=== PATIENT | male | born 1965 | race Caucasian/White ===

== ENCOUNTER → 2016-07-21 | Outpatient (CLI) | payer OTHER ==
--- NOTE | 2016-07-21 20:40 | MR ---
EXAMINATION TYPE: MR brain wo con DATE OF EXAM: 07/21/2016 5:28 PM COMPARISON: NONE HISTORY: Headache per order. pt. fell 30 years ago, hx of being dizzy and hearing loss on Right side per patient. TECHNIQUE: Multiplanar, multisequence imaging of the brain and brainstem are all performed without IV contrast. FINDINGS: Exam is noted suboptimal as patient continue to follow sleep and moved when not sleeping, cervical spine imaging could not be performed in entirety and will be repeated at later date. BRAIN: Diffusion weighted images demonstrate no evidence of a recent infarct or other diffusion abnormality. There is no extraaxial fluid collection or significant white matter signal abnormality. There is vent ricular and sulcal prominence consistent with mild age-related cerebral atrophy.. Midline structures demonstrate normal morphology. The craniocervical junction appears within normal limits. Normal vascular flow voids are present. Dominant left vertebral artery is incidentally noted. Mild to moderate mucosal thickening involving anterior left ethmoid sinus is present otherwise paran everett sinuses are clear. The globes are intact bilaterally. No suspicious fluid signal mastoid air micki ls is present bilaterally. IMPRESSION: Suboptimal study, mild diffuse age-related cerebral atrophy is seen. Chronic left anterio r ethmoid sinus disease is noted.
== END | disposition home or self-care (01) ==
LOC: RADMRIMAIN 14:46
PROVIDERS: ATTEND Nurse Practitioner Acute Care
DX: G31.1 Senile degeneration of brain, not elsewhere classified (principal); M54.2 Cervicalgia
CPT/HCPCS: 70551

== ENCOUNTER 2018-02-26 16:51 | Emergency (ER) | payer OTHER ==
[2018-02-26 17:33] VITALS: BP 141/92; PULSE 95; RESP 18; TEMP 98.3
--- NOTE | 2018-02-26 17:56 | XR ---
EXAMINATION TYPE: XR hand complete RT DATE OF EXAM: 02/26/2018 COMPARISON: NONE HISTORY: Pain TECHNIQUE: 3 views FINDINGS: Metacarpals appear intact. I see no fracture nor dislocation. There is soft tissue swelling over the dorsum of the hand. There is some spurring at the IP joints. IMPRESSION: Minor degenerative changes. Soft tissue swelling. No fracture seen.
--- NOTE | 2018-02-26 18:21 | ED ---
General Adult HPI - General Chief complaint: Extremity Injury, Upper Stated complaint: rt hand injury Time Seen by Provider: 02/26/18 17:38 Source: patient, RN notes reviewed Mode of arrival: ambulatory Limitations: no limitations - History of Present Illness Initial comments: Patient 53-year-old presenting to the emergency room today with chief complaint of an injury to the right hand that occurred 2 days ago. Patient does admit that he punched a porch. He does not that his had swelling over the last 2 days which has improved some but it still painful with certain movements. Patient does admit to being right-handed. He denies any other injury or complaint. Patient denies any recent fever, chills, shortness of breath, chest pain, back pain, abdominal pain, nausea or vomiting, numbness or tingling, headaches or visual changes, or any other complaints. - Related Data Home Medications Medication Instructions Recorded Confirmed Bisoprolol-Hctz 5-6.25 mg [Ziac 1 tab PO DAILY 02/26/18 02/26/18 5-6.25] Escitalopram [Lexapro] 20 mg PO DAILY 02/26/18 02/26/18 Ipratropium-Albuterol Nebulize 3 ml INHALATION RT-Q6H PRN 02/26/18 02/26/18 [Duoneb 0.5 mg-3 mg/3 ml Soln] Methylphenidate HCl 20 mg PO DAILY 02/26/18 02/26/18 Ranitidine HCl 300 mg PO HS 02/26/18 02/26/18 Simvastatin [Zocor] 20 mg PO HS 02/26/18 02/26/18 Tamsulosin HCl [Flomax] 0.4 mg PO DAILY 02/26/18 02/26/18 traZODone HCL 50 mg PO HS 02/26/18 02/26/18 Allergies Allergy/AdvReac Type Severity Reaction Status Date / Time No Known Allergies Allergy Verified 02/26/18 17:52 Review of Systems ROS Statement: Those systems with pertinent positive or pertinent negative responses have been documented in the HPI. ROS Other: All systems not noted in ROS Statement are negative. Past Medical History Past Medical History: Asthma, COPD, GERD/Reflux, Hyperlipidemia, Hypertension, Osteoarthritis (OA) Additional Past Medical History / Comment(s): BACK AND HIP PAIN, DIFFICULTY WALKING DISTANCE., HX OF ULCERS AND BLOOD IN STOOL. History of Any Multi-Drug Resistant Organisms: None Reported Past Surgical History: Hernia Repair Additional Past Surgical History / Comment(s): HERNIA REPAIR AT 5 & 7 YEARS OLD. Past Anesthesia/Blood Transfusion Reactions: No Reported Reaction Additional Past Anesthesia/Blood Transfusion Reaction / Comment(s): DOES NOT REMEMBER ANY ANESTHESIA PROBLEMS A CHILD. Past Psychological History: No Psychological Hx Reported Smoking Status: Current every day smoker Past Alcohol Use History: Daily Past Drug Use History: None Reported - Past Family History Mother Family Medical History: No Reported History General Exam - General Exam Comments Initial Comments: General: The patient is awake and alert, in no distress, and does not appear acutely ill. Neck: The neck is supple, there is no tenderness or JVD. Musculoskeletal: Patient does have moderate swelling to the right hand. Shows good range of motion with flexion and extension. He does have some mild tenderness over the third digit and in the fourth and fifth metacarpal bones. Patient sensations are intact. Radial pulses 2+. Neurological: A&O x 3. CN II-XII intact, There are no obvious motor or sensory deficits. Coordination appears grossly intact. Speech is normal. Skin: Skin is warm and dry and no rashes or lesions are noted. Psychiatric: Normal mood and affect. Limitations: no limitations Course Vital Signs 02/26/18 17:31 Temperature 98.3 F Pulse Rate 95 Respiratory 18 Rate Blood Pressure 141/92 O2 Sat by Pulse 98 Oximetry Medical Decision Making - Medical Decision Making X-rays reviewed are negative for any acute fracture dislocation. Results were discussed with patient. Patient is advised to ice elevate and use ibuprofen for pain. He is advised follow-up with orthopedics over the next 7-10 days if symptoms persist for repeat x-ray. Patient states understanding and is in agreement. Disposition Clinical Impression: Hand contusion Disposition: HOME SELF-CARE Condition: Good Instructions: Hand Sprain (ED) Additional Instructions: Please continue ice elevate the affected area and follow-up with orthopedics in 7-10 days if symptoms persist for repeat x-rays. Please continue ibuprofen for pain and return to the emergency room for any other concerns. Is patient prescribed a controlled substance at d/c from ED?: No Referrals: Mariana Nesbitt MD [Primary Care Provider] - 1-2 days Tom Mariano DO [Doctor of Osteopathic Medicine] - 1-2 days Time of Disposition: 18:20
== END 2018-02-26 18:47 | disposition home or self-care (01) ==
LOC: EC 16:51
DX: S60.221A Contusion of right hand, initial encounter (principal); J44.9 Chronic obstructive pulmonary disease, unspecified; K21.9 Gastro-esophageal reflux disease without esophagitis; E78.5 Hyperlipidemia, unspecified; I10 Essential (primary) hypertension; M19.90 Unspecified osteoarthritis, unspecified site; F17.200 Nicotine dependence, unspecified, uncomplicated; Z79.899 Other long term (current) drug therapy; W22.8XXA Striking against or struck by other objects, initial encounter
CPT/HCPCS: 99283

== ENCOUNTER → 2020-04-16 | Outpatient (CLI) | payer OTHER ==
--- NOTE | 2020-04-16 14:11 | XR ---
EXAMINATION TYPE: XR chest 2V DATE OF EXAM: 04/16/2020 COMPARISON: NONE HISTORY: Cough and shortness of breath TECHNIQUE: Frontal and lateral views of the chest are obtained. FINDINGS: There is no focal air space opacity, pleural effusion, or pneumothorax seen. The anterior rib margin of the fifth rib on the right there is questionable nodular density. Prominent lung volume s with increased gestational airspace is present, there may be underlying COPD. The cardiac silhouett e size is within normal limits. Bronchial wall thickening. The osseous structures are intact there i s a spinal curvature.. IMPRESSION: Difficult to exclude lung nodule although findings may be artifactual. Consider short in terval follow-up. Correlate for underlying COPD, bronchitis.
== END | disposition home or self-care (01) ==
LOC: LABWHC1 13:44
PROVIDERS: ATTEND Internal Medicine
DX: R91.1 Solitary pulmonary nodule (principal); R05 Cough; R06.02 Shortness of breath
CPT/HCPCS: 71046

== ENCOUNTER 2023-04-21 13:20 | Emergency (ER) | payer OTHER ==
--- NOTE | 2023-04-21 14:17 | ED ---
General Adult HPI - General Chief complaint: Neuro Symptoms/Deficit Stated complaint: Facial weakness Time Seen by Provider: 04/21/23 13:40 Source: patient, RN notes reviewed Mode of arrival: wheelchair Limitations: no limitations - History of Present Illness Initial comments: Patient is a pleasant 58-year-old male presenting to the emergency department with concerns for facial weakness. Onset of symptoms was 05/07 when he woke in the morning. Symptoms have been persistent since that time. Patient has right- sided facial weakness. Patient states it is difficult to fully open and close his right eye. Patient states it does tear at times. Patient states occasionally there is some drooling from the right side of the mouth. No extremity weakness. No visual changes. No confusion or speech problem other than difficulty with mouth. - Related Data Home Medications Medication Instructions Recorded Confirmed Bisoprolol-Hctz 5-6.25 mg [Ziac 1 tab PO DAILY 02/26/18 02/26/18 5-6.25] Escitalopram [Lexapro] 20 mg PO DAILY 02/26/18 02/26/18 Ipratropium-Albuterol Nebulize 3 ml INHALATION RT-Q6H PRN 02/26/18 02/26/18 [Duoneb 0.5 mg-3 mg/3 ml Soln] Methylphenidate HCl 20 mg PO DAILY 02/26/18 02/26/18 Simvastatin [Zocor] 20 mg PO HS 02/26/18 02/26/18 Tamsulosin HCl [Flomax] 0.4 mg PO DAILY 02/26/18 02/26/18 raNITIdine HCL [Ranitidine HCl] 300 mg PO HS 02/26/18 02/26/18 traZODone HCL 50 mg PO HS 02/26/18 02/26/18 Previous Rx's Medication Instructions Recorded Ibuprofen [Motrin] 600 mg PO Q6HR PRN #40 day 02/26/18 predniSONE [Deltasone] 3 tab PO DAILY #21 tab 04/21/23 valACYclovir HCL [Valtrex] 1 tab PO TID #21 tablet 04/21/23 Allergies Allergy/AdvReac Type Severity Reaction Status Date / Time No Known Allergies Allergy Verified 04/21/23 13:22 Review of Systems ROS Statement: Those systems with pertinent positive or pertinent negative responses have been documented in the HPI. ROS Other: All systems not noted in ROS Statement are negative. Constitutional: Denies: fever Eyes: Reports: as per HPI. Denies: eye pain ENT: Denies: ear pain Respiratory: Denies: cough, dyspnea Cardiovascular: Denies: chest pain Endocrine: Denies: fatigue Gastrointestinal: Denies: abdominal pain Genitourinary: Denies: dysuria Musculoskeletal: Denies: back pain Skin: Denies: rash Neurological: Reports: as per HPI. Denies: headache, confusion, abnormal gait, vertigo Past Medical History Past Medical History: Asthma, COPD, GERD/Reflux, Hyperlipidemia, Hypertension, Osteoarthritis (OA) Additional Past Medical History / Comment(s): BACK AND HIP PAIN, DIFFICULTY WALKING DISTANCE., HX OF ULCERS AND BLOOD IN STOOL. History of Any Multi-Drug Resistant Organisms: None Reported Past Surgical History: Hernia Repair Additional Past Surgical History / Comment(s): HERNIA REPAIR AT 5 & 7 YEARS OLD. Past Anesthesia/Blood Transfusion Reactions: No Reported Reaction Additional Past Anesthesia/Blood Transfusion Reaction / Comment(s): DOES NOT REMEMBER ANY ANESTHESIA PROBLEMS A CHILD. Past Psychological History: No Psychological Hx Reported Smoking Status: Current every day smoker Past Alcohol Use History: Daily Past Drug Use History: Marijuana - Past Family History Mother Family Medical History: No Reported History General Exam Limitations: no limitations General appearance: alert, in no apparent distress Head exam: Present: atraumatic Eye exam: Present: normal appearance, PERRL, EOMI ENT exam: Present: normal oropharynx Neck exam: Present: normal inspection Respiratory exam: Present: normal lung sounds bilaterally Cardiovascular Exam: Present: regular rate, normal rhythm GI/Abdominal exam: Present: soft. Absent: tenderness Extremities exam: Present: normal inspection Neurological exam: Present: alert, oriented X3 Expanded Neurological exam: Present: protecting the airway Patient oriented to: Present: person, place, time Cranial nerves: EOM's Intact: Normal, Facial Sensation: Normal, Facial Palsy without Forehead Movement: Abnormal Right (Right forehead and eyelid weakness) Sensory exam: Upper Extremity Light Touch: Normal, Lower Extremity Light Touch: Normal Motor strength exam: RUE: 5, LUE: 5, RLE: 5, LLE: 5 Eye Response: (4) open spontaneously Motor Response: (6) obeys commands Verbal Response: (5) oriented Psychiatric exam: Present: normal affect, normal mood Skin exam: Present: normal color Course Vital Signs 04/21/23 13:22 Temperature 97.9 F Pulse Rate 93 Respiratory 18 Rate Blood Pressure 154/79 O2 Sat by Pulse 98 Oximetry EKG Findings - EKG Results: EKG: interpreted by ALYD (Left axis.), sinus rhythm, normal QRS, normal ST/T Medical Decision Making - Medical Decision Making Was pt. sent in by a medical professional or institution (, PA, UI SOFTWARE ENGINEER, urgent care, hospital, or [facility]...) When possible be specific @ -No Did you speak to anyone other than the patient for history (EMS, parent, family, police, friend...)? What history was obtained from this source @ -No Did you review nursing and triage notes (agree or disagree)? Why? @ -I reviewed and agree with nursing and triage notes Were old charts reviewed (outside hosp., previous admission, EMS record, old EKG, old radiological studies, urgent care reports/EKG's, [facility] records)? Report findings @ -No old charts were reviewed Differential Diagnosis (chest pain, altered mental status, abdominal pain women, abdominal pain men, vaginal bleeding, weakness, fever, dyspnea, syncope, headache, dizziness, GI bleed, back pain, seizure, CVA, palpatations, mental health, musculoskeletal)? @ -Differential Weakness: Hypoglycemia, shock, sepsis, hyponatremia, anemia, infection, ME, ETOH, adverse medicine reaction, overdose, stroke, this is not meant to be an all-inclusive list. EKG interpreted by me (3pts min.). @ -As above X-rays interpreted by me (1pt min.). @ -None done CT interpreted by me (1pt min.). @ -None done U/S interpreted by me (1pt. min.). @ -None done What testing was considered but not performed or refused? (CT, X-rays, U/S, labs)? Why? @ -Considered imaging for weakness however patient has clear-cut history and exam consistent with Burns's palsy What meds were considered but not given or refused? Why? @ -Patient does have Burns's palsy 11 days out. Consideration whether or not to provide antivirals and steroids. Did you discuss the management of the patient with other professionals (professionals i.e. , MARS, UI SOFTWARE ENGINEER, lab, RT, psych nurse, dialysis social worker, forge press operator, teacher, major gifts officer, briefcase sewer)? Give summary @ -No Was smoking cessation discussed for >3mins.? @ -No Was critical care preformed (if so, how long)? @ -No Were there social determinants of health that impacted care today? How? ([place] elessness, low income, unemployed, alcoholism, drug addiction, transportation, low edu. Level, literacy, decrease access to med. care, longterm, rehab)? @ -No Was there de-escalation of care discussed even if they declined (Discuss DNR or withdrawal of care, Hospice)? DNR status @ -No What co-morbidities impacted this encounter? (DM, HTN, Smoking, COPD, CAD, Cancer, CVA, ARF, Chemo, Hep., AIDS, mental health diagnosis, sleep apnea, morbid obesity)? @ -None Was patient admitted / discharged? Hospital course, mention meds given and route, prescriptions, significant lab abnormalities, going to OR and other pertinent info. @ -Patient presents with Burns's palsy. Patient updated on results and plan. Consideration whether or not to have antivirals and steroids. Patient would like to have him in is reasonable to give him a trial for this. Patient advised of need for follow-up. Undiagnosed new problem with uncertain prognosis? @ -No Drug Therapy requiring intensive monitoring for toxicity (Heparin, Nitro, Insulin, Cardizem)? @ -No Were any procedures done? @ -No Diagnosis/symptom? @ -Burns's palsy Acute, or Chronic, or Acute on Chronic? @ -Acute Uncomplicated (without systemic symptoms) or Complicated (systemic symptoms)? @ -default Side effects of treatment? @ -No Exacerbation, Progression, or Severe Exacerbation? @ -No Poses a threat to life or bodily function? How? (Chest pain, USA, ME, pneumonia, PE, COPD, DKA, ARF, appy, cholecystitis, CVA, Diverticulitis, Homicidal, Suicidal, threat to staff... and all critical care pts) @ -No Disposition Clinical Impression: Burns's palsy Disposition: HOME SELF-CARE Condition: Stable Instructions (If sedation given, give patient instructions): Burns Palsy (ED) Additional Instructions: Prescriptions sent to pharmacy. Please do follow-up with your primary care physician in the next one or 2 days for recheck. Lubricating eyedrops to the right eye 4 times daily and prior to going to sleep. Tape right eye shut at nighttime. Return for speech problems, confusion, extremity problems, worsening or changing symptoms or other concerns. Prescriptions: predniSONE [Deltasone] 3 tab PO DAILY #21 tab valACYclovir HCL [Valtrex] 1 tab PO TID #21 tablet Is patient prescribed a controlled substance at d/c from ED?: No Referrals: Mariana Nesbitt MD [Primary Care Provider] - 1-2 days Time of Disposition: 14:18
[2023-04-21 15:20] VITALS: BP 138/78; PULSE 78; RESP 16; TEMP 98.2
== END 2023-04-21 14:58 | disposition home or self-care (01) ==
LOC: EC 13:20
DX: G51.0 Bell's palsy (principal); J44.89 Other specified chronic obstructive pulmonary disease; K21.9 Gastro-esophageal reflux disease without esophagitis; E78.5 Hyperlipidemia, unspecified; I10 Essential (primary) hypertension; M19.90 Unspecified osteoarthritis, unspecified site; F17.200 Nicotine dependence, unspecified, uncomplicated; F12.90 Cannabis use, unspecified, uncomplicated; Z79.899 Other long term (current) drug therapy
CPT/HCPCS: 93005; 99284

== ENCOUNTER → 2023-05-14 | Outpatient (CLI) | payer OTHER ==
--- NOTE | 2023-05-14 14:43 | CT ---
EXAMINATION TYPE: CT chest w con DATE OF EXAM: 05/14/2023 COMPARISON: Chest x-ray April 16, 2020 HISTORY: Abn CXR CT DLP: 487 mGycm. Automated Exposure Control for Dose Reduction was Utilized. TECHNIQUE: CT scan of the thorax is performed following with IV Contrast, patient injected with 100 mL of Isovue 300. FINDINGS: LUNGS: The lungs are grossly clear, there is no concerning parenchymal mass or nodule identified. T here is no pleural effusion or pneumothorax seen. The tracheobronchial tree is patent. MEDIASTINUM: There are no greater than 1 cm hilar or mediastinal lymph nodes. Small to tiny anterior pericardial effusion is seen. No cardiomegaly. Coronary artery catheter location is present which is noted marked underlying coronary artery disease OTHER: Incidental 1.5 cm thin-walled cyst in the right kidney axial image 67. There is diffuse athero sclerotic change with severe findings in the infrarenal abdominal aorta partially imaged. IMPRESSION: 1. No suspicious pulmonary nodules or masses. 2. Severe mixed plaque in the infrarenal abdominal aorta causes significant stenosis. Correlate for b ilateral lower extremity radiculopathy type symptoms. Further workup and follow-up advised.
== END | disposition home or self-care (01) ==
LOC: RADCTMAIN 12:27
PROVIDERS: ATTEND Internal Medicine
DX: I70.0 Atherosclerosis of aorta (principal); R22.2 Localized swelling, mass and lump, trunk
CPT/HCPCS: 71260; Q9967

== ENCOUNTER 2023-06-07 11:19 | Emergency (ER) | payer OTHER ==
--- NOTE | 2023-06-07 12:59 | ED ---
General Adult HPI - General Chief complaint: Extremity Injury, Lower Stated complaint: Feet swelling Time Seen by Provider: 06/07/23 11:33 Source: patient, RN notes reviewed Mode of arrival: wheelchair Limitations: no limitations - History of Present Illness Initial comments: 58-year-old male presents to the emergency department for evaluation of bilate ral lower extremity pain, redness, swelling. He states that his been going on for around one month. He has had a nerve stimulation study done about 2 weeks ago and was told that he had neuropathy. He states that the pain is worse with walking long distance. He admits to redness in his lower extremities which is worse when his legs are hanging. Denies fever, chills, nausea, vomiting. - Related Data Home Medications Medication Instructions Recorded Confirmed Bisoprolol-Hctz 5-6.25 mg [Ziac 1 tab PO DAILY 02/26/18 04/21/23 5-6.25] Escitalopram [Lexapro] 20 mg PO DAILY 02/26/18 04/21/23 Methylphenidate HCl 20 mg PO BID 02/26/18 04/21/23 Tamsulosin HCl [Flomax] 0.4 mg PO HS 02/26/18 04/21/23 Albuterol Nebulized [Ventolin 2.5 mg INHALATION RT-TID PRN 04/21/23 04/21/23 Nebulized] Butalb/APAP/Caff 50-325-40Mg 1 tab PO DAILY PRN 04/21/23 04/21/23 [Fioricet 50-325-40] Escitalopram [Lexapro] 10 mg PO HS 04/21/23 04/21/23 Famotidine [Pepcid] 20 mg PO BID 04/21/23 04/21/23 Naloxone HCl [Narcan] 4 mg NASAL DIRECTED PRN 04/21/23 04/21/23 lisinopriL [Zestril] 20 mg PO BID 04/21/23 04/21/23 oxyCODONE-APAP 7.5-325MG [Percocet 1 tab PO TID 04/21/23 04/21/23 7.5-325 mg] Previous Rx's Medication Instructions Recorded predniSONE [Deltasone] 3 tab PO DAILY #21 tab 04/21/23 valACYclovir HCL [Valtrex] 1 tab PO TID #21 tablet 04/21/23 Allergies Allergy/AdvReac Type Severity Reaction Status Date / Time No Known Allergies Allergy Verified 06/07/23 11:32 Review of Systems ROS Statement: Those systems with pertinent positive or pertinent negative responses have been documented in the HPI. ROS Other: All systems not noted in ROS Statement are negative. Past Medical History Past Medical History: Asthma, COPD, GERD/Reflux, Hyperlipidemia, Hypertension, Osteoarthritis (OA) Additional Past Medical History / Comment(s): BACK AND HIP PAIN, DIFFICULTY WALKING DISTANCE., HX OF ULCERS AND BLOOD IN STOOL. History of Any Multi-Drug Resistant Organisms: None Reported Past Surgical History: Hernia Repair Additional Past Surgical History / Comment(s): HERNIA REPAIR AT 5 & 7 YEARS OLD. Past Anesthesia/Blood Transfusion Reactions: No Reported Reaction Additional Past Anesthesia/Blood Transfusion Reaction / Comment(s): DOES NOT REMEMBER ANY ANESTHESIA PROBLEMS A CHILD. Past Psychological History: No Psychological Hx Reported Smoking Status: Current every day smoker Past Alcohol Use History: Daily Past Drug Use History: Marijuana - Past Family History Mother Family Medical History: No Reported History General Exam Limitations: no limitations General appearance: alert, in no apparent distress Head exam: Present: atraumatic, normocephalic, normal inspection Eye exam: Present: normal appearance, PERRL, EOMI. Absent: scleral icterus, conjunctival injection, periorbital swelling ENT exam: Present: normal exam Neck exam: Present: normal inspection. Absent: tenderness, meningismus, lymphadenopathy Respiratory exam: Present: normal lung sounds bilaterally. Absent: respiratory distress, wheezes, rales, rhonchi, stridor Cardiovascular Exam: Present: regular rate, normal rhythm, normal heart sounds. Absent: systolic murmur, diastolic murmur, rubs, gallop, clicks Extremities exam: Present: full ROM, tenderness, other (Dependent rubor to distal lower extremities, Refill sluggish, distal pulses present and equal bilaterally). Absent: normal capillary refill Back exam: Present: normal inspection Neurological exam: Present: alert, oriented X3 Psychiatric exam: Present: normal affect, normal mood Skin exam: Present: dry. Absent: normal color Course Vital Signs 06/07/23 06/07/23 11:29 15:15 Temperature 97.8 F 98.8 F Pulse Rate 108 H 79 Respiratory 18 16 Rate Blood Pressure 184/87 174/79 O2 Sat by Pulse 96 97 Oximetry Medical Decision Making - Medical Decision Making Was pt. sent in by a medical professional or institution (, [place], [facility], urgent care, hospital, or [facility]...) When possible be specific @ -No Did you speak to anyone other than the patient for history (EMS, parent, family, police, friend...)? What history was obtained from this source @ -No Did you review nursing and triage notes (agree or disagree)? Why? @ -I reviewed and agree with nursing and triage notes Were old charts reviewed (outside hosp., previous admission, EMS record, old EKG, old radiological studies, urgent care reports/EKG's, [facility] records)? Report findings @ -No old charts were reviewed Differential Diagnosis (chest pain, altered mental status, abdominal pain women, abdominal pain men, vaginal bleeding, weakness, fever, dyspnea, syncope, headache, dizziness, GI bleed, back pain, seizure, CVA, palpatations, mental health, musculoskeletal)? @ -Differential Musculoskeletal Muscular strain, contusion, ligament sprain, fracture, arthritis, septic arthritis, bursitis, cellulitis, muscle spasm, nerve compression, DVT, arterial occlusion, herpes zoster, electrolyte abnormality, tumor.... This is not meant to be in all inclusive list EKG interpreted by me (3pts min.). @ -none X-rays interpreted by me (1pt min.). @ -None done CT interpreted by me (1pt min.). @ -None done U/S interpreted by me (1pt. min.). @ -None done What testing was considered but not performed or refused? (CT, X-rays, U/S, labs)? Why? @ -None What meds were considered but not given or refused? Why? @ -None Did you discuss the management of the patient with other professionals (professionals i.e. , [place], [facility], lab, RT, psych nurse, social science teacher, monogram operator, teacher, branch officer, case mgr)? Give summary @ -No Was smoking cessation discussed for >3mins.? @ -No Was critical care preformed (if so, how long)? @ -No Were there social determinants of health that impacted care today? How? (Homelessness, low income, unemployed, alcoholism, drug addiction, transportation, low edu. Level, literacy, decrease access to med. care, skilled nursing, rehab)? @ -No Was there de-escalation of care discussed even if they declined (Discuss DNR or withdrawal of care, Hospice)? DNR status @ -No What co-morbidities impacted this encounter? (DM, HTN, Smoking, COPD, CAD, Cancer, CVA, ARF, Chemo, Hep., AIDS, mental health diagnosis, sleep apnea, morbid obesity)? @ -None Was patient admitted / discharged? Hospital course, mention meds given and route, prescriptions, significant lab abnormalities, going to OR and other pertinent info. @ -Discharged. Patient presented to the emergency department with chief complaint of bilateral lower extremity pain, swelling, redness. Patient appears to have dependent rubor with sluggish cap refill, distal pulses present and equal bilaterally. Symptoms are admissions representative of peripheral artery disease. Patient has not had any new injury. No evidence of ischemic limb at this time Laboratory studies obtained. CBC shows WBC 12.6, hemoglobin 13.9; ; coagulation studies within normal limits; lactic acid 0.9; CMP otherwise unremarkable. CT findings with patient and he would like to be discharged home. Advised patient to follow up with primary care provider and vascular surgery. Patient stable at time of discharge. Case discussed with Dr. Lisa Undiagnosed new problem with uncertain prognosis? @ -No Drug Therapy requiring intensive monitoring for toxicity (Heparin, Nitro, Insulin, Cardizem)? @ -No Were any procedures done? @ -No Diagnosis/symptom? @ -PAD Acute, or Chronic, or Acute on Chronic? @ -acute Uncomplicated (without systemic symptoms) or Complicated (systemic symptoms)? @ -uncomplicated Side effects of treatment? @ -No Exacerbation, Progression, or Severe Exacerbation? @ -No Poses a threat to life or bodily function? How? (Chest pain, [place], [place], pneumonia, PE, COPD, DKA, ARF, appy, cholecystitis, CVA, Diverticulitis, Homicidal, Suicidal, threat to staff... and all critical care pts) @ -No - Lab Data Result diagrams: 06/07/23 13:00 06/07/23 13:00 Lab Results 06/07/23 06/07/23 06/07/23 Range/Units 13:00 13:00 13:00 WBC 12.6 H (3.8-10.6) k/uL RBC 4.21 L (4.30-5.90) m/uL Hgb 13.9 (13.0-17.5) gm/dL Hct 41.3 (39.0-53.0) % MCV 98.1 (80.0-100.0) fL MCH 33.0 (25.0-35.0) pg MCHC 33.6 (31.0-37.0) g/dL RDW 12.9 (11.5-15.5) % Plt Count 236 (150-450) k/uL MPV 8.6 Neutrophils % 71 % Lymphocytes % 19 % Monocytes % 7 % Eosinophils % 2 % Basophils % 0 % Neutrophils # 8.9 H (1.3-7.7) k/uL Lymphocytes # 2.4 (1.0-4.8) k/uL Monocytes # 0.9 (0-1.0) k/uL Eosinophils # 0.2 (0-0.7) k/uL Basophils # 0.0 (0-0.2) k/uL PT 53.3 H (10.0-12.5) sec INR 5.4 H* (<1.2) APTT >200.0 H* (22.0-30.0) sec Sodium 135 L (137-145) mmol/L Potassium 4.2 (3.5-5.1) mmol/L Chloride 100 (98-107) mmol/L Carbon Dioxide 26 (22-30) mmol/L Anion Gap 9 mmol/L BUN 17 (9-20) mg/dL Creatinine 0.77 (0.66-1.25) mg/dL Est GFR (CKD-EPI)AfAm >90 (>60 ml/min/1.73 sqM) Est GFR (CKD-EPI)NonAf >90 (>60 ml/min/1.73 sqM) Glucose 95 (74-99) mg/dL Plasma Lactic Acid Wolf (0.7-2.0) mmol/L Calcium 9.1 (8.4-10.2) mg/dL Total Bilirubin 0.4 (0.2-1.3) mg/dL AST 21 (17-59) U/L ALT 16 (4-49) U/L Alkaline Phosphatase 76 (38-126) U/L Total Protein 7.5 (6.3-8.2) g/dL Albumin 4.3 (3.5-5.0) g/dL 06/07/23 06/07/23 Range/Units 13:00 14:05 WBC (3.8-10.6) k/uL RBC (4.30-5.90) m/uL Hgb (13.0-17.5) gm/dL Hct (39.0-53.0) % MCV (80.0-100.0) fL MCH (25.0-35.0) pg MCHC (31.0-37.0) g/dL RDW (11.5-15.5) % Plt Count (150-450) k/uL MPV Neutrophils % % Lymphocytes % % Monocytes % % Eosinophils % % Basophils % % Neutrophils # (1.3-7.7) k/uL Lymphocytes # (1.0-4.8) k/uL Monocytes # (0-1.0) k/uL Eosinophils # (0-0.7) k/uL Basophils # (0-0.2) k/uL PT 10.1 (10.0-12.5) sec INR 0.9 (<1.2) APTT 25.4 (22.0-30.0) sec Sodium (137-145) mmol/L Potassium (3.5-5.1) mmol/L Chloride (98-107) mmol/L Carbon Dioxide (22-30) mmol/L Anion Gap mmol/L BUN (9-20) mg/dL Creatinine (0.66-1.25) mg/dL Est GFR (CKD-EPI)AfAm (>60 ml/min/1.73 sqM) Est GFR (CKD-EPI)NonAf (>60 ml/min/1.73 sqM) Glucose (74-99) mg/dL Plasma Lactic Acid Wolf 0.9 (0.7-2.0) mmol/L Calcium (8.4-10.2) mg/dL Total Bilirubin (0.2-1.3) mg/dL AST (17-59) U/L ALT (4-49) U/L Alkaline Phosphatase (38-126) U/L Total Protein (6.3-8.2) g/dL Albumin (3.5-5.0) g/dL Disposition Clinical Impression: Dependent rubor, Peripheral arterial disease Disposition: HOME SELF-CARE Condition: Stable Instructions (If sedation given, give patient instructions): Peripheral Artery Disease (ED) Additional Instructions: Please follow up with your primary care provider and vascular surgery. Return to the emergency department for new or worsening symptoms. Is patient prescribed a controlled substance at d/c from ED?: No Referrals: Mariana Nesbitt MD [Primary Care Provider] - 1-2 days Harrison Syed DO [STAFF PHYSICIAN] - 1-2 days
[2023-06-07 13:33] LABS: ALT 16 U/L (4-49); AST 21 U/L (17-59); African American GFR (CKD) >90 (>60 ml/min/1.73 sqM); Albumin 4.3 g/dL (3.5-5.0); Alkaline Phosphatase 76 U/L (38-126); Anion Gap 9 mmol/L; Blood Urea Nitrogen 17 mg/dL (9-20); Calcium 9.1 mg/dL (8.4-10.2); Carbon Dioxide 26 mmol/L (22-30); Chloride 100 mmol/L (98-107); Glucose 95 mg/dL (74-99); Non-African American GFR(CKD) >90 (>60 ml/min/1.73 sqM); Potassium 4.2 mmol/L (3.5-5.1); Sodium 135 mmol/L (137-145); Total Bilirubin 0.4 mg/dL (0.2-1.3); Total Protein 7.5 g/dL (6.3-8.2)
[2023-06-07 13:39] LABS: Basophils % (A) 0 %; Eosinophils # (A) 0.2 k/uL (0-0.7); Eosinophils % (A) 2 %; HCT 41.3 % (39.0-53.0); HGB 13.9 gm/dL (13.0-17.5); Lymphocytes # (A) 2.4 k/uL (1.0-4.8); Lymphocytes % (A) 19 %; MCHC 33.6 g/dL (31.0-37.0); MCV 98.1 fL (80.0-100.0); Mean Platelet Volume 8.6; Monocytes # (A) 0.9 k/uL (0-1.0); Monocytes % (A) 7 %; Neutrophils # (A) 8.9 k/uL (1.3-7.7); Neutrophils % (A) 71 %; Platelet Count 236 k/uL (150-450); RBC 4.21 m/uL (4.30-5.90); RDW 12.9 % (11.5-15.5); WBC 12.6 k/uL (3.8-10.6)
[2023-06-07 14:40] LABS: INR 0.9 (<1.2); Partial Thromboplastin Time 25.4 sec (22.0-30.0); Prothrombin Time 10.1 sec (10.0-12.5)
[2023-06-07 14:54] LABS: INR 5.4 (<1.2)
[2023-06-07 14:56] LABS: Partial Thromboplastin Time >200.0 sec (22.0-30.0)
[2023-06-07 14:58] LABS: Prothrombin Time 53.3 sec (10.0-12.5)
[2023-06-07 15:28] VITALS: BP 174/79; PULSE 79; RESP 16; TEMP 98.8
== END 2023-06-07 15:22 | disposition home or self-care (01) ==
LOC: EC 11:19
DX: I99.8 Other disorder of circulatory system (principal); I73.9 Peripheral vascular disease, unspecified; J44.89 Other specified chronic obstructive pulmonary disease; I10 Essential (primary) hypertension; M19.90 Unspecified osteoarthritis, unspecified site; F12.90 Cannabis use, unspecified, uncomplicated; F17.200 Nicotine dependence, unspecified, uncomplicated; Z79.899 Other long term (current) drug therapy
CPT/HCPCS: 36415; 80053; 83605; 85025; 85610; 85730; 99283

== ENCOUNTER → 2023-07-06 | Outpatient (CLI) | payer OTHER ==
--- NOTE | 2023-07-06 09:37 | US ---
EXAMINATION TYPE: US abdomen limited DATE OF EXAM: 07/06/2023 COMPARISON: NONE CLINICAL INDICATION: Male, 58 years old with history of K46.9 UNSPECIFIED ABDOMINAL HERNIA WITHOUT OB STRUC; Patient states he has had hernias in the past but is not presenting with any new symptoms or c oncerns per patient. Assess for hernia at location of: Bilateral spigelian regions, umbilical region, and epigastric kayla on. No abnormalities noted at any of the above regions within the abdominal wall. IMPRESSION: No discrete abnormality seen. Images of the contralateral side were also acquired for direct comparison.
== END | disposition home or self-care (01) ==
LOC: RADUSWWP 08:52
PROVIDERS: ATTEND Internal Medicine
DX: K46.9 Unspecified abdominal hernia without obstruction or gangrene (principal)
CPT/HCPCS: 76705

== ENCOUNTER 2023-08-16 16:53 | Emergency (ER) | payer OTHER ==
--- NOTE | 2023-08-16 17:55 | ED ---
Extremity Problem HPI - General Chief complaint: Extremity Problem,Nontraumatic Stated complaint: Feet Pain Time Seen by Provider: 08/16/23 17:14 Source: patient Mode of arrival: ambulatory Limitations: no limitations - History of Present Illness Initial comments: 58-year-old male presenting with chief complaint of swelling and redness to the bilateral feet. This has been ongoing since April. Patient states that he has seen his PCP regarding this issue, states that he has been on a few rounds of antibiotics which has not improved the problem. He was seen in our ER back in May regarding this problem. He was determined to have peripheral vascular disease and dependent rubor, he was instructed to follow-up with vascular surgery. Patient states that he does not recall this and has not followed up with anyone else since this encounter. He has had no new injury or trauma. He does have history of neuropathy. No fevers or chills. No chest pain or difficulty breathing. - Related Data Home Medications Medication Instructions Recorded Confirmed Bisoprolol-Hctz 5-6.25 mg [Ziac 1 tab PO DAILY 02/26/18 04/21/23 5-6.25] Escitalopram [Lexapro] 20 mg PO DAILY 02/26/18 04/21/23 Methylphenidate HCl 20 mg PO BID 02/26/18 04/21/23 Tamsulosin HCl [Flomax] 0.4 mg PO HS 02/26/18 04/21/23 Albuterol Nebulized [Ventolin 2.5 mg INHALATION RT-TID PRN 04/21/23 04/21/23 Nebulized] Butalb/APAP/Caff 50-325-40Mg 1 tab PO DAILY PRN 04/21/23 04/21/23 [Fioricet 50-325-40] Escitalopram [Lexapro] 10 mg PO HS 04/21/23 04/21/23 Famotidine [Pepcid] 20 mg PO BID 04/21/23 04/21/23 Naloxone HCl [Narcan] 4 mg NASAL DIRECTED PRN 04/21/23 04/21/23 lisinopriL [Zestril] 20 mg PO BID 04/21/23 04/21/23 oxyCODONE-APAP 7.5-325MG [Percocet 1 tab PO TID 04/21/23 04/21/23 7.5-325 mg] Previous Rx's Medication Instructions Recorded predniSONE [Deltasone] 3 tab PO DAILY #21 tab 04/21/23 valACYclovir HCL [Valtrex] 1 tab PO TID #21 tablet 04/21/23 Allergies Allergy/AdvReac Type Severity Reaction Status Date / Time No Known Allergies Allergy Verified 08/16/23 17:01 Review of Systems ROS Statement: Those systems with pertinent positive or pertinent negative responses have been documented in the HPI. ROS Other: All systems not noted in ROS Statement are negative. Past Medical History Past Medical History: Asthma, COPD, GERD/Reflux, Hyperlipidemia, Hypertension, Osteoarthritis (OA) Additional Past Medical History / Comment(s): BACK AND HIP PAIN, DIFFICULTY WALKING DISTANCE., HX OF ULCERS AND BLOOD IN STOOL. History of Any Multi-Drug Resistant Organisms: None Reported Past Surgical History: Hernia Repair Additional Past Surgical History / Comment(s): HERNIA REPAIR AT 5 & 7 YEARS OLD. Past Anesthesia/Blood Transfusion Reactions: No Reported Reaction Additional Past Anesthesia/Blood Transfusion Reaction / Comment(s): DOES NOT REMEMBER ANY ANESTHESIA PROBLEMS A CHILD. Past Psychological History: No Psychological Hx Reported Smoking Status: Current every day smoker Past Alcohol Use History: Daily Past Drug Use History: Marijuana - Past Family History Mother Family Medical History: No Reported History General Exam Limitations: no limitations General appearance: alert, in no apparent distress Head exam: Present: atraumatic, normocephalic Eye exam: Present: normal appearance Neck exam: Present: normal inspection Respiratory exam: Absent: respiratory distress Cardiovascular Exam: Present: regular rate Extremities exam: Present: pedal edema (Bilateral dependent rubor. No discharge or weeping. Pulses are present bilaterally.) Neurological exam: Present: alert, oriented X3 Psychiatric exam: Present: normal affect, normal mood Skin exam: Present: warm, dry, erythema (Bilateral feet) Course Vital Signs 08/16/23 16:58 Temperature 98.8 F Pulse Rate 84 Respiratory 20 Rate Blood Pressure 185/80 O2 Sat by Pulse 99 Oximetry Medical Decision Making - Medical Decision Making Was pt. sent in by a medical professional or institution (, [place], [facility], urgent care, hospital, or [place] [facility]...) When possible be specific @ -No Did you speak to anyone other than the patient for history (EMS, parent, family, police, friend...)? What history was obtained from this source @ -No Did you review nursing and triage notes (agree or disagree)? Why? @ -I reviewed and agree with nursing and triage notes Were old charts reviewed (outside hosp., previous admission, EMS record, old EKG, old radiological studies, urgent care reports/EKG's, [place] [facility] records)? Report findings @ -Previous chest CT from May 2023 reviewed which showed severe mixed plaque in the infrarenal abdominal aorta causing significant stenosis. Previous ER visit from May 2023 shows that the patient was provided with vascular surgeon follow-up. Differential Diagnosis (chest pain, altered mental status, abdominal pain women, abdominal pain men, vaginal bleeding, weakness, fever, dyspnea, syncope, headache, dizziness, GI bleed, back pain, seizure, CVA, palpatations, mental health, musculoskeletal)? @ -Not applicable EKG interpreted by me (3pts min.). @ -As above X-rays interpreted by me (1pt min.). @ -None done CT interpreted by me (1pt min.). @ -None done U/S interpreted by me (1pt. min.). @ -None done What testing was considered but not performed or refused? (CT, X-rays, U/S, labs)? Why? @ -None What meds were considered but not given or refused? Why? @ -None Did you discuss the management of the patient with other professionals (professionals i.e. , [place], [facility] [facility], lab, RT, psych nurse, neonatal social worker, supervisor filtration, teacher, public health service officer, case management associate)? Give summary @ -No Was smoking cessation discussed for >3mins.? @ -No Was critical care preformed (if so, how long)? @ -No Were there social determinants of health that impacted care today? How? (Homelessness, low income, unemployed, alcoholism, drug addiction, transportation, low edu. Level, literacy, decrease access to med. care, [place] [facility], rehab)? @ -No Was there de-escalation of care discussed even if they declined (Discuss DNR or withdrawal of care, Hospice)? DNR status @ -No What co-morbidities impacted this encounter? (DM, HTN, Smoking, COPD, CAD, Cancer, CVA, ARF, Chemo, Hep., AIDS, mental health diagnosis, sleep apnea, morbid obesity)? @ -None Was patient admitted / discharged? Hospital course, mention meds given and route, prescriptions, significant lab abnormalities, going to OR and other pertinent info. @ -58-year-old male presenting with chief complaint of swelling and redness to the bilateral feet. This has been ongoing since April. On physical exam there is dependent rubor to the bilateral lower extremities. There is also pedal edema. Pulses are equal and present bilaterally. Patient has no evidence of cellulitic changes. He has no fevers or chills. States that his symptoms have been consistent since May with no changes in intensity or character. He did not follow-up with vascular surgery like he was previously instructed to do. He is educated on the importance of vascular surgeon follow-up and is instructed to call the office tomorrow morning. He is requesting a topical ointment for his feet because he feels they are very dry. Provided with bacitracin to use as needed. Discharged home. Follow-up with PCP. Report back to ER with any new or worsening symptoms. Discussed return parameters and answered all questions. Patient conveyed verbal understanding and agreed to the plan. I discussed this case in detail with my attending Dr. Lisa Undiagnosed new problem with uncertain prognosis? @ -No Drug Therapy requiring intensive monitoring for toxicity (Heparin, Nitro, Insulin, Cardizem)? @ -No Were any procedures done? @ -No Diagnosis/symptom? @ -Dependent rubor, PVD Acute, or Chronic, or Acute on Chronic? @ -Acute on chronic Uncomplicated (without systemic symptoms) or Complicated (systemic symptoms)? @ -Uncomplicated Side effects of treatment? @ -No Exacerbation, Progression, or Severe Exacerbation? @ -No Poses a threat to life or bodily function? How? (Chest pain, [place], [place], pneumonia, PE, COPD, DKA, ARF, appy, cholecystitis, CVA, Diverticulitis, Homicidal, Suicidal, threat to staff... and all critical care pts) @ -Persistent untreated PVD does result in some throughout, patient is educated on the importance of follow-up Disposition Clinical Impression: Dependent rubor, PAD (peripheral artery disease) Disposition: HOME SELF-CARE Condition: Good Instructions (If sedation given, give patient instructions): Peripheral Vascular Disease (ED) Additional Instructions: Follow-up with PCP and vascular surgeon. Report back to ER with any new or worsening symptoms. Is patient prescribed a controlled substance at d/c from ED?: No Referrals: Mariana Nesbitt MD [Primary Care Provider] - 1-2 days Harrison Syed DO [STAFF PHYSICIAN] - 1-2 days Time of Disposition: 17:54
[2023-08-16] MEDS: BACITRACIN ZINC 500 UNIT/GM OINT 28.4 GM TUBE TOPICAL ONE (18:14)
[2023-08-16 18:37] VITALS: BP 161/78; PULSE 73; RESP 18; TEMP 97.7
== END 2023-08-16 18:31 | disposition home or self-care (01) ==
LOC: EC 16:53
DX: I73.9 Peripheral vascular disease, unspecified (principal); L53.9 Erythematous condition, unspecified; J44.89 Other specified chronic obstructive pulmonary disease; I10 Essential (primary) hypertension; K21.9 Gastro-esophageal reflux disease without esophagitis; F17.200 Nicotine dependence, unspecified, uncomplicated; F12.90 Cannabis use, unspecified, uncomplicated; Z79.899 Other long term (current) drug therapy
CPT/HCPCS: 99283

== ENCOUNTER 2023-08-22 09:45 | Inpatient (IN) | payer OTHER ==
[2023-08-22 10:29] LABS: Basophils # (A) 0.1 k/uL (0-0.2); Basophils % (A) 1 %; Eosinophils # (A) 0.3 k/uL (0-0.7); Eosinophils % (A) 3 %; HCT 43.5 % (39.0-53.0); HGB 14.1 gm/dL (13.0-17.5); Lymphocytes # (A) 2.1 k/uL (1.0-4.8); Lymphocytes % (A) 18 %; MCH 32.1 pg (25.0-35.0); MCHC 32.6 g/dL (31.0-37.0); MCV 98.6 fL (80.0-100.0); Mean Platelet Volume 7.6; Monocytes # (A) 0.8 k/uL (0-1.0); Monocytes % (A) 7 %; Neutrophils # (A) 7.8 k/uL (1.3-7.7); Neutrophils % (A) 69 %; Platelet Count 342 k/uL (150-450); RBC 4.41 m/uL (4.30-5.90); WBC 11.3 k/uL (3.8-10.6)
[2023-08-22 10:45] LABS: ALT 15 U/L (4-49); AST 22 U/L (17-59); African American GFR (CKD) >90 (>60 ml/min/1.73 sqM); Albumin 4.4 g/dL (3.5-5.0); Alcohol <10 mg/dL; Alkaline Phosphatase 101 U/L (38-126); Anion Gap 9 mmol/L; Blood Urea Nitrogen 21 mg/dL (9-20); Calcium 9.4 mg/dL (8.4-10.2); Carbon Dioxide 27 mmol/L (22-30); Chloride 96 mmol/L (98-107); Glucose 118 mg/dL (74-99); Non-African American GFR(CKD) >90 (>60 ml/min/1.73 sqM); Potassium 4.7 mmol/L (3.5-5.1); Sodium 132 mmol/L (137-145); Total Bilirubin 0.3 mg/dL (0.2-1.3); Total Protein 7.4 g/dL (6.3-8.2)
[2023-08-22 10:46] LABS: Prothrombin Time 10.9 sec (10.0-12.5)
--- NOTE | 2023-08-22 11:21 | ED ---
General Adult HPI - General Chief complaint: Extremity Problem,Nontraumatic Stated complaint: Both feet swelling,pain Time Seen by Provider: 08/22/23 09:52 Source: patient, RN notes reviewed Mode of arrival: ambulatory Limitations: no limitations - History of Present Illness Initial comments: 58-year-old male presents emergency department with chief complaint of bilateral foot swelling, pain and discoloration. This has been going on for several months. Patient states has been seen here in other facilities. Patient saw PCP yesterday who advised him come Emergency Department at that time for admission and evaluation but states he went home and came today. He states that he is developed sores on his feet states his feet are very sensitive, states that there is more discoloration and they feel cold. Patient states has been told he has vascular issues but states he has not been able to follow-up with vascular surgeon at this time. Patient does admit that he is a daily smoker. - Related Data Home Medications Medication Instructions Recorded Confirmed Bisoprolol-Hctz 5-6.25 mg [Ziac 1 tab PO DAILY 02/26/18 08/22/23 5-6.25] Escitalopram [Lexapro] 20 mg PO DAILY 02/26/18 08/22/23 Methylphenidate HCl 20 mg PO BID 02/26/18 08/22/23 Tamsulosin HCl [Flomax] 0.4 mg PO HS 02/26/18 08/22/23 Albuterol Nebulized [Ventolin 2.5 mg INHALATION RT-TID PRN 04/21/23 08/22/23 Nebulized] Butalb/APAP/Caff 50-325-40Mg 1 tab PO DAILY PRN 04/21/23 08/22/23 [Fioricet 50-325-40] Escitalopram [Lexapro] 10 mg PO HS 04/21/23 08/22/23 Famotidine [Pepcid] 20 mg PO BID 04/21/23 08/22/23 Naloxone HCl [Narcan] 4 mg NASAL DIRECTED PRN 04/21/23 08/22/23 lisinopriL [Zestril] 20 mg PO BID 04/21/23 08/22/23 oxyCODONE-APAP 7.5-325MG [Percocet 1 tab PO TID 04/21/23 08/22/23 7.5-325 mg] Amoxic-Pot Clav 500-125 mg 1 tab PO BID 08/22/23 08/22/23 [Augmentin 500-125 mg] Gabapentin [Neurontin] See Taper PO DIRECTED 08/22/23 08/22/23 Simvastatin [Zocor] 20 mg PO HS 08/22/23 08/22/23 Allergies Allergy/AdvReac Type Severity Reaction Status Date / Time No Known Allergies Allergy Verified 08/22/23 14:47 Review of Systems ROS Statement: Those systems with pertinent positive or pertinent negative responses have been documented in the HPI. ROS Other: All systems not noted in ROS Statement are negative. Past Medical History Past Medical History: Asthma, COPD, GERD/Reflux, Hyperlipidemia, Hypertension, Osteoarthritis (OA) Additional Past Medical History / Comment(s): BACK AND HIP PAIN, DIFFICULTY WALKING DISTANCE., HX OF ULCERS AND BLOOD IN STOOL. History of Any Multi-Drug Resistant Organisms: None Reported Past Surgical History: Hernia Repair Additional Past Surgical History / Comment(s): HERNIA REPAIR AT 5 & 7 YEARS OLD. Past Anesthesia/Blood Transfusion Reactions: No Reported Reaction Additional Past Anesthesia/Blood Transfusion Reaction / Comment(s): DOES NOT REMEMBER ANY ANESTHESIA PROBLEMS A CHILD. Past Psychological History: No Psychological Hx Reported Smoking Status: Current every day smoker Past Alcohol Use History: Daily Past Drug Use History: Marijuana - Past Family History Mother Family Medical History: No Reported History General Exam Limitations: no limitations General appearance: alert, in no apparent distress Head exam: Present: atraumatic, normocephalic, normal inspection Respiratory exam: Present: normal lung sounds bilaterally. Absent: respiratory distress, wheezes, rales, rhonchi, stridor Cardiovascular Exam: Present: normal rhythm, tachycardia, normal heart sounds. Absent: systolic murmur, diastolic murmur, rubs, gallop, clicks GI/Abdominal exam: Present: soft, normal bowel sounds. Absent: distended, tenderness, guarding, rebound, rigid Extremities exam: Present: other (Bilateral lower extremity swelling of feet, there is some purplish to brawny discoloration there is noted sore at the first MTP region, sores at digits cap refill sluggish, extremities are cool to the touch) Course Vital Signs 08/22/23 08/22/23 08/22/23 09:49 10:09 11:42 Temperature 98.5 F Pulse Rate 105 H 101 H 104 H Respiratory 18 20 20 Rate Blood Pressure 174/78 146/80 155/44 O2 Sat by Pulse 98 97 97 Oximetry 08/22/23 08/22/23 13:09 14:37 Temperature Pulse Rate 94 94 Respiratory 18 18 Rate Blood Pressure 129/53 126/81 O2 Sat by Pulse 95 98 Oximetry Medical Decision Making - Medical Decision Making Was pt. sent in by a medical professional or institution ([facility] Pagan, DAIRY INSPECTOR, urgent care, hospital, or assisted...) When possible be specific @ -PCP Did you speak to anyone other than the patient for history (EMS, parent, family, police, friend...)? What history was obtained from this source @ -No Did you review nursing and triage notes (agree or disagree)? Why? @ -I reviewed and agree with nursing and triage notes Were old charts reviewed (outside hosp., previous admission, EMS record, old EKG, old radiological studies, urgent care reports/EKG's, assisted records)? Report findings @ -Reviewed recent ER visits, laboratory studies Differential Diagnosis (chest pain, altered mental status, abdominal pain women, abdominal pain men, vaginal bleeding, weakness, fever, dyspnea, syncope, headache, dizziness, GI bleed, back pain, seizure, CVA, palpatations, mental health, musculoskeletal)? @ -Peripheral vascular disease, arterial occlusion, cellulitis, wound EKG interpreted by me (3pts min.). @ -None none X-rays interpreted by me (1pt min.). @ -None done CT interpreted by me (1pt min.). @ -None done U/S interpreted by me (1pt. min.). @ -None done What testing was considered but not performed or refused? (CT, X-rays, U/S, labs)? Why? @ -None What meds were considered but not given or refused? Why? @ -None Did you discuss the management of the patient with other professionals (professionals i.e. [facility] Pagan, DAIRY INSPECTOR, lab, RT, psych nurse, hospice social worker, game trapper, teacher, security police officer, lead case manager)? Give summary @ -Dr. Nesbitt for admission with consult to vascular Was smoking cessation discussed for >3mins.? @ -No Was critical care preformed (if so, how long)? @ -No Were there social determinants of health that impacted care today? How? ( Homelessness, low income, unemployed, alcoholism, drug addiction, transportation, low edu. Level, literacy, decrease access to med. care, halfway, rehab)? @ -No Was there de-escalation of care discussed even if they declined (Discuss DNR or withdrawal of care, Hospice)? DNR status @ -No What co-morbidities impacted this encounter? (DM, HTN, Smoking, COPD, CAD, Cancer, CVA, ARF, Chemo, Hep., AIDS, mental health diagnosis, sleep apnea, morbid obesity)? @ - smoking history Was patient admitted / discharged? Hospital course, mention meds given and route, prescriptions, significant lab abnormalities, going to OR and other pertinent info. @ -Admitted patient has significant peripheral vascular disease in which she is requiring vascular evaluation and possible intervention. Patient has bilateral foot discoloration and wounds Undiagnosed new problem with uncertain prognosis? @ -No Drug Therapy requiring intensive monitoring for toxicity (Heparin, Nitro, Insulin, Cardizem)? @ -No Were any procedures done? @ -No Diagnosis/symptom? @ -Peripheral vascular disease, foot wounds Acute, or Chronic, or Acute on Chronic? @ -Acute Uncomplicated (without systemic symptoms) or Complicated (systemic symptoms)? @ -Complicated Side effects of treatment? @ -No Exacerbation, Progression, or Severe Exacerbation? @ -No Poses a threat to life or bodily function? How? (Chest pain, USA, CT, pneumonia, PE, COPD, DKA, ARF, appy, cholecystitis, CVA, Diverticulitis, Homicidal, Suicidal, threat to staff... and all critical care pts) @ -No - Lab Data Result diagrams: 08/24/23 08:47 08/24/23 08:47 Lab Results 08/22/23 08/22/23 08/22/23 Range/Units 10:03 10:03 10:03 WBC 11.3 H (3.8-10.6) k/uL RBC 4.41 (4.30-5.90) m/uL Hgb 14.1 (13.0-17.5) gm/dL Hct 43.5 (39.0-53.0) % MCV 98.6 (80.0-100.0) fL MCH 32.1 (25.0-35.0) pg MCHC 32.6 (31.0-37.0) g/dL RDW 12.0 (11.5-15.5) % Plt Count 342 (150-450) k/uL MPV 7.6 Neutrophils % 69 % Lymphocytes % 18 % Monocytes % 7 % Eosinophils % 3 % Basophils % 1 % Neutrophils # 7.8 H (1.3-7.7) k/uL Lymphocytes # 2.1 (1.0-4.8) k/uL Monocytes # 0.8 (0-1.0) k/uL Eosinophils # 0.3 (0-0.7) k/uL Basophils # 0.1 (0-0.2) k/uL PT 10.9 (10.0-12.5) sec INR 1.0 (<1.2) APTT 27.0 (22.0-30.0) sec Sodium 132 L (137-145) mmol/L Potassium 4.7 (3.5-5.1) mmol/L Chloride 96 L (98-107) mmol/L Carbon Dioxide 27 (22-30) mmol/L Anion Gap 9 mmol/L BUN 21 H (9-20) mg/dL Creatinine 0.81 (0.66-1.25) mg/dL Est GFR (CKD-EPI)AfAm >90 (>60 ml/min/1.73 sqM) Est GFR (CKD-EPI)NonAf >90 (>60 ml/min/1.73 sqM) Glucose 118 H (74-99) mg/dL Lactic Ac Sepsis Rflx Plasma Lactic Acid Wolf (0.7-2.0) mmol/L Calcium 9.4 (8.4-10.2) mg/dL Magnesium 2.0 (1.6-2.3) mg/dL Total Bilirubin 0.3 (0.2-1.3) mg/dL AST 22 (17-59) U/L ALT 15 (4-49) U/L Alkaline Phosphatase 101 (38-126) U/L Total Protein 7.4 (6.3-8.2) g/dL Albumin 4.4 (3.5-5.0) g/dL Serum Alcohol <10 mg/dL 08/22/23 08/22/23 Range/Units 10:03 10:54 WBC (3.8-10.6) k/uL RBC (4.30-5.90) m/uL Hgb (13.0-17.5) gm/dL Hct (39.0-53.0) % MCV (80.0-100.0) fL MCH (25.0-35.0) pg MCHC (31.0-37.0) g/dL RDW (11.5-15.5) % Plt Count (150-450) k/uL MPV Neutrophils % % Lymphocytes % % Monocytes % % Eosinophils % % Basophils % % Neutrophils # (1.3-7.7) k/uL Lymphocytes # (1.0-4.8) k/uL Monocytes # (0-1.0) k/uL Eosinophils # (0-0.7) k/uL Basophils # (0-0.2) k/uL PT (10.0-12.5) sec INR (<1.2) APTT (22.0-30.0) sec Sodium (137-145) mmol/L Potassium (3.5-5.1) mmol/L Chloride (98-107) mmol/L Carbon Dioxide (22-30) mmol/L Anion Gap mmol/L BUN (9-20) mg/dL Creatinine (0.66-1.25) mg/dL Est GFR (CKD-EPI)AfAm (>60 ml/min/1.73 sqM) Est GFR (CKD-EPI)NonAf (>60 ml/min/1.73 sqM) Glucose (74-99) mg/dL Lactic Ac Sepsis Rflx Y Plasma Lactic Acid Wolf 2.1 H* (0.7-2.0) mmol/L Calcium (8.4-10.2) mg/dL Magnesium (1.6-2.3) mg/dL Total Bilirubin (0.2-1.3) mg/dL AST (17-59) U/L ALT (4-49) U/L Alkaline Phosphatase (38-126) U/L Total Protein (6.3-8.2) g/dL Albumin (3.5-5.0) g/dL Serum Alcohol mg/dL Disposition Clinical Impression: PAD (peripheral artery disease), Wound of foot Disposition: ADMITTED IP TO THIS HOSP Condition: Fair Time of Disposition: 11:36
[2023-08-22] MEDS ORDERED: NALOXONE 0.4 MG/ML 1 ML VIAL IV PRN (11:36)
[2023-08-22] MEDS ORDERED: ACETAMINOPHEN TAB 325 MG TAB PO PRN (11:36)
[2023-08-22] MEDS ORDERED: ONDANSETRON 4 MG/2 ML VIAL IVP PRN (11:36)
[2023-08-22] MEDS: KETOROLAC 15 MG/ML 1 ML VIAL IVP STA (11:43)
[2023-08-22] MEDS: SODIUM CHLORIDE 0.9% 1,000 ML IV ONE (11:45)
[2023-08-22] MEDS ORDERED: VANCOMYCIN IV PER PHARMACY 1 EACH MISC MISCELLANE PRN (11:50)
[2023-08-22] MEDS: VANCOMYCIN 1,250 MG in SODIUM CHLORIDE 0.9% 250 ML IVPB ONE (12:06)
[2023-08-22] MEDS: oxyCODONE-APAP 7.5-325MG 1 EACH TAB PO SCH (12:22)
[2023-08-22] MEDS ORDERED: NON FORMULARY DRUG (Naloxone Hcl [Narcan] 4 MG Each) NASAL PRN (17:27)
[2023-08-22] MEDS ORDERED: BUTALB/APAP/CAFF 50-325-40MG TAB PO PRN (17:27)
[2023-08-22] MEDS ORDERED: LORazepam 1 MG TAB PO PRN ×3 (19:25)
[2023-08-22] MEDS ORDERED: LORazepam 0.5 MG TAB PO PRN (19:25)
[2023-08-22] MEDS: TAMSULOSIN 0.4 MG CAP.ER.24H PO SCH (21:26)
[2023-08-22] MEDS: ATORVASTATIN 10 MG TAB PO SCH (21:26)
[2023-08-22] MEDS: FAMOTIDINE 20 MG TAB PO SCH (21:26)
[2023-08-22] MEDS: lisinopriL 20 MG TAB PO SCH (21:27)
[2023-08-22] MEDS: ESCITALOPRAM 10 MG TAB PO SCH (21:27)
[2023-08-22] MEDS: METHYLPHENIDATE HCL 10 MG TAB PO SCH (21:40)
[2023-08-22] MEDS: GABAPENTIN 300 MG CAP PO SCH (21:48)
[2023-08-22] MEDS: VANCOMYCIN 1,250 MG in SODIUM CHLORIDE 0.9% 250 ML IVPB SCH (21:49)
--- NOTE | 2023-08-22 23:33 | P.CONS ---
History of Present Illness - Reason for Consult Consult date: 08/22/23 Cellulitis Requesting physician: Bentley Pena - Chief Complaint Bilateral feet pain and redness x days - History of Present Illness Patient is a 58-year-old male with a past medical history significant for hypertension hyperlipidemia reflux COPD and asthma patient did have a PAD and apparently the patient was supposed to have some revascularization to the lower extremity presenting to the hospital with bilateral feet swelling pain and discoloration in this patient symptom has been going on for months but getting worse recently patient denies having history of any trauma has been complaining of pain and to bilateral feet area to be mostly sharp moderate intensity without any radiation did have some discoloration currently do not have any open wound or any drainage patient on presentation to the hospital was afebrile and no fever has been called subsequently he was mildly tachycardic but not hypotensive or hypoxic did have a white count of 11.3 with a left shift creatinine was normal lactic acid was elevated liver enzymes are normal serum alcohol less than 10 patient was started on vancomycin infectious disease was consulted for further management of antibiotic therapy Review of Systems Positive point and negatives has been mentioned in the HPI, complete review of systems was performed and all other systems are negative Past Medical History Past Medical History: Asthma, COPD, GERD/Reflux, Hyperlipidemia, Hypertension, Osteoarthritis (OA) Additional Past Medical History / Comment(s): BACK AND HIP PAIN, DIFFICULTY WALKING DISTANCE., HX OF ULCERS AND BLOOD IN STOOL. History of Any Multi-Drug Resistant Organisms: None Reported Past Surgical History: Hernia Repair Additional Past Surgical History / Comment(s): HERNIA REPAIR AT 5 & 7 YEARS OLD. Past Anesthesia/Blood Transfusion Reactions: No Reported Reaction Additional Past Anesthesia/Blood Transfusion Reaction / Comm: DOES NOT REMEMBER ANY ANESTHESIA PROBLEMS A CHILD. Past Psychological History: No Psychological Hx Reported Smoking Status: Current every day smoker Past Alcohol Use History: Daily Past Drug Use History: Marijuana - Past Family History Mother Family Medical History: No Reported History Medications and Allergies Home Medications Medication Instructions Recorded Confirmed Type Bisoprolol-Hctz 5-6.25 mg [Ziac 1 tab PO DAILY 02/26/18 08/22/23 History 5-6.25 MG] Escitalopram [Lexapro] 20 mg PO DAILY 02/26/18 08/22/23 History Methylphenidate HCl 20 mg PO BID 02/26/18 08/22/23 History Tamsulosin HCl [Flomax] 0.4 mg PO HS 02/26/18 08/22/23 History Albuterol Nebulized [Ventolin 2.5 mg INHALATION RT-TID PRN 04/21/23 08/22/23 History Nebulized] Butalb/APAP/Caff 50-325-40Mg 1 tab PO DAILY PRN 04/21/23 08/22/23 History [Fioricet 50-325-40] Escitalopram [Lexapro] 10 mg PO HS 04/21/23 08/22/23 History Famotidine [Pepcid] 20 mg PO BID 04/21/23 08/22/23 History Naloxone HCl [Narcan] 4 mg NASAL DIRECTED PRN 04/21/23 08/22/23 History lisinopriL [Zestril] 20 mg PO BID 04/21/23 08/22/23 History Gabapentin [Neurontin] See Taper PO DIRECTED 08/22/23 08/22/23 History Aspirin 81 mg PO DAILY 30 Days #30 tab 09/02/23 Rx Atorvastatin [Lipitor] 80 mg PO HS 30 Days #30 tab 09/02/23 Rx Doxycycline [Vibramycin] 100 mg PO BID 5 Days #10 cap 09/02/23 Rx Nicotine 21Mg/24Hr Patch [Habitrol] 1 patch TRANSDERM DAILY 30 Days 09/02/23 Rx #30 patch Allergies Allergy/AdvReac Type Severity Reaction Status Date / Time No Known Allergies Allergy Verified 08/28/23 10:50 Physical Exam Vitals: Vital Signs Temp Pulse Resp BP Pulse Ox 08/22/23 13:09 94 18 129/53 95 08/22/23 11:42 104 H 20 155/44 97 08/22/23 10:09 101 H 20 146/80 97 08/22/23 09:49 98.5 F 105 H 18 174/78 98 Intake and Output 08/21/23 08/22/23 08/22/23 22:59 06:59 14:59 Other: Weight 65.317 kg GENERAL DESCRIPTION: Middle-aged male lying in bed, no distress. No tachypnea or accessory muscle of respiration use. HEENT: Shows Pallor , no scleral icterus. Oral mucous membrane is dry. No pharyngeal erythema or thrush NECK: Trachea central, no thyromegaly. LUNGS: Unlabored breathing. Clear to auscultation anteriorly. No wheeze or crackle. HEART: S1, S2, regular rate and rhythm. No loud murmur ABDOMEN: Soft, no tenderness , guarding or rigidity, no organomegaly EXTREMITIES: Bilateral feet he did have erythema no significant warmth open wound or drainage SKIN: No rash, no masses palpable. NEUROLOGICAL: The patient is awake, alert, oriented x3, mood and affect normal. Results CBC & Chem 7: 09/01/23 07:24 09/01/23 07:24 Labs: Abnormal Lab Results - Last 24 Hours (Table) 08/22/23 08/22/23 08/22/23 Range/Units 10:03 10:03 10:03 WBC 11.3 H (3.8-10.6) k/uL Neutrophils # 7.8 H (1.3-7.7) k/uL Sodium 132 L (137-145) mmol/L Chloride 96 L (98-107) mmol/L BUN 21 H (9-20) mg/dL Glucose 118 H (74-99) mg/dL Plasma Lactic Acid Wolf 2.1 H* (0.7-2.0) mmol/L Assessment and Plan (1) Cellulitis of both feet Status: Acute Code(s): L03.115 - CELLULITIS OF RIGHT LOWER LIMB; L03.116 - CELLULITIS OF LEFT LOWER LIMB SNOMED Code(s): 530868468 Plan: 1patient with a bilateral lower extremity pain he did have some erythema however bilateral feet are cool to touch and symptom more likely related to underlying PAD and possible component of cellulitis not entirely excluded, Keeping in mind elevated white count likely from gram-positive skin art 2-daniella the area of redness 3-await vascular surgery evaluation 4-continue with empiric vancomycin watching his kidney function closely We will follow on clinical condition and cultures to further adjust medication if needed Thank you for this consultation we will follow the patient along with you Dictation was produced using [employer] dictation software. please excuse any grammatical, word or spelling errors.
[2023-08-23] MEDS ORDERED: ALBUTEROL NEBULIZED 2.5 MG/3 ML INHALATION PRN (07:59)
--- NOTE | 2023-08-23 08:15 | P.HPIM ---
History of Present Illness H&P Date: 08/23/23 Eric Greenfield, 58-year-old male who presented to [facility] emergency room with a chief complaint of bilateral lower extremity erythema and severe pain He was evaluated in the emergency room vital examination on presentation revealed a temperature of 98.5 pulse 105 respiration 18 blood pressure 174/78 pulse ox 98% on room air Laboratory data revealed a white blood count of 11.3 hemoglobin 14.1 platelet count 342 sodium 132 potassium 4.7 chloride 96 CO2 27 BUN 21 creatinine 0.81 lactic acid 2.1 Patient was admitted to medical floor for further evaluation and treatment Past Medical History Past Medical History: Asthma, COPD, GERD/Reflux, Hyperlipidemia, Hypertension, Osteoarthritis (OA) Additional Past Medical History / Comment(s): BACK AND HIP PAIN, DIFFICULTY WALKING DISTANCE., HX OF ULCERS AND BLOOD IN STOOL. History of Any Multi-Drug Resistant Organisms: None Reported Past Surgical History: Hernia Repair Additional Past Surgical History / Comment(s): HERNIA REPAIR AT 5 & 7 YEARS OLD. Past Anesthesia/Blood Transfusion Reactions: No Reported Reaction Additional Past Anesthesia/Blood Transfusion Reaction / Comment(s): DOES NOT REMEMBER ANY ANESTHESIA PROBLEMS A CHILD. Past Psychological History: No Psychological Hx Reported Smoking Status: Current every day smoker Past Alcohol Use History: Daily Past Drug Use History: Marijuana - Past Family History Mother Family Medical History: No Reported History Medications and Allergies Home Medications Medication Instructions Recorded Confirmed Type Bisoprolol-Hctz 5-6.25 mg [Ziac 1 tab PO DAILY 02/26/18 08/22/23 History 5-6.25] Escitalopram [Lexapro] 20 mg PO DAILY 02/26/18 08/22/23 History Methylphenidate HCl 20 mg PO BID 02/26/18 08/22/23 History Tamsulosin HCl [Flomax] 0.4 mg PO HS 02/26/18 08/22/23 History Albuterol Nebulized [Ventolin 2.5 mg INHALATION RT-TID PRN 04/21/23 08/22/23 History Nebulized] Butalb/APAP/Caff 50-325-40Mg 1 tab PO DAILY PRN 04/21/23 08/22/23 History [Fioricet 50-325-40] Escitalopram [Lexapro] 10 mg PO HS 04/21/23 08/22/23 History Famotidine [Pepcid] 20 mg PO BID 04/21/23 08/22/23 History Naloxone HCl [Narcan] 4 mg NASAL DIRECTED PRN 04/21/23 08/22/23 History lisinopriL [Zestril] 20 mg PO BID 04/21/23 08/22/23 History oxyCODONE-APAP 7.5-325MG [Percocet 1 tab PO TID 04/21/23 08/22/23 History 7.5-325 mg] Amoxic-Pot Clav 500-125 mg 1 tab PO BID 08/22/23 08/22/23 History [Augmentin 500-125 mg] Gabapentin [Neurontin] See Taper PO DIRECTED 08/22/23 08/22/23 History Simvastatin [Zocor] 20 mg PO HS 08/22/23 08/22/23 History Allergies Allergy/AdvReac Type Severity Reaction Status Date / Time No Known Allergies Allergy Verified 08/22/23 14:47 Physical Exam Vitals: Vital Signs Temp Pulse Pulse Resp BP BP BP 08/23/23 01:40 98.3 F 73 16 158/71 08/22/23 19:37 98.0 F 69 16 136/74 08/22/23 15:40 97.8 F 78 16 164/73 08/22/23 14:37 94 18 126/81 08/22/23 13:09 94 18 129/53 08/22/23 11:42 104 H 20 155/44 08/22/23 10:09 101 H 20 146/80 08/22/23 09:49 98.5 F 105 H 18 174/78 Pulse Ox 08/23/23 01:40 95 08/22/23 19:37 95 08/22/23 15:40 97 08/22/23 14:37 98 08/22/23 13:09 95 08/22/23 11:42 97 08/22/23 10:09 97 08/22/23 09:49 98 Intake and Output 08/22/23 08/23/23 08/23/23 22:59 06:59 14:59 Intake Total 118 Balance 118 Intake: Oral 118 Other: # Voids 1 1 Weight 65.317 kg In general patient is alert and oriented x 3 in no distress HEENT head normocephalic and atraumatic Neck is supple no JVD no goiter no lymphadenopathy no carotid bruit Chest examination reveals a few scattered rhonchi in both lung ge no wheezing Cardiac exam reveals regular heart sounds S1 and S2 no gallops no murmurs Abdomen is soft nontender no organomegaly with normal bowel sounds Extremity exam reveals bilateral erythema in the feet extending above the ankles, there is a half centimeter scabbed ulcer at the base of the left big toe pulses are palpable but 4 bilateral Neurological examination reveals no gross focal deficits Results CBC & Chem 7: 08/22/23 10:03 08/22/23 10:03 Labs: Abnormal Lab Results - Last 24 Hours (Table) 08/22/23 08/22/23 08/22/23 Range/Units 10:03 10:03 10:03 WBC 11.3 H (3.8-10.6) k/uL Neutrophils # 7.8 H (1.3-7.7) k/uL Sodium 132 L (137-145) mmol/L Chloride 96 L (98-107) mmol/L BUN 21 H (9-20) mg/dL Glucose 118 H (74-99) mg/dL Plasma Lactic Acid Wolf 2.1 H* (0.7-2.0) mmol/L Thrombosis Risk Factor Assmnt - Choose All That Apply Each Factor Represents 1 point: Age 41-60 years Thrombosis Risk Factor Assessment Total Risk Factor Score: 1 Thrombosis Risk Factor Assessment Level: Low Risk Assessment and Plan Plan: Bilateral lower extremity cellulitis Sepsis as evidenced by leukocytosis and elevated lactic acid and tachycardia on presentation Bilateral lower extremity severe peripheral arterial disease Underlying history of peripheral neuropathy maintained on gabapentin Underlying history of tobacco abuse, patient was counseled in length regarding the need to quit smoking Underlying history of COPD without exacerbation at this time Underlying history of hypertension, maintained on Ziac and lisinopril, blood pressure was significantly elevated on presentation Will monitor closely Underlying history of hyperlipidemia maintained on Lipitor will resume Underlying history of benign prostatic hypertrophy Underlying history of alcohol use, patient was started on CIWA protocol At this time patient is admitted to medical floor He was started on IV vancomycin in the emergency room Infectious disease consultation and vascular surgery consultation requested Home medications reviewed and reordered For DVT prophylaxis subcu heparin For GI prophylaxis famotidine Will follow closely
[2023-08-23] MEDS: HEPARIN SODIUM,PORCINE 5,000 UNIT/ML 1 ML VIAL SQ SCH (08:28)
[2023-08-23] MEDS: BISOPROLOL-HCTZ 5-6.25 MG 1 EACH TAB PO SCH (08:28)
[2023-08-23] MEDS: ESCITALOPRAM 20 MG TAB PO SCH (08:29)
[2023-08-23 10:14] LABS: Basophils # (A) 0.05 X 10*3/uL (0.00-0.10); Basophils % (A) 0.7 %; Eosinophils # (A) 0.17 X 10*3/uL (0.04-0.35); Eosinophils % (A) 2.3 %; HCT 38.5 % (39.6-50.0); HGB 12.9 g/dL (13.0-17.0); Lymphocytes # (A) 2.31 X 10*3/uL (0.90-5.00); Lymphocytes % (A) 31.5 %; MCH 32.4 pg (27.0-32.0); MCHC 33.5 g/dL (32.0-37.0); MCV 96.7 FL (80.0-97.0); Mean Platelet Volume 10.1 FL (9.5-12.2); Monocytes # (A) 1.02 X 10*3/uL (0.20-1.00); Monocytes % (A) 13.9 %; NRBC Per 100 WBC 0 X 10*3/uL (0.00-0.01); Neutrophils # (A) 3.76 X 10*3/uL (1.80-7.70); Neutrophils % (A) 51.3 %; Platelet Count 313 X 10*3/uL (140-440); RBC 3.98 X 10*6/uL (4.40-5.60); WBC 7.33 X 10*3/uL (4.50-10.00)
[2023-08-23] MEDS: METHYLPHENIDATE HCL 10 MG TAB PO SCH (10:43)
[2023-08-23 10:49] LABS: Blood Urea Nitrogen 14.4 mg/dL (9.0-27.0); Glucose 105 mg/dL (70-110)
[2023-08-23 10:50] LABS: ALT 10 U/L (10-49); AST 14 U/L (14-35); Albumin 3.8 g/dL (3.8-4.9); Albumin/Globulin Ratio 1.65 Ratio (1.60-3.17); Alkaline Phosphatase 71 U/L (41-126); Carbon Dioxide 26.5 mmol/L (21.6-31.8); Chloride 106 mmol/L (96-109); Globulin 2.3 g/dL (1.6-3.3); Potassium 4.6 mmol/L (3.5-5.5); Sodium 141 mmol/L (135-145); Total Bilirubin <0.2 mg/dL (0.3-1.2); Total Protein 6.1 g/dL (6.2-8.2)
[2023-08-23 11:24] LABS: Erythrocyte Sedimentation Rate 12 mm/Hr (0-20)
--- NOTE | 2023-08-23 15:43 | P.PN ---
Subjective Progress Note Date: 08/23/23 Principal diagnosis: Reason for follow-up is bilateral foot cellulitis Patient is a 58-year-old male with a past medical history significant for hypertension hyperlipidemia reflux COPD and asthma patient did have a PAD, presented to the hospital with worsening discomfort to bilateral feet area and redness. On today's visit that is 08/23/2023, the patient continues to be afebrile, the patient is on room air and breathing comfortably, the Pt denies having any chest pain or cough, the patient denies having any abdominal pain no vomiting or any diarrhea still complaining of significant discomfort to bilateral feet area but no drainage. Patient white count normalized to 7.33, creatinine 0.9 Objective - Vital Signs Vital signs: Vital Signs Temp 98.5 F 08/23/23 07:30 Pulse 80 08/23/23 07:30 Resp 17 08/23/23 07:30 BP 163/73 08/23/23 07:30 Pulse Ox 96 08/23/23 07:30 FiO2 Intake & Output 08/22/23 08/23/23 08/23/23 18:59 06:59 18:59 Intake Total 118 236 Balance 118 236 Weight 65.317 kg Intake: Oral 118 236 Other: # Voids 1 - Exam GENERAL DESCRIPTION: Middle-age male up in bed in no distress RESPIRATORY SYSTEM: Unlabored breathing , decreased breath sounds at bases HEART: S1 S2 regular rate and rhythm , ABDOMEN: Soft , no tenderness EXTREMITIES: Bilateral feet did have erythema but no significant warmth or drainage - Labs CBC & Chem 7: 08/23/23 04:55 08/23/23 04:55 Labs: Abnormal Lab Results - Last 24 Hours (Table) 08/23/23 08/23/23 Range/Units 04:55 04:55 RBC 3.98 L (4.40-5.60) X 10*6/uL Hgb 12.9 L (13.0-17.0) g/dL Hct 38.5 L (39.6-50.0) % MCH 32.4 H (27.0-32.0) pg Monocytes # 1.02 H (0.20-1.00) X 10*3/uL Total Bilirubin <0.2 L (0.3-1.2) mg/dL Total Protein 6.1 L (6.2-8.2) g/dL Assessment and Plan (1) Cellulitis of both feet Current Visit: Yes Status: Acute Code(s): L03.115 - CELLULITIS OF RIGHT LOWER LIMB; L03.116 - CELLULITIS OF LEFT LOWER LIMB SNOMED Code(s): 701166205 (2) Leukocytosis Current Visit: Yes Status: Acute Code(s): D72.829 - ELEVATED WHITE BLOOD CELL COUNT, UNSPECIFIED SNOMED Code(s): 575899547 Plan: 1patient with a bilateral lower extremity pain he did have some erythema however bilateral feet are cool to touch and symptom more likely related to underlying PAD and possible component of cellulitis not entirely excluded, Keeping in mind elevated white count likely from gram-positive skin art 2-await vascular surgery evaluation 3-patient did have resolution of his leukocytosis and will continue with empiric vancomycin watching his kidney function closely Dictation was produced using [employer] dictation software. please excuse any grammatical, word or spelling errors. Time with Patient: Less than 30
[2023-08-24] MEDS: MELATONIN 3 MG TABLET PO SCH (00:48)
[2023-08-24] MEDS: NICOTINE 21MG/24HR PATCH TRANSDERM SCH (09:05)
[2023-08-24] MEDS: VANCOMYCIN TROUGH DUE 1 EACH MISC MISCELLANE ONE (09:05)
--- NOTE | 2023-08-24 09:54 | P.GSCN ---
History of Present Illness Consult date: 08/24/23 Reason for Consult: PAD Requesting physician: Bentley Pena History of present illness: This is a pleasant 58-year-old male with a history of heavy tobacco use pack per day for last 45 years, COPD, asthma, GERD, hyperlipidemia, hypertension and osteoarthritis who presented to the emergency department with complaints of bilateral foot pain and redness. Patient states has had redness swelling and pain to his feet since April, difficulty walking or even standing. States that he started noticing discomfort as far back as January. He has had to go to sizes up in his shoes due to the swelling. He has not followed with anyone for his legs or feet. He does have a ulcer to one of his feet. He denies any fevers, chills, body aches, nausea or vomiting. Denies any drainage from his feet. Currently denies any shortness of breath or chest pain. Patient has chronic cough. Review of Systems A 14 point review systems was completed all pertinent positives and negatives as stated in the HPI. Past Medical History Past Medical History: Asthma, COPD, GERD/Reflux, Hyperlipidemia, Hypertension, Osteoarthritis (OA) Additional Past Medical History / Comment(s): BACK AND HIP PAIN, DIFFICULTY WALKING DISTANCE., HX OF ULCERS AND BLOOD IN STOOL. History of Any Multi-Drug Resistant Organisms: None Reported Past Surgical History: Hernia Repair Additional Past Surgical History / Comment(s): HERNIA REPAIR AT 5 & 7 YEARS OLD. Past Anesthesia/Blood Transfusion Reactions: No Reported Reaction Additional Past Anesthesia/Blood Transfusion Reaction / Comm: DOES NOT REMEMBER ANY ANESTHESIA PROBLEMS A CHILD. Past Psychological History: No Psychological Hx Reported Smoking Status: Current every day smoker Past Alcohol Use History: Daily Past Drug Use History: Marijuana - Past Family History Mother Family Medical History: No Reported History Medications and Allergies Home Medications Medication Instructions Recorded Confirmed Type Bisoprolol-Hctz 5-6.25 mg [Ziac 1 tab PO DAILY 02/26/18 08/22/23 History 5-6.25] Escitalopram [Lexapro] 20 mg PO DAILY 02/26/18 08/22/23 History Methylphenidate HCl 20 mg PO BID 02/26/18 08/22/23 History Tamsulosin HCl [Flomax] 0.4 mg PO HS 02/26/18 08/22/23 History Albuterol Nebulized [Ventolin 2.5 mg INHALATION RT-TID PRN 04/21/23 08/22/23 H istory Nebulized] Butalb/APAP/Caff 50-325-40Mg 1 tab PO DAILY PRN 04/21/23 08/22/23 History [Fioricet 50-325-40] Escitalopram [Lexapro] 10 mg PO HS 04/21/23 08/22/23 History Famotidine [Pepcid] 20 mg PO BID 04/21/23 08/22/23 History Naloxone HCl [Narcan] 4 mg NASAL DIRECTED PRN 04/21/23 08/22/23 History lisinopriL [Zestril] 20 mg PO BID 04/21/23 08/22/23 History oxyCODONE-APAP 7.5-325MG [Percocet 1 tab PO TID 04/21/23 08/22/23 History 7.5-325 mg] Amoxic-Pot Clav 500-125 mg 1 tab PO BID 08/22/23 08/22/23 History [Augmentin 500-125 mg] Gabapentin [Neurontin] See Taper PO DIRECTED 08/22/23 08/22/23 History Simvastatin [Zocor] 20 mg PO HS 08/22/23 08/22/23 History Allergies Allergy/AdvReac Type Severity Reaction Status Date / Time No Known Allergies Allergy Verified 08/22/23 14:47 Surgical - Exam Vital Signs Temp Pulse Resp BP Pulse Ox 98.5 F 105 H 18 174/78 98 08/22/23 09:49 08/22/23 09:49 08/22/23 09:49 08/22/23 09:49 08/22/23 09:49 General appearance: The patient is alert, oriented, appears in no acute distress. HET: Head is normocephalic and atraumatic. Pupils are equal and reactive. Neck: Supple. Heart: Regular. Lungs: Equal expansion, normal respiratory effort. Wheezes. Abdomen: Soft, nontender, nondistended. Extremities: Bilateral palpable radial pulses +2. Bilateral feet swollen with erythema past ankles. Palpable left dorsalis pedis pulse. Bilateral palpable femoral pulses. Neurological: No focal deficits. Alert and oriented x 3. Results - Labs 08/23/23 04:55 08/23/23 04:55 Abnormal Lab Results - Last 24 Hours (Table) 08/23/23 08/23/23 Range/Units 04:55 04:55 RBC 3.98 L (4.40-5.60) X 10*6/uL Hgb 12.9 L (13.0-17.0) g/dL Hct 38.5 L (39.6-50.0) % MCH 32.4 H (27.0-32.0) pg Monocytes # 1.02 H (0.20-1.00) X 10*3/uL Total Bilirubin <0.2 L (0.3-1.2) mg/dL Total Protein 6.1 L (6.2-8.2) g/dL Microbiology - Last 24 Hours (Table) 08/22/23 11:45 Blood Culture - Preliminary Blood 08/22/23 12:00 Blood Culture - Preliminary Blood Diabetes panel 08/23/23 Range/Units 04:55 Sodium 141 (135-145) mmol/L Potassium 4.6 (3.5-5.5) mmol/L Chloride 106 (96-109) mmol/L Carbon Dioxide 26.5 (21.6-31.8) mmol/L BUN 14.4 (9.0-27.0) mg/dL Creatinine 0.9 (0.6-1.5) mg/dL Glucose 105 (70-110) mg/dL Calcium 9.0 (8.7-10.3) mg/dL AST 14 (14-35) U/L ALT 10 (10-49) U/L Alkaline Phosphatase 71 (41-126) U/L Total Protein 6.1 L (6.2-8.2) g/dL Albumin 3.8 (3.8-4.9) g/dL Calcium panel 08/23/23 Range/Units 04:55 Calcium 9.0 (8.7-10.3) mg/dL Albumin 3.8 (3.8-4.9) g/dL Pituitary panel 08/23/23 Range/Units 04:55 Sodium 141 (135-145) mmol/L Potassium 4.6 (3.5-5.5) mmol/L Chloride 106 (96-109) mmol/L Carbon Dioxide 26.5 (21.6-31.8) mmol/L BUN 14.4 (9.0-27.0) mg/dL Creatinine 0.9 (0.6-1.5) mg/dL Glucose 105 (70-110) mg/dL Calcium 9.0 (8.7-10.3) mg/dL Adrenal panel 08/23/23 Range/Units 04:55 Sodium 141 (135-145) mmol/L Potassium 4.6 (3.5-5.5) mmol/L Chloride 106 (96-109) mmol/L Carbon Dioxide 26.5 (21.6-31.8) mmol/L BUN 14.4 (9.0-27.0) mg/dL Creatinine 0.9 (0.6-1.5) mg/dL Glucose 105 (70-110) mg/dL Calcium 9.0 (8.7-10.3) mg/dL Total Bilirubin <0.2 L (0.3-1.2) mg/dL AST 14 (14-35) U/L ALT 10 (10-49) U/L Alkaline Phosphatase 71 (41-126) U/L Total Protein 6.1 L (6.2-8.2) g/dL Albumin 3.8 (3.8-4.9) g/dL Assessment and Plan Assessment: 1. Lower extremities cellulitis 2. Possible peripheral arterial disease 3. Nicotine dependence 4. COPD 5. Hyperlipidemia 6. Hypertension Plan: 1. Arterial duplex ordered 2. Discussed with patient importance of nicotine cessation 3. Nicotine patch ordered for patient 4. Continue with recommendations from infectious disease 5. Further recommendations forthcoming based on clinical course Thank you for this consultation, we will continue to follow. The impression and plan of care has been dictated as directed. I performed a history and examination of this patient, discussed the same with the dictator. I agree with the dictator's note ,documented as a scribe. Any additional findings or plans will be noted.
[2023-08-24] MEDS: VANCOMYCIN 1,250 MG in SODIUM CHLORIDE 0.9% 250 ML IVPB SCH (10:08)
--- NOTE | 2023-08-24 10:10 | US ---
EXAMINATION TYPE: US arterial LE multi level DATE OF EXAM: 08/24/2023 9:58 AM CLINICAL INDICATION: Male, 58 years old with history of pain bilateral lower extremities, wounds, micki lulit; Wound left foot, discoloration and pain to both feet History of: Smoker: Yes Hypertension: Yes Diabetic: No Hyperlipidemia: No TIA/CVA: No Previous Vascular Surgery: No VA: No Vascular Ulcers: Yes Doppler Waveforms: Right: No waveforms Left: No waveforms Right Brachial Pressure: Deferred dur to IV site Left Brachial Pressure: 201 Ankle-Brachial Indices: Unable to obtain JAN's bilaterally- unable to detect waveforms or audible arterial sounds bilateral ly beginning at popliteal arteries Toe Brachial Indices: Unable to obtain TBI's bilaterally- unable to detect waveforms bilaterally beginning at popliteal a rteries IMPRESSION: No flow visualized in lower extremities. Patient's nurse will be contacted by weed science research technician.
[2023-08-24 12:19] VITALS: BMI 24.7
[2023-08-24 16:13] LABS: HCT 44.6 % (39.6-50.0); HGB 14.5 g/dL (13.0-17.0); MCH 32.4 pg (27.0-32.0); MCHC 32.5 g/dL (32.0-37.0); MCV 99.8 FL (80.0-97.0); Mean Platelet Volume 10.3 FL (9.5-12.2); NRBC Per 100 WBC 0 X 10*3/uL (0.00-0.01); Platelet Count 328 X 10*3/uL (140-440); RBC 4.47 X 10*6/uL (4.40-5.60); WBC 9.24 X 10*3/uL (4.50-10.00)
[2023-08-24 16:14] LABS: Basophils # (A) 0.08 X 10*3/uL (0.00-0.10); Basophils % (A) 0.9 %; Eosinophils # (A) 0.23 X 10*3/uL (0.04-0.35); Eosinophils % (A) 2.5 %; Lymphocytes # (A) 1.68 X 10*3/uL (0.90-5.00); Lymphocytes % (A) 18.2 %; Monocytes # (A) 0.95 X 10*3/uL (0.20-1.00); Monocytes % (A) 10.3 %; Neutrophils # (A) 6.28 X 10*3/uL (1.80-7.70); Neutrophils % (A) 67.9 %
[2023-08-24 16:49] LABS: ALT 12 U/L (10-49); AST 16 U/L (14-35); Albumin 4.4 g/dL (3.8-4.9); Albumin/Globulin Ratio 1.63 Ratio (1.60-3.17); Alkaline Phosphatase 86 U/L (41-126); BUN/Creat Ratio 12.78 Ratio (12.00-20.00); Blood Urea Nitrogen 11.5 mg/dL (9.0-27.0); Calcium 10.3 mg/dL (8.7-10.3); Chloride 101 mmol/L (96-109); Globulin 2.7 g/dL (1.6-3.3); Glucose 165 mg/dL (70-110); Sodium 140 mmol/L (135-145); Total Bilirubin 0.2 mg/dL (0.3-1.2); Total Protein 7.1 g/dL (6.2-8.2)
--- NOTE | 2023-08-24 17:02 | P.PN ---
Subjective Progress Note Date: 08/24/23 Eric Greenfield, 58-year-old male who presented to [facility] emergency room with a chief complaint of bilateral lower extremity erythema and severe pain He was evaluated in the emergency room vital examination on presentation revealed a temperature of 98.5 pulse 105 respiration 18 blood pressure 174/78 pulse ox 98% on room air Laboratory data revealed a white blood count of 11.3 hemoglobin 14.1 platelet count 342 sodium 132 potassium 4.7 chloride 96 CO2 27 BUN 21 creatinine 0.81 lactic acid 2.1 Patient was admitted to medical floor for further evaluation and treatment On 08/24/2023 patient was seen and examined on the medical floor he is alert and oriented 3 in no apparent distress, he is still complaining of pain in bilateral lower extremities, he is complaining of erythema in bilateral feet, otherwise he denies any complaints, input from infectious disease and vascular surgery reviewed awaiting further testing by vascular surgery. Objective - Vital Signs Vital signs: Vital Signs Temp 97.7 F 08/24/23 07:00 Pulse 85 08/24/23 07:00 Resp 18 08/24/23 07:00 BP 189/76 08/24/23 07:00 Pulse Ox 95 08/24/23 07:00 FiO2 Intake & Output 08/23/23 08/24/23 08/24/23 18:59 06:59 18:59 Intake Total 554 Output Total 1350 Balance 554 -1350 Intake: Oral 554 Output: Urine 1350 Other: # Voids 2 - Exam In general patient is alert and oriented x 3 in no distress HEENT head normocephalic and atraumatic Neck is supple no JVD no goiter no lymphadenopathy no carotid bruit Chest examination reveals a few scattered rhonchi in both lung ge no wheezing Cardiac exam reveals regular heart sounds S1 and S2 no gallops no murmurs Abdomen is soft nontender no organomegaly with normal bowel sounds Extremity exam reveals bilateral erythema in the feet extending above the ankles, there is a half centimeter scabbed ulcer at the base of the left big toe pulses are palpable but 4 bilateral Neurological examination reveals no gross focal deficits - Labs CBC & Chem 7: 08/24/23 08:47 08/24/23 08:47 Labs: Abnormal Lab Results - Last 24 Hours (Table) 08/23/23 08/23/23 Range/Units 04:55 04:55 RBC 3.98 L (4.40-5.60) X 10*6/uL Hgb 12.9 L (13.0-17.0) g/dL Hct 38.5 L (39.6-50.0) % MCH 32.4 H (27.0-32.0) pg Monocytes # 1.02 H (0.20-1.00) X 10*3/uL Total Bilirubin <0.2 L (0.3-1.2) mg/dL Total Protein 6.1 L (6.2-8.2) g/dL Microbiology - Last 24 Hours (Table) 08/22/23 11:45 Blood Culture - Preliminary Blood 08/22/23 12:00 Blood Culture - Preliminary Blood Assessment and Plan Plan: Bilateral lower extremity cellulitis Sepsis as evidenced by leukocytosis and elevated lactic acid and tachycardia on presentation Bilateral lower extremity severe peripheral arterial disease Underlying history of peripheral neuropathy maintained on gabapentin Underlying history of tobacco abuse, patient was counseled in length regarding the need to quit smoking Underlying history of COPD without exacerbation at this time Underlying history of hypertension, maintained on Ziac and lisinopril, blood pressure was significantly elevated on presentation Will monitor closely Underlying history of hyperlipidemia maintained on Lipitor will resume Underlying history of benign prostatic hypertrophy Underlying history of alcohol use, patient was started on CIWA protocol At this time patient is admitted to medical floor He was started on IV vancomycin in the emergency room Infectious disease consultation and vascular surgery consultation requested Home medications reviewed and reordered For DVT prophylaxis subcu heparin For GI prophylaxis famotidine Will follow closely
--- NOTE | 2023-08-24 22:40 | P.PN ---
Subjective Progress Note Date: 08/24/23 Principal diagnosis: Reason for follow-up is bilateral foot cellulitis Patient is a 58-year-old male with a past medical history significant for hypertension hyperlipidemia reflux COPD and asthma patient did have a PAD, presented to the hospital with worsening discomfort to bilateral feet area and redness. On today's visit that is 08/24/2023, Patient is afebrile patient is currently on room air and denies having any shortness of breath, the patient denies any chest pain or cough, the patient denies any nausea vomiting did not have any abdominal pain and no diarrhea, patient mention pain to bilateral feet slightly decreased in intensity today. Patient white count of 9.24 creatinine 0.9 blood cultures pending Objective - Vital Signs Vital signs: Vital Signs Temp 97.7 F 08/24/23 07:00 Pulse 85 08/24/23 07:00 Resp 18 08/24/23 07:00 BP 189/76 08/24/23 07:00 Pulse Ox 95 08/24/23 07:00 FiO2 Intake & Output 08/23/23 08/24/23 08/24/23 18:59 06:59 18:59 Intake Total 554 Output Total 1350 Balance 554 -1350 Weight 65.317 kg Intake: Oral 554 Output: Urine 1350 Other: # Voids 2 - Exam GENERAL DESCRIPTION: Middle-age male up in bed in no distress RESPIRATORY SYSTEM: Unlabored breathing , decreased breath sounds at bases HEART: S1 S2 regular rate and rhythm , ABDOMEN: Soft , no tenderness EXTREMITIES: Bilateral feet did have erythema but no significant warmth or drainage - Labs CBC & Chem 7: 08/24/23 08:47 08/24/23 08:47 Labs: Microbiology - Last 24 Hours (Table) 08/22/23 11:45 Blood Culture - Preliminary Blood 08/22/23 12:00 Blood Culture - Preliminary Blood Assessment and Plan (1) Cellulitis of both feet Current Visit: Yes Status: Acute Code(s): L03.115 - CELLULITIS OF RIGHT LOWER LIMB; L03.116 - CELLULITIS OF LEFT LOWER LIMB SNOMED Code(s): 775185110 (2) Leukocytosis Current Visit: Yes Status: Acute Code(s): D72.829 - ELEVATED WHITE BLOOD CELL COUNT, UNSPECIFIED SNOMED Code(s): 194407653 Plan: 1patient with a bilateral lower extremity pain he did have some erythema however bilateral feet are cool to touch and symptom more likely related to underlying PAD and possible component of cellulitis not entirely excluded, Keeping in mind elevated white count likely from gram-positive skin art 2-patient has been eval by vascular surgery arterial duplex has been ordered results will be followed 3-patient did have resolution of his leukocytosis, patient will continue with empiric vancomycin watching his kidney function closely Dictation was produced using [employer] dictation software. please excuse any grammatical, word or spelling errors. Time with Patient: Less than 30
--- NOTE | 2023-08-25 09:19 | P.PN ---
Subjective Progress Note Date: 08/25/23 On 08/24/2022 for patients alert and oriented 3. Eric Greenfield, 58-year-old male who presented to [facility] emergency room with a chief complaint of bilateral lower extremity erythema and severe pain He was evaluated in the emergency room vital examination on presentation revealed a temperature of 98.5 pulse 105 respiration 18 blood pressure 174/78 pulse ox 98% on room air Laboratory data revealed a white blood count of 11.3 hemoglobin 14.1 platelet count 342 sodium 132 potassium 4.7 chloride 96 CO2 27 BUN 21 creatinine 0.81 lactic acid 2.1 Patient was admitted to medical floor for further evaluation and treatment On 08/24/2023 patient was seen and examined on the medical floor he is alert and oriented 3 in no apparent distress, he is still complaining of pain in bilateral lower extremities, he is complaining of erythema in bilateral feet, otherwise he denies any complaints, input from infectious disease and vascular surgery reviewed awaiting further testing by vascular surgery. On 08/25/2023 patient is alert and oriented 3. Per nursing staff plans today for vascular intervention with Dr. Syed. Patient remains on IV vancomycin. Hemoglobin 14.5 white blood cell 9.24 creatinine 0.9 and bun 11.5. Repeat lactic acid 1.2. Patient denies chest pain or shortness breath. Patient denies nausea vomiting or diarrhea. Patient denies any urinary burning or frequency Objective - Vital Signs Vital signs: Vital Signs Temp 98 F 08/25/23 08:00 Pulse 69 08/25/23 08:00 Resp 16 08/25/23 08:00 BP 188/74 08/25/23 08:00 Pulse Ox 98 08/25/23 08:00 FiO2 Intake & Output 08/24/23 08/25/23 08/25/23 18:59 06:59 18:59 Intake Total 838 Output Total 4 600 Balance 834 -600 Weight 65.317 kg Intake: Oral 838 Output: Urine 4 600 Other: # Voids 2 - Exam In general patient is alert and oriented x 3 in no distress HEENT head normocephalic and atraumatic Neck is supple no JVD no goiter no lymphadenopathy no carotid bruit Chest examination reveals a few scattered rhonchi in both lung ge no wheezing Cardiac exam reveals regular heart sounds S1 and S2 no gallops no murmurs Abdomen is soft nontender no organomegaly with normal bowel sounds Extremity exam reveals bilateral erythema in the feet extending above the ankles, there is a half centimeter scabbed ulcer at the base of the left big toe pulses are palpable but 4 bilateral Neurological examination reveals no gross focal deficits - Labs CBC & Chem 7: 08/24/23 08:47 08/24/23 08:47 Labs: Abnormal Lab Results - Last 24 Hours (Table) 08/24/23 08/24/23 Range/Units 08:47 08:47 MCV 99.8 H (80.0-97.0) FL MCH 32.4 H (27.0-32.0) pg Glucose 165 H (70-110) mg/dL Total Bilirubin 0.2 L (0.3-1.2) mg/dL Microbiology - Last 24 Hours (Table) 08/22/23 11:45 Blood Culture - Preliminary Blood 08/22/23 12:00 Blood Culture - Preliminary Blood Assessment and Plan Assessment: Bilateral lower extremity cellulitis Sepsis as evidenced by leukocytosis and elevated lactic acid and tachycardia on presentation Bilateral lower extremity severe peripheral arterial disease Underlying history of peripheral neuropathy maintained on gabapentin Underlying history of tobacco abuse, patient was counseled in length regarding the need to quit smoking Underlying history of COPD without exacerbation at this time Underlying history of hypertension, maintained on Ziac and lisinopril, blood pressure was significantly elevated on presentation Will monitor closely Underlying history of hyperlipidemia maintained on Lipitor will resume Underlying history of benign prostatic hypertrophy Underlying history of alcohol use, patient was started on CIWA protocol At this time patient is admitted to medical floor He was started on IV vancomycin in the emergency room Infectious disease consultation and vascular surgery consultation requested Plans for vascular intervention on 08/25/2023 Home medications reviewed and reordered For DVT prophylaxis subcu heparin For GI prophylaxis famotidine PT OT and social work services consulted for discharge planning Will follow closely
--- NOTE | 2023-08-25 09:54 | CDI ---
From: Lisa Segura Phone: [phone] Admit Date: 08/22/2023 12:40:00 PM Patient Name: Eric Greenfield Visit Number: [id number] Discharge Date: ATTENTION: The Clinical Documentation Specialists (CDI) and [facility] Coding Staff appreciate your assistance in clarifying documentation. Please respond to the clarification below the line at the bottom and electronically sign. The CDI & [facility] Coding staff will review the response and follow-up if needed. Please note: Queries are made part of the Legal Health Record. If you have any questions, please contact the author of this message via ITS. Dr. Mariana Nesbitt Sepsis is documented in the H&P 08/22 in [facility] and in subsequent IM notes which may lack sufficient clinical evidence/support in the medical record. Additional clarification is requested. History/Risk Factors: HTN, COPD, PAD who presents with bilateral lower extremity erythema and severe pain and found to have bilateral lower extremity cellulitis Clinical Indicators: 08/21 Triage VS: 174/78, 98.5, 105, 18, 98% room air 08/21-08/24 Temperature max: 98.5 Heart rate max: 105(08/21) 08/22 H&P, Assessment/Plan: "Bilateral lower extremity cellulitis. Sepsis as evidenced by leukocytosis and elevated lactic acid and tachycardia on presentation." 08/22 ID Consult, Assessment/Plan: "Keeping in mind elevated white count likely from gram positive skin art. Did have resolution of his leukocytosis." 08/21-08/23 WBC: 11.3, 7.33, 9.24 08/21 Lactic Acid x2: 2.1, 1.2 08/21 Blood Culture: "No growth at 48 hours." Treatment: Consult ID Monitor blood culture, lactic acid Vancomycin 1250mg IV [id number] start 08/23 Please clarify if Sepsis is a valid diagnosis? [ xxxx ] Yes, Sepsis, POA, is present as evidence by (additional clinical support): [ ] No, Sepsis is ruled out [ ] Other (please specify diagnosis) [ ] Unable to determine MTDD
[2023-08-25] MEDS ORDERED: LIDOCAINE 1% INJ 10MG/ML (20 ML MDV) ONE (11:51)
[2023-08-25] MEDS ORDERED: HEPARIN SODIUM 1,000 UN/ML (10ML VL) ONE (11:52)
[2023-08-25] MEDS ORDERED: VERAPAMIL 2.5 MG/ML 2 ML AMP ONE (11:52)
[2023-08-25] MEDS ORDERED: fentaNYL (PF) 50 MCG/ML 2 ML AMP ONE (12:02)
[2023-08-25] MEDS: fentaNYL (PF) 50 MCG/ML 2 ML AMP IVP ONE (12:10)
[2023-08-25] MEDS: MIDAZOLAM 2 MG/2 ML VIAL IVP ONE (12:10)
[2023-08-25] MEDS: SODIUM CHLORIDE 0.9% 500 ML 500 ML IV ONE (12:11)
[2023-08-25] MEDS: LIDOCAINE 1% INJ 10MG/ML (20 ML MDV) SQ ONE (12:14)
[2023-08-25] MEDS: NITROGLYCERIN 1000MCG/10ML SYRINGE INTRAARTER ONE (12:18)
[2023-08-25] MEDS: HEPARIN SODIUM 1,000 UN/ML (10ML VL) IV ONE (12:18)
[2023-08-25] MEDS: VERAPAMIL 2.5 MG/ML 2 ML AMP INTRAARTER ONE (12:18)
[2023-08-25] MEDS: IOPAMIDOL-370 200ML BTL INJ ONE (12:31)
--- NOTE | 2023-08-25 12:42 | P.OP ---
Date of Procedure: 08/25/23 Description of Procedure: Preoperative diagnosis: Severe lower extremity foot pain, peripheral arterial disease with rest pain Postop diagnosis: Same, Aortic occlusion with reconstitution bilateral femoral arteries, occluded bilateral superficial femoral artery Procedure: Aortogram with bilateral lower extremity runoffs via left radial artery access under ultrasound guidance Surgeon: Yahaira Anesthesia: Moderate sedation times 18 minutes Estimated blood loss: 2 Complications: none Condition: stable Findings: Aorta: Patent to the bilateral renal arteries and then flush occlusion just distal with multiple collateralization throughout the abdomen to the epigastric vessel bilaterally. Iliacs: Common, internal and external iliac arteries are occluded bilaterally Femorals: Reconstitution of bilateral femoral arteries noted from the epigastric vessels bilaterally. SFA is occluded just after takeoff bilaterally with reconstitution at the above-knee popliteal artery. Profundus femoris bilaterally are patent Operative narrative: After written informed consent was obtained the patient all risks benefits competitions were described the patient is brought to the [facility] [employer] [facility] and laid in a supine position. The area of the left wrist was prepped and draped in the usual sterile fashion. Local anesthesia with moderate sedation was performed with continuous pulse ox monitoring and EKG monitoring. Utilizing ultrasound the left radial artery was visualized and shown to be patent with significant plaque noted. Utilizing a multipurpose needle under ultrasound guidance the artery was accessed. Guidewire was placed followed by 4/5 Colombian slender sheath. 035 Glidewire was then placed into the aorta followed by pigtail catheter. Angiogram was then obtained of the aorta and lower extremity runoffs were obtained. Once completed all guidewires, catheters and sheaths were removed and pressure was placed for hemostasis. Patient tolerated procedure well was sent to PACU for recovery. Patient will require aortobifemoral bypass once cleared medically and from a cardiac perspective.
--- NOTE | 2023-08-25 13:15 | IR ---
EXAMINATION TYPE: IR angio abdominal w runoff DATE OF EXAM: 08/25/2023 COMPARISON: NONE HISTORY: Fluoroscopy time. Fluoroscopy was provided to the referring clinician.
--- NOTE | 2023-08-25 17:46 | CA ---
Transthoracic Echo Report Name: Eric Greenfield Age: 58 Gender: M : 1965 Exam Date: 08/25/2023 15:02 Exam Location: [facility] Ht (in): 64 Wt (lb): 144 Ordering Physician: Carli Perry Attending/Referring Phys: Business Continuity Management Director Montserrat Leonard RDCS Procedure CPT: Indications: LVF, preop clearance Cardiac Hx: Technical Quality: Fair Contrast 1: Total Dose (mL): Contrast 2: Total Dose (mL): MEASUREMENTS (Male / Female) Normal Values 2D ECHO LV Diastolic Diameter PLAX 3.5 cm 4.2 - 5.9 / 3.9 - 5.3 cm LV Systolic Diameter PLAX 2.4 cm IVS Diastolic Thickness 1.4 cm 0.6 - 1.0 / 0.6 - 0.9 cm LVPW Diastolic Thickness 1.4 cm 0.6 - 1.0 / 0.6 - 0.9 cm LV Relative Wall Thickness 0.8 RV Internal Dim ED PLAX 3.9 cm LA Volume 55.0 cm??? 18 - 58 / 22 - 52 cm??? LA Volume Index 31.8 cm???/m??? 16 - 28 cm???/m??? M-MODE Aortic Root Diameter MM 3.8 cm LA Systolic Diameter MM 3.1 cm LA Ao Ratio MM 0.8 AV Cusp Separation MM 2.3 cm DOPPLER AV Peak Velocity 123.7 cm/s AV Peak Gradient 6.1 mmHg AV Mean Velocity 86.7 cm/s AV Mean Gradient 3.3 mmHg AV Velocity Time Integral 25.4 cm LVOT Peak Velocity 98.9 cm/s LVOT Peak Gradient 3.9 mmHg LVOT Velocity Time Integral 21.9 cm MV Area PHT 3.5 cm??? Mitral E Point Velocity 70.3 cm/s Mitral A Point Velocity 111.2 cm/s Mitral E to A Ratio 0.6 MV Deceleration Time 213.9 ms MV E' Velocity 6.3 cm/s Mitral E to MV E' Ratio 11.2 TR Peak Velocity 242.1 cm/s TR Peak Gradient 23.5 mmHg Right Ventricular Systolic Press 28.3 mmHg FINDINGS Left Ventricle Moderately increased left ventricular wall thickness. Left ventricular cavity size normal. Normal left ventricular systolic function with no obvious regional wall motion abnormalities. Left ventricular ejection fraction is estimated at 55-60 %. Grade 1 diastolic dysfunction. Right Ventricle Right ventricular dilatation. Right ventricular systolic pressure within normal limits. Right Atrium Normal right atrial size. Left Atrium Mildly increased left atrial volume. Mitral Valve Structurally normal mitral valve. No mitral stenosis, regurgitation or prolapse. Mild mitral annular calcification. Aortic Valve No aortic valve stenosis or regurgitation. Tricuspid Valve Structurally normal tricuspid valve. Mild tricuspid regurgitation. Pulmonic Valve Structurally normal pulmonic valve. Pericardium No pericardial effusion. Aorta Normal size aortic root and proximal ascending aorta. CONCLUSIONS Left ventricular ejection fraction is estimated at 55-60 %. Grade 1 diastolic dysfunction. Moderate concentric LVH No obvious regional wall motion abnormality Normal RV size and systolic function Mild left atrial dilatation No significant valvular dysfunction No pericardial effusion Previewed by: Dr Kyler Chavez (Electronically Signed) Final Date: 25 August 2023 17:45
[2023-08-26 07:11] LABS: ALT 14 U/L (4-49); AST 21 U/L (17-59); African American GFR (CKD) >90 (>60 ml/min/1.73 sqM); Albumin 3.8 g/dL (3.5-5.0); Albumin/Globulin Ratio 1.3; Alkaline Phosphatase 72 U/L (38-126); Anion Gap 9 mmol/L; Blood Urea Nitrogen 18 mg/dL (9-20); Calcium 9.3 mg/dL (8.4-10.2); Carbon Dioxide 23 mmol/L (22-30); Chloride 105 mmol/L (98-107); Globulin 2.9 g/dL; Glucose 88 mg/dL (74-99); Non-African American GFR(CKD) >90 (>60 ml/min/1.73 sqM); Potassium 4.4 mmol/L (3.5-5.1); Sodium 137 mmol/L (137-145); Total Bilirubin 0.3 mg/dL (0.2-1.3); Total Protein 6.7 g/dL (6.3-8.2)
[2023-08-26] MEDS ORDERED: CAFFEINE CITRATE 60 MG/3 ML VIAL IV PRN (08:02)
[2023-08-26] MEDS ORDERED: REGADENOSON 0.4 MG/5 ML SYRINGE IV PRN (08:02)
[2023-08-26] MEDS ORDERED: AMINOPHYLLINE 500 MG/20 ML VIAL IV PRN (08:02)
--- NOTE | 2023-08-26 09:44 | P.PN ---
Subjective Progress Note Date: 08/26/23 On 08/24/2022 for patients alert and oriented 3. Eric Greenfield, 58-year-old male who presented to [facility] emergency room with a chief complaint of bilateral lower extremity erythema and severe pain He was evaluated in the emergency room vital examination on presentation revealed a temperature of 98.5 pulse 105 respiration 18 blood pressure 174/78 pulse ox 98% on room air Laboratory data revealed a white blood count of 11.3 hemoglobin 14.1 platelet count 342 sodium 132 potassium 4.7 chloride 96 CO2 27 BUN 21 creatinine 0.81 lactic acid 2.1 Patient was admitted to medical floor for further evaluation and treatment On 08/24/2023 patient was seen and examined on the medical floor he is alert and oriented 3 in no apparent distress, he is still complaining of pain in bilateral lower extremities, he is complaining of erythema in bilateral feet, otherwise he denies any complaints, input from infectious disease and vascular surgery reviewed awaiting further testing by vascular surgery. On 08/25/2023 patient is alert and oriented 3. Per nursing staff plans today for vascular intervention with Dr. Syed. Patient remains on IV vancomycin. Hemoglobin 14.5 white blood cell 9.24 creatinine 0.9 and bun 11.5. Repeat lactic acid 1.2. Patient denies chest pain or shortness breath. Patient denies nausea vomiting or diarrhea. Patient denies any urinary burning or frequency On 08/25/2022 for patients alert and oriented 3. Patient had aortogram with bilateral lower extremity runoff yesterday with Dr. Alonso. This time reality services have been consulted for cardiac clearance stress test has been ordered 2-D echo completed. Patient's of linear bilateral lower extremity pain current vital signs temp 97.7, heart rate 73, respiratory rate 16, blood pressure 158/74 with pulse ox of 96 Objective - Vital Signs Vital signs: Vital Signs Temp 97.7 F 08/26/23 07:40 Pulse 73 08/26/23 07:40 Resp 16 08/26/23 07:40 BP 158/74 08/26/23 07:40 Pulse Ox 96 08/26/23 07:40 FiO2 Intake & Output 08/25/23 08/26/23 08/26/23 18:59 06:59 18:59 Intake Total 218 Balance 218 Intake: IV 100 Oral 118 Other: # Voids 4 2 - Exam In general patient is alert and oriented x 3 in no distress HEENT head normocephalic and atraumatic Neck is supple no JVD no goiter no lymphadenopathy no carotid bruit Chest examination reveals a few scattered rhonchi in both lung ge no wheezing Cardiac exam reveals regular heart sounds S1 and S2 no gallops no murmurs Abdomen is soft nontender no organomegaly with normal bowel sounds Extremity exam reveals bilateral erythema in the feet extending above the ankles, there is a half centimeter scabbed ulcer at the base of the left big toe pulses are palpable but 4 bilateral Neurological examination reveals no gross focal deficits - Labs CBC & Chem 7: 08/24/23 08:47 08/26/23 06:27 Labs: Microbiology - Last 24 Hours (Table) 08/22/23 11:45 Blood Culture - Preliminary Blood 08/22/23 12:00 Blood Culture - Preliminary Blood Assessment and Plan Assessment: Bilateral lower extremity cellulitis Sepsis as evidenced by leukocytosis and elevated lactic acid and tachycardia on presentation Bilateral lower extremity severe peripheral arterial disease Underlying history of peripheral neuropathy maintained on gabapentin Underlying history of tobacco abuse, patient was counseled in length regarding the need to quit smoking Underlying history of COPD without exacerbation at this time Underlying history of hypertension, maintained on Ziac and lisinopril, blood pressure was significantly elevated on presentation Will monitor closely Underlying history of hyperlipidemia maintained on Lipitor will resume Underlying history of benign prostatic hypertrophy Underlying history of alcohol use, patient was started on CIWA protocol At this time patient is admitted to medical floor He was started on IV vancomycin in the emergency room Status post vascular aortogram runoff on 08/25/2023 Cardiology services consulted for clearance stress test ordered Infectious disease consultation and vascular surge Home medications reviewed and reordered For DVT prophylaxis subcu heparin For GI prophylaxis famotidine PT OT and social work services consulted for discharge planning Will follow closely
--- NOTE | 2023-08-26 10:36 | P.CRDCN ---
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 He has a past medical history of hypertension and hyperlipidemia, tobacco use and dependence, alcohol abuse. He denies history of diabetes. We have been asked to evaluate the patient for preop clearance for aortobifem bypass. Patient underwent aortogram bilateral lower extremities with runoff on 08/24 and determination was the patient required aortobifemoral bypass. Patient states he has not had previous workup on his heart. He states for the last couple of years he has not been very active due to pain in his legs and also shortness of breath. Patient presented to the hospital due to pain in the bilateral feet and redness swelling that had been going on and progressively worsening. He has significant pain with any standing or ambulating. He is a smoker of 1 pack/day for 45 years. He drinks up to 15 beers per day and he has not had none since Thursday. Nurses deny any DT symptoms and he is on the CIAL protocol. EKG okay so I sinus rhythm with poor R wave progression Echocardiogram performed on 08/24 reveals EF 55 to 60%, grade 1 diastolic dysfunction. Moderate concentric left ventricular hypertrophy. WBC 9.2, hemoglobin 14.5, platelet count 328. Electrolytes and renal function are normal. Blood sugar 88. Liver function test are normal. Home cardiac medications: Bisoprololhydrochlorothiazide 5-6.25 mg 1 daily, lisinopril 20 mg twice daily, simvastatin 20 mg at bedtime. Review Of Systems: At the time of my exam: CONSTITUTIONAL: Denies fever or chills. HEENT: Denies blurred vision, vision changes, or eye pain. Denies hemoptysis CARDIOVASCULAR: Denies chest pain. Denies orthopnea. Denies PND. Denies palpitations RESPIRATORY: Denies shortness of breath. GASTROINTESTINAL: Denies abdominal pain. Denies nausea or vomiting. HEMATOLOGIC: Denies bleeding disorders. GENITOURINARY: Denies any blood in urine. SKIN: Denies pruitis. Denies rash. Physical examination: Gen: This is a [ ] VS: reviewed HEENT: Head is atraumatic, normocephalic. Pupils equal, round. Sclerae is anicteric. NECK: Supple. No JVD. LUNGS: Clear to auscultation. No wheezes or rhonchi. No intercostal retraction s. HEART: Regular rate and rhythm. No murmur. ABDOMEN: Soft No tenderness. EXTREMITIES: Chronic erythema to bilateral feet with bilateral edema. NEUROLOGICAL: Patient is awake, alert and oriented x3. Assessment: Severe peripheral arterial disease with severe foot pain COPD Hypertension Hyperlipidemia Tobacco use and dependence Alcohol abuse Plan: Continue patient's home cardiac medications Obtain Lexiscan stress test today. If this is abnormal, patient will be scheduled for cardiac catheterization this afternoon with Dr. Avery. Further recommendations to follow based upon clinical course Thank you kindly for this consultation. Nurse practitioner note has been reviewed, I agree with documented findings and plan of care. Patient was seen and examined. Past Medical History Past Medical History: Asthma, COPD, GERD/Reflux, Hyperlipidemia, Hypertension, Osteoarthritis (OA) Additional Past Medical History / Comment(s): BACK AND HIP PAIN, DIFFICULTY WALKING DISTANCE., HX OF ULCERS AND BLOOD IN STOOL. History of Any Multi-Drug Resistant Organisms: None Reported Past Surgical History: Hernia Repair Additional Past Surgical History / Comment(s): HERNIA REPAIR AT 5 & 7 YEARS OLD. Past Anesthesia/Blood Transfusion Reactions: No Reported Reaction Additional Past Anesthesia/Blood Transfusion Reaction / Comment(s): DOES NOT REMEMBER ANY ANESTHESIA PROBLEMS A CHILD. Past Psychological History: No Psychological Hx Reported Smoking Status: Current every day smoker Past Alcohol Use History: Daily Past Drug Use History: Marijuana - Past Family History Mother Family Medical History: No Reported History Medications and Allergies Home Medications Medication Instructions Recorded Confirmed Type Bisoprolol-Hctz 5-6.25 mg [Ziac 1 tab PO DAILY 02/26/18 08/22/23 History 5-6.25] Escitalopram [Lexapro] 20 mg PO DAILY 02/26/18 08/22/23 History Methylphenidate HCl 20 mg PO BID 02/26/18 08/22/23 History Tamsulosin HCl [Flomax] 0.4 mg PO HS 02/26/18 08/22/23 History Albuterol Nebulized [Ventolin 2.5 mg INHALATION RT-TID PRN 04/21/23 08/22/23 History Nebulized] Butalb/APAP/Caff 50-325-40Mg 1 tab PO DAILY PRN 04/21/23 08/22/23 History [Fioricet 50-325-40] Escitalopram [Lexapro] 10 mg PO HS 04/21/23 08/22/23 History Famotidine [Pepcid] 20 mg PO BID 04/21/23 08/22/23 History Naloxone HCl [Narcan] 4 mg NASAL DIRECTED PRN 04/21/23 08/22/23 History lisinopriL [Zestril] 20 mg PO BID 04/21/23 08/22/23 History oxyCODONE-APAP 7.5-325MG [Percocet 1 tab PO TID 04/21/23 08/22/23 History 7.5-325 mg] Amoxic-Pot Clav 500-125 mg 1 tab PO BID 08/22/23 08/22/23 History [Augmentin 500-125 mg] Gabapentin [Neurontin] See Taper PO DIRECTED 08/22/23 08/22/23 History Simvastatin [Zocor] 20 mg PO HS 08/22/23 08/22/23 History Allergies Allergy/AdvReac Type Severity Reaction Status Date / Time No Known Allergies Allergy Verified 08/22/23 14:47 Physical Exam Vitals: Vital Signs Temp Pulse Resp BP BP Pulse Ox 08/26/23 02:00 97.9 F 60 16 126/68 96 08/25/23 20:00 97.9 F 71 16 165/76 97 08/25/23 16:58 68 164/76 98 08/25/23 15:58 97.6 F 73 158/78 97 08/25/23 14:58 78 140/80 94 L 08/25/23 14:38 72 140/69 95 08/25/23 14:08 63 152/69 96 08/25/23 13:38 71 151/75 96 08/25/23 13:25 68 165/79 93 L 08/25/23 13:09 68 176/81 93 L 08/25/23 12:53 97.3 F L 63 14 161/55 97 08/25/23 08:00 98 F 69 16 188/74 98 Intake and Output 08/25/23 08/26/23 08/26/23 22:59 06:59 14:59 Intake Total 118 Balance 118 Intake: Oral 118 Other: # Voids 4 2 Results 08/24/23 08:47 08/26/23 06:27 Cardiac Enzymes 08/26/23 Range/Units 06:27 AST 21 (17-59) U/L Comprehensive Metabolic Panel 08/26/23 Range/Units 06:27 Sodium 137 (137-145) mmol/L Potassium 4.4 (3.5-5.1) mmol/L Chloride 105 (98-107) mmol/L Carbon Dioxide 23 (22-30) mmol/L BUN 18 (9-20) mg/dL Creatinine 0.83 (0.66-1.25) mg/dL Glucose 88 (74-99) mg/dL Calcium 9.3 (8.4-10.2) mg/dL AST 21 (17-59) U/L ALT 14 (4-49) U/L Alkaline Phosphatase 72 (38-126) U/L Total Protein 6.7 (6.3-8.2) g/dL Albumin 3.8 (3.5-5.0) g/dL Current Medications Generic Name Dose Route Start Last Admin Trade Name Freq PRN Reason Stop Dose Admin Acetaminophen 650 mg 08/22/23 11:36 Acetaminophen Tab 325 Mg Tab PO Q6HR PRN Mild Pain or Fever > 100.5 Acetaminophen/Butalbital/Caffeine 1 each 08/22/23 17:27 Butalb/Apap/Caff 50-325-40mg Tab PO DAILY PRN Migraine Headache Hydrocodone Bitart/Acetaminophen 1 each 08/22/23 11:36 Hydrocodone/Apap 5-325mg 1 Each Tab PO Q4HR PRN Moderate Pain (Scale 4 to 6) Albuterol Sulfate 2.5 mg 08/23/23 07:59 Albuterol Nebulized 2.5 Mg/3 Ml INHALATION RT-TID PRN Shortness Of Breath Atorvastatin Calcium 10 mg 08/22/23 21:00 08/25/23 20:27 Atorvastatin 10 Mg Tab PO 10 mg HS ANDREW Administration Bisoprolol Fumarate 1 each 08/23/23 09:00 08/25/23 08:55 Bisoprolol-Hctz 5-6.25 Mg 1 Each Tab PO 1 each DAILY ANDREW Administration Escitalopram Oxalate 10 mg 08/22/23 21:00 08/25/23 20:27 Escitalopram 10 Mg Tab PO 10 mg HS ANDREW Administration Escitalopram Oxalate 20 mg 08/23/23 09:00 08/25/23 08:55 Escitalopram 20 Mg Tab PO 20 mg DAILY ANDREW Administration Famotidine 20 mg 08/22/23 21:00 08/25/23 20:27 Famotidine 20 Mg Tab PO 20 mg BID ANDREW Administration Gabapentin 300 mg 08/22/23 17:30 08/25/23 18:19 Gabapentin 300 Mg Cap PO 300 mg DIRECTED ANDREW Administration Heparin Sodium (Porcine) 5,000 unit 08/23/23 09:00 08/25/23 22:44 Heparin Sodium,Porcine 5,000 Unit/Ml 1 Ml Vial SQ 5,000 unit Q12HR ANDREW Administration Vancomycin HCl 1,250 mg/ 250 mls @ 125 mls/hr 08/24/23 10:00 08/25/23 22:44 Sodium Chloride IVPB Not Given Q12H ANDREW Lisinopril 20 mg 08/22/23 21:00 08/25/23 20:27 Lisinopril 20 Mg Tab PO 20 mg BID ANDREW Administration Lorazepam 2 mg 08/22/23 19:25 Lorazepam 1 Mg Tab PO Q3HR PRN Ciwa 8 To 9 Lorazepam 2 mg 08/22/23 19:25 Lorazepam 1 Mg Tab PO Q2HR PRN Ciwa 10 or greater Lorazepam 1 mg 08/22/23 19:25 Lorazepam 1 Mg Tab PO Q4HR PRN Ciwa 6 To 7 Lorazepam 0.5 mg 08/22/23 19:25 Lorazepam 0.5 Mg Tab PO Q4HR PRN Ciwa 4 To 5 Melatonin 6 mg 08/23/23 23:15 08/25/23 20:27 Melatonin 3 Mg Tablet PO 6 mg HS ANDREW Administration Methylphenidate HCl 20 mg 08/23/23 09:00 08/25/23 14:53 Methylphenidate Hcl 10 Mg Tab PO 20 mg BID@0900,1500 ANDREW Administration Naloxone HCl 0.2 mg 08/22/23 11:36 Naloxone 0.4 Mg/Ml 1 Ml Vial IV Q2M PRN Opioid Reversal Nicotine 1 patch 08/24/23 09:00 08/25/23 08:53 Nicotine 21mg/24hr Patch TRANSDERM 1 patch DAILY ANDREW Administration Ondansetron HCl 4 mg 08/22/23 11:36 Ondansetron 4 Mg/2 Ml Vial IVP Q8HR PRN Nausea And Vomiting Oxycodone/Acetaminophen 1 each 08/22/23 12:15 08/25/23 20:27 Oxycodone-Apap 7.5-325mg 1 Each Tab PO 1 each TID ANDREW Administration Tamsulosin HCl 0.4 mg 08/22/23 21:00 08/25/23 20:27 Tamsulosin 0.4 Mg Cap.Er.24h PO 0.4 mg HS ANDREW Administration Intake and Output 08/25/23 08/26/23 08/26/23 22:59 06:59 14:59 Intake Total 118 Balance 118 Intake: Oral 118 Other: # Voids 4 2 08/24/23 08:47 08/26/23 06:27
--- NOTE | 2023-08-26 11:00 | P.CONS ---
History of Present Illness - Reason for Consult Consult date: 08/26/23 rehab recommendations - Chief Complaint sepsis/debility - History of Present Illness Mr Greenfield is a 58 y/o male who lives alone in a single story home with 5 tae with basement, 13 steps down to laundry. Prior to admission he was independent with mobility and ADLs. He does not drive. Patient presented to the hospital on 08/22/23 for complaints of bilateral foot pain and swelling and recommendation from PCP. He reportedly has developed wounds on his feet, has been told he had arterial disease but has not followed up with vascular surgery. Vascular surgery was consulted, he had ABIs completed. On 08/25/23 he underwent aortogram, diagnosed with severe PAD with occluded bilateral SFA. Vascular surgery recommended aortofemoral bypass. PM&R consulted for rehab recommendations. Therapy consulted. Cardiology consulted for clearance, lexiscan today and possible cath. States has been up to bathroom by self. Is tired, has occasional SCHULTZ and SOB with activity. occasional numbness in feet. Biggest issue is pain in feet, legs. Last BM today Review of Systems reviewed, negative unless started in HPI Past Medical History Past Medical History: Asthma, COPD, GERD/Reflux, Hyperlipidemia, Hypertension, Osteoarthritis (OA) Additional Past Medical History / Comment(s): BACK AND HIP PAIN, DIFFICULTY W ALKING DISTANCE., HX OF ULCERS AND BLOOD IN STOOL. History of Any Multi-Drug Resistant Organisms: None Reported Past Surgical History: Hernia Repair Additional Past Surgical History / Comment(s): HERNIA REPAIR AT 5 & 7 YEARS OLD. Past Anesthesia/Blood Transfusion Reactions: No Reported Reaction Additional Past Anesthesia/Blood Transfusion Reaction / Comm: DOES NOT REMEMBER ANY ANESTHESIA PROBLEMS A CHILD. Past Psychological History: No Psychological Hx Reported Smoking Status: Current every day smoker Past Alcohol Use History: Daily Past Drug Use History: Marijuana - Past Family History Mother Family Medical History: No Reported History Medications and Allergies Home Medications Medication Instructions Recorded Confirmed Type Bisoprolol-Hctz 5-6.25 mg [Ziac 1 tab PO DAILY 02/26/18 08/22/23 History 5-6.25] Escitalopram [Lexapro] 20 mg PO DAILY 02/26/18 08/22/23 History Methylphenidate HCl 20 mg PO BID 02/26/18 08/22/23 History Tamsulosin HCl [Flomax] 0.4 mg PO HS 02/26/18 08/22/23 History Albuterol Nebulized [Ventolin 2.5 mg INHALATION RT-TID PRN 04/21/23 08/22/23 History Nebulized] Butalb/APAP/Caff 50-325-40Mg 1 tab PO DAILY PRN 04/21/23 08/22/23 History [Fioricet 50-325-40] Escitalopram [Lexapro] 10 mg PO HS 04/21/23 08/22/23 History Famotidine [Pepcid] 20 mg PO BID 04/21/23 08/22/23 History Naloxone HCl [Narcan] 4 mg NASAL DIRECTED PRN 04/21/23 08/22/23 History lisinopriL [Zestril] 20 mg PO BID 04/21/23 08/22/23 History oxyCODONE-APAP 7.5-325MG [Percocet 1 tab PO TID 04/21/23 08/22/23 History 7.5-325 mg] Amoxic-Pot Clav 500-125 mg 1 tab PO BID 08/22/23 08/22/23 History [Augmentin 500-125 mg] Gabapentin [Neurontin] See Taper PO DIRECTED 08/22/23 08/22/23 History Simvastatin [Zocor] 20 mg PO HS 08/22/23 08/22/23 History Allergies Allergy/AdvReac Type Severity Reaction Status Date / Time No Known Allergies Allergy Verified 08/22/23 14:47 Physical Exam Vitals: Vital Signs Temp Pulse Resp BP BP Pulse Ox 08/25/23 08:00 98 F 69 16 188/74 98 08/25/23 02:00 97.7 F 74 162/87 94 L 08/24/23 20:00 98 F 79 171/75 95 Intake and Output 08/25/23 08/25/23 08/25/23 06:59 14:59 22:59 Intake Total 100 Balance 100 Intake: IV 100 Other: # Voids 2 4 EXAM; General: WDWN, male/female, NAD Head: Normocephalic, atraumatic. Eyes: Symmetric Ears: Symmetric. Hearing within normal limits. Mouth: Clear. Neck: Supple. Cardiac: Regular rate and rhythm. Calves supple, non tender, no edema Lungs: Breathing comfortably on RA. Chest symmetric. Abdomen: Soft, nontender. Extremities: Arthritic changes consistent with age. Neurological: Alert and oriented x 4. Speech is clear and fluent without paraphasic errors Cranial nerves: CN II-XII: intact. Sensation: Intact and symmetrical limbs though dysesthesia with touch to feet Musculoskeletal: ROM WFL MMT UE Sh Abd EE EF FABD WE HG Right 5 5 5 5 5 5 Left 5 5 5 5 5 5 MMT LE HF KE DF EHL Right 5 5 Left 5 5 Reflexes Biceps Triceps Brachioradialis Patella Achilles Babinski Hoffmans Right 2 2 2 2 nt Left 2 2 2 2 nt Skin: Skin intact where visible to head, neck, and bilateral upper and lower extremities EXCEPT: erythema bilateral feet Psych: Calm, cooperative Results CBC & Chem 7: 08/26/23 06:27 08/26/23 06:27 Labs: Abnormal Lab Results - Last 24 Hours (Table) 08/24/23 08/24/23 Range/Units 08:47 08:47 MCV 99.8 H (80.0-97.0) FL MCH 32.4 H (27.0-32.0) pg Glucose 165 H (70-110) mg/dL Total Bilirubin 0.2 L (0.3-1.2) mg/dL Microbiology - Last 24 Hours (Table) 08/22/23 11:45 Blood Culture - Preliminary Blood 08/22/23 12:00 Blood Culture - Preliminary Blood Assessment and Plan Assessment: # Sepsis secondary to bilateral lower extremity cellulitis -on vanco -PT/OT evaluations # Bilateral SFA occlusions -vascular surgery recommending Bypass surgery # Severe PAD -pending lexiscan and possible heart cath # PPN -on gabapentin # Chronic back pain -Tylenol prn, [place] prn, Percocet 7.5/325 TID # DVT Proph -Heparin # Comorbidities: Tobacco use, ETOH use, Asthma, COPD, GERD, HLD, HTN, OA # Your medical dx and management Disposition: Patient is pending therapy evaluations, needs further work up and possible surgery, Lives alone and will likely need some form of rehab after medically stable. We will follow and make recommendations as appropriate. Patient seen and examined by Dr Whyte, consult note remotely prepped by Sheyla Hammonds PA-C
[2023-08-26 11:51] LABS: Basophils % (A) 1.2 %; Eosinophils # (A) 0.25 X 10*3/uL (0.04-0.35); HCT 39.9 % (39.6-50.0); HGB 13.1 g/dL (13.0-17.0); Lymphocytes # (A) 1.85 X 10*3/uL (0.90-5.00); Lymphocytes % (A) 22.4 %; MCH 32.1 pg (27.0-32.0); MCHC 32.8 g/dL (32.0-37.0); MCV 97.8 FL (80.0-97.0); Mean Platelet Volume 10.4 FL (9.5-12.2); Monocytes # (A) 1.07 X 10*3/uL (0.20-1.00); NRBC Per 100 WBC 0 X 10*3/uL (0.00-0.01); Neutrophils # (A) 4.97 X 10*3/uL (1.80-7.70); Neutrophils % (A) 60.2 %; Platelet Count 307 X 10*3/uL (140-440); RBC 4.08 X 10*6/uL (4.40-5.60); WBC 8.26 X 10*3/uL (4.50-10.00)
--- NOTE | 2023-08-26 12:24 | NM ---
EXAMINATION TYPE: NM stress lexiscan cardiolite DATE OF EXAM: 08/26/2023 COMPARISON: NONE CLINICAL INDICATION: Male, 58 years old with history of SANDOVAL preop clearance; TECHNIQUE: After the intravenous administration of 9.96 mCi Tc 99m Sestamibi - Cardiolite resting SP ECT images acquired 45 minutes post injection. The patient received 0.4mg Lexiscan, 24.9 mCi Tc 99m Sestamibi - Stress images obtained [address] injection FINDINGS: Review of stress and rest SPECT images demonstrates no distinct perfusion abnormality. Gated analysi s shows normal wall motion with an estimated left ventricular ejection fraction of 61 %. IMPRESSION: No scintigraphic evidence for reversible ischemia.
--- NOTE | 2023-08-26 13:40 | CA ---
Lexiscan Nuclear Stress Test Report Name: Eric Greenfield Exam Date: 08/26/2023 09:54 Exam Location: [place] Stress Ht (in): 64 Wt (lb): 144 BSA: 1.70 Ordering Phys: Carli Perry Referring Phys: KASISE NOLASCO Technologist: Moses Aponte Age: 58 Gender: M : 1965 Procedure CPT: Indications: Reflex order-Stress test ICD-10 Codes: Patient History: Medications: SEE CHART Meds past 24 hrs: Pretest Chest Pain: STRESS TEST Lexiscan Protocol Exercise Duration (min:sec): 02:[address] Depressions (mm): Angina Score: Liang Score: Resting HR (bpm): 70 Peak HR (bpm): 98 Resting BP (mmHg): 148 / 82 Peak BP (mmHg): 186 / 97 MPHR: 162 Target HR: 138 % MPHR: 60 METS: 1.0 Total Dose: Peak Dose: Atropine: Double Product: 38972 BP Response: Stress Termination: PROTOCOL COMPLETE Stress Symptoms: NO SYMPTOMS Stress Summary: ECG ANALYSIS Resting ECG: Stress ECG: CONCLUSIONS Nondiagnostic stress test Dr. Dionicio Avery MD (Electronically Signed) Final Date: 26 August 2023 13:39
--- NOTE | 2023-08-26 15:14 | P.PN ---
Subjective Progress Note Date: 08/26/23 Principal diagnosis: Peripheral arterial disease Patient down for stress test Objective - Vital Signs Vital signs: Vital Signs Temp 97.7 F 08/26/23 07:40 Pulse 73 08/26/23 07:40 Resp 16 08/26/23 07:40 BP 158/74 08/26/23 07:40 Pulse Ox 96 08/26/23 07:40 FiO2 Intake & Output 08/25/23 08/26/23 08/26/23 18:59 06:59 18:59 Intake Total 218 Balance 218 Intake: IV 100 Oral 118 Other: # Voids 4 2 - Labs CBC & Chem 7: 08/26/23 06:27 08/26/23 06:27 Labs: Microbiology - Last 24 Hours (Table) 08/22/23 11:45 Blood Culture - Preliminary Blood 08/22/23 12:00 Blood Culture - Preliminary Blood Assessment and Plan Assessment: 1. Aortic occlusion with reconstitution bilateral femoral arteries, occluded bilateral superficial femoral artery 2. Lower extremity foot pain 3. Lower extremities cellulitis 4. Nicotine dependence 5. COPD 6. Hyperlipidemia 7. Hypertension Plan: 1. Patient is going to require aortobifemoral bypass 2. Patient will need medical and cardiac clearance 3. Await cardiology recommendations and clearance 4. Timing to be determined surgical intervention Thank you for this consultation, we will continue to follow. The impression and plan of care has been dictated as directed. Dr. Davis I performed a history and examination of this patient, discussed the same with the dictator. I agree with the dictator's note ,documented as a scribe. Any additional findings or plans will be noted.
--- NOTE | 2023-08-26 23:35 | P.PN ---
Subjective Progress Note Date: 08/26/23 Principal diagnosis: Reason for follow-up is bilateral foot cellulitis Patient is a 58-year-old male with a past medical history significant for hypertension hyperlipidemia reflux COPD and asthma patient did have a PAD, presented to the hospital with worsening discomfort to bilateral feet area and redness. On today's visit that is Patient is status post aortogram with bilateral lower extremity runoff and did have evidence of significant PAD surgery recommending aortobifemoral bypass. On today's evaluation that is 08/26/2023,the patient denies any fever or any chi lls, patient is breathing comfortably on room air, the patient denies chest pain shortness of breath and no significant cough, patient denies abdominal pain, no nausea vomiting or diarrhea, patient mention pain to bilateral feet area slightly decreased in intensity. Patient did have white count of 8.26 creatinine 0.83 blood culture negative Vanco trough is 17.1 Objective - Vital Signs Vital signs: Vital Signs Temp 98.6 F 08/26/23 19:33 Pulse 72 08/26/23 19:33 Resp 15 08/26/23 19:33 BP 137/78 08/26/23 19:33 Pulse Ox 97 08/26/23 19:33 FiO2 Intake & Output 08/26/23 08/26/23 08/27/23 06:59 18:59 06:59 Intake Total 236 Balance 236 Intake: Oral 236 Other: # Voids 2 2 - Exam GENERAL DESCRIPTION: Middle-age male up in bed in no distress RESPIRATORY SYSTEM: Unlabored breathing , decreased breath sounds at bases HEART: S1 S2 regular rate and rhythm , ABDOMEN: Soft , no tenderness EXTREMITIES: Bilateral feet did have erythema but no significant warmth or drainage - Labs CBC & Chem 7: 08/26/23 06:27 08/26/23 06:27 Labs: Abnormal Lab Results - Last 24 Hours (Table) 08/26/23 Range/Units 06:27 RBC 4.08 L (4.40-5.60) X 10*6/uL MCV 97.8 H (80.0-97.0) FL MCH 32.1 H (27.0-32.0) pg Monocytes # 1.07 H (0.20-1.00) X 10*3/uL Microbiology - Last 24 Hours (Table) 08/22/23 11:45 Blood Culture - Preliminary Blood 08/22/23 12:00 Blood Culture - Preliminary Blood Assessment and Plan (1) Cellulitis of both feet Current Visit: Yes Status: Acute Code(s): L03.115 - CELLULITIS OF RIGHT LOWER LIMB; L03.116 - CELLULITIS OF LEFT LOWER LIMB SNOMED Code(s): 823042641 (2) Leukocytosis Current Visit: Yes Status: Acute Code(s): D72.829 - ELEVATED WHITE BLOOD CELL COUNT, UNSPECIFIED SNOMED Code(s): 511758461 Plan: 1patient with a bilateral lower extremity pain he did have some erythema however bilateral feet are cool to touch and symptom more likely related to underlying PAD and possible component of cellulitis not entirely excluded, Keeping in mind elevated white count likely from gram-positive skin art 2-patient has been eval by vascular surgery status post aortogram with bilateral lower extremity runoff with evidence of significant PAD recommending aorto bifemoral bypass once cardiac clearance 3-patient is afebrile white count normalized, blood cultures have been negative patient to continue with vancomycin while inpatient Dictation was produced using [employer] dictation software. please excuse any grammatical, word or spelling errors. Time with Patient: Less than 30
[2023-08-27 09:08] LABS: ALT 20 U/L (4-49); AST 26 U/L (17-59); African American GFR (CKD) >90 (>60 ml/min/1.73 sqM); Albumin 4.6 g/dL (3.5-5.0); Albumin/Globulin Ratio 1.5; Alkaline Phosphatase 74 U/L (38-126); Anion Gap 9 mmol/L; Blood Urea Nitrogen 21 mg/dL (9-20); Calcium 9.7 mg/dL (8.4-10.2); Carbon Dioxide 30 mmol/L (22-30); Chloride 100 mmol/L (98-107); Globulin 3.1 g/dL; Glucose 115 mg/dL (74-99); Non-African American GFR(CKD) 85 (>60 ml/min/1.73 sqM); Potassium 4.6 mmol/L (3.5-5.1); Sodium 139 mmol/L (137-145); Total Bilirubin 0.4 mg/dL (0.2-1.3); Total Protein 7.7 g/dL (6.3-8.2)
[2023-08-27] MEDS: ASPIRIN 81 MG PO SCH (10:11)
--- NOTE | 2023-08-27 11:06 | P.PN ---
Subjective Progress Note Date: 08/27/23 History of present illness: This is a 58-year-old male with no previous cardiac history, does not follow with a belly roller. He has a past medical history of hypertension and hyperlipidemia, tobacco use and dependence, alcohol abuse. He denies history of diabetes. We have been asked to evaluate the patient for preop clearance for aortobifem bypass. Patient underwent aortogram bilateral lower extremities with runoff on 08/24 and determination was the patient required aortobifemoral bypass. Patient states he has not had previous workup on his heart. He states for the last couple of years he has not been very active due to pain in his legs and also shortness of breath. Patient presented to the hospital due to pain in the bilateral feet and redness swelling that had been going on and progressively worsening. He has significant pain with any standing or ambulating. He is a smoker of 1 pack/day for 45 years. He drinks up to 15 beers per day and he has not had none since Thursday. Nurses deny any DT symptoms and he is on the CIWA protocol. EKG okay so I sinus rhythm with poor R wave progression Echocardiogram performed on 08/24 reveals EF 55 to 60%, grade 1 diastolic dysfunction. Moderate concentric left ventricular hypertrophy. WBC 9.2, hemoglobin 14.5, platelet count 328. Electrolytes and renal function are normal. Blood sugar 88. Liver function test are normal. Home cardiac medications: Bisoprololhydrochlorothiazide 5-6.25 mg 1 daily, lisinopril 20 mg twice daily, simvastatin 20 mg at bedtime. Progress note 08/27/2023 Patient was seen and examined at bedside this a.m. His Lexiscan nuclear stress test did not show any reversible or fixed perfusion defects. Patient denies any cardiovascular complaints. He is hemodynamically stable. Physical examination: VS: reviewed HEENT: Head is atraumatic, normocephalic. Pupils equal, round. Sclerae is anicteric. NECK: Supple. No JVD. LUNGS: Clear to auscultation. No wheezes or rhonchi. No intercostal retractions. HEART: Regular rate and rhythm. No murmur. ABDOMEN: Soft No tenderness. EXTREMITIES: Chronic erythema to bilateral feet with bilateral edema. NEUROLOGICAL: Patient is awake, alert and oriented x3. Assessment: Severe peripheral arterial disease with severe foot pain COPD Hypertension Hyperlipidemia Tobacco use and dependence Alcohol abuse Plan: Patient is cleared from cardiovascular standpoint to undergo vascular surgery. He is at moderate risk for high risk procedure. Continue aspirin, high intensity statin Will continue to follow in perioperative and postoperative period Objective - Vital Signs Vital signs: Vital Signs Temp 98 F 08/27/23 08:00 Pulse 67 08/27/23 08:00 Resp 16 08/27/23 08:00 BP 155/77 08/27/23 08:00 Pulse Ox 96 08/27/23 08:00 FiO2 Intake & Output 08/26/23 08/27/23 08/27/23 18:59 06:59 18:59 Intake Total 236 118 Balance 236 118 Intake: Oral 236 118 Other: # Voids 2 2 - Labs CBC & Chem 7: 08/26/23 06:27 08/27/23 08:45 Labs: Abnormal Lab Results - Last 24 Hours (Table) 08/26/23 08/27/23 Range/Units 06:27 08:45 RBC 4.08 L (4.40-5.60) X 10*6/uL MCV 97.8 H (80.0-97.0) FL MCH 32.1 H (27.0-32.0) pg Monocytes # 1.07 H (0.20-1.00) X 10*3/uL BUN 21 H (9-20) mg/dL Glucose 115 H (74-99) mg/dL
[2023-08-27 11:21] LABS: Basophils % (A) 1.1 %; Eosinophils # (A) 0.29 X 10*3/uL (0.04-0.35); Eosinophils % (A) 3.3 %; HCT 43.1 % (39.6-50.0); HGB 14.2 g/dL (13.0-17.0); Lymphocytes # (A) 1.96 X 10*3/uL (0.90-5.00); Lymphocytes % (A) 22.2 %; MCH 32.4 pg (27.0-32.0); MCHC 32.9 g/dL (32.0-37.0); MCV 98.4 FL (80.0-97.0); Monocytes # (A) 1.08 X 10*3/uL (0.20-1.00); Monocytes % (A) 12.2 %; NRBC Per 100 WBC 0 X 10*3/uL (0.00-0.01); Neutrophils # (A) 5.37 X 10*3/uL (1.80-7.70); Platelet Count 301 X 10*3/uL (140-440); RBC 4.38 X 10*6/uL (4.40-5.60); RDW 11.9 % (11.5-14.5); WBC 8.82 X 10*3/uL (4.50-10.00)
--- NOTE | 2023-08-27 11:54 | P.PN ---
Subjective Progress Note Date: 08/27/23 Principal diagnosis: Peripheral arterial disease Patient seen and examined today as a follow-up. He has undergone aortogram with runoff with findings of aortic occlusion with reconstitution of bilateral femoral arteries, occluded bilateral superficial femoral artery. States lower extremity pain somewhat improved as well as swelling of his feet. Denies any fevers or chills. Denies any shortness of breath or chest pain. Yesterday he underwent Lexiscan stress test which showed no ischemia. Awaiting formal cardiology and medical clearance. Objective - Vital Signs Vital signs: Vital Signs Temp 98 F 08/27/23 08:00 Pulse 67 08/27/23 08:00 Resp 16 08/27/23 08:00 BP 155/77 08/27/23 08:00 Pulse Ox 96 08/27/23 08:00 FiO2 Intake & Output 08/26/23 08/27/23 08/27/23 18:59 06:59 18:59 Intake Total 236 118 Balance 236 118 Intake: Oral 236 118 Other: # Voids 2 2 - Exam General appearance: The patient is alert, oriented, appears in no acute distress. HET: Head is normocephalic and atraumatic. Pupils are equal and reactive. Neck: Supple. Abdomen: Soft, nondistended. Extremities: Bilateral lower extremity pedal edema with erythema and dry cracked skin. Sensorimotor intact. Nonpalpable PT or DP pulses. Good capillary refill. Neurological: No focal deficits. Strength and sensation are grossly intact. - Labs CBC & Chem 7: 08/27/23 08:45 08/27/23 08:45 Labs: Abnormal Lab Results - Last 24 Hours (Table) 08/26/23 08/27/23 08/27/23 Range/Units 06:27 08:45 08:45 RBC 4.08 L 4.38 L (4.40-5.60) X 10*6/uL MCV 97.8 H 98.4 H (80.0-97.0) FL MCH 32.1 H 32.4 H (27.0-32.0) pg Monocytes # 1.07 H 1.08 H (0.20-1.00) X 10*3/uL BUN 21 H (9-20) mg/dL Glucose 115 H (74-99) mg/dL Assessment and Plan Assessment: 1. Aortic occlusion with reconstitution bilateral femoral arteries, occluded bilateral superficial femoral artery 2. Lower extremity foot pain 3. Lower extremities cellulitis 4. Nicotine dependence 5. COPD 6. Hyperlipidemia 7. Hypertension Plan: 1. Patient is going to require aortobifemoral bypass 2. Patient has medical and cardiac clearance to proceed with aortobifem bypass 3. Continue to discuss importance of smoking cessation. Nicotine patch offered. 4. Patient is tentatively scheduled for aortobifemoral bypass tomorrow Thank you for this consultation, we will continue to follow. The impression and plan of care has been dictated as directed. Dr. Brown I performed a history and examination of this patient, discussed the same with the dictator. I agree with the dictator's note ,documented as a scribe. Any additional findings or plans will be noted.
--- NOTE | 2023-08-27 14:23 | P.PN ---
Subjective Progress Note Date: 08/25/23 Principal diagnosis: Reason for follow-up is bilateral foot cellulitis Patient is a 58-year-old male with a past medical history significant for hypertension hyperlipidemia reflux COPD and asthma patient did have a PAD, presented to the hospital with worsening discomfort to bilateral feet area and redness. On today's visit that is Patient is status post aortogram with bilateral lower extremity runoff and did have evidence of significant PAD surgery recommending aortobifemoral bypass. On today's evaluation that is 08/25/2023, patient has been afebrile, patient is breathing comfortably and is currently on room air, patient denies having any significant cough no chest pain shortness of breath, patient denies nausea vomiting or diarrhea and no abdominal pain, pain to bilateral foot area slightly decreased. No new labs has been repeated today blood cultures are pending Objective - Vital Signs Vital signs: Vital Signs Temp 98 F 08/25/23 08:00 Pulse 69 08/25/23 08:00 Resp 16 08/25/23 08:00 BP 188/74 08/25/23 08:00 Pulse Ox 98 08/25/23 08:00 FiO2 Intake & Output 08/24/23 08/25/23 08/25/23 18:59 06:59 18:59 Intake Total 838 100 Output Total 4 600 Balance 834 -600 100 Weight 65.317 kg Intake: IV 100 Oral 838 Output: Urine 4 600 Other: # Voids 2 - Exam GENERAL DESCRIPTION: Middle-age male up in bed in no distress RESPIRATORY SYSTEM: Unlabored breathing , decreased breath sounds at bases HEART: S1 S2 regular rate and rhythm , ABDOMEN: Soft , no tenderness EXTREMITIES: Bilateral feet did have erythema but no significant warmth or drainage - Labs CBC & Chem 7: 08/24/23 08:47 08/24/23 08:47 Labs: Abnormal Lab Results - Last 24 Hours (Table) 08/24/23 08/24/23 Range/Units 08:47 08:47 MCV 99.8 H (80.0-97.0) FL MCH 32.4 H (27.0-32.0) pg Glucose 165 H (70-110) mg/dL Total Bilirubin 0.2 L (0.3-1.2) mg/dL Microbiology - Last 24 Hours (Table) 08/22/23 11:45 Blood Culture - Preliminary Blood 08/22/23 12:00 Blood Culture - Preliminary Blood Assessment and Plan (1) Cellulitis of both feet Current Visit: Yes Status: Acute Code(s): L03.115 - CELLULITIS OF RIGHT LOWER LIMB; L03.116 - CELLULITIS OF LEFT LOWER LIMB SNOMED Code(s): 002638602 (2) Leukocytosis Current Visit: Yes Status: Acute Code(s): D72.829 - ELEVATED WHITE BLOOD CELL COUNT, UNSPECIFIED SNOMED Code(s): 173059771 Plan: 1patient with a bilateral lower extremity pain he did have some erythema however bilateral feet are cool to touch and symptom more likely related to underlying PAD and possible component of cellulitis not entirely excluded, Keeping in mind elevated white count likely from gram-positive skin art 2-patient has been eval by vascular surgery status post aortogram with bilateral lower extremity runoff with evidence of significant PAD recommending aorto bifemoral bypass once cardiac clearance 3-patient patient to continue with empiric vancomycin watching his kidney function closely Dictation was produced using [employer] dictation software. please excuse any grammatical, word or spelling errors. Time with Patient: Less than 30
--- NOTE | 2023-08-27 14:36 | P.PN ---
Subjective Progress Note Date: 08/27/23 Eric Greenfield, 58-year-old male who presented to [facility] emergency room with a chief complaint of bilateral lower extremity erythema and severe pain He was evaluated in the emergency room vital examination on presentation revealed a temperature of 98.5 pulse 105 respiration 18 blood pressure 174/78 pulse ox 98% on room air Laboratory data revealed a white blood count of 11.3 hemoglobin 14.1 platelet count 342 sodium 132 potassium 4.7 chloride 96 CO2 27 BUN 21 creatinine 0.81 lactic acid 2.1 Patient was admitted to medical floor for further evaluation and treatment On 08/24/2023 patient was seen and examined on the medical floor he is alert and oriented 3 in no apparent distress, he is still complaining of pain in bilateral lower extremities, he is complaining of erythema in bilateral feet, otherwise he denies any complaints, input from infectious disease and vascular surgery reviewed awaiting further testing by vascular surgery. On 08/25/2023 patient is alert and oriented 3. Per nursing staff plans today for vascular intervention with Dr. Syed. Patient remains on IV vancomycin. Hemoglobin 14.5 white blood cell 9.24 creatinine 0.9 and bun 11.5. Repeat lact ic acid 1.2. Patient denies chest pain or shortness breath. Patient denies nausea vomiting or diarrhea. Patient denies any urinary burning or frequency On 08/26/2023 for patients alert and oriented 3. Patient had aortogram with bilateral lower extremity runoff yesterday with Dr. Alonso. This time reality services have been consulted for cardiac clearance stress test has been ordered 2-D echo completed. Patient's of linear bilateral lower extremity pain current vital signs temp 97.7, heart rate 73, respiratory rate 16, blood pressure 158/74 with pulse ox of 96 On 08/27/2023 patient was seen and examined on the medical floor he is alert and oriented 3 in no apparent distress he is still complaining of bilateral feet pain and discoloration otherwise he denies any complaints, there is no fever or chills no headache or dizziness no chest pain no shortness of breath no cough no nausea or vomiting no abdominal pain no diarrhea and no urinary symptoms. Laboratory results, x-ray results, and stress test results reviewed in details. There is no medical contraindication for surgery. Objective - Vital Signs Vital signs: Vital Signs Temp 98 F 08/27/23 08:00 Pulse 67 08/27/23 08:00 Resp 16 08/27/23 08:00 BP 155/77 08/27/23 08:00 Pulse Ox 96 08/27/23 08:00 FiO2 Intake & Output 08/26/23 08/27/23 08/27/23 18:59 06:59 18:59 Intake Total 236 118 Balance 236 118 Intake: Oral 236 118 Other: # Voids 2 2 - Exam In general patient is alert and oriented x 3 in no distress HEENT head normocephalic and atraumatic Neck is supple no JVD no goiter no lymphadenopathy no carotid bruit Chest examination reveals a few scattered rhonchi in both lung ge no wheezing Cardiac exam reveals regular heart sounds S1 and S2 no gallops no murmurs Abdomen is soft nontender no organomegaly with normal bowel sounds Extremity exam reveals bilateral erythema in the feet extending above the ankles, there is a half centimeter scabbed ulcer at the base of the left big toe pulses are palpable but 4 bilateral Neurological examination reveals no gross focal deficits - Labs CBC & Chem 7: 08/27/23 08:45 08/27/23 08:45 Labs: Abnormal Lab Results - Last 24 Hours (Table) 08/27/23 08/27/23 Range/Units 08:45 08:45 RBC 4.38 L (4.40-5.60) X 10*6/uL MCV 98.4 H (80.0-97.0) FL MCH 32.4 H (27.0-32.0) pg Monocytes # 1.08 H (0.20-1.00) X 10*3/uL BUN 21 H (9-20) mg/dL Glucose 115 H (74-99) mg/dL Assessment and Plan Plan: Bilateral lower extremity cellulitis Sepsis as evidenced by leukocytosis and elevated lactic acid and tachycardia on presentation Bilateral lower extremity severe peripheral arterial disease Underlying history of peripheral neuropathy maintained on gabapentin Underlying history of tobacco abuse, patient was counseled in length regarding the need to quit smoking Underlying history of COPD without exacerbation at this time Underlying history of hypertension, maintained on Ziac and lisinopril, blood pressure was significantly elevated on presentation Will monitor closely Underlying history of hyperlipidemia maintained on Lipitor will resume Underlying history of benign prostatic hypertrophy Underlying history of alcohol use, patient was started on CIWA protocol At this time patient is admitted to medical floor He was started on IV vancomycin in the emergency room Infectious disease consultation and vascular surgery consultation requested Home medications reviewed and reordered For DVT prophylaxis subcu heparin For GI prophylaxis famotidroxie Will follow closely
--- NOTE | 2023-08-27 15:47 | P.PN ---
Subjective Progress Note Date: 08/27/23 Principal diagnosis: Reason for follow-up is bilateral foot cellulitis Patient is a 58-year-old male with a past medical history significant for hypertension hyperlipidemia reflux COPD and asthma patient did have a PAD, presented to the hospital with worsening discomfort to bilateral feet area and redness. On today's visit that is Patient is status post aortogram with bilateral lower extremity runoff and did have evidence of significant PAD surgery recommending aortobifemoral bypass. On today's evaluation that is 08/27/2023,the patient remains to be afebrile, pat ient is on 2 L nasal cannula supplemental oxygen and denies any shortness of breath no chest pain did have occasional cough.Patient denies having any nausea or vomiting, no abdominal pain and no diarrhea has been reported, pain to bilateral foot is currently controlled with pain medication nursing staff mention patient seem to be refusing his IV vancomycin. Patient white count is 8.82, creatinine 0.98 Objective - Vital Signs Vital signs: Vital Signs Temp 97.6 F 08/27/23 14:00 Pulse 83 08/27/23 14:00 Resp 17 08/27/23 14:00 BP 153/72 08/27/23 14:00 Pulse Ox 98 08/27/23 14:00 FiO2 Intake & Output 08/26/23 08/27/23 08/27/23 18:59 06:59 18:59 Intake Total 236 118 Balance 236 118 Weight 65.317 kg Intake: Oral 236 118 Other: # Voids 2 2 - Exam GENERAL DESCRIPTION: Middle-age male up in bed in no distress RESPIRATORY SYSTEM: Unlabored breathing , decreased breath sounds at bases HEART: S1 S2 regular rate and rhythm , ABDOMEN: Soft , no tenderness EXTREMITIES: Bilateral feet did have erythema but no significant warmth or drainage - Labs CBC & Chem 7: 08/27/23 08:45 08/27/23 08:45 Labs: Abnormal Lab Results - Last 24 Hours (Table) 08/27/23 08/27/23 Range/Units 08:45 08:45 RBC 4.38 L (4.40-5.60) X 10*6/uL MCV 98.4 H (80.0-97.0) FL MCH 32.4 H (27.0-32.0) pg Monocytes # 1.08 H (0.20-1.00) X 10*3/uL BUN 21 H (9-20) mg/dL Glucose 115 H (74-99) mg/dL Assessment and Plan (1) Cellulitis of both feet Current Visit: Yes Status: Acute Code(s): L03.115 - CELLULITIS OF RIGHT LOWER LIMB; L03.116 - CELLULITIS OF LEFT LOWER LIMB SNOMED Code(s): 864167040 (2) Leukocytosis Current Visit: Yes Status: Acute Code(s): D72.829 - ELEVATED WHITE BLOOD CELL COUNT, UNSPECIFIED SNOMED Code(s): 490381468 Plan: 1patient with a bilateral lower extremity pain he did have some erythema however bilateral feet are cool to touch and symptom more likely related to underlying PAD and possible component of cellulitis not entirely excluded, Keeping in mind elevated white count likely from gram-positive skin art 2-patient has been eval by vascular surgery status post aortogram with bilateral lower extremity runoff with evidence of significant PAD recommending aorto bifemoral bypass once cardiac clearance 3-patient received adequate IV vancomycin and now the patient is refusing further IV antibiotic we will switch him over to oral doxycycline Dictation was produced using [employer] dictation software. please excuse any gramm atical, word or spelling errors. Time with Patient: Less than 30
[2023-08-27] MEDS ORDERED: VANCOMYCIN 1,250 MG in SODIUM CHLORIDE 0.9% 250 ML IVPB SCH (19:00)
[2023-08-27] MEDS: DOXYCYCLINE 100 MG CAP PO SCH (20:04)
[2023-08-27] MEDS: ATORVASTATIN 40 MG TAB PO SCH (20:04)
[2023-08-28 05:49] LABS: African American GFR (CKD) 85 (>60 ml/min/1.73 sqM); Non-African American GFR(CKD) 74 (>60 ml/min/1.73 sqM)
[2023-08-28 06:30] LABS: HCT 42.6 % (39.0-53.0); HGB 13.5 gm/dL (13.0-17.5); MCH 32.4 pg (25.0-35.0); MCHC 31.7 g/dL (31.0-37.0); MCV 102.1 fL (80.0-100.0); Mean Platelet Volume 7.8; Platelet Count 290 k/uL (150-450); RBC 4.17 m/uL (4.30-5.90); WBC 7.2 k/uL (3.8-10.6)
[2023-08-28 06:45] LABS: African American GFR (CKD) >90 (>60 ml/min/1.73 sqM); Anion Gap 6 mmol/L; Blood Urea Nitrogen 29 mg/dL (9-20); Calcium 9.1 mg/dL (8.4-10.2); Carbon Dioxide 26 mmol/L (22-30); Chloride 107 mmol/L (98-107); Glucose 103 mg/dL (74-99); Non-African American GFR(CKD) 82 (>60 ml/min/1.73 sqM); Potassium 4.4 mmol/L (3.5-5.1); Sodium 139 mmol/L (137-145)
[2023-08-28 06:57] LABS: INR 0.9 (<1.2); Prothrombin Time 10.4 sec (10.0-12.5)
[2023-08-28] MEDS: amLODIPine 2.5 MG TAB PO SCH (09:17)
--- NOTE | 2023-08-28 10:25 | P.PN ---
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 He has a past medical history of hypertension and hyperlipidemia, tobacco use and dependence, alcohol abuse. He denies history of diabetes. We have been asked to evaluate the patient for preop clearance for aortobifem bypass. Patient underwent aortogram bilateral lower extremities with runoff on 08/24 and determination was the patient required aortobifemoral bypass. Patient states he has not had previous workup on his heart. He states for the last couple of years he has not been very active due to pain in his legs and also shortness of breath. Patient presented to the hospital due to pain in the bilateral feet and redness swelling that had been going on and progressively worsening. He has significant pain with any standing or ambulating. He is a smoker of 1 pack/day for 45 years. He drinks up to 15 beers per day and he has not had none since Thursday. Nurses deny any DT symptoms and he is on the CIWA protocol. EKG okay so I sinus rhythm with poor R wave progression Echocardiogram performed on 08/24 reveals EF 55 to 60%, grade 1 diastolic dysfunction. Moderate concentric left ventricular hypertrophy. WBC 9.2, hemoglobin 14.5, platelet count 328. Electrolytes and renal function are normal. Blood sugar 88. Liver function test are normal. Home cardiac medications: Bisoprololhydrochlorothiazide 5-6.25 mg 1 daily, lisinopril 20 mg twice daily, simvastatin 20 mg at bedtime. Progress note 08/27/2023 Patient was seen and examined at bedside this a.m. His Lexiscan nuclear stress test did not show any reversible or fixed perfusion defects. Patient denies any cardiovascular complaints. He is hemodynamically stable. 08/28/2023 Patient is seen and examined at bedside this a.m. Patient denies any active chest pain chest pressure. Blood pressure elevated with systolic blood pressure ranging from 130s to 150s mmHg Physical examination: VS: reviewed HEENT: Head is atraumatic, normocephalic. Pupils equal, round. Sclerae is anicteric. NECK: Supple. No JVD. LUNGS: Clear to auscultation. No wheezes or rhonchi. No intercostal retractions. HEART: Regular rate and rhythm. No murmur. ABDOMEN: Soft No tenderness. EXTREMITIES: Chronic erythema to bilateral feet with bilateral edema. NEUROLOGICAL: Patient is awake, alert and oriented x3. Assessment: Severe peripheral arterial disease with severe foot pain COPD Hypertension Hyperlipidemia Tobacco use and dependence Alcohol abuse Plan: Patient is cleared from cardiovascular standpoint to undergo vascular surgery. He is at moderate risk for high risk procedure. Continue aspirin, high intensity statin Continue lisinopril 20 mg. Add amlodipine 12.5 mg for better blood pressure control Will continue to follow in perioperative and postoperative period Objective - Vital Signs Vital signs: Vital Signs Temp 98.3 F 08/28/23 08:00 Pulse 70 08/28/23 08:00 Resp 18 08/28/23 08:00 BP 140/79 08/28/23 08:00 Pulse Ox 98 08/28/23 08:00 FiO2 Intake & Output 08/27/23 08/28/23 08/28/23 18:59 06:59 18:59 Intake Total 118 0 Output Total 302 Balance -184 0 Weight 65.317 kg Intake: Oral 118 0 Output: Urine 300 Stool 2 Other: Voiding Method Toilet # Voids 4 2 - Labs CBC & Chem 7: 08/28/23 06:12 08/28/23 06:12 Labs: Abnormal Lab Results - Last 24 Hours (Table) 08/27/23 08/28/23 08/28/23 Range/Units 08:45 06:12 06:12 RBC 4.38 L 4.17 L (4.40-5.60) X 10*6/uL MCV 98.4 H 102.1 H (80.0-97.0) FL MCH 32.4 H (27.0-32.0) pg Monocytes # 1.08 H (0.20-1.00) X 10*3/uL BUN 29 H (9-20) mg/dL Glucose 103 H (74-99) mg/dL Microbiology - Last 24 Hours (Table) 08/22/23 11:45 Blood Culture - Final Blood 08/22/23 12:00 Blood Culture - Final Blood
[2023-08-28] MEDS: LACTATED RINGERS 1,000 ML IV ONE ×3 (11:00→15:38)
[2023-08-28] MEDS: DEXAMETHASONE SOD PHOSPHATE 4 MG/ML 1 ML VIAL IVP ONE (11:01)
[2023-08-28] MEDS: ONDANSETRON 4 MG/2 ML VIAL IVP ONE (11:01)
[2023-08-28] MEDS: MIDAZOLAM 2 MG/2 ML VIAL IVP ONE (11:07)
[2023-08-28] MEDS: fentaNYL (PF) 50 MCG/ML 2 ML AMP IVP ONE (11:09)
--- NOTE | 2023-08-28 11:28 | P.PN ---
Subjective Progress Note Date: 08/28/23 Mr Greenfield is a 58 y/o male who lives alone in a single story home with 5 tae with basement, 13 steps down to laundry. Prior to admission he was independent with mobility and ADLs. He does not drive. Patient presented to the hospital on 08/22/23 for complaints of bilateral foot pain and swelling and recommendation from PCP. He reportedly has developed wounds on his feet, has been told he had arterial disease but has not followed up with vascular surgery. Vascular surgery was consulted, he had ABIs completed. On 08/25/23 he underwent aortogram, diagnosed with severe PAD with occluded bilateral SFA. Vascular surgery recommended aortofemoral bypass. PM&R consulted for rehab recommendations. Therapy consulted. Cardiology consulted for clearance, lexiscan today and possible cath. States has been up to bathroom by self. Is tired, has occasional SCHULTZ and SOB with activity. occasional numbness in feet. Biggest issue is pain in feet, legs. Last BM today Patient had a lexiscan no known reversible damage, cardiology cleared him for surgical intervention. 08/28/23: Patient worked with therapy yesterday, independent with bed mobility, transfers and ambulation for 75 ft. Patient is down for surgery. Unable to assess ROS. Objective - Vital Signs Vital signs: Vital Signs Temp 97.3 F L 08/28/23 10:27 Pulse 64 08/28/23 10:27 Resp 18 08/28/23 10:27 BP 143/67 08/28/23 10:27 Pulse Ox 98 08/28/23 10:27 FiO2 Intake & Output 08/27/23 08/28/23 08/28/23 18:59 06:59 18:59 Intake Total 118 0 Output Total 302 Balance -184 0 Weight 65.317 kg Intake: Oral 118 0 Output: Urine 300 Stool 2 Other: Voiding Method Toilet # Voids 4 2 - Exam Attempted to see patient but patient down for surgery. Unable to perform exam.. Chart review only performed - Labs CBC & Chem 7: 08/28/23 06:12 08/28/23 06:12 Labs: Abnormal Lab Results - Last 24 Hours (Table) 08/28/23 08/28/23 Range/Units 06:12 06:12 RBC 4.17 L (4.30-5.90) m/uL MCV 102.1 H (80.0-100.0) fL BUN 29 H (9-20) mg/dL Glucose 103 H (74-99) mg/dL Microbiology - Last 24 Hours (Table) 08/22/23 11:45 Blood Culture - Final Blood 08/22/23 12:00 Blood Culture - Final Blood Assessment and Plan Assessment: # Sepsis secondary to bilateral lower extremity cellulitis -on vanco -PT/OT evaluations # Bilateral SFA occlusions -vascular surgery recommending Bypass surgery # Severe PAD -s/p lexiscan # PPN -on gabapentin # Chronic back pain -Tylenol prn, [place] prn, Percocet 7.5/325 TID # DVT Proph -Heparin # Comorbidities: Tobacco use, ETOH use, Asthma, COPD, GERD, HLD, HTN, OA # Your medical dx and management Disposition: Patient is too functional with therapy at this time to qualify for IPR, if he has surgical intervention and needing assistance post surgery, please feel free to contact us for re-evaluation. Patient seen and examined by Dr Hadley, note remotely prepped by Sheyla Hammonds PA-C
--- NOTE | 2023-08-28 12:04 | P.ANPRN ---
Procedure Note - Anesthesia - Invasive Line Right Central Line Time Out Performed: Yes Date of Procedure: 08/28/23 Time of Procedure: 11:20 Location of Patient: PreOp Preparation: Sterile Prep [place] Dionicio Line Location: Internal Jugular Ultrasound Used: Yes Purpose - Visualization and Identification of Vasculature: Yes Image Stored and Saved: Yes Narrative: Invasive line placement per sterile protocol utilized. AttemptX1.
--- NOTE | 2023-08-28 12:05 | P.ANPRN ---
Procedure Note - Anesthesia - Invasive Line Right Arterial Line Time Out Performed: Yes Date of Procedure: 08/28/23 Time of Procedure: 11:30 Location of Patient: PreOp Preparation: Sterile Prep Arterial Line Location: Radial Ultrasound Used: Yes Purpose - Visualization and Identification of Vasculature: Yes Image Stored and Saved: Yes Narrative: Invasive line placement per sterile protocol utilized. AttemptX1.
--- NOTE | 2023-08-28 12:09 | P.ANPRN ---
Procedure Note - Anesthesia - Epidural/Spinal Epidural Time Out Performed: Yes Date of Procedure: 08/28/23 Procedure Start Time: 11:40 Procedure Stop Time: 11:50 Location of Patient: PreOp Indication: Acute Post-Operative Pain, Analgesia, Requested by Surgeon Sedation Type: Sedate with meaningful contact maintained Preparation: Sterile Prep Position: Sitting Catheter Depth at Skin (cm): 11 Catheter: Indwelling Needle Guage: 18 Narrative: AttemptX1. Negative paresthesia,CSF,blood. Blood Aspirated: No Pain Paresthesia on Injection Noted: No Events: Uneventful and Well Tolerated
[2023-08-28] MEDS ORDERED: NALOXONE 0.4 MG/ML 1 ML VIAL IV PRN (12:10)
--- NOTE | 2023-08-28 12:15 | P.PN ---
Subjective Progress Note Date: 08/28/23 Eric Greenfield, 58-year-old male who presented to [facility] emergency room with a chief complaint of bilateral lower extremity erythema and severe pain He was evaluated in the emergency room vital examination on presentation revealed a temperature of 98.5 pulse 105 respiration 18 blood pressure 174/78 pulse ox 98% on room air Laboratory data revealed a white blood count of 11.3 hemoglobin 14.1 platelet count 342 sodium 132 potassium 4.7 chloride 96 CO2 27 BUN 21 creatinine 0.81 lactic acid 2.1 Patient was admitted to medical floor for further evaluation and treatment On 08/24/2023 patient was seen and examined on the medical floor he is alert and oriented 3 in no apparent distress, he is still complaining of pain in bilateral lower extremities, he is complaining of erythema in bilateral feet, otherwise he denies any complaints, input from infectious disease and vascular surgery reviewed awaiting further testing by vascular surgery. On 08/25/2023 patient is alert and oriented 3. Per nursing staff plans today for vascular intervention with Dr. Syed. Patient remains on IV vancomycin. Hemoglobin 14.5 white blood cell 9.24 creatinine 0.9 and bun 11.5. Repeat lact ic acid 1.2. Patient denies chest pain or shortness breath. Patient denies nausea vomiting or diarrhea. Patient denies any urinary burning or frequency On 08/26/2023 for patients alert and oriented 3. Patient had aortogram with bilateral lower extremity runoff yesterday with Dr. Alonso. This time reality services have been consulted for cardiac clearance stress test has been ordered 2-D echo completed. Patient's of linear bilateral lower extremity pain current vital signs temp 97.7, heart rate 73, respiratory rate 16, blood pressure 158/74 with pulse ox of 96 On 08/27/2023 patient was seen and examined on the medical floor he is alert and oriented 3 in no apparent distress he is still complaining of bilateral feet pain and discoloration otherwise he denies any complaints, there is no fever or chills no headache or dizziness no chest pain no shortness of breath no cough no nausea or vomiting no abdominal pain no diarrhea and no urinary symptoms. Laboratory results, x-ray results, and stress test results reviewed in details. There is no medical contraindication for surgery. On 08/28/2023 patient was seen and examined on the medical floor he is alert and oriented 3 in no apparent distress he is still complaining of pain and discoloration in his bilateral feet otherwise he denies any complaints there is no fever or chills no headache or dizziness no chest pain no shortness of breath no cough no nausea or vomiting no abdominal pain no diarrhea and no urinary symptoms. He is scheduled for vascular surgery today. Objective - Vital Signs Vital signs: Vital Signs Temp 97.3 F L 08/28/23 10:27 Pulse 72 08/28/23 11:57 Resp 16 08/28/23 11:57 BP 168/77 08/28/23 11:57 Pulse Ox 98 08/28/23 11:57 FiO2 Intake & Output 08/27/23 08/28/23 08/28/23 18:59 06:59 18:59 Intake Total 118 0 Output Total 302 Balance -184 0 Weight 65.317 kg Intake: Oral 118 0 Output: Urine 300 Stool 2 Other: Voiding Method Toilet # Voids 4 2 - Exam In general patient is alert and oriented x 3 in no distress HEENT head normocephalic and atraumatic Neck is supple no JVD no goiter no lymphadenopathy no carotid bruit Chest examination reveals a few scattered rhonchi in both lung ge no wheezin g Cardiac exam reveals regular heart sounds S1 and S2 no gallops no murmurs Abdomen is soft nontender no organomegaly with normal bowel sounds Extremity exam reveals bilateral erythema in the feet extending above the ankles, there is a half centimeter scabbed ulcer at the base of the left big toe pulses are palpable but 4 bilateral Neurological examination reveals no gross focal deficits - Labs CBC & Chem 7: 08/28/23 06:12 08/28/23 06:12 Labs: Abnormal Lab Results - Last 24 Hours (Table) 08/28/23 08/28/23 Range/Units 06:12 06:12 RBC 4.17 L (4.30-5.90) m/uL MCV 102.1 H (80.0-100.0) fL BUN 29 H (9-20) mg/dL Glucose 103 H (74-99) mg/dL Microbiology - Last 24 Hours (Table) 08/22/23 11:45 Blood Culture - Final Blood 08/22/23 12:00 Blood Culture - Final Blood Assessment and Plan Plan: Bilateral lower extremity cellulitis Sepsis as evidenced by leukocytosis and elevated lactic acid and tachycardia on presentation Bilateral lower extremity severe peripheral arterial disease Underlying history of peripheral neuropathy maintained on gabapentin Underlying history of tobacco abuse, patient was counseled in length regarding the need to quit smoking Underlying history of COPD without exacerbation at this time Underlying history of hypertension, maintained on Ziac and lisinopril, blood pressure was significantly elevated on presentation Will monitor closely Underlying history of hyperlipidemia maintained on Lipitor will resume Underlying history of benign prostatic hypertrophy Underlying history of alcohol use, patient was started on CIWA protocol At this time patient is admitted to medical floor He was started on IV vancomycin in the emergency room Infectious disease consultation and vascular surgery consultation requested Home medications reviewed and reordered For DVT prophylaxis subcu heparin For GI prophylaxis famotidine Will follow closely
--- NOTE | 2023-08-28 12:27 | XR ---
EXAMINATION TYPE: XR chest 1V confirm line plcpa DATE OF EXAM: 08/28/2023 COMPARISON: 04/16/2020 HISTORY: Line placement TECHNIQUE: Single frontal view of the chest is obtained. FINDINGS: Right-sided central line seen with the tip overlying the SVC and no sizable pneumothorax. Nipple shadow overlying the lower lung ge bilaterally. No obvious consolidation, or pleural effus ion or interstitial edema. Ectasia and atherosclerotic change aorta. Heart size normal. Calcific tend inosis right shoulder. Degenerative changes of the spine. IMPRESSION: 1. Right-sided central line seen with the tip overlying the SVC and no sizable pneumothorax.
[2023-08-28] MEDS ORDERED: ONDANSETRON 4 MG/2 ML VIAL ONE (13:17)
[2023-08-28] MEDS ORDERED: SUCCINYLCHOLINE CHLORIDE 200 MG/10 ML VIAL IV ONE (13:17)
[2023-08-28] MEDS ORDERED: ROCURONIUM 10 MG/ML (5 ML VIAL) IV ONE (13:17)
[2023-08-28] MEDS ORDERED: PHENYLEPHRINE 10 MG/ML VIAL ONE (13:17)
[2023-08-28] MEDS ORDERED: KETAMINE HCL IN 0.9 % NACL 50 MG/5 ML SYRINGE ONE (13:17)
[2023-08-28] MEDS ORDERED: HEPARIN SODIUM,PORCINE 10,000 UNIT/ML 1 ML VIAL ONE (13:17)
[2023-08-28] MEDS ORDERED: ALBUMIN HUMAN 5% (25gm) 500 ML VIAL IVPB ONE (13:17)
[2023-08-28] MEDS ORDERED: HYDROmorphone (PF) 1 MG/ML ONE (13:17)
[2023-08-28] MEDS ORDERED: MIDAZOLAM 2 MG/2 ML VIAL ONE (13:17)
[2023-08-28] MEDS ORDERED: NEOSTIGMINE 1 MG/ML 10 ML VIAL ONE (13:17)
[2023-08-28] MEDS ORDERED: LIDOCAINE 1% INJ 10MG/ML (20 ML MDV) ONE (13:17)
[2023-08-28] MEDS ORDERED: PROPOFOL 10 MG/ML 20 ML VIAL IV ONE (13:17)
[2023-08-28] MEDS ORDERED: PHENYLEPHRINE-0.9% NACL SYG 1,000 MCG/10 ML SYRINGE ONE (13:17)
[2023-08-28] MEDS ORDERED: fentaNYL (PF) 50 MCG/ML 2 ML AMP ONE (13:17)
[2023-08-28] MEDS ORDERED: ePHEDrine 50 MG/ML 1 ML VIAL ONE (13:17)
[2023-08-28] MEDS ORDERED: GLYCOPYRROLATE 0.2 MG/ML 2 ML VIAL ONE (13:17)
[2023-08-28] MEDS: HEPARIN SODIUM,PORCINE 10,000 UNIT in SODIUM CHLORIDE 0.9% 1,000 ML IRRIGATION ONE (13:59)
[2023-08-28] MEDS: THROMBIN (BOVINE) 5,000 UNIT VIAL TOPICAL ONE (13:59)
[2023-08-28] MEDS: ceFAZolin 4,000 MG in SODIUM CHLORIDE 0.9% 1,000 ML IRRIGATION ONE (13:59)
[2023-08-28 15:34] LABS: ABG Base Excess -2.2 mmol/L; ABG Glucose Whole Blood 144 mg/dL (75-99); ABG HCO3 24 mmol/L (21-25); ABG Hematocrit 37 % (34.0-46.0); ABG Ionized Calcium 4.7 mg/dL (4.5-5.3); ABG Lactic Acid Whole Blood 1.3 mmol/L (0.5-1.6); ABG Oxygen Saturation 99.1 % (94-97); ABG PCO2 45 mmHg (35-45); ABG PH 7.33 (7.35-7.45); ABG PO2 227 mmHg (83-108); ABG Potassium Whole Blood 4.3 mmol/L (3.4-4.5); ABG Sodium Whole Blood 138 mmol/L (135-146); Allen Test Performed? Yes
--- NOTE | 2023-08-28 15:53 | P.PN ---
Subjective Progress Note Date: 08/28/23 Principal diagnosis: Reason for follow-up is bilateral foot cellulitis Patient is a 58-year-old male with a past medical history significant for hypertension hyperlipidemia reflux COPD and asthma patient did have a PAD, presented to the hospital with worsening discomfort to bilateral feet area and redness. On today's visit that is Patient is status post aortogram with bilateral lower extremity runoff and did have evidence of significant PAD surgery recommending aortobifemoral bypass. On today's evaluation that is 08/28/2023, the patient continues to be afebrile, the patient is on room air and breathing comfortably, the Pt denies having any chest pain or cough, the patient denies having any abdominal pain no vomiting or any diarrhea and no worsening pain to bilateral foot area. Patient white count 7.2, creatinine 1.01 Objective - Vital Signs Vital signs: Vital Signs Temp 97.3 F L 08/28/23 10:27 Pulse 72 08/28/23 11:57 Resp 16 08/28/23 11:57 BP 168/77 08/28/23 11:57 Pulse Ox 98 08/28/23 11:57 FiO2 Intake & Output 08/27/23 08/28/23 08/28/23 18:59 06:59 18:59 Intake Total 118 0 Output Total 302 Balance -184 0 Weight 65.317 kg Intake: Oral 118 0 Output: Urine 300 Stool 2 Other: Voiding Method Toilet # Voids 4 2 - Exam GENERAL DESCRIPTION: Middle-age male up in bed in no distress RESPIRATORY SYSTEM: Unlabored breathing , decreased breath sounds at bases HEART: S1 S2 regular rate and rhythm , ABDOMEN: Soft , no tenderness EXTREMITIES: Bilateral feet did have erythema but no significant warmth or drainage - Labs CBC & Chem 7: 08/28/23 06:12 08/28/23 06:12 Labs: Abnormal Lab Results - Last 24 Hours (Table) 08/28/23 08/28/23 Range/Units 06:12 06:12 RBC 4.17 L (4.30-5.90) m/uL MCV 102.1 H (80.0-100.0) fL BUN 29 H (9-20) mg/dL Glucose 103 H (74-99) mg/dL Microbiology - Last 24 Hours (Table) 08/22/23 11:45 Blood Culture - Final Blood 08/22/23 12:00 Blood Culture - Final Blood Assessment and Plan (1) Cellulitis of both feet Current Visit: Yes Status: Acute Code(s): L03.115 - CELLULITIS OF RIGHT LOWER LIMB; L03.116 - CELLULITIS OF LEFT LOWER LIMB SNOMED Code(s): 094213931 (2) Leukocytosis Current Visit: Yes Status: Acute Code(s): D72.829 - ELEVATED WHITE BLOOD CELL COUNT, UNSPECIFIED SNOMED Code(s): 630796291 Plan: 1patient with a bilateral lower extremity pain he did have some erythema however bilateral feet are cool to touch and symptom more likely related to underlying PAD and possible component of cellulitis not entirely excluded, Keeping in mind elevated white count likely from gram-positive skin art 2-patient has been eval by vascular surgery status post aortogram with bilateral lower extremity runoff with evidence of significant PAD recommending aorto bifemoral bypass which is scheduled for this afternoon 3-patient to continue with oral doxycycline Dictation was produced using [employer] dictation software. please excuse any grammatical, word or spelling errors. Time with Patient: Less than 30
[2023-08-28] MEDS: ROPIVACAINE 250 MG, HYDROMORPHONE (PF) 5 MG in SODIUM CHLORIDE 0.9% 200 ML EPIDURAL PRN (17:59)
--- NOTE | 2023-08-28 18:13 | P.OP ---
Date of Procedure: 08/28/23 Preoperative Diagnosis: Critical limb ischemia bilaterally, qurhf-id-mubca occlusion Postoperative Diagnosis: Critical limb ischemia, dfguw-rg-[id number] occlusion and right superficial femoral artery occlusion Procedure(s) Performed: Aortobifemoral bypass with PTFE graft Bilateral common femoral artery endarterectomy Anesthesia: YOUNGA Surgeon: Harrison Syed Estimated Blood Loss (ml): 850 (cell saver- 500cc) IV fluids (ml): 1,800 (albumin-500cc) Urine output (ml): 200 Pathology: none sent Condition: stable Disposition: PACU Indications for Procedure: 58 year old gentleman currently in the hospital for bilateral lower extremity critical limb ischemia, foot wounds, presents to the OR after recent aortogram with runoff demonstrating aortic occlusion with reconstitution at the femoral arteries bilaterally. After medical and cardiac clearance he presents for ivnsr-ek-lwujwrw bypass. Operative Findings: Aortic occlusion, right SFA occlusion Description of Procedure: After written informed consent was obtained the patient all risks benefits and competitions were described the patient was brought to the operative suite and laid in a supine position. The area from the nipples to the toes were prepped and draped in usual sterile fashion after appropriate anesthetic was performed per the anesthesiologist. A timeout was performed in normal fashion. Antibiotics were administered prior to incision. Midline incision was then created with a 10 blade scalpel from the xiphoid to the suprapubic region and dissection was carried down with electrocautery to the fascia fascia was then incised and the abdomen was entered once the peritoneum was incised. Abdomen was then interrogated. Liver was within normal limits without any signs of disease. Stomach was palpated and NG tube was in appropriate position. Small bowel was then placed in the right upper quadrant after the Omni retractor was positioned in normal fashion. The retroperitoneum was then exposed and the aorta was dissected free with electrocautery up to the renal vein. Renal vein was located and retracted cephalad to allow for dissection around the aorta just at the infrarenal aspect. Circumferential dissection was then carried around the aorta and a vessel loop was placed. Continue dissection was then carried down to the bifurcation. Oblique incisions at the bilateral groins were then created with a 10 blade scalpel and dissection was carried down to the common femoral sheath. The sheath was then incised and the common femoral, superficial femoral and profundus femoris arteries were dissected free and controlled with vessel loops. Dissection was then carried over the iliac arteries bilaterally just under the retroperitoneal reflection under the ureters bilaterally and umbilical tape was placed from the abdominal incision to the bilateral groin incisions. Patient was then administered heparin and followed with serial ACTs for appropriate heparinization. After ACT was greater than 200 the aorta was clamped at the infrarenal aspect and arteriotomy was created with 11 blade scalpel and extended with Pott Morgan scissors. A large amount thrombus was encountered which was r emoved from the aorta. Inflow was assessed and was pulsatile after removing thrombus from the juxtarenal aspect of the aorta. A 16 mm x 8 mm Auxier bifurcated graft was chosen and the aortic aspect was spatulated and end-to-side anastomosis was created with 3-0 Prolene suture in a running fashion. Once completed and flow was released demonstrating good pulsatile flow within the graft. Gelfoam was then placed at the anastomosis. Both iliac limbs were then tied with the umbilical tape and pulled to each groin incision. Control was then obtained of the femoral arteries bilaterally and arteriotomy was created and extended with Pott Morgan scissors. Femoral endarterectomy was then performed removing large amount of plaque from the femoral arteries extending to the superficial femoral artery bilaterally. Once plaque was removed the area was irrigated with saline. The graft was then spatulated and end-to-side anastomosis was created with 5-0 Prolene suture bilaterally. Prior to last vo tures being placed the outflow was released demonstrating good backbleeding from the left superficial femoral and profundus arteries as well as the right profundus artery but superficial femoral artery was occluded. Final sutures were then secured after flushing of the aortic graft. Hemostasis was assured with Gelfoam and thrombin. Once hemostatic incisions were then closed in a multilayer fashion. Attention was then placed back to the abdominal incision which was copiously irrigated with antibiotic solution. Hemostasis was assured with Gelfoam and thrombin and no active bleeding was noted at the anastomotic line or surrounding structures. The retroperitoneum was then closed with 2-0 Vicryl suture in a running fashion. The intra-abdominal contents were once again interrogated without any evidence of injury or ischemia. The fascia was then closed with Loop PDS suture in a running fashion 2. The skin was closed with rafiq. Skin was then cleansed and dressed with Prevena wound vacs. The patient tolerated the procedure well and had better capillary refill bilaterally. PT signal on the right and palpable femoral pulses bilaterally. Patient was then sent to PACU for recovery.
[2023-08-28 18:14] LABS: Glucose,Whole Blood 141 mg/dL (70-110)
[2023-08-29 04:22] LABS: Basophils % (A) 0 %; Eosinophils # (A) 0.1 k/uL (0-0.7); Eosinophils % (A) 0 %; HCT 34.2 % (39.0-53.0); HGB 10.9 gm/dL (13.0-17.5); Lymphocytes # (A) 1.7 k/uL (1.0-4.8); Lymphocytes % (A) 16 %; MCH 32.8 pg (25.0-35.0); MCHC 31.9 g/dL (31.0-37.0); MCV 102.8 fL (80.0-100.0); Macrocytosis Slight; Mean Platelet Volume 8.6; Monocytes # (A) 0.9 k/uL (0-1.0); Monocytes % (A) 8 %; Neutrophils % (A) 73 %; Platelet Count 225 k/uL (150-450); RBC 3.32 m/uL (4.30-5.90); RDW 12.1 % (11.5-15.5); WBC 10.9 k/uL (3.8-10.6)
[2023-08-29 04:41] LABS: ALT 15 U/L (4-49); AST 25 U/L (17-59); African American GFR (CKD) 56 (>60 ml/min/1.73 sqM); Albumin 3.1 g/dL (3.5-5.0); Alkaline Phosphatase 46 U/L (38-126); Anion Gap 6 mmol/L; Blood Urea Nitrogen 35 mg/dL (9-20); Calcium 8.1 mg/dL (8.4-10.2); Carbon Dioxide 25 mmol/L (22-30); Chloride 106 mmol/L (98-107); Glucose 96 mg/dL (74-99); Non-African American GFR(CKD) 48 (>60 ml/min/1.73 sqM); Potassium 4.7 mmol/L (3.5-5.1); Sodium 137 mmol/L (137-145); Total Bilirubin 0.3 mg/dL (0.2-1.3); Total Protein 5.3 g/dL (6.3-8.2)
[2023-08-29] MEDS: SODIUM CHLORIDE 0.9% 1,000 ML IV SCH (08:58)
--- NOTE | 2023-08-29 12:21 | P.PN ---
Subjective Progress Note Date: 08/29/23 Eric Greenfield, 58-year-old male who presented to [facility] emergency room with a chief complaint of bilateral lower extremity erythema and severe pain He was evaluated in the emergency room vital examination on presentation revealed a temperature of 98.5 pulse 105 respiration 18 blood pressure 174/78 pulse ox 98% on room air Laboratory data revealed a white blood count of 11.3 hemoglobin 14.1 platelet count 342 sodium 132 potassium 4.7 chloride 96 CO2 27 BUN 21 creatinine 0.81 lactic acid 2.1 Patient was admitted to medical floor for further evaluation and treatment On 08/24/2023 patient was seen and examined on the medical floor he is alert and oriented 3 in no apparent distress, he is still complaining of pain in bilateral lower extremities, he is complaining of erythema in bilateral feet, otherwise he denies any complaints, input from infectious disease and vascular surgery reviewed awaiting further testing by vascular surgery. On 08/25/2023 patient is alert and oriented 3. Per nursing staff plans today for vascular intervention with Dr. Syed. Patient remains on IV vancomycin. Hemoglobin 14.5 white blood cell 9.24 creatinine 0.9 and bun 11.5. Repeat lact ic acid 1.2. Patient denies chest pain or shortness breath. Patient denies nausea vomiting or diarrhea. Patient denies any urinary burning or frequency On 08/26/2023 for patients alert and oriented 3. Patient had aortogram with bilateral lower extremity runoff yesterday with Dr. Alonso. This time [facility] services have been consulted for cardiac clearance stress test has been ordered 2-D echo completed. Patient's of linear bilateral lower extremity pain current vital signs temp 97.7, heart rate 73, respiratory rate 16, blood pressure 158/74 with pulse ox of 96 On 08/27/2023 patient was seen and examined on the medical floor he is alert and oriented 3 in no apparent distress he is still complaining of bilateral feet pain and discoloration otherwise he denies any complaints, there is no fever or chills no headache or dizziness no chest pain no shortness of breath no cough no nausea or vomiting no abdominal pain no diarrhea and no urinary symptoms. Laboratory results, x-ray results, and stress test results reviewed in details. There is no medical contraindication for surgery. On 08/28/2023 patient was seen and examined on the medical floor he is alert and oriented 3 in no apparent distress he is still complaining of pain and discoloration in his bilateral feet otherwise he denies any complaints there is no fever or chills no headache or dizziness no chest pain no shortness of breath no cough no nausea or vomiting no abdominal pain no diarrhea and no urinary symptoms. He is scheduled for vascular surgery today. On 08/29/2023 patient was seen and examined in the ICU he is alert and oriented 3 in no apparent distress he is complaining of mild pain at the surgical site and mild pain in bilateral lower extremities otherwise he denies any complaints, there is no fever or chills no headache or dizziness no chest pain or shortness of breath no cough no nausea or vomiting no abdominal pain no diarrhea and no urinary symptoms. Patient underwent an aortobifemoral bypass and bilateral common femoral artery endarterectomy yesterday with Dr. Syed. Objective - Vital Signs Vital signs: Vital Signs Temp 98.2 F 08/29/23 08:00 Pulse 90 08/29/23 11:00 Resp 17 08/29/23 11:00 BP 101/52 08/29/23 11:00 Pulse Ox 94 L 08/29/23 11:00 FiO2 Intake & Output 08/28/23 08/29/23 08/29/23 18:59 06:59 18:59 Intake Total 2001 50 300 Output Total 1050 370 120 Balance 952 -320 180 Weight 65.317 kg 66.7 kg Intake: IV 2001 300 Sodium Chloride 0.9% 1, 300 000 ml @ 150 mls/hr IV . Q6H40M [facility] Rx#:[id number] Intake, IV Titration 50 Amount Ropivacaine 250 mg 50 Hydromorphone (Pf) 5 mg In Sodium Chloride 0.9% 200 ml @ Per Protocol EPIDURAL .Q0M PRN Rx#: [id number] Output: Urine 200 370 120 Estimated Blood Loss 850 Other: Voiding Method Indwelling Catheter Indwelling Catheter ABP, PAP, CO, CI - Last Documented Arterial Blood Pressure 116/47 - Exam In general patient is alert and oriented x 3 in no distress HEENT head normocephalic and atraumatic Neck is supple no JVD no goiter no lymphadenopathy no carotid bruit Chest examination reveals a few scattered rhonchi in both lung ge no wheezing Cardiac exam reveals regular heart sounds S1 and S2 no gallops no murmurs Abdomen is soft nontender no organomegaly with normal bowel sounds Extremity exam reveals bilateral erythema in the feet extending above the ankles, there is a half centimeter scabbed ulcer at the base of the left big toe pulses are palpable but 4 bilateral Neurological examination reveals no gross focal deficits - Labs CBC & Chem 7: 08/29/23 04:10 08/29/23 04:10 Labs: Abnormal Lab Results - Last 24 Hours (Table) 08/28/23 08/28/23 08/29/23 Range/Units 15:45 18:13 04:10 WBC (3.8-10.6) k/uL RBC (4.30-5.90) m/uL Hgb (13.0-17.5) gm/dL Hct (39.0-53.0) % MCV (80.0-100.0) fL Neutrophils # (1.3-7.7) k/uL ABG pH 7.33 L (7.35-7.45) ABG pO2 227 H (83-108) mmHg ABG O2 Saturation 99.1 H (94-97) % ABG Glucose 144 H (75-99) mg/dL Hemoglobin 12.0 L (13.0-17.5) gm/dL BUN 35 H (9-20) mg/dL Creatinine 1.56 H (0.66-1.25) mg/dL POC Glucose (mg/dL) 141 H (70-110) mg/dL Calcium 8.1 L (8.4-10.2) mg/dL Total Protein 5.3 L (6.3-8.2) g/dL Albumin 3.1 L (3.5-5.0) g/dL Arterial Blood Glucose 144 H (75-99) mg/dL 08/29/23 Range/Units 04:10 WBC 10.9 H (3.8-10.6) k/uL RBC 3.32 L (4.30-5.90) m/uL Hgb 10.9 L (13.0-17.5) gm/dL Hct 34.2 L (39.0-53.0) % MCV 102.8 H (80.0-100.0) fL Neutrophils # 8.0 H (1.3-7.7) k/uL ABG pH (7.35-7.45) ABG pO2 (83-108) mmHg ABG O2 Saturation (94-97) % ABG Glucose (75-99) mg/dL Hemoglobin (13.0-17.5) gm/dL BUN (9-20) mg/dL Creatinine (0.66-1.25) mg/dL POC Glucose (mg/dL) (70-110) mg/dL Calcium (8.4-10.2) mg/dL Total Protein (6.3-8.2) g/dL Albumin (3.5-5.0) g/dL Arterial Blood Glucose (75-99) mg/dL Assessment and Plan Plan: Bilateral lower extremity cellulitis Sepsis as evidenced by leukocytosis and elevated lactic acid and tachycardia on presentation Bilateral lower extremity severe peripheral arterial disease Underlying history of peripheral neuropathy maintained on gabapentin Underlying history of tobacco abuse, patient was counseled in length regarding the need to quit smoking Underlying history of COPD without exacerbation at this time Underlying history of hypertension, maintained on Ziac and lisinopril, blood pressure was significantly elevated on presentation Will monitor closely Underlying history of hyperlipidemia maintained on Lipitor will resume Underlying history of benign prostatic hypertrophy Underlying history of alcohol use, patient was started on CIWA protocol At this time patient is admitted to medical floor He was started on IV vancomycin in the emergency room Infectious disease consultation and vascular surgery consultation requested Home medications reviewed and reordered For DVT prophylaxis subcu heparin For GI prophylaxis famotidine Will follow closely
--- NOTE | 2023-08-29 12:40 | P.CNPUL ---
History of Present Illness Consult date: 08/29/23 Chief complaint: Peripheral vascular disease with aortobiiliac bypass surgery History of present illness: 08/29/2023, the patient is being seen in the intensive care unit for postop. Care. 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 Based on that, the patient was taken by vascular surgery and the patient underwent bilateral common femoral artery and endarterectomy, and aorto bifemoral bypass surgery. The estimated blood loss was 850 cc. The patient postop was brought into the intensive care unit. Overnight, the patient stayed in the ICU. Currently he is awake and alert and he is on room air oxygen with a pulse ox of 94%. He has sustained an acute kidney injury and the creatinine is up to 1.5. He will need IV fluids. Start the patient on normal saline at rate of 150 cc an hour. Pulses in the dorsalis pedis are absent and they are present in the posterior tibialis. The patient has no leg pain. No chest pain. No shortness of breath. No altered mentation. Sodium level is at 137, potassium is at 4.7, chloride is 106 with a bicarb of 25 with a BUN of 35 and a creatinine 1.56. The white cell count is at 10.9 with a hemoglobin of 10.9 and a platelet count of 221. Normal coagulation profile preoperatively. No specific complaints. Surgical wound site over the groin area is dry clean and intact. Wound VAC in place. Review of Systems Constitutional: Reports as per HPI Eyes: denies as per HPI, denies blurred vision, denies bulging eye, denies decreased vision, denies diplopia, denies discharge, denies dry eye, denies irritation, denies itching, denies pain, denies photophobia, denies loss of peripheral vision, denies loss of vision, denies tunnel vision/blind spots Ears: deny: decreased hearing, ear discharge, earache, tinnitus Breasts: absent: as per HPI, gynecomastia Cardiovascular: Reports as per HPI (Claudication), Reports decreased exercise tolerance, Reports dyspnea on exertion Respiratory: Reports as per HPI Gastrointestinal: Reports as per HPI Genitourinary: Reports as per HPI Musculoskeletal: Reports as per HPI, Reports leg numbness/tingling Musculoskeletal: absent: ankle pain, ankle stiffness, ankle swelling Integumentary: Reports as per HPI Neurological: Reports as per HPI Psychiatric: Reports as per HPI Endocrine: Reports as per HPI Hematologic/Lymphatic: Reports as per HPI Allergic/Immunologic: Reports as per HPI Past Medical History Past Medical History: COPD, GERD/Reflux, Hyperlipidemia, Hypertension, Ost eoarthritis (OA), Vascular Disorder Additional Past Medical History / Comment(s): BACK AND HIP PAIN, DIFFICULTY WALKING DISTANCE., HX OF ULCERS AND BLOOD IN STOOL. History of Any Multi-Drug Resistant Organisms: None Reported Past Surgical History: Hernia Repair Additional Past Surgical History / Comment(s): HERNIA REPAIR AT 5 & 7 YEARS OLD. Past Anesthesia/Blood Transfusion Reactions: No Reported Reaction Additional Past Anesthesia/Blood Transfusion Reaction / Comment(s): DOES NOT REMEMBER ANY ANESTHESIA PROBLEMS A CHILD. Past Psychological History: No Psychological Hx Reported Smoking Status: Current every day smoker Past Alcohol Use History: Daily Past Drug Use History: Marijuana - Past Family History Mother Family Medical History: No Reported History Medications and Allergies Home Medications Medication Instructions Recorded Confirmed Type Bisoprolol-Hctz 5-6.25 mg [Ziac 1 tab PO DAILY 02/26/18 08/22/23 History 5-6.25] Escitalopram [Lexapro] 20 mg PO DAILY 02/26/18 08/22/23 History Methylphenidate HCl 20 mg PO BID 02/26/18 08/22/23 History Tamsulosin HCl [Flomax] 0.4 mg PO HS 02/26/18 08/22/23 History Albuterol Nebulized [Ventolin 2.5 mg INHALATION RT-TID PRN 04/21/23 08/22/23 History Nebulized] Butalb/APAP/Caff 50-325-40Mg 1 tab PO DAILY PRN 04/21/23 08/22/23 History [Fioricet 50-325-40] Escitalopram [Lexapro] 10 mg PO HS 04/21/23 08/22/23 History Famotidine [Pepcid] 20 mg PO BID 04/21/23 08/22/23 History Naloxone HCl [Narcan] 4 mg NASAL DIRECTED PRN 04/21/23 08/22/23 History lisinopriL [Zestril] 20 mg PO BID 04/21/23 08/22/23 History oxyCODONE-APAP 7.5-325MG [Percocet 1 tab PO TID 04/21/23 08/22/23 History 7.5-325 mg] Amoxic-Pot Clav 500-125 mg 1 tab PO BID 08/22/23 08/22/23 History [Augmentin 500-125 mg] Gabapentin [Neurontin] See Taper PO DIRECTED 08/22/23 08/22/23 History Simvastatin [Zocor] 20 mg PO HS 08/22/23 08/22/23 History Allergies Allergy/AdvReac Type Severity Reaction Status Date / Time No Known Allergies Allergy Verified 08/28/23 10:50 Physical Exam Vitals: Vital Signs Temp Pulse Pulse Resp BP BP BP 08/29/23 11:00 90 17 101/52 08/29/23 10:00 80 10 L 117/48 08/29/23 09:00 76 15 84/49 08/29/23 08:00 98.2 F 74 10 L 86/50 08/29/23 07:00 80 11 L 91/53 08/29/23 06:00 71 12 103/47 08/29/23 05:00 75 12 97/72 08/29/23 04:00 97.9 F 69 16 99/60 08/29/23 03:00 57 L 12 86/49 08/29/23 02:00 56 L 14 97/52 08/29/23 01:30 58 L 12 72/57 08/29/23 01:15 68 10 L 97/64 08/29/23 00:30 61 12 81/48 08/29/23 00:00 98.1 F 69 15 97/50 08/28/23 23:45 66 12 08/28/23 23:30 75 14 90/51 08/28/23 23:23 72 12 08/28/23 23:15 71 13 94/54 08/28/23 23:00 69 12 08/28/23 22:45 70 14 104/56 08/28/23 22:30 68 17 08/28/23 22:15 74 12 101/53 08/28/23 22:00 66 14 102/57 08/28/23 21:45 69 10 L 102/57 08/28/23 21:30 68 14 113/58 08/28/23 21:15 74 12 106/55 08/28/23 21:00 70 12 110/56 03/22/24 20:45 79 14 112/53 08/28/23 20:30 80 12 104/51 08/28/23 20:15 67 12 106/49 08/28/23 20:10 61 11 L 08/28/23 20:00 97.5 F L 68 12 103/55 08/28/23 19:50 97.5 F L 68 12 120/58 08/28/23 19:16 19 08/28/23 18:45 77 17 102/53 101/55 08/28/23 18:30 78 16 114/55 122/60 08/28/23 18:15 73 14 142/57 111/58 08/28/23 18:00 73 16 120/57 110/56 08/28/23 17:45 97.8 F 72 14 106/52 Pulse Ox 08/29/23 11:00 94 L 08/29/23 10:00 94 L 08/29/23 09:00 93 L 08/29/23 08:00 92 L 08/29/23 07:00 92 L 08/29/23 06:00 94 L 08/29/23 05:00 93 L 08/29/23 04:00 96 08/29/23 03:00 97 08/29/23 02:00 96 08/29/23 01:30 96 08/29/23 01:15 98 08/29/23 00:30 95 08/29/23 00:00 95 08/28/23 23:45 96 08/28/23 23:30 96 08/28/23 23:23 95 08/28/23 23:15 95 08/28/23 23:00 94 L 08/28/23 22:45 94 L 08/28/23 22:30 94 L 08/28/23 22:15 94 L 08/28/23 22:00 96 08/28/23 21:45 95 08/28/23 21:30 96 08/28/23 21:15 95 08/28/23 21:00 95 08/28/23 20:45 92 L 08/28/23 20:30 95 08/28/23 20:15 93 L 08/28/23 20:10 94 L 08/28/23 20:00 93 L 08/28/23 19:50 93 L 08/28/23 19:16 08/28/23 18:45 95 08/28/23 18:30 96 08/28/23 18:15 100 08/28/23 18:00 100 08/28/23 17:45 100 Intake and Output 08/28/23 08/29/23 08/29/23 22:59 06:59 14:59 Intake Total 315 35 300 Output Total 1150 270 120 Balance -835 -235 180 Intake: IV 300 300 Sodium Chloride 0.9% 1, 300 000 ml @ 150 mls/hr IV . Q6H40M [facility] Rx#:[id number] Intake, IV Titration 15 35 Amount Ropivacaine 250 mg 15 35 Hydromorphone (Pf) 5 mg In Sodium Chloride 0.9% 200 ml @ Per Protocol EPIDURAL .Q0M PRN Rx#: [id number] Output: Urine 300 270 120 Estimated Blood Loss 850 Other: Voiding Method Indwelling Catheter Indwelling Catheter Indwelling Catheter Weight 65.317 kg 66.7 kg .General appearance the patient is calm comfortable, the patient is currently on room air oxygen. Head exam was generally normal. There was no scleral icterus or corneal arcus. Mucous membranes were moist. Neck was supple and without jugular venous distension, thyromegaly, or carotid bruits. Carotids were easily palpable bilaterally. There was no adenopathy. Patient has a right IJ triple-lumen catheter in place. Lungs were clear to auscultation and percussion, and with normal diaphragmatic excursion. No wheezes or rales were noted. Diminished breath sound bilaterally otherwise clear. Cardiac exam revealed the PMI to be normally situated and sized. The rhythm was regular and no extrasystoles were noted during several minutes of auscultation. The first and second heart sounds were normal and physiologic splitting of the second heart sound was noted. There were no murmurs, rubs, clicks, or gallops. Abdominal exam revealed normal bowel sounds. The abdomen was soft, non-tender, and without masses, organomegaly, or appreciable enlargement of the abdominal aorta. Bilateral inguinal surgical wound sites are dry clean and intact and appropriate wound VAC has been applied. His extremities reveal chronic ischemic change in the feet bilaterally. The patient has Doppler signals in the posterior tibialis bilaterally, absent dorsalis pedis. Extremities remain cold. No significant cyanosis. Poor capillary refill. Examination of the skin revealed no evidence of significant rashes, suspicious appearing nevi or other concerning lesions. Results - Laboratory Findings CBC and BMP: 08/29/23 04:10 08/29/23 04:10 ABG ABG pH 7.33 (7.35-7.45) L 08/28/23 15:45 ABG pCO2 45 mmHg (35-45) 08/28/23 15:45 ABG pO2 227 mmHg (83-108) H 08/28/23 15:45 ABG O2 Saturation 99.1 % (94-97) H 08/28/23 15:45 PT/INR, D-dimer PT 10.4 sec (10.0-12.5) 08/28/23 06:12 INR 0.9 (<1.2) 08/28/23 06:12 Abnormal lab findings: Abnormal Labs 08/22/23 08/22/23 08/22/23 10:03 10:03 10:03 WBC 11.3 H RBC Hgb Hct MCV MCH Neutrophils # 7.8 H Monocytes # ABG pH ABG pO2 ABG O2 Saturation ABG Glucose Hemoglobin Sodium 132 L Chloride 96 L BUN 21 H Creatinine Glucose 118 H POC Glucose (mg/dL) Plasma Lactic Acid Wolf 2.1 H* Calcium Total Bilirubin Total Protein Albumin Arterial Blood Glucose 08/23/23 08/23/23 08/24/23 04:55 04:55 08:47 WBC RBC 3.98 L Hgb 12.9 L Hct 38.5 L MCV 99.8 H MCH 32.4 H 32.4 H Neutrophils # Monocytes # 1.02 H ABG pH ABG pO2 ABG O2 Saturation ABG Glucose Hemoglobin Sodium Chloride BUN Creatinine Glucose POC Glucose (mg/dL) Plasma Lactic Acid Wolf Calcium Total Bilirubin <0.2 L Total Protein 6.1 L Albumin Arterial Blood Glucose 08/24/23 08/26/23 08/27/23 08:47 06:27 08:45 WBC RBC 4.08 L 4.38 L Hgb Hct MCV 97.8 H 98.4 H MCH 32.1 H 32.4 H Neutrophils # Monocytes # 1.07 H 1.08 H ABG pH ABG pO2 ABG O2 Saturation ABG Glucose Hemoglobin Sodium Chloride BUN Creatinine Glucose 165 H POC Glucose (mg/dL) Plasma Lactic Acid Wolf Calcium Total Bilirubin 0.2 L Total Protein Albumin Arterial Blood Glucose 08/27/23 08/28/23 08/28/23 08:45 06:12 06:12 WBC RBC 4.17 L Hgb Hct MCV 102.1 H MCH Neutrophils # Monocytes # ABG pH ABG pO2 ABG O2 Saturation ABG Glucose Hemoglobin Sodium Chloride BUN 21 H 29 H Creatinine Glucose 115 H 103 H POC Glucose (mg/dL) Plasma Lactic Acid Wolf Calcium Total Bilirubin Total Protein Albumin Arterial Blood Glucose 08/28/23 08/28/23 08/29/23 15:45 18:13 04:10 WBC RBC Hgb Hct MCV MCH Neutrophils # Monocytes # ABG pH 7.33 L ABG pO2 227 H ABG O2 Saturation 99.1 H ABG Glucose 144 H Hemoglobin 12.0 L Sodium Chloride BUN 35 H Creatinine 1.56 H Glucose POC Glucose (mg/dL) 141 H Plasma Lactic Acid Wolf Calcium 8.1 L Total Bilirubin Total Protein 5.3 L Albumin 3.1 L Arterial Blood Glucose 144 H 08/29/23 04:10 WBC 10.9 H RBC 3.32 L Hgb 10.9 L Hct 34.2 L MCV 102.8 H MCH Neutrophils # 8.0 H Monocytes # ABG pH ABG pO2 ABG O2 Saturation ABG Glucose Hemoglobin Sodium Chloride BUN Creatinine Glucose POC Glucose (mg/dL) Plasma Lactic Acid Wolf Calcium Total Bilirubin Total Protein Albumin Arterial Blood Glucose Assessment and Plan Plan: Severe peripheral vascular disease and the patient has undergone bilateral femoral endarterectomy and aortobiiliac bypass surgery. The patient is currently postop day #1 Acute kidney injury, consider possibility of a postop ATN. Nonoliguric. The patient will be given IV fluids Critical ischemic feet bilaterally with chronic pain COPD, currently inactive and stable, Hypertension Hyperlipidemia Chronic back pain Plan Monitor the urine output Start the patient on normal saline at rate of 150 cc an hour. Repeat electrolyt es in the morning and a creatinine in the morning. Patient had epidural Dilaudid and bupivacaine and this has been discontinued. Currently normotensive. Rest of the outpatient medications have been resumed. Monitor the open sleeping in the lower extremities bilaterally and monitor the wound and the surgical scars in the groin bilaterally. Will continue to follow along with the vascular surgical team. Continue aspirin Continue statins and the patient is currently on Lipitor 40 mg p.o. daily Smoking cessation counseling
--- NOTE | 2023-08-29 15:23 | P.PN ---
Subjective Progress Note Date: 08/29/23 Principal diagnosis: Status post aortobifemoral bypass grafting. Patient is evaluated today postop day #1 status post aortobifemoral bypass grafting. He is sitting at the side of the bed. He indicates he is tolerating liquids and his pain is relatively well-controlled. Objective - Vital Signs Vital signs: Vital Signs Temp 98.1 F 08/29/23 12:00 Pulse 87 08/29/23 14:00 Resp 19 08/29/23 14:00 BP 111/58 08/29/23 14:00 Pulse Ox 95 08/29/23 14:00 FiO2 21 08/29/23 12:56 Intake & Output 08/28/23 08/29/23 08/29/23 18:59 06:59 18:59 Intake Total 2001 50 600 Output Total 1050 370 195 Balance 952 -320 405 Weight 65.317 kg 66.7 kg Intake: IV 2001 600 Sodium Chloride 0.9% 1, 600 000 ml @ 150 mls/hr IV . Q6H40M [facility] Rx#:[id number] Intake, IV Titration 50 Amount Ropivacaine 250 mg 50 Hydromorphone (Pf) 5 mg In Sodium Chloride 0.9% 200 ml @ Per Protocol EPIDURAL .Q0M PRN Rx#: [id number] Output: Urine 200 370 195 Estimated Blood Loss 850 Other: Voiding Method Indwelling Catheter Indwelling Catheter ABP, PAP, CO, CI - Last Documented Arterial Blood Pressure 128/67 - Exam Patient is awake, alert, cooperative in no apparent distress. He is sitting at the side of the bed with his legs on the floor. He denies shortness of breath or chest pain. He indicates he can move all his extremities without significant issue. Davis catheter is in place secondary to the epidural catheter. Systolic blood pressure is 141 and heart rate is in the upper 80s. Toes are movable. No leg edema is noted. Abdomen is soft. - Labs CBC & Chem 7: 08/29/23 04:10 08/29/23 04:10 Labs: Abnormal Lab Results - Last 24 Hours (Table) 08/28/23 08/28/23 08/29/23 Range/Units 15:45 18:13 04:10 WBC (3.8-10.6) k/uL RBC (4.30-5.90) m/uL Hgb (13.0-17.5) gm/dL Hct (39.0-53.0) % MCV (80.0-100.0) fL Neutrophils # (1.3-7.7) k/uL ABG pH 7.33 L (7.35-7.45) ABG pO2 227 H (83-108) mmHg ABG O2 Saturation 99.1 H (94-97) % ABG Glucose 144 H (75-99) mg/dL Hemoglobin 12.0 L (13.0-17.5) gm/dL BUN 35 H (9-20) mg/dL Creatinine 1.56 H (0.66-1.25) mg/dL POC Glucose (mg/dL) 141 H (70-110) mg/dL Calcium 8.1 L (8.4-10.2) mg/dL Total Protein 5.3 L (6.3-8.2) g/dL Albumin 3.1 L (3.5-5.0) g/dL Arterial Blood Glucose 144 H (75-99) mg/dL 08/28/ Range/Units 04:10 WBC 10.9 H (3.8-10.6) k/uL RBC 3.32 L (4.30-5.90) m/uL Hgb 10.9 L (13.0-17.5) gm/dL Hct 34.2 L (39.0-53.0) % MCV 102.8 H (80.0-100.0) fL Neutrophils # 8.0 H (1.3-7.7) k/uL ABG pH (7.35-7.45) ABG pO2 (83-108) mmHg ABG O2 Saturation (94-97) % ABG Glucose (75-99) mg/dL Hemoglobin (13.0-17.5) gm/dL BUN (9-20) mg/dL Creatinine (0.66-1.25) mg/dL POC Glucose (mg/dL) (70-110) mg/dL Calcium (8.4-10.2) mg/dL Total Protein (6.3-8.2) g/dL Albumin (3.5-5.0) g/dL Arterial Blood Glucose (75-99) mg/dL Assessment and Plan Assessment: Postop day #1, satisfactory progress status post aortobifemoral bypass grafting. Plan: 1: DC A-line if okay with critical care medicine. 2: Keep Davis in place until epidural catheter is removed. 3: Surgically stable to transfer to surgical floor. 4: Begin physical therapy.
--- NOTE | 2023-08-29 15:59 | P.PN ---
Subjective Progress Note Date: 08/29/23 Principal diagnosis: Reason for follow-up is bilateral foot cellulitis Patient is a 58-year-old male with a past medical history significant for hypertension hyperlipidemia reflux COPD and asthma patient did have a PAD, presented to the hospital with worsening discomfort to bilateral feet area and redness.Patient is status post aortogram with bilateral lower extremity runoff and did have evidence of significant PAD surgery recommending aortobifemoral bypass.Patient is status post aortobifemoral bypass with PTFE graft and bilateral common femoral artery endarterectomy completed on 08/28/2023. On today's visit that is 08/29/2023, Patient is afebrile patient is currently on room air and denies having any shortness of breath, the patient denies any chest pain or any worsening cough, the patient denies any nausea vomiting did not have any abdominal pain and no diarrhea, pain to bilateral lower extremity has decreased in intensity. Patient white count is 10.9, creatinine 1.56 blood culture has been negative Objective - Vital Signs Vital signs: Vital Signs Temp 98.1 F 08/29/23 12:00 Pulse 87 08/29/23 14:00 Resp 19 08/29/23 14:00 BP 111/58 08/29/23 14:00 Pulse Ox 95 08/29/23 14:00 FiO2 21 08/29/23 12:56 Intake & Output 08/28/23 08/29/23 08/29/23 18:59 06:59 18:59 Intake Total 2001 50 600 Output Total 1050 370 195 Balance 952 -320 405 Weight 65.317 kg 66.7 kg Intake: IV 2001 600 Sodium Chloride 0.9% 1, 600 000 ml @ 150 mls/hr IV . Q6H40M [facility] Rx#:[id number] Intake, IV Titration 50 Amount Ropivacaine 250 mg 50 Hydromorphone (Pf) 5 mg In Sodium Chloride 0.9% 200 ml @ Per Protocol EPIDURAL .Q0M PRN Rx#: [id number] Output: Urine 200 370 195 Estimated Blood Loss 850 Other: Voiding Method Indwelling Catheter Indwelling Catheter ABP, PAP, CO, CI - Last Documented Arterial Blood Pressure 128/67 - Exam GENERAL DESCRIPTION: Middle-age male up in bed in no distress RESPIRATORY SYSTEM: Unlabored breathing , decreased breath sounds at bases HEART: S1 S2 regular rate and rhythm , ABDOMEN: Soft , no tenderness EXTREMITIES: Bilateral feet did have erythema but no significant warmth or drainage - Labs CBC & Chem 7: 08/29/23 04:10 08/29/23 04:10 Labs: Abnormal Lab Results - Last 24 Hours (Table) 08/28/23 08/28/23 08/29/23 Range/Units 15:45 18:13 04:10 WBC (3.8-10.6) k/uL RBC (4.30-5.90) m/uL Hgb (13.0-17.5) gm/dL Hct (39.0-53.0) % MCV (80.0-100.0) fL Neutrophils # (1.3-7.7) k/uL ABG pH 7.33 L (7.35-7.45) ABG pO2 227 H (83-108) mmHg ABG O2 Saturation 99.1 H (94-97) % ABG Glucose 144 H (75-99) mg/dL Hemoglobin 12.0 L (13.0-17.5) gm/dL BUN 35 H (9-20) mg/dL Creatinine 1.56 H (0.66-1.25) mg/dL POC Glucose (mg/dL) 141 H (70-110) mg/dL Calcium 8.1 L (8.4-10.2) mg/dL Total Protein 5.3 L (6.3-8.2) g/dL Albumin 3.1 L (3.5-5.0) g/dL Arterial Blood Glucose 144 H (75-99) mg/dL 08/29/23 Range/Units 04:10 WBC 10.9 H (3.8-10.6) k/uL RBC 3.32 L (4.30-5.90) m/uL Hgb 10.9 L (13.0-17.5) gm/dL Hct 34.2 L (39.0-53.0) % MCV 102.8 H (80.0-100.0) fL Neutrophils # 8.0 H (1.3-7.7) k/uL ABG pH (7.35-7.45) ABG pO2 (83-108) mmHg ABG O2 Saturation (94-97) % ABG Glucose (75-99) mg/dL Hemoglobin (13.0-17.5) gm/dL BUN (9-20) mg/dL Creatinine (0.66-1.25) mg/dL POC Glucose (mg/dL) (70-110) mg/dL Calcium (8.4-10.2) mg/dL Total Protein (6.3-8.2) g/dL Albumin (3.5-5.0) g/dL Arterial Blood Glucose (75-99) mg/dL Assessment and Plan (1) Cellulitis of both feet Current Visit: Yes Status: Acute Code(s): L03.115 - CELLULITIS OF RIGHT LOWER LIMB; L03.116 - CELLULITIS OF LEFT LOWER LIMB SNOMED Code(s): 139366266 (2) Leukocytosis Current Visit: Yes Status: Acute Code(s): D72.829 - ELEVATED WHITE BLOOD CELL COUNT, UNSPECIFIED SNOMED Code(s): 886908705 Plan: 1patient with a bilateral lower extremity pain he did have some erythema however bilateral feet are cool to touch and symptom more likely related to underlying PAD and possible component of cellulitis not entirely excluded, Keeping in mind elevated white count likely from gram-positive skin art 2-patient has been eval by vascular surgery status post aortogram with bilateral lower extremity runoff with evidence of significant PAD patient's status post aorto bifemoral bypass graft and bilateral common carotid artery endarterectomy completed on 08/28/2023 3-patient to continue with oral doxycycline and monitor clinical course closely Dictation was produced using [employer] dictation software. please excuse any grammatical, word or spelling errors. Time with Patient: Less than 30
[2023-08-29] MEDS: HYDROcodone/APAP 5-325MG 1 EACH TAB PO PRN (16:00)
--- NOTE | 2023-08-29 16:12 | P.PN ---
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 He has a past medical history of hypertension and hyperlipidemia, tobacco use and dependence, alcohol abuse. He denies history of diabetes. We have been asked to evaluate the patient for preop clearance for aortobifem bypass. Patient underwent aortogram bilateral lower extremities with runoff on 08/24 and determination was the patient required aortobifemoral bypass. Patient states he has not had previous workup on his heart. He states for the last couple of years he has not been very active due to pain in his legs and also shortness of breath. Patient presented to the hospital due to pain in the bilateral feet and redness swelling that had been going on and progressively worsening. He has significant pain with any standing or ambulating. He is a smoker of 1 pack/day for 45 years. He drinks up to 15 beers per day and he has not had none since Thursday. Nurses deny any DT symptoms and he is on the CISD protocol. EKG okay so I sinus rhythm with poor R wave progression Echocardiogram performed on 08/24 reveals EF 55 to 60%, grade 1 diastolic dysfunction. Moderate concentric left ventricular hypertrophy. WBC 9.2, hemoglobin 14.5, platelet count 328. Electrolytes and renal function are normal. Blood sugar 88. Liver function test are normal. Home cardiac medications: Bisoprololhydrochlorothiazide 5-6.25 mg 1 daily, lisinopril 20 mg twice daily, simvastatin 20 mg at bedtime. Progress note 08/27/2023 Patient was seen and examined at bedside this a.m. His Lexiscan nuclear stress test did not show any reversible or fixed perfusion defects. Patient denies any cardiovascular complaints. He is hemodynamically stable. 08/28/2023 Patient is seen and examined at bedside this a.m. Patient denies any active chest pain chest pressure. Blood pressure elevated with systolic blood pressure ranging from 130s to 150s mmHg 08/28 Patient seen and examined. Patient underwent aortobifemoral bypass grafting yesterday. He denies any significant pain in his feet. Still has mild abdominal pain from his surgical sites. Denies any chest pain or pressure. He has had borderline blood pressures with some readings in the 80s over 50s this morning. He had been increased on antihypertensive medications and amlodipine have been added yesterday in addition to his lisinopril at home. His creatinine has increased up to 1.5. Physical examination: VS: reviewed HEENT: Head is atraumatic, normocephalic. Pupils equal, round. Sclerae is anicteric. NECK: Supple. No JVD. LUNGS: Clear to auscultation. No wheezes or rhonchi. No intercostal retractions. HEART: Regular rate and rhythm. No murmur. ABDOMEN: Soft No tenderness. EXTREMITIES: Chronic erythema to bilateral feet with bilateral edema. NEUROLOGICAL: Patient is awake, alert and oriented x3. Assessment: Severe peripheral arterial disease with severe foot pain COPD Hypertension Hyperlipidemia Tobacco use and dependence Alcohol abuse Plan: Continue aspirin, high intensity statin Continue lisinopril 20 mg. Hold amlodipine given borderline blood pressures. Acute kidney injury may be related to surgery and monitor. Will continue to follow in perioperative and postoperative period Objective - Vital Signs Vital signs: Vital Signs Temp 98.1 F 08/29/23 12:00 Pulse 87 08/29/23 14:00 Resp 19 08/29/23 14:00 BP 111/58 08/29/23 14:00 Pulse Ox 95 08/29/23 14:00 FiO2 21 08/29/23 12:56 Intake & Output 08/28/23 08/29/23 08/29/23 18:59 06:59 18:59 Intake Total 2001 50 600 Output Total 1050 370 195 Balance 952 -320 405 Weight 65.317 kg 66.7 kg Intake: IV 2001 600 Sodium Chloride 0.9% 1, 600 000 ml @ 150 mls/hr IV . Q6H40M [facility] Rx#:[id number] Intake, IV Titration 50 Amount Ropivacaine 250 mg 50 Hydromorphone (Pf) 5 mg In Sodium Chloride 0.9% 200 ml @ Per Protocol EPIDURAL .Q0M PRN Rx#: [id number] Output: Urine 200 370 195 Estimated Blood Loss 850 Other: Voiding Method Indwelling Catheter Indwelling Catheter ABP, PAP, CO, CI - Last Documented Arterial Blood Pressure 128/67 - Labs CBC & Chem 7: 08/29/23 04:10 08/29/23 04:10 Labs: Abnormal Lab Results - Last 24 Hours (Table) 08/28/23 08/28/23 08/29/23 Range/Units 15:45 18:13 04:10 WBC (3.8-10.6) k/uL RBC (4.30-5.90) m/uL Hgb (13.0-17.5) gm/dL Hct (39.0-53.0) % MCV (80.0-100.0) fL Neutrophils # (1.3-7.7) k/uL ABG pH 7.33 L (7.35-7.45) ABG pO2 227 H (83-108) mmHg ABG O2 Saturation 99.1 H (94-97) % ABG Glucose 144 H (75-99) mg/dL Hemoglobin 12.0 L (13.0-17.5) gm/dL BUN 35 H (9-20) mg/dL Creatinine 1.56 H (0.66-1.25) mg/dL POC Glucose (mg/dL) 141 H (70-110) mg/dL Calcium 8.1 L (8.4-10.2) mg/dL Total Protein 5.3 L (6.3-8.2) g/dL Albumin 3.1 L (3.5-5.0) g/dL Arterial Blood Glucose 144 H (75-99) mg/dL 08/29/23 Range/Units 04:10 WBC 10.9 H (3.8-10.6) k/uL RBC 3.32 L (4.30-5.90) m/uL Hgb 10.9 L (13.0-17.5) gm/dL Hct 34.2 L (39.0-53.0) % MCV 102.8 H (80.0-100.0) fL Neutrophils # 8.0 H (1.3-7.7) k/uL ABG pH (7.35-7.45) ABG pO2 (83-108) mmHg ABG O2 Saturation (94-97) % ABG Glucose (75-99) mg/dL Hemoglobin (13.0-17.5) gm/dL BUN (9-20) mg/dL Creatinine (0.66-1.25) mg/dL POC Glucose (mg/dL) (70-110) mg/dL Calcium (8.4-10.2) mg/dL Total Protein (6.3-8.2) g/dL Albumin (3.5-5.0) g/dL Arterial Blood Glucose (75-99) mg/dL
--- NOTE | 2023-08-29 20:03 | P.PN ---
Progress Note - Text 08/29/231948 58-year-old male status post aortobifem. Patient has an epidural catheter that had been turned off last night due to low blood pressure. Patient has a VAS of 1-2 at rest. I talked to his nurse and asked to return his epidural on and reviewed at 2 cc an hour so that he does not clot off
--- NOTE | 2023-08-30 04:21 | P.PN ---
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 He has a past medical history of hypertension and hyperlipidemia, tobacco use and dependence, alcohol abuse. He denies history of diabetes. We have been asked to evaluate the patient for preop clearance for aortobifem bypass. Patient underwent aortogram bilateral lower extremities with runoff on 08/24 and determination was the patient required aortobifemoral bypass. Patient states he has not had previous workup on his heart. He states for the last couple of years he has not been very active due to pain in his legs and also shortness of breath. Patient presented to the hospital due to pain in the bilateral feet and redness swelling that had been going on and progressively worsening. He has significant pain with any standing or ambulating. He is a smoker of 1 pack/day for 45 years. He drinks up to 15 beers per day and he has not had none since Thursday. Nurses deny any DT symptoms and he is on the CINE protocol. EKG okay so I sinus rhythm with poor R wave progression Echocardiogram performed on 08/24 reveals EF 55 to 60%, grade 1 diastolic dysfunction. Moderate concentric left ventricular hypertrophy. WBC 9.2, hemoglobin 14.5, platelet count 328. Electrolytes and renal function are normal. Blood sugar 88. Liver function test are normal. Home cardiac medications: Bisoprololhydrochlorothiazide 5-6.25 mg 1 daily, lisinopril 20 mg twice daily, simvastatin 20 mg at bedtime. Progress note 08/27/2023 Patient was seen and examined at bedside this a.m. His Lexiscan nuclear stress test did not show any reversible or fixed perfusion defects. Patient denies any cardiovascular complaints. He is hemodynamically stable. 08/28/2023 Patient is seen and examined at bedside this a.m. Patient denies any active chest pain chest pressure. Blood pressure elevated with systolic blood pressure ranging from 130s to 150s mmHg 08/28 Patient seen and examined. Patient underwent aortobifemoral bypass grafting yesterday. He denies any significant pain in his feet. Still has mild abdominal pain from his surgical sites. Denies any chest pain or pressure. He has had borderline blood pressures with some readings in the 80s over 50s this morning. He had been increased on antihypertensive medications and amlodipine have been added yesterday in addition to his lisinopril at home. His creatinine has increased up to 1.5. 08/29 Patient seen and examined. His amlodipine was discontinued yesterday. Blood pressures still somewhat borderline in the 120s over 50s. He admits to mild abdominal pain. Denies any chest pain or pressure. Denies any significant shortness breath. Creatinine from today has not resulted yet. Physical examination: VS: reviewed HEENT: Head is atraumatic, normocephalic. Pupils equal, round. Sclerae is anicteric. NECK: Supple. No JVD. LUNGS: Clear to auscultation. No wheezes or rhonchi. No intercostal retractions. HEART: Regular rate and rhythm. No murmur. ABDOMEN: Soft No tenderness. EXTREMITIES: Chronic erythema to bilateral feet with bilateral edema. NEUROLOGICAL: Patient is awake, alert and oriented x3. Assessment: Severe peripheral arterial disease with severe foot pain COPD Hypertension Hyperlipidemia Tobacco use and dependence Alcohol abuse Plan: Continue aspirin, high intensity statin Continue lisinopril 20 mg bid with hold parameters. Hold amlodipine given borderline blood pressures. Acute kidney injury may be related to surgery and monitor. Objective - Vital Signs Vital signs: Vital Signs Temp 98.4 F 08/30/23 04:00 Pulse 84 08/30/23 04:00 Resp 14 08/30/23 04:00 BP 122/60 08/30/23 04:00 Pulse Ox 92 L 08/30/23 04:00 FiO2 21 08/29/23 12:56 Intake & Output 08/29/23 08/29/23 08/30/23 06:59 18:59 06:59 Intake Total 50 1350 1766 Output Total 370 440 825 Balance -320 910 941 Weight 66.7 kg Intake: IV 1350 1516 Ropivacaine 250 mg 16 Hydromorphone (Pf) 5 mg In Sodium Chloride 0.9% 200 ml @ Per Protocol EPIDURAL .Q0M PRN Rx#: [id number] Sodium Chloride 0.9% 1, 1350 1500 000 ml @ 150 mls/hr IV . Q6H40M [facility] Rx#:[id number] Intake, IV Titration 50 0 Amount Ropivacaine 250 mg 50 0 Hydromorphone (Pf) 5 mg In Sodium Chloride 0.9% 200 ml @ Per Protocol EPIDURAL .Q0M PRN Rx#: [id number] Oral 250 Output: Urine 370 440 825 Other: Voiding Method Indwelling Catheter Indwelling Catheter Indwelling Catheter ABP, PAP, CO, CI - Last Documented Arterial Blood Pressure 128/67 - Labs CBC & Chem 7: 08/29/23 04:10 08/29/23 04:10 Labs: Abnormal Lab Results - Last 24 Hours (Table) 08/29/23 08/29/23 Range/Units 04:10 04:10 WBC 10.9 H (3.8-10.6) k/uL RBC 3.32 L (4.30-5.90) m/uL Hgb 10.9 L (13.0-17.5) gm/dL Hct 34.2 L (39.0-53.0) % MCV 102.8 H (80.0-100.0) fL Neutrophils # 8.0 H (1.3-7.7) k/uL BUN 35 H (9-20) mg/dL Creatinine 1.56 H (0.66-1.25) mg/dL Calcium 8.1 L (8.4-10.2) mg/dL Total Protein 5.3 L (6.3-8.2) g/dL Albumin 3.1 L (3.5-5.0) g/dL
[2023-08-30 04:46] LABS: Basophils # (A) 0.1 k/uL (0-0.2); Basophils % (A) 1 %; Eosinophils # (A) 0.1 k/uL (0-0.7); Eosinophils % (A) 1 %; HCT 34.7 % (39.0-53.0); Lymphocytes # (A) 1.4 k/uL (1.0-4.8); Lymphocytes % (A) 12 %; MCH 32.7 pg (25.0-35.0); MCHC 31.8 g/dL (31.0-37.0); MCV 102.6 fL (80.0-100.0); Mean Platelet Volume 8.4; Monocytes % (A) 8 %; Neutrophils # (A) 8.8 k/uL (1.3-7.7); Neutrophils % (A) 76 %; Platelet Count 223 k/uL (150-450); RBC 3.38 m/uL (4.30-5.90); RDW 11.9 % (11.5-15.5); WBC 11.6 k/uL (3.8-10.6)
[2023-08-30 05:18] LABS: ALT 17 U/L (4-49); AST 52 U/L (17-59); African American GFR (CKD) 69 (>60 ml/min/1.73 sqM); Albumin 2.9 g/dL (3.5-5.0); Alkaline Phosphatase 63 U/L (38-126); Anion Gap 7 mmol/L; Blood Urea Nitrogen 27 mg/dL (9-20); Carbon Dioxide 22 mmol/L (22-30); Chloride 105 mmol/L (98-107); Glucose 102 mg/dL (74-99); Non-African American GFR(CKD) 60 (>60 ml/min/1.73 sqM); Potassium 4.2 mmol/L (3.5-5.1); Sodium 134 mmol/L (137-145); Total Bilirubin 0.3 mg/dL (0.2-1.3); Total Protein 5.3 g/dL (6.3-8.2)
--- NOTE | 2023-08-30 09:29 | P.PN ---
Subjective Progress Note Date: 08/30/23 Eric Greenfield, 58-year-old male who presented to [facility] emergency room with a chief complaint of bilateral lower extremity erythema and severe pain He was evaluated in the emergency room vital examination on presentation revealed a temperature of 98.5 pulse 105 respiration 18 blood pressure 174/78 pulse ox 98% on room air Laboratory data revealed a white blood count of 11.3 hemoglobin 14.1 platelet count 342 sodium 132 potassium 4.7 chloride 96 CO2 27 BUN 21 creatinine 0.81 lactic acid 2.1 Patient was admitted to medical floor for further evaluation and treatment On 08/24/2023 patient was seen and examined on the medical floor he is alert and oriented 3 in no apparent distress, he is still complaining of pain in bilateral lower extremities, he is complaining of erythema in bilateral feet, otherwise he denies any complaints, input from infectious disease and vascular surgery reviewed awaiting further testing by vascular surgery. On 08/25/2023 patient is alert and oriented 3. Per nursing staff plans today for vascular intervention with Dr. Syed. Patient remains on IV vancomycin. Hemoglobin 14.5 white blood cell 9.24 creatinine 0.9 and bun 11.5. Repeat lactic acid 1.2. Patient denies chest pain or shortness breath. Patient denies nausea vomiting or diarrhea. Patient denies any urinary burning or frequency On 08/26/2023 for patients alert and oriented 3. Patient had aortogram with bilateral lower extremity runoff yesterday with Dr. Alonso. This time [facility] have been consulted for cardiac clearance stress test has been ordered 2-D echo completed. Patient's of linear bilateral lower extremity pain current vital signs temp 97.7, heart rate 73, respiratory rate 16, blood pressure 158/74 with pulse ox of 96 On 08/27/2023 patient was seen and examined on the medical floor he is alert and oriented 3 in no apparent distress he is still complaining of bilateral feet pain and discoloration otherwise he denies any complaints, there is no fever or chills no headache or dizziness no chest pain no shortness of breath no cough no nausea or vomiting no abdominal pain no diarrhea and no urinary symptoms. Laboratory results, x-ray results, and stress test results reviewed in details. There is no medical contraindication for surgery. On 08/28/2023 patient was seen and examined on the medical floor he is alert and oriented 3 in no apparent distress he is still complaining of pain and discoloration in his bilateral feet otherwise he denies any complaints there is no fever or chills no headache or dizziness no chest pain no shortness of breath no cough no nausea or vomiting no abdominal pain no diarrhea and no urinary symptoms. He is scheduled for vascular surgery today. On 08/29/2023 patient was seen and examined in the ICU he is alert and oriented 3 in no apparent distress he is complaining of mild pain at the surgical site and mild pain in bilateral lower extremities otherwise he denies any complaints, there is no fever or chills no headache or dizziness no chest pain or shortness of breath no cough no nausea or vomiting no abdominal pain no diarrhea and no urinary symptoms. Patient underwent an aortobifemoral bypass and bilateral common femoral artery endarterectomy yesterday with Dr. Syed. 08/30/2023 patient is alert and oriented 3 patient remains in the intensive care unit. Epidural remains in place. This time patient denies chest pain or shortness of breath. Patient denies nausea vomiting or diarrhea. Patient denies any urinary burning or frequency Objective - Vital Signs Vital signs: Vital Signs Temp 99.7 F H 08/30/23 08:00 Pulse 87 08/30/23 08:00 Resp 20 08/30/23 08:00 BP 130/71 08/30/23 08:00 Pulse Ox 92 L 08/30/23 08:00 FiO2 21 08/29/23 12:56 Intake & Output 08/29/23 08/30/23 08/30/23 18:59 06:59 18:59 Intake Total 1350 2222 152 Output Total 440 1110 230 Balance 910 1112 -78 Weight 71.2 kg Intake: IV 1350 1972 152 Ropivacaine 250 mg 22 2 Hydromorphone (Pf) 5 mg In Sodium Chloride 0.9% 200 ml @ Per Protocol EPIDURAL .Q0M PRN Rx#: [id number] Sodium Chloride 0.9% 1, 1350 1950 150 000 ml @ 150 mls/hr IV . Q6H40M [facility] Rx#:[id number] Intake, IV Titration 0 Amount Ropivacaine 250 mg 0 Hydromorphone (Pf) 5 mg In Sodium Chloride 0.9% 200 ml @ Per Protocol EPIDURAL .Q0M PRN Rx#: [id number] Oral 250 Output: Urine 440 1110 230 Other: Voiding Method Indwelling Catheter Indwelling Catheter ABP, PAP, CO, CI - Last Documented Arterial Blood Pressure 128/67 - Exam In general patient is alert and oriented x 3 in no distress HEENT head normocephalic and atraumatic Neck is supple no JVD no goiter no lymphadenopathy no carotid bruit Chest examination reveals a few scattered rhonchi in both lung ge no wheezing Cardiac exam reveals regular heart sounds S1 and S2 no gallops no murmurs Abdomen is soft nontender no organomegaly with normal bowel sounds Extremity exam reveals bilateral erythema in the feet extending above the ankles, there is a half centimeter scabbed ulcer at the base of the left big toe pulses are palpable but 4 bilateral Neurological examination reveals no gross focal deficits - Labs CBC & Chem 7: 08/30/23 04:14 08/30/23 04:14 Labs: Abnormal Lab Results - Last 24 Hours (Table) 08/30/23 08/30/23 Range/Units 04:14 04:14 WBC 11.6 H (3.8-10.6) k/uL RBC 3.38 L (4.30-5.90) m/uL Hgb 11.0 L (13.0-17.5) gm/dL Hct 34.7 L (39.0-53.0) % MCV 102.6 H (80.0-100.0) fL Neutrophils # 8.8 H (1.3-7.7) k/uL Sodium 134 L (137-145) mmol/L BUN 27 H (9-20) mg/dL Creatinine 1.31 H (0.66-1.25) mg/dL Glucose 102 H (74-99) mg/dL Calcium 8.0 L (8.4-10.2) mg/dL Total Protein 5.3 L (6.3-8.2) g/dL Albumin 2.9 L (3.5-5.0) g/dL Assessment and Plan Plan: Bilateral lower extremity cellulitis Sepsis as evidenced by leukocytosis and elevated lactic acid and tachycardia on presentation Bilateral lower extremity severe peripheral arterial disease Underlying history of peripheral neuropathy maintained on gabapentin Underlying history of tobacco abuse, patient was counseled in length regarding the need to quit smoking Underlying history of COPD without exacerbation at this time Underlying history of hypertension, maintained on Ziac and lisinopril, blood pressure was significantly elevated on presentation Will monitor closely Underlying history of hyperlipidemia maintained on Lipitor will resume Underlying history of benign prostatic hypertrophy Underlying history of alcohol use, patient was started on CIWA protocol At this time patient is admitted to medical floor He was started on IV vancomycin in the emergency room Infectious disease consultation and vascular surgery consultation requested Status post aorta bifemoral bypass in bilateral common femoral artery endarterectomy on 08/29/2023 Home medications reviewed and reordered For DVT prophylaxis subcu heparin For GI prophylaxis famotidine Will follow closely
[2023-08-30] MEDS: polyethylene glycoL 3350 17 GM POWD.PACK PO SCH (09:47)
[2023-08-30] MEDS: FAMOTIDINE 20 MG TAB PO SCH (09:48)
[2023-08-30] MEDS: DOCUSATE 100 MG CAP PO SCH (09:57)
--- NOTE | 2023-08-30 11:36 | P.PN ---
Subjective Progress Note Date: 08/30/23 08/29/2023, the patient is being seen in the intensive care unit for postop. Care. 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 Based on that, the patient was taken by vascular surgery and the patient underwent bilateral common femoral artery and endarterectomy, and aorto bifemoral bypass surgery. The estimated blood loss was 850 cc. The patient postop was brought into the intensive care unit. Overnight, the patient stayed in the ICU. Currently he is awake and alert and he is on room air oxygen with a pulse ox of 94%. He has sustained an acute kidney injury and the creatinine is up to 1.5. He will need IV fluids. Start the patient on normal saline at rate of 150 cc an hour. Pulses in the dorsalis pedis are absent and they are present in the posterior tibialis. The patient has no leg pain. No chest pain. No shortness of breath. No altered mentation. Sodium level is at 137, potassium is at 4.7, chloride is 106 with a bicarb of 25 with a BUN of 35 and a creatinine 1.56. The white cell count is at 10.9 with a hemoglobin of 10.9 and a platelet count of 221. Normal coagulation profile preoperatively. No specific complaints. Surgical wound site over the groin area is dry clean and intact. Wound VAC in place. On today's evaluation 08/30/2023, the patient is calm and comfortable. Extremities are warm, dorsalis pedis are absent, posterior tibialis cannot be palpated and he is altered unable by Doppler signal. No feet ulceration. No active pain at this point in time. Surgical wound site over the groin is dry clean and intact and the patient is hemodynamically stable. Creatinine is improving. The patient's creatinine is down to 1.3. BUN is at 27, sodium is at 134, WBC count 11.6 with a hemoglobin of 11.0. Cardiac rhythm is sinus. The patient is on room air oxygen. No respiratory difficulties. Using incentive spirometer. Epidural Dilaudid and bupivacaine is still running and this will be managed by the anesthesia team. Objective - Vital Signs Vital signs: Vital Signs Temp 98.4 F 08/30/23 04:00 Pulse 86 08/30/23 07:00 Resp 17 08/30/23 07:00 BP 130/71 08/30/23 07:00 Pulse Ox 91 L 08/30/23 07:00 FiO2 21 08/29/23 12:56 Intake & Output 08/29/23 08/30/23 08/30/23 18:59 06:59 18:59 Intake Total 1350 2222 Output Total 440 1110 Balance 910 1112 Weight 71.2 kg Intake: IV 1350 1972 Ropivacaine 250 mg 22 Hydromorphone (Pf) 5 mg In Sodium Chloride 0.9% 200 ml @ Per Protocol EPIDURAL .Q0M PRN Rx#: [id number] Sodium Chloride 0.9% 1, 1350 1950 000 ml @ 150 mls/hr IV . Q6H40M [facility] Rx#:[id number] Intake, IV Titration 0 Amount Ropivacaine 250 mg 0 Hydromorphone (Pf) 5 mg In Sodium Chloride 0.9% 200 ml @ Per Protocol EPIDURAL .Q0M PRN Rx#: [id number] Oral 250 Output: Urine 440 1110 Other: Voiding Method Indwelling Catheter Indwelling Catheter ABP, PAP, CO, CI - Last Documented Arterial Blood Pressure 128/67 - Exam .General appearance the patient is calm comfortable, the patient is currently on room air oxygen. Head exam was generally normal. There was no scleral icterus or corneal arcus. Mucous membranes were moist. Neck was supple and without jugular venous distension, thyromegaly, or carotid bruits. Carotids were easily palpable bilaterally. There was no adenopathy. Patient has a right IJ triple-lumen catheter in place. Lungs were clear to auscultation and percussion, and with normal diaphragmatic excursion. No wheezes or rales were noted. Diminished breath sound bilaterally otherwise clear. Cardiac exam revealed the PMI to be normally situated and sized. The rhythm was regular and no extrasystoles were noted during several minutes of auscultation. The first and second heart sounds were normal and physiologic splitting of the second heart sound was noted. There were no murmurs, rubs, clicks, or gallops. Abdominal exam revealed normal bowel sounds. The abdomen was soft, non-tender, and without masses, organomegaly, or appreciable enlargement of the abdominal aorta. Bilateral inguinal surgical wound sites are dry clean and intact and appropriate wound VAC has been applied. His extremities reveal chronic ischemic change in the feet bilaterally. The patient has Doppler signals in the posterior tibialis bilaterally, absent dorsalis pedis. Extremities remain cold. No significant cyanosis. Poor capillary refill. Examination of the skin revealed no evidence of significant rashes, suspicious appearing nevi or other concerning lesions. - Labs CBC & Chem 7: 08/30/23 04:14 08/30/23 04:14 Labs: Abnormal Lab Results - Last 24 Hours (Table) 08/30/23 08/30/23 Range/Units 04:14 04:14 WBC 11.6 H (3.8-10.6) k/uL RBC 3.38 L (4.30-5.90) m/uL Hgb 11.0 L (13.0-17.5) gm/dL Hct 34.7 L (39.0-53.0) % MCV 102.6 H (80.0-100.0) fL Neutrophils # 8.8 H (1.3-7.7) k/uL Sodium 134 L (137-145) mmol/L BUN 27 H (9-20) mg/dL Creatinine 1.31 H (0.66-1.25) mg/dL Glucose 102 H (74-99) mg/dL Calcium 8.0 L (8.4-10.2) mg/dL Total Protein 5.3 L (6.3-8.2) g/dL Albumin 2.9 L (3.5-5.0) g/dL Assessment and Plan Plan: Severe peripheral vascular disease and the patient has undergone bilateral femoral endarterectomy and aortobiiliac bypass surgery. The patient is currently postop day #2 Acute kidney injury, consider possibility of a postop ATN. Nonoliguric. The patient will be given IV fluids with normal citrate of 150 cc an hour. Creatinine is improving. Critical ischemic feet bilaterally with chronic pain COPD, currently inactive and stable, Hypertension Hyperlipidemia Chronic back pain Plan Monitor the urine output, creatinine is improving Start the patient on normal saline at rate of 150 cc an hour. Repeat electrolytes in the morning and a creatinine in the morning. Patient had epidural Dilaudid and bupivacaine to be managed by anesthesia. This may be likely discontinued. Rest of the outpatient medications have been resumed. Monitor the open sleeping in the lower extremities bilaterally and monitor the wound and the surgical scars in the groin bilaterally. Will continue to follow along with the vascular surgical team. Continue aspirin Continue statins and the patient is currently on Lipitor 40 mg p.o. daily Smoking cessation counseling to
--- NOTE | 2023-08-30 16:22 | P.PN ---
Subjective Progress Note Date: 08/30/23 Principal diagnosis: Reason for follow-up is bilateral foot cellulitis Patient is a 58-year-old male with a past medical history significant for hypertension hyperlipidemia reflux COPD and asthma patient did have a PAD, presented to the hospital with worsening discomfort to bilateral feet area and redness.Patient is status post aortogram with bilateral lower extremity runoff and did have evidence of significant PAD surgery recommending aortobifemoral bypass.Patient is status post aortobifemoral bypass with PTFE graft and bilateral common femoral artery endarterectomy completed on 08/28/2023. On today's visit that is 08/30/2023, patient has been afebrile, patient is breathing comfortably and is currently on room air, patient denies having any significant cough no chest pain shortness of breath, patient denies nausea vomiting or diarrhea and no abdominal pain, pain to bilateral feet has decreased in intensity. Patient white count is 11.6 creatinine creatinine is 1.31 blood culture has been negative Objective - Vital Signs Vital signs: Vital Signs Temp 98.1 F 08/30/23 12:00 Pulse 81 08/30/23 14:00 Resp 19 08/30/23 14:00 BP 135/70 08/30/23 14:00 Pulse Ox 97 08/30/23 14:00 FiO2 21 08/29/23 12:56 Intake & Output 08/29/23 08/30/23 08/30/23 18:59 06:59 18:59 Intake Total 1350 2222 1064 Output Total 440 1110 620 Balance 910 1112 444 Weight 71.2 kg Intake: IV 1350 1972 1064 Ropivacaine 250 mg 22 14 Hydromorphone (Pf) 5 mg In Sodium Chloride 0.9% 200 ml @ Per Protocol EPIDURAL .Q0M PRN Rx#: [id number] Sodium Chloride 0.9% 1, 1350 1950 1050 000 ml @ 150 mls/hr IV . Q6H40M [facility] Rx#:[id number] Intake, IV Titration 0 Amount Ropivacaine 250 mg 0 Hydromorphone (Pf) 5 mg In Sodium Chloride 0.9% 200 ml @ Per Protocol EPIDURAL .Q0M PRN Rx#: [id number] Oral 250 Output: Urine 440 1110 620 Other: Voiding Method Indwelling Catheter Indwelling Catheter Indwelling Catheter ABP, PAP, CO, CI - Last Documented Arterial Blood Pressure 128/67 - Exam GENERAL DESCRIPTION: Middle-age male up in bed in no distress RESPIRATORY SYSTEM: Unlabored breathing , decreased breath sounds at bases HEART: S1 S2 regular rate and rhythm , ABDOMEN: Soft , no tenderness EXTREMITIES: Bilateral feet did have erythema but no significant warmth or drainage - Labs CBC & Chem 7: 08/30/23 04:14 08/30/23 04:14 Labs: Abnormal Lab Results - Last 24 Hours (Table) 08/30/23 08/30/23 Range/Units 04:14 04:14 WBC 11.6 H (3.8-10.6) k/uL RBC 3.38 L (4.30-5.90) m/uL Hgb 11.0 L (13.0-17.5) gm/dL Hct 34.7 L (39.0-53.0) % MCV 102.6 H (80.0-100.0) fL Neutrophils # 8.8 H (1.3-7.7) k/uL Sodium 134 L (137-145) mmol/L BUN 27 H (9-20) mg/dL Creatinine 1.31 H (0.66-1.25) mg/dL Glucose 102 H (74-99) mg/dL Calcium 8.0 L (8.4-10.2) mg/dL Total Protein 5.3 L (6.3-8.2) g/dL Albumin 2.9 L (3.5-5.0) g/dL Assessment and Plan (1) Cellulitis of both feet Current Visit: Yes Status: Acute Code(s): L03.115 - CELLULITIS OF RIGHT LOWER LIMB; L03.116 - CELLULITIS OF LEFT LOWER LIMB SNOMED Code(s): 924316591 (2) Leukocytosis Current Visit: Yes Status: Acute Code(s): D72.829 - ELEVATED WHITE BLOOD CELL COUNT, UNSPECIFIED SNOMED Code(s): 323194918 Plan: 1patient with a bilateral lower extremity pain he did have some erythema however bilateral feet are cool to touch and symptom more likely related to underlying PAD and possible component of cellulitis not entirely excluded, Keeping in mind elevated white count likely from gram-positive skin art 2-patient is status post aortogram with bilateral lower extremity runoff with evidence of significant PAD patient's status post aorto bifemoral bypass graft and bilateral common carotid artery endarterectomy completed on 08/28/2023 3-patient is afebrile white count is slightly up and need to monitor closely for now continue with oral doxycycline and monitor clinical course closely Dictation was produced using [employer] dictation software. please excuse any grammatical, word or spelling errors. Time with Patient: Less than 30
--- NOTE | 2023-08-31 07:22 | P.PN ---
Progress Note - Text 08/30/231919 58-year-old male status post aortobifem by Dr. stevenson, patient has an epidural catheter with a solution running at 5 cc an hour with a VAS of 1 no motor or sensory deficit noted. Plan to continue epidural infusion
--- NOTE | 2023-08-31 07:23 | P.PN ---
Progress Note - Text 08/31/23 707am 58-year-old male status post aortobifem, patient has an epidural catheter for postop pain control. She went up to cc an hour with a VAS of 1. Patient has been ambulating with no motor or sensory deficits. Plan to DC epidural and was informed. Epidural DC'd
[2023-08-31 10:20] LABS: African American GFR (CKD) >90 (>60 ml/min/1.73 sqM); Non-African American GFR(CKD) 81 (>60 ml/min/1.73 sqM)
--- NOTE | 2023-08-31 10:51 | P.PN ---
Subjective Progress Note Date: 08/31/23 Principal diagnosis: Peripheral arterial disease Patient is seen and examined today as a follow-up. He is postop day #3 for aortobifemoral bypass with PTFE graft and bilateral common femoral artery endarterectomy. Prevena dressing is intact with good suction. Physical therapy is at bedside getting patient ready to get up and ambulate which later they reportedly said he had walked without any difficulty around the floor. He denies any shortness of breath, chest pain, abdominal pain, nausea or vomiting. Epidural was discontinued yesterday and he is tolerating pain with medication. Patient is tolerating regular diet. Objective - Vital Signs Vital signs: Vital Signs Temp 98.2 F 08/31/23 04:00 Pulse 80 08/31/23 04:00 Resp 18 08/31/23 04:00 BP 126/74 08/31/23 04:00 Pulse Ox 95 08/31/23 04:00 FiO2 21 08/29/23 12:56 Intake & Output 08/30/23 08/31/23 08/31/23 18:59 06:59 18:59 Intake Total 1604 240 Output Total 620 642 Balance 984 -642 240 Intake: IV 1064 Ropivacaine 250 mg 14 Hydromorphone (Pf) 5 mg In Sodium Chloride 0.9% 200 ml @ Per Protocol EPIDURAL .Q0M PRN Rx#: [id number] Sodium Chloride 0.9% 1, 1050 000 ml @ 150 mls/hr IV . Q6H40M [facility] Rx#:[id number] Oral 540 240 Output: Urine 620 640 Stool 2 Other: Voiding Method Indwelling Catheter Indwelling Catheter ABP, PAP, CO, CI - Last Documented Arterial Blood Pressure 128/67 - Exam General appearance: The patient is alert, oriented, appears in no acute distress. HET: Head is normocephalic and atraumatic. Pupils are equal and reactive. Neck: Supple. Abdomen: Soft, nondistended. Extremities: Bilateral lower extremity pedal edema with erythema. Sensorimotor intact. Bilateral PT and DP multiphasic signals. Neurological: No focal deficits. Strength and sensation are grossly intact. - Labs CBC & Chem 7: 08/30/23 04:14 08/31/23 09:27 Assessment and Plan Assessment: 1. Aortic occlusion with reconstitution bilateral femoral arteries, occluded bilateral superficial femoral artery status post aortobifemoral bypass with bilateral common femoral endarterectomy 2. Lower extremity foot pain 3. Lower extremities cellulitis 4. Nicotine dependence 5. COPD 6. Hyperlipidemia 7. Hypertension Plan: 1. Encourage ambulation 2. Continue heart healthy diet 3. Continue to discuss importance of smoking cessation. Nicotine patch offered. 4. Pain medication as needed 5. Keep Prevena resting in place for 7 days postop 6. Anticipate discharge in the next 24 to 48 hours Thank you for this consultation, we will continue to follow. The impression and plan of care has been dictated as directed. Dr. Felix I performed a history and examination of this patient, discussed the same with the dictator. I agree with the dictator's note ,documented as a scribe. Any additional findings or plans will be noted.
--- NOTE | 2023-08-31 14:46 | P.PN ---
Subjective Progress Note Date: 08/31/23 Mr Greenfield is a 58 y/o male who lives alone in a single story home with 5 tae with basement, 13 steps down to laundry. Prior to admission he was independent with mobility and ADLs. He does not drive. Patient presented to the hospital on 08/22/23 for complaints of bilateral foot pain and swelling and recommendation from PCP. He reportedly has developed wounds on his feet, has been told he had arterial disease but has not followed up with vascular surgery. Vascular surgery was consulted, he had ABIs completed. On 08/25/23 he underwent aortogram, diagnosed with severe PAD with occluded bilateral SFA. Vascular surgery recommended aortofemoral bypass. PM&R consulted for rehab recommendations. Therapy consulted. Cardiology consulted for clearance, lexiscan today and possible cath. States has been up to bathroom by self. Is tired, has occasional SCHULTZ and SOB with activity. occasional numbness in feet. Biggest issue is pain in feet, legs. Last BM today Patient had a lexiscan no known reversible damage, cardiology cleared him for surgical intervention. 08/28/23: Patient worked with therapy yesterday, independent with bed mobility, transfers and ambulation for 75 ft. 08/31/23: Patient's notes reviewed, patient is too functional for IPR, recommending home, possible cardiac rehab outpatient will defer to cardiology. Objective - Vital Signs Vital signs: Vital Signs Temp 98.8 F 08/31/23 08:00 Pulse 92 08/31/23 08:00 Resp 18 08/31/23 08:00 BP 118/62 08/31/23 08:00 Pulse Ox 95 08/31/23 08:00 FiO2 21 08/29/23 12:56 Intake & Output 08/30/23 08/31/23 08/31/23 18:59 06:59 18:59 Intake Total 1604 240 Output Total 620 642 2 Balance 984 -642 238 Intake: IV 1064 Ropivacaine 250 mg 14 Hydromorphone (Pf) 5 mg In Sodium Chloride 0.9% 200 ml @ Per Protocol EPIDURAL .Q0M PRN Rx#: [id number] Sodium Chloride 0.9% 1, 1050 000 ml @ 150 mls/hr IV . Q6H40M [facility] Rx#:[id number] Oral 540 240 Output: Urine 620 640 Stool 2 2 Other: Voiding Method Indwelling Catheter Indwelling Catheter ABP, PAP, CO, CI - Last Documented Arterial Blood Pressure 128/67 - Labs CBC & Chem 7: 08/30/23 04:14 08/31/23 09:27 Assessment and Plan Assessment: # Sepsis secondary to bilateral lower extremity cellulitis -on vanco -PT/OT evaluations # Bilateral SFA occlusions -vascular surgery recommending Bypass surgery # Severe PAD -s/p lexiscan # PPN -on gabapentin # Chronic back pain -Tylenol prn, [place] prn, Percocet 7.5/325 TID # DVT Proph -Heparin # Comorbidities: Tobacco use, ETOH use, Asthma, COPD, GERD, HLD, HTN, OA # Your medical dx and management Disposition: Patient is too functional with therapy at this time to qualify for IPR,
--- NOTE | 2023-08-31 15:14 | P.PN ---
Subjective Progress Note Date: 08/31/23 Principal diagnosis: Severe peripheral vessel occlusive disease, status post bilateral femoral endarterectomy and aorto by iliac bypass surgery postoperative day #3 08/29/2023, the patient is being seen in the intensive care unit for postop. Care. 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 Based on that, the patient was taken by vascular surgery and the patient underwent bilateral common femoral artery and endarterectomy, and aorto bifemoral bypass surgery. The estimated blood loss was 850 cc. The patient postop was brought into the intensive care unit. Overnight, the patient stayed in the ICU. Currently he is awake and alert and he is on room air oxygen with a pulse ox of 94%. He has sustained an acute kidney injury and the creatinine is up to 1.5. He will need IV fluids. Start the patient on normal saline at rate of 150 cc an hour. Pulses in the dorsalis pedis are absent and they are present in the posterior tibialis. The patient has no leg pain. No chest pain. No shortness of breath. No altered mentation. Sodium level is at 137, potassium is at 4.7, chloride is 106 with a bicarb of 25 with a BUN of 35 and a creatinine 1.56. The white cell count is at 10.9 with a hemoglobin of 10.9 and a platelet count of 221. Normal coagulation profile preoperatively. No specific complaints. Surgical wound site over the groin area is dry clean and intact. Wound VAC in place. On today's evaluation 08/30/2023, the patient is calm and comfortable. Extremities are warm, dorsalis pedis are absent, posterior tibialis cannot be palpated and he is altered unable by Doppler signal. No feet ulceration. No active pain at this point in time. Surgical wound site over the groin is dry clean and intact and the patient is hemodynamically stable. Creatinine is improving. The patient's creatinine is down to 1.3. BUN is at 27, sodium is at 134, WBC count 11.6 with a hemoglobin of 11.0. Cardiac rhythm is sinus. The patient is on room air oxygen. No respiratory difficulties. Using incentive spirometer. Epidural Dilaudid and bupivacaine is still running and this will be managed by the anesthesia team. Reevaluate today on 08/31/2023, patient is doing great, asymptomatic, no cough no wheezing no shortness of breath, no chest pain, no nausea no vomiting. Patient remains on room air with O2 saturation 95%, he is hemodynamically stable with blood pressure of 118/62. Objective - Vital Signs Vital signs: Vital Signs Temp 98.8 F 08/31/23 08:00 Pulse 92 08/31/23 08:00 Resp 18 08/31/23 08:00 BP 118/62 08/31/23 08:00 Pulse Ox 95 08/31/23 08:00 FiO2 21 08/29/23 12:56 Intake & Output 08/30/23 08/31/23 08/31/23 18:59 06:59 18:59 Intake Total 1604 240 Output Total 620 642 2 Balance 984 -642 238 Intake: IV 1064 Ropivacaine 250 mg 14 Hydromorphone (Pf) 5 mg In Sodium Chloride 0.9% 200 ml @ Per Protocol EPIDURAL .Q0M PRN Rx#: [id number] Sodium Chloride 0.9% 1, 1050 000 ml @ 150 mls/hr IV . Q6H40M [facility] Rx#:[id number] Oral 540 240 Output: Urine 620 640 Stool 2 2 Other: Voiding Method Indwelling Catheter Indwelling Catheter ABP, PAP, CO, CI - Last Documented Arterial Blood Pressure 128/67 - Exam General: Reveals a 58-year-old white male in no distress, on room air Head: Atraumatic, normocephalic. HEENT: PERRLA, EOMI, nonicteric, no neck masses no JVD, moist mucous membranes Lungs clear throughout, no crackles rhonchi or wheezes Cardiac normal S1-S2, no S3 gallop. Abdominal exam: Soft flat soft nontender no megaly no rebound bilateral inguinal surgical wound sites are dry clean and intact and appropriate wound VAC has been applied. Extremities: Reveal chronic ischemic change in the feet bilaterally. Extremities remain cold. No significant cyanosis. Poor capillary refill. Examination of the skin revealed no evidence significant rash. Neurologic: Alert oriented x 3 no focal deficit Psychiatric: Normal mood affect and no mental status examination - Labs CBC & Chem 7: 08/30/23 04:14 08/31/23 09:27 Assessment and Plan Assessment: Impression: Severe peripheral vascular disease and the patient has undergone bilateral femoral endarterectomy and aortobiiliac bypass surgery. Postoperative day #3 Acute kidney injury, consider possibility of a postop ATN. Nonoliguric. Improving Critical ischemic feet bilaterally with chronic pain COPD, currently inactive and stable, Hypertension Hyperlipidemia Chronic back pain Recommendation: Continue to monitor renal status Continue IV fluid Continue incentive spirometry Continue aspirin Continue statin Counseled regarding smoking cessation Possible discharge planning once cleared by vascular surgery and cardiology Time with Patient: Less than 30
--- NOTE | 2023-08-31 15:23 | P.PN ---
Subjective Progress Note Date: 08/31/23 Eric Greenfield, 58-year-old male who presented to [facility] emergency room with a chief complaint of bilateral lower extremity erythema and severe pain He was evaluated in the emergency room vital examination on presentation revealed a temperature of 98.5 pulse 105 respiration 18 blood pressure 174/78 pulse ox 98% on room air Laboratory data revealed a white blood count of 11.3 hemoglobin 14.1 platelet count 342 sodium 132 potassium 4.7 chloride 96 CO2 27 BUN 21 creatinine 0.81 lactic acid 2.1 Patient was admitted to medical floor for further evaluation and treatment On 08/24/2023 patient was seen and examined on the medical floor he is alert and oriented 3 in no apparent distress, he is still complaining of pain in bilateral lower extremities, he is complaining of erythema in bilateral feet, otherwise he denies any complaints, input from infectious disease and vascular surgery reviewed awaiting further testing by vascular surgery. On 08/25/2023 patient is alert and oriented 3. Per nursing staff plans today for vascular intervention with Dr. Syed. Patient remains on IV vancomycin. Hemoglobin 14.5 white blood cell 9.24 creatinine 0.9 and bun 11.5. Repeat lactic acid 1.2. Patient denies chest pain or shortness breath. Patient denies nausea vomiting or diarrhea. Patient denies any urinary burning or frequency On 08/26/2023 for patients alert and oriented 3. Patient had aortogram with bilateral lower extremity runoff yesterday with Dr. Alonso. This time [facility] services have been consulted for cardiac clearance stress test has been ordered 2-D echo completed. Patient's of linear bilateral lower extremity pain current vital signs temp 97.7, heart rate 73, respiratory rate 16, blood pressure 158/74 with pulse ox of 96 On 08/27/2023 patient was seen and examined on the medical floor he is alert and oriented 3 in no apparent distress he is still complaining of bilateral feet pain and discoloration otherwise he denies any complaints, there is no fever or chills no headache or dizziness no chest pain no shortness of breath no cough no nausea or vomiting no abdominal pain no diarrhea and no urinary symptoms. Laboratory results, x-ray results, and stress test results reviewed in details. There is no medical contraindication for surgery. On 08/28/2023 patient was seen and examined on the medical floor he is alert and oriented 3 in no apparent distress he is still complaining of pain and discoloration in his bilateral feet otherwise he denies any complaints there is no fever or chills no headache or dizziness no chest pain no shortness of breath no cough no nausea or vomiting no abdominal pain no diarrhea and no urinary symptoms. He is scheduled for vascular surgery today. On 08/29/2023 patient was seen and examined in the ICU he is alert and oriented 3 in no apparent distress he is complaining of mild pain at the surgical site and mild pain in bilateral lower extremities otherwise he denies any complaints, there is no fever or chills no headache or dizziness no chest pain or shortness of breath no cough no nausea or vomiting no abdominal pain no diarrhea and no urinary symptoms. Patient underwent an aortobifemoral bypass and bilateral common femoral artery endarterectomy yesterday with Dr. Syed. 08/30/2023 patient is alert and oriented 3 patient remains in the intensive care unit. Epidural remains in place. This time patient denies chest pain or shortness of breath. Patient denies nausea vomiting or diarrhea. Patient denies any urinary burning or frequency On 08/31/2023 patient was seen and examined on the medical floor he is alert and oriented 3 in no apparent distress he is still complaining of some pain and discomfort in bilateral lower extremities otherwise he denies any complaints there is no fever or chills no headache or dizziness no chest pain no shortness of breath no cough no nausea or vomiting no abdominal pain no diarrhea and no urinary symptoms Objective - Vital Signs Vital signs: Vital Signs Temp 98.8 F 08/31/23 08:00 Pulse 92 08/31/23 08:00 Resp 18 08/31/23 08:00 BP 118/62 08/31/23 08:00 Pulse Ox 95 08/31/23 08:00 FiO2 21 08/29/23 12:56 Intake & Output 08/30/23 08/31/23 08/31/23 18:59 06:59 18:59 Intake Total 1604 240 Output Total 620 642 2 Balance 984 -642 238 Intake: IV 1064 Ropivacaine 250 mg 14 Hydromorphone (Pf) 5 mg In Sodium Chloride 0.9% 200 ml @ Per Protocol EPIDURAL .Q0M PRN Rx#: [id number] Sodium Chloride 0.9% 1, 1050 000 ml @ 150 mls/hr IV . Q6H40M [facility] Rx#:[id number] Oral 540 240 Output: Urine 620 640 Stool 2 2 Other: Voiding Method Indwelling Catheter Indwelling Catheter ABP, PAP, CO, CI - Last Documented Arterial Blood Pressure 128/67 - Exam In general patient is alert and oriented x 3 in no distress HEENT head normocephalic and atraumatic Neck is supple no JVD no goiter no lymphadenopathy no carotid bruit Chest examination reveals a few scattered rhonchi in both lung ge no wheezing Cardiac exam reveals regular heart sounds S1 and S2 no gallops no murmurs Abdomen is soft nontender no organomegaly with normal bowel sounds Extremity exam reveals bilateral erythema in the feet extending above the ankles, there is a half centimeter scabbed ulcer at the base of the left big toe pulses are palpable but 4 bilateral Neurological examination reveals no gross focal deficits - Labs CBC & Chem 7: 08/30/23 04:14 08/31/23 09:27 Assessment and Plan Plan: Bilateral lower extremity cellulitis Sepsis as evidenced by leukocytosis and elevated lactic acid and tachycardia on presentation Bilateral lower extremity severe peripheral arterial disease Underlying history of peripheral neuropathy maintained on gabapentin Underlying history of tobacco abuse, patient was counseled in length regarding the need to quit smoking Underlying history of COPD without exacerbation at this time Underlying history of hypertension, maintained on Ziac and lisinopril, blood pressure was significantly elevated on presentation Will monitor closely Underlying history of hyperlipidemia maintained on Lipitor will resume Underlying history of benign prostatic hypertrophy Underlying history of alcohol use, patient was started on CIWA protocol At this time patient is admitted to medical floor He was started on IV vancomycin in the emergency room Infectious disease consultation and vascular surgery consultation requested Status post aorta bifemoral bypass in bilateral common femoral artery endarterectomy on 08/29/2023 Home medications reviewed and reordered For DVT prophylaxis subcu heparin For GI prophylaxis famotidine Will follow closely
--- NOTE | 2023-08-31 18:23 | P.PN ---
Subjective Progress Note Date: 08/31/23 Principal diagnosis: Reason for follow-up is bilateral foot cellulitis Patient is a 58-year-old male with a past medical history significant for hypertension hyperlipidemia reflux COPD and asthma patient did have a PAD, presented to the hospital with worsening discomfort to bilateral feet area and redness.Patient is status post aortogram with bilateral lower extremity runoff and did have evidence of significant PAD surgery recommending aortobifemoral bypass.Patient is status post aortobifemoral bypass with PTFE graft and bilateral common femoral artery endarterectomy completed on 08/28/2023. On today's visit that is 08/31/2023,the patient denies any fever or any chills, patient is breathing comfortably on room air, the patient denies chest pain shortness of breath and no significant cough, patient denies abdominal pain, no nausea vomiting or diarrhea. Pain to bilateral foot has decreased in intensity. Patient did have a creatinine 1.02 no CBC was done today blood culture has been negative Objective - Vital Signs Vital signs: Vital Signs Temp 98.8 F 08/31/23 08:00 Pulse 92 08/31/23 08:00 Resp 18 08/31/23 08:00 BP 118/62 08/31/23 08:00 Pulse Ox 95 08/31/23 08:00 FiO2 21 08/29/23 12:56 Intake & Output 08/30/23 08/31/23 08/31/23 18:59 06:59 18:59 Intake Total 1604 240 Output Total 620 642 2 Balance 984 -642 238 Intake: IV 1064 Ropivacaine 250 mg 14 Hydromorphone (Pf) 5 mg In Sodium Chloride 0.9% 200 ml @ Per Protocol EPIDURAL .Q0M PRN Rx#: [id number] Sodium Chloride 0.9% 1, 1050 000 ml @ 150 mls/hr IV . Q6H40M [facility] Rx#:[id number] Oral 540 240 Output: Urine 620 640 Stool 2 2 Other: Voiding Method Indwelling Catheter Indwelling Catheter ABP, PAP, CO, CI - Last Documented Arterial Blood Pressure 128/67 - Exam GENERAL DESCRIPTION: Middle-age male up in bed in no distress RESPIRATORY SYSTEM: Unlabored breathing , decreased breath sounds at bases HEART: S1 S2 regular rate and rhythm , ABDOMEN: Soft , no tenderness EXTREMITIES: Bilateral feet did have erythema but no significant warmth or drainage - Labs CBC & Chem 7: 08/30/23 04:14 08/31/23 09:27 Assessment and Plan (1) Cellulitis of both feet Current Visit: Yes Status: Acute Code(s): L03.115 - CELLULITIS OF RIGHT LOWER LIMB; L03.116 - CELLULITIS OF LEFT LOWER LIMB SNOMED Code(s): 843136687 (2) Leukocytosis Current Visit: Yes Status: Acute Code(s): D72.829 - ELEVATED WHITE BLOOD CELL COUNT, UNSPECIFIED SNOMED Code(s): 223103430 Plan: 1patient with a bilateral lower extremity pain he did have some erythema h owever bilateral feet are cool to touch and symptom more likely related to underlying PAD and possible component of cellulitis not entirely excluded, Keeping in mind elevated white count likely from gram-positive skin art 2-patient is status post aortogram with bilateral lower extremity runoff with evidence of significant PAD patient's status post aorto bifemoral bypass graft and bilateral common carotid artery endarterectomy completed on 08/28/2023 3-patient is afebrile no CBC was done today, for now continue with oral doxycycline and monitor clinical course closely Dictation was produced using [employer] dictation software. please excuse any grammatical, word or spelling errors. Time with Patient: Less than 30
[2023-08-31] MEDS: ATORVASTATIN 80 MG TAB PO SCH (20:19)
--- NOTE | 2023-08-31 23:04 | PN ---
PROGRESS NOTE SUBJECTIVE: Mr. Eric Greenfield is a gentleman who had aortobifem surgery. He is in sinus rhythm, hemodynamically stable, resting comfortably. OBJECTIVE: VITAL SIGNS: Stable. NECK: No JVD. CARDIAC: S1, S2 heard normally. LUNGS: Revealed diminished air entry. ABDOMEN: Soft. LOWER EXTREMITIES: Pulses are diminished. From a cardiac standpoint, same medical regimen, but I will increase the Lipitor from 40 to 80 mg daily. Renal function is fairly decent. All other medications to be continued. He can be discharged whenever okay with the admitting doctor and I will see him as needed. MMODL / IJN: [id number] /
[2023-09-01 08:03] LABS: Basophils # (A) 0.1 k/uL (0-0.2); Basophils % (A) 1 %; Eosinophils # (A) 0.3 k/uL (0-0.7); Eosinophils % (A) 3 %; HCT 31.4 % (39.0-53.0); HGB 10.2 gm/dL (13.0-17.5); Lymphocytes # (A) 1.3 k/uL (1.0-4.8); Lymphocytes % (A) 13 %; MCH 33.3 pg (25.0-35.0); MCHC 32.7 g/dL (31.0-37.0); Mean Platelet Volume 8.3; Monocytes # (A) 0.7 k/uL (0-1.0); Monocytes % (A) 8 %; Neutrophils # (A) 7.1 k/uL (1.3-7.7); Neutrophils % (A) 72 %; Platelet Count 281 k/uL (150-450); RBC 3.07 m/uL (4.30-5.90); RDW 11.7 % (11.5-15.5); WBC 9.7 k/uL (3.8-10.6)
[2023-09-01 08:39] LABS: ALT 19 U/L (4-49); AST 59 U/L (17-59); African American GFR (CKD) >90 (>60 ml/min/1.73 sqM); Albumin 2.9 g/dL (3.5-5.0); Alkaline Phosphatase 63 U/L (38-126); Anion Gap 9 mmol/L; Blood Urea Nitrogen 13 mg/dL (9-20); Calcium 8.5 mg/dL (8.4-10.2); Carbon Dioxide 19 mmol/L (22-30); Chloride 107 mmol/L (98-107); Glucose 88 mg/dL (74-99); Non-African American GFR(CKD) >90 (>60 ml/min/1.73 sqM); Potassium 3.9 mmol/L (3.5-5.1); Sodium 135 mmol/L (137-145); Total Bilirubin 0.5 mg/dL (0.2-1.3); Total Protein 5.5 g/dL (6.3-8.2)
--- NOTE | 2023-09-01 09:15 | P.PN ---
Subjective Progress Note Date: 09/01/23 On 08/24/2022 for patients alert and oriented 3. Eric Greenfield, 58-year-old male who presented to [facility] emergency room with a chief complaint of bilateral lower extremity erythema and severe pain He was evaluated in the emergency room vital examination on presentation revealed a temperature of 98.5 pulse 105 respiration 18 blood pressure 174/78 pulse ox 98% on room air Laboratory data revealed a white blood count of 11.3 hemoglobin 14.1 platelet count 342 sodium 132 potassium 4.7 chloride 96 CO2 27 BUN 21 creatinine 0.81 lactic acid 2.1 Patient was admitted to medical floor for further evaluation and treatment On 08/24/2023 patient was seen and examined on the medical floor he is alert and oriented 3 in no apparent distress, he is still complaining of pain in bilateral lower extremities, he is complaining of erythema in bilateral feet, otherwise he denies any complaints, input from infectious disease and vascular surgery reviewed awaiting further testing by vascular surgery. On 08/25/2023 patient is alert and oriented 3. Per nursing staff plans today for vascular intervention with Dr. Syed. Patient remains on IV vancomycin. Hemoglobin 14.5 white blood cell 9.24 creatinine 0.9 and bun 11.5. Repeat lactic acid 1.2. Patient denies chest pain or shortness breath. Patient denies nausea vomiting or diarrhea. Patient denies any urinary burning or frequency On 08/25/2022 for patients alert and oriented 3. Patient had aortogram with bilateral lower extremity runoff yesterday with Dr. Alonso. This time reality services have been consulted for cardiac clearance stress test has been ordered 2-D echo completed. Patient's of linear bilateral lower extremity pain current vital signs temp 97.7, heart rate 73, respiratory rate 16, blood pressure 158/74 with pulse ox of 96 On 08/27/2023 patient was seen and examined on the medical floor he is alert and oriented 3 in no apparent distress he is still complaining of bilateral feet pain and discoloration otherwise he denies any complaints, there is no fever or chills no headache or dizziness no chest pain no shortness of breath no cough no nausea or vomiting no abdominal pain no diarrhea and no urinary symptoms. Laboratory results, x-ray results, and stress test results reviewed in details. There is no medical contraindication for surgery. On 08/28/2023 patient was seen and examined on the medical floor he is alert and oriented 3 in no apparent distress he is still complaining of pain and discoloration in his bilateral feet otherwise he denies any complaints there is no fever or chills no headache or dizziness no chest pain no shortness of breath no cough no nausea or vomiting no abdominal pain no diarrhea and no urinary symptoms. He is scheduled for vascular surgery today. On 08/29/2023 patient was seen and examined in the ICU he is alert and oriented 3 in no apparent distress he is complaining of mild pain at the surgical site and mild pain in bilateral lower extremities otherwise he denies any complaints, there is no fever or chills no headache or dizziness no chest pain or shortness of breath no cough no nausea or vomiting no abdominal pain no diarrhea and no urinary symptoms. Patient underwent an aortobifemoral bypass and bilateral common femoral artery endarterectomy yesterday with Dr. Syed. 08/30/2023 patient is alert and oriented 3 patient remains in the intensive care unit. Epidural remains in place. This time patient denies chest pain or shortness of breath. Patient denies nausea vomiting or diarrhea. Patient denies any urinary burning or frequency On 08/31/2023 patient was seen and examined on the medical floor he is alert and oriented 3 in no apparent distress he is still complaining of some pain and discomfort in bilateral lower extremities otherwise he denies any complaints there is no fever or chills no headache or dizziness no chest pain no shortness of breath no cough no nausea or vomiting no abdominal pain no diarrhea and no urinary symptoms On 09/01/2023 patient is alert and oriented 3. Patient is currently resting in bed. Discharge planning in place. Patient will likely be DC'd home with home healthcare. Awaiting recommendations from vascular surgery. Patient remains on doxycycline. Current vital signs temp 97.9, heart rate 70, respiratory rate 16, pressure 138/75 with pulse ox of 98% on room air Objective - Vital Signs Vital signs: Vital Signs Temp 97.9 F 09/01/23 03:28 Pulse 70 09/01/23 03:28 Resp 16 09/01/23 03:28 BP 138/75 09/01/23 03:28 Pulse Ox 95 09/01/23 03:28 FiO2 21 08/29/23 12:56 Intake & Output 03/09/01/23 09/01/23 18:59 06:59 18:59 Intake Total 240 840 Output Total 4 1279 Balance 236 -439 Intake: IV 600 Sodium Chloride 0.9% 1, 600 000 ml @ 150 mls/hr IV . Q6H40M [facility] Rx#:[id number] Oral 240 240 Output: Urine 1275 Stool 4 4 Other: Voiding Method Indwelling Catheter Indwelling Catheter ABP, PAP, CO, CI - Last Documented Arterial Blood Pressure 128/67 - Exam In general patient is alert and oriented x 3 in no distress HEENT head normocephalic and atraumatic Neck is supple no JVD no goiter no lymphadenopathy no carotid bruit Chest examination reveals a few scattered rhonchi in both lung ge no wheezing Cardiac exam reveals regular heart sounds S1 and S2 no gallops no murmurs Abdomen is soft nontender no organomegaly with normal bowel sounds Extremity exam reveals bilateral erythema in the feet extending above the ankles, there is a half centimeter scabbed ulcer at the base of the left big toe pulses are palpable but 4 bilateral Neurological examination reveals no gross focal deficits - Labs CBC & Chem 7: 09/01/23 07:24 09/01/23 07:24 Labs: Abnormal Lab Results - Last 24 Hours (Table) 09/01/23 09/01/23 Range/Units 07:24 07:24 RBC 3.07 L (4.30-5.90) m/uL Hgb 10.2 L (13.0-17.5) gm/dL Hct 31.4 L (39.0-53.0) % MCV 102.0 H (80.0-100.0) fL Sodium 135 L (137-145) mmol/L Carbon Dioxide 19 L (22-30) mmol/L Total Protein 5.5 L (6.3-8.2) g/dL Albumin 2.9 L (3.5-5.0) g/dL Assessment and Plan Assessment: Bilateral lower extremity cellulitis Sepsis as evidenced by leukocytosis and elevated lactic acid and tachycardia on presentation Bilateral lower extremity severe peripheral arterial disease Underlying history of peripheral neuropathy maintained on gabapentin Underlying history of tobacco abuse, patient was counseled in length regarding the need to quit smoking Underlying history of COPD without exacerbation at this time Underlying history of hypertension, maintained on Ziac and lisinopril, blood pressure was significantly elevated on presentation Will monitor closely Underlying history of hyperlipidemia maintained on Lipitor will resume Underlying history of benign prostatic hypertrophy Underlying history of alcohol use, patient was started on CIWA protocol At this time patient is admitted to medical floor Infectious disease consultation and vascular surgery consultation requested Status post aorta bifemoral bypass in bilateral common femoral artery endarterectomy on 08/29/2023 Home medications reviewed and reordered For DVT prophylaxis subcu heparin For GI prophylaxis famotidine Will follow closely
--- NOTE | 2023-09-01 10:39 | P.PN ---
Subjective Progress Note Date: 09/01/23 Eric Greenfield, 58-year-old male who presented to [facility] emergency room with a chief complaint of bilateral lower extremity erythema and severe pain He was evaluated in the emergency room vital examination on presentation revealed a temperature of 98.5 pulse 105 respiration 18 blood pressure 174/78 pulse ox 98% on room air Laboratory data revealed a white blood count of 11.3 hemoglobin 14.1 platelet count 342 sodium 132 potassium 4.7 chloride 96 CO2 27 BUN 21 creatinine 0.81 lactic acid 2.1 Patient was admitted to medical floor for further evaluation and treatment On 08/24/2023 patient was seen and examined on the medical floor he is alert and oriented 3 in no apparent distress, he is still complaining of pain in bilateral lower extremities, he is complaining of erythema in bilateral feet, otherwise he denies any complaints, input from infectious disease and vascular surgery reviewed awaiting further testing by vascular surgery. On 08/25/2023 patient is alert and oriented 3. Per nursing staff plans today for vascular intervention with Dr. Syed. Patient remains on IV vancomycin. Hemoglobin 14.5 white blood cell 9.24 creatinine 0.9 and bun 11.5. Repeat lactic acid 1.2. Patient denies chest pain or shortness breath. Patient denies nausea vomiting or diarrhea. Patient denies any urinary burning or frequency On 08/26/2023 for patients alert and oriented 3. Patient had aortogram with bilateral lower extremity runoff yesterday with Dr. Alonso. This time reality services have been consulted for cardiac clearance stress test has been ordered 2-D echo completed. Patient's of linear bilateral lower extremity pain current vital signs temp 97.7, heart rate 73, respiratory rate 16, blood pressure 158/74 with pulse ox of 96 On 08/27/2023 patient was seen and examined on the medical floor he is alert and oriented 3 in no apparent distress he is still complaining of bilateral feet pain and discoloration otherwise he denies any complaints, there is no fever or chills no headache or dizziness no chest pain no shortness of breath no cough no nausea or vomiting no abdominal pain no diarrhea and no urinary symptoms. Laboratory results, x-ray results, and stress test results reviewed in details. There is no medical contraindication for surgery. On 08/28/2023 patient was seen and examined on the medical floor he is alert and oriented 3 in no apparent distress he is still complaining of pain and discoloration in his bilateral feet otherwise he denies any complaints there is no fever or chills no headache or dizziness no chest pain no shortness of breath no cough no nausea or vomiting no abdominal pain no diarrhea and no urinary symptoms. He is scheduled for vascular surgery today. On 08/29/2023 patient was seen and examined in the ICU he is alert and oriented 3 in no apparent distress he is complaining of mild pain at the surgical site and mild pain in bilateral lower extremities otherwise he denies any complaints, there is no fever or chills no headache or dizziness no chest pain or shortness of breath no cough no nausea or vomiting no abdominal pain no diarrhea and no urinary symptoms. Patient underwent an aortobifemoral bypass and bilateral common femoral artery endarterectomy yesterday with Dr. Syed. 08/30/2023 patient is alert and oriented 3 patient remains in the intensive care unit. Epidural remains in place. This time patient denies chest pain or shortness of breath. Patient denies nausea vomiting or diarrhea. Patient denies any urinary burning or frequency On 08/31/2023 patient was seen and examined on the medical floor he is alert and oriented 3 in no apparent distress he is still complaining of some pain and discomfort in bilateral lower extremities otherwise he denies any complaints there is no fever or chills no headache or dizziness no chest pain no shortness of breath no cough no nausea or vomiting no abdominal pain no diarrhea and no urinary symptoms On 09/01/2023 patient is alert and oriented 3. Patient is currently resting in bed. Discharge planning in place. Patient will likely be DC'd home with home healthcare. Awaiting recommendations from vascular surgery. Patient remains on doxycycline. Current vital signs temp 97.9, heart rate 70, respiratory rate 16, pressure 138/75 with pulse ox of 98% on room air Objective - Vital Signs Vital signs: Vital Signs Temp 97.9 F 09/01/23 03:28 Pulse 70 09/01/23 03:28 Resp 16 09/01/23 03:28 BP 138/75 09/01/23 03:28 Pulse Ox 95 09/01/23 03:28 FiO2 21 08/29/23 12:56 Intake & Output 08/31/23 09/01/23 09/01/23 18:59 06:59 18:59 Intake Total 240 840 Output Total 4 1279 Balance 236 -439 Intake: IV 600 Sodium Chloride 0.9% 1, 600 000 ml @ 150 mls/hr IV . Q6H40M [facility] Rx#:[id number] Oral 240 240 Output: Urine 1275 Stool 4 4 Other: Voiding Method Indwelling Catheter Indwelling Catheter ABP, PAP, CO, CI - Last Documented Arterial Blood Pressure 128/67 - Exam In general patient is alert and oriented x 3 in no distress HEENT head normocephalic and atraumatic Neck is supple no JVD no goiter no lymphadenopathy no carotid bruit Chest examination reveals a few scattered rhonchi in both lung ge no wheezing Cardiac exam reveals regular heart sounds S1 and S2 no gallops no murmurs Abdomen is soft nontender no organomegaly with normal bowel sounds Extremity exam reveals bilateral erythema in the feet extending above the ankle s, there is a half centimeter scabbed ulcer at the base of the left big toe pulses are palpable but 4 bilateral Neurological examination reveals no gross focal deficits - Labs CBC & Chem 7: 09/01/23 07:24 09/01/23 07:24 Labs: Abnormal Lab Results - Last 24 Hours (Table) 09/01/23 09/01/23 Range/Units 07:24 07:24 RBC 3.07 L (4.30-5.90) m/uL Hgb 10.2 L (13.0-17.5) gm/dL Hct 31.4 L (39.0-53.0) % MCV 102.0 H (80.0-100.0) fL Sodium 135 L (137-145) mmol/L Carbon Dioxide 19 L (22-30) mmol/L Total Protein 5.5 L (6.3-8.2) g/dL Albumin 2.9 L (3.5-5.0) g/dL Assessment and Plan Plan: Bilateral lower extremity cellulitis Sepsis as evidenced by leukocytosis and elevated lactic acid and tachycardia on presentation Bilateral lower extremity severe peripheral arterial disease Underlying history of peripheral neuropathy maintained on gabapentin Underlying history of tobacco abuse, patient was counseled in length regarding the need to quit smoking Underlying history of COPD without exacerbation at this time Underlying history of hypertension, maintained on Ziac and lisinopril, blood pressure was significantly elevated on presentation Will monitor closely Underlying history of hyperlipidemia maintained on Lipitor will resume Underlying history of benign prostatic hypertrophy Underlying history of alcohol use, patient was started on CIWA protocol At this time patient is admitted to medical floor He was started on IV vancomycin in the emergency room Infectious disease consultation and vascular surgery consultation requested Status post aorta bifemoral bypass in bilateral common femoral artery endarterectomy on 08/29/2023 Home medications reviewed and reordered For DVT prophylaxis subcu heparin For GI prophylaxis famotidine Will follow closely
--- NOTE | 2023-09-01 10:57 | P.PN ---
Subjective Progress Note Date: 09/01/23 Principal diagnosis: Peripheral arterial disease Patient is seen and examined today as a follow-up. He is postop day #4 for aortobifemoral bypass. He has [place] dressing in place. He has been up and ambulating yesterday. He is passing gas but no bowel movement. Tolerating a regular diet. Pain is done well-managed. Complaining of pain in his feet. Nursing reported drainage from his right third and fifth toenails. Patient has been afebrile. Objective - Vital Signs Vital signs: Vital Signs Temp 97.9 F 09/01/23 03:28 Pulse 70 09/01/23 03:28 Resp 16 09/01/23 03:28 BP 138/75 09/01/23 03:28 Pulse Ox 95 09/01/23 03:28 FiO2 21 08/29/23 12:56 Intake & Output 08/31/23 09/01/23 09/01/23 18:59 06:59 18:59 Intake Total 240 840 Output Total 4 1279 Balance 236 -439 Intake: IV 600 Sodium Chloride 0.9% 1, 600 000 ml @ 150 mls/hr IV . Q6H40M [facility] Rx#:[id number] Oral 240 240 Output: Urine 1275 Stool 4 4 Other: Voiding Method Indwelling Catheter Indwelling Catheter ABP, PAP, CO, CI - Last Documented Arterial Blood Pressure 128/67 - Exam General appearance: The patient is alert, oriented, appears in no acute distress. HET: Head is normocephalic and atraumatic. Pupils are equal and reactive. Neck: Supple. Abdomen: Soft, nondistended, positive bowel sounds. Prevena dressing in place with good suction. Extremities: Bilateral lower extremity pedal edema with erythema, right greater than left. Sensorimotor intact. Right PT and DP multiphasic Doppler signal. Left monophasic PT signal.. Neurological: No focal deficits. Strength and sensation are grossly intact. - Labs CBC & Chem 7: 09/01/23 07:24 09/01/23 07:24 Labs: Abnormal Lab Results - Last 24 Hours (Table) 09/01/23 09/01/23 Range/Units 07:24 07:24 RBC 3.07 L (4.30-5.90) m/uL Hgb 10.2 L (13.0-17.5) gm/dL Hct 31.4 L (39.0-53.0) % MCV 102.0 H (80.0-100.0) fL Sodium 135 L (137-145) mmol/L Carbon Dioxide 19 L (22-30) mmol/L Total Protein 5.5 L (6.3-8.2) g/dL Albumin 2.9 L (3.5-5.0) g/dL Assessment and Plan Assessment: 1. Aortic occlusion with reconstitution bilateral femoral arteries, occluded bilateral superficial femoral artery status post aortobifemoral bypass with bilateral common femoral endarterectomy 2. Lower extremity foot pain 3. Lower extremities cellulitis 4. Nicotine dependence 5. COPD 6. Hyperlipidemia 7. Hypertension Plan: 1. Encourage ambulation 2. Continue heart healthy diet 3. Continue to discuss importance of smoking cessation. Nicotine patch offered. 4. Pain medication as needed 5. Keep Prevena resting in place for 6 days postop 6. Continue with recommendations from infectious disease 7. Wound cultures ordered right toes 8. The rest of medical management per primary medical team Thank you for this consultation, we will continue to follow. The impression and plan of care has been dictated as directed. Dr. Felix I performed a history and examination of this patient, discussed the same with the dictator. I agree with the dictator's note ,documented as a scribe. Any additional findings or plans will be noted.
--- NOTE | 2023-09-01 14:09 | P.PN ---
Subjective Progress Note Date: 09/01/23 Principal diagnosis: Severe peripheral vessel occlusive disease, status post bilateral femoral endarterectomy and aorto by iliac bypass surgery postoperative day #4 08/29/2023, the patient is being seen in the intensive care unit for postop. Care. 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 Based on that, the patient was taken by vascular surgery and the patient underwent bilateral common femoral artery and endarterectomy, and aorto bifemoral bypass surgery. The estimated blood loss was 850 cc. The patient postop was brought into the intensive care unit. Overnight, the patient stayed in the ICU. Currently he is awake and alert and he is on room air oxygen with a pulse ox of 94%. He has sustained an acute kidney injury and the creatinine is up to 1.5. He will need IV fluids. Start the patient on normal saline at rate of 150 cc an hour. Pulses in the dorsalis pedis are absent and they are present in the posterior tibialis. The patient has no leg pain. No chest pain. No shortness of breath. No altered mentation. Sodium level is at 137, potassium is at 4.7, chloride is 106 with a bicarb of 25 with a BUN of 35 and a creatinine 1.56. The white cell count is at 10.9 with a hemoglobin of 10.9 and a platelet count of 221. Normal coagulation profile preoperatively. No specific complaints. Surgical wound site over the groin area is dry clean and intact. Wound VAC in place. On today's evaluation 08/30/2023, the patient is calm and comfortable. Extremities are warm, dorsalis pedis are absent, posterior tibialis cannot be palpated and he is altered unable by Doppler signal. No feet ulceration. No active pain at this point in time. Surgical wound site over the groin is dry clean and intact and the patient is hemodynamically stable. Creatinine is improving. The patient's creatinine is down to 1.3. BUN is at 27, sodium is at 134, WBC count 11.6 with a hemoglobin of 11.0. Cardiac rhythm is sinus. The patient is on room air oxygen. No respiratory difficulties. Using incentive spirometer. Epidural Dilaudid and bupivacaine is still running and this will be managed by the anesthesia team. Reevaluate today on 08/31/2023, patient is doing great, asymptomatic, no cough no wheezing no shortness of breath, no chest pain, no nausea no vomiting. Patient remains on room air with O2 saturation 95%, he is hemodynamically stable with blood pressure of 118/62. Reevaluate today on 09/01/2023, patient is doing well from the pulmonary perspective, no cough no wheezing no shortness of breath, he is mostly complaining of constipation. This is being addressed by the admitting physician/primary care physician, patient has not had a bowel movement since he was admitted to the hospital. But he denies any abdominal pain nausea or vomiting. WBC count is 9.7 hemoglobin 10.2 basic metabolic profile is normal and renal profile is normal Objective - Vital Signs Vital signs: Vital Signs Temp 98.3 F 09/01/23 12:00 Pulse 86 09/01/23 12:00 Resp 18 09/01/23 12:00 BP 141/61 09/01/23 12:00 Pulse Ox 96 09/01/23 12:00 FiO2 21 08/29/23 12:56 Intake & Output 08/31/23 09/01/23 09/01/23 18:59 06:59 18:59 Intake Total 240 840 Output Total 4 1279 Balance 236 -439 Intake: IV 600 Sodium Chloride 0.9% 1, 600 000 ml @ 150 mls/hr IV . Q6H40M [facility] Rx#:[id number] Oral 240 240 Output: Urine 1275 Stool 4 4 Other: Voiding Method Indwelling Catheter Indwelling Catheter Indwelling Catheter ABP, PAP, CO, CI - Last Documented Arterial Blood Pressure 128/67 - Exam General: Reveals a 58-year-old white male in no distress, on room air Head: Atraumatic, normocephalic. HEENT: PERRLA, EOMI, nonicteric, no neck masses no JVD, moist mucous membranes Lungs clear throughout, no crackles rhonchi or wheezes Cardiac normal S1-S2, no S3 gallop. Abdominal exam: Soft flat soft nontender no megaly no rebound bilateral inguinal surgical wound sites are dry clean and intact and appropriate wound VAC has been applied. Extremities: Reveal chronic ischemic change in the feet bilaterally. Extremities remain cold. No significant cyanosis. Poor capillary refill. Examination of the skin revealed no evidence significant rash. Neurologic: Alert oriented x 3 no focal deficit Psychiatric: Normal mood affect and no mental status examination - Labs CBC & Chem 7: 09/01/23 07:24 09/01/23 07:24 Labs: Abnormal Lab Results - Last 24 Hours (Table) 09/01/23 09/01/23 Range/Units 07:24 07:24 RBC 3.07 L (4.30-5.90) m/uL Hgb 10.2 L (13.0-17.5) gm/dL Hct 31.4 L (39.0-53.0) % MCV 102.0 H (80.0-100.0) fL Sodium 135 L (137-145) mmol/L Carbon Dioxide 19 L (22-30) mmol/L Total Protein 5.5 L (6.3-8.2) g/dL Albumin 2.9 L (3.5-5.0) g/dL Assessment and Plan Assessment: Impression: Severe peripheral vascular disease and the patient has undergone bilateral femoral endarterectomy and aortobiiliac bypass surgery. Postoperative day #4 Acute kidney injury, consider possibility of a postop ATN. Nonoliguric. Improving Critical ischemic feet bilaterally with chronic pain COPD, currently inactive and stable, Hypertension Hyperlipidemia Chronic back pain Constipation, being addressed by admitting physician/primary care physician Recommendation: Continue IV fluid, and continue monitoring renal profile Continue incentive spirometry Continue aspirin Continue statin Counseled regarding smoking cessation Possible discharge once cleared by other consultants Time with Patient: Less than 30
--- NOTE | 2023-09-01 15:58 | P.PN ---
Subjective Progress Note Date: 09/01/23 Principal diagnosis: Reason for follow-up is bilateral foot cellulitis Patient is a 58-year-old male with a past medical history significant for hypertension hyperlipidemia reflux COPD and asthma patient did have a PAD, presented to the hospital with worsening discomfort to bilateral feet area and redness.Patient is status post aortogram with bilateral lower extremity runoff and did have evidence of significant PAD surgery recommending aortobifemoral bypass.Patient is status post aortobifemoral bypass with PTFE graft and bilateral common femoral artery endarterectomy completed on 08/28/2023. On today's visit that is 09/01/2023,the patient remains to be afebrile, patient is on room air not requiring supplemental oxygen and denies any shortness of breath no chest pain or cough.Patient denies having any nausea or vomiting, no abdominal pain and no diarrhea has been reported, denies any worsening pain to bilateral feet. Patient white count normalized to 9.7, creatinine 0.87 Objective - Vital Signs Vital signs: Vital Signs Temp 98.3 F 09/01/23 12:00 Pulse 86 09/01/23 14:00 Resp 18 09/01/23 14:00 BP 141/61 09/01/23 12:00 Pulse Ox 96 09/01/23 12:00 FiO2 21 08/29/23 12:56 Intake & Output 08/31/23 09/01/23 09/01/23 18:59 06:59 18:59 Intake Total 240 840 Output Total 4 1279 2 Balance 236 -439 -2 Intake: IV 600 Sodium Chloride 0.9% 1, 600 000 ml @ 150 mls/hr IV . Q6H40M [facility] Rx#:[id number] Oral 240 240 Output: Urine 1275 Stool 4 4 2 Other: Voiding Method Indwelling Catheter Indwelling Catheter Indwelling Catheter ABP, PAP, CO, CI - Last Documented Arterial Blood Pressure 128/67 - Exam GENERAL DESCRIPTION: Middle-age male up in bed in no distress RESPIRATORY SYSTEM: Unlabored breathing , decreased breath sounds at bases HEART: S1 S2 regular rate and rhythm , ABDOMEN: Soft , no tenderness EXTREMITIES: Bilateral feet did have erythema but no significant warmth or drainage - Labs CBC & Chem 7: 09/01/23 07:24 09/01/23 07:24 Labs: Abnormal Lab Results - Last 24 Hours (Table) 09/01/23 09/01/23 Range/Units 07:24 07:24 RBC 3.07 L (4.30-5.90) m/uL Hgb 10.2 L (13.0-17.5) gm/dL Hct 31.4 L (39.0-53.0) % MCV 102.0 H (80.0-100.0) fL Sodium 135 L (137-145) mmol/L Carbon Dioxide 19 L (22-30) mmol/L Total Protein 5.5 L (6.3-8.2) g/dL Albumin 2.9 L (3.5-5.0) g/dL Assessment and Plan (1) Cellulitis of both feet Current Visit: Yes Status: Acute Code(s): L03.115 - CELLULITIS OF RIGHT LOWER LIMB; L03.116 - CELLULITIS OF LEFT LOWER LIMB SNOMED Code(s): 232504266 (2) Leukocytosis Current Visit: Yes Status: Acute Code(s): D72.829 - ELEVATED WHITE BLOOD CELL COUNT, UNSPECIFIED SNOMED Code(s): 584625139 Plan: 1patient with a bilateral lower extremity pain he did have some erythema however bilateral feet are cool to touch and symptom more likely related to underlying PAD and possible component of cellulitis not entirely excluded, Keeping in mind elevated white count likely from gram-positive skin art 2-patient is status post aortogram with bilateral lower extremity runoff with evidence of significant PAD patient's status post aorto bifemoral bypass graft and bilateral common carotid artery endarterectomy completed on 08/28/2023 3-patient is afebrile and the patient white count has normalized, patient to continue with oral doxycycline x 5 days on discharge Dictation was produced using [employer] dictation software. please excuse any g rammatical, word or spelling errors. Time with Patient: Less than 30
[2023-09-01] MEDS: MAGNESIUM HYDROXIDE 2,400 MG/30 ML CUP PO PRN (16:03)
[2023-09-01] MEDS: bisacodyL 10 MG SUPP RECTAL STA (18:38)
[2023-09-02 10:56] VITALS: TEMP 98.8
--- NOTE | 2023-09-02 10:56 | P.PN ---
Subjective Principal diagnosis: Peripheral arterial disease Patient is seen and examined today as a follow-up. He is postop day #5 for aortobifemoral bypass. He is currently sitting up at the bedside. States pain in his feet have improved mostly due to swelling and cracked skin. He was able to soak his feet yesterday and now they are feeling better. Prevena dressing in place however patient remove the wound VAC from the tubing. Remains afebrile. Objective - Vital Signs Vital signs: Vital Signs Temp 97.9 F 09/02/23 04:00 Pulse 68 09/02/23 04:00 Resp 18 09/02/23 04:00 BP 139/86 09/02/23 04:00 Pulse Ox 98 09/02/23 04:00 FiO2 21 08/29/23 12:56 Intake & Output 09/01/23 09/02/23 09/02/23 18:59 06:59 18:59 Intake Total 240 Output Total 602 2 Balance -602 238 Intake: Oral 240 Output: Urine 600 Stool 2 2 Other: Voiding Method Indwelling Catheter Indwelling Catheter # Voids 2 ABP, PAP, CO, CI - Last Documented Arterial Blood Pressure 128/67 - Exam General appearance: The patient is alert, oriented, appears in no acute distress. HET: Head is normocephalic and atraumatic. Neck: Supple. Abdomen: Soft, nondistended, positive bowel sounds. Prevena dressing in place, and was removed. Abdomen with rafiq well-approximated some surrounding ecchymosis. 1 small area with some scant serosanguineous drainage distal to umbilicus. 3 small clear fluid-filled blisters at the umbilicus. Extremities: Bilateral lower extremity pedal edema with erythema, right greater than left. Sensorimotor intact. Right PT and DP multiphasic Doppler signal. Left monophasic PT signal. Neurological: No focal deficits. Strength and sensation are grossly intact. - Labs CBC & Chem 7: 09/01/23 07:24 09/01/23 07:24 Assessment and Plan Assessment: 1. Aortic occlusion with reconstitution bilateral femoral arteries, occluded bilateral superficial femoral artery status post aortobifemoral bypass with bilateral common femoral endarterectomy 2. Lower extremity foot pain 3. Lower extremities cellulitis 4. Nicotine dependence 5. COPD 6. Hyperlipidemia 7. Hypertension Plan: 1. Encourage ambulation 2. Continue heart healthy diet 3. Continue to discuss importance of smoking cessation. Nicotine patch offered. 4. Pain medication as needed 5. Prevena dressing removed 6. Continue with recommendations from infectious disease 7. Wound cultures ordered right toes 8. The rest of medical management per primary medical team 9. Patient instructed to elevate lower extremities while sitting and laying 10. Discharge instructions reviewed with patient. He verbalized understanding. Thank you for this consultation, patient is cleared by vascular surgery for discharge. Follow-up next week Thursday with Dr. Syed is scheduled. The impression and plan of care has been dictated as directed. Dr. Davis I performed a history and examination of this patient, discussed the same with the dictator. I agree with the dictator's note ,documented as a scribe. Any additional findings or plans will be noted.
--- NOTE | 2023-09-02 11:12 | P.DS ---
Providers Date of admission: 08/22/23 12:40 Expected date of discharge: 09/02/23 Attending physician: Mariana Nesbitt Consults: 08/22/23 11:36 Consult Physician Urgent Consulting Provider: Precious Davis Consult Reason/Comments: PAD Do you want consulting provider notified?: Yes 08/22/23 11:50 Consult Physician Routine Consulting Provider: Elisabeth Mckeon Consult Reason/Comments: cellulitis Do you want consulting provider notified?: Yes 08/25/23 12:48 Consult Physician Routine Consulting Provider: Kyler Chavez Consult Reason/Comments: Get clearance for aortobifem bypass Do you want consulting provider notified?: Yes 08/25/23 13:24 Consult Physician Routine Consulting Provider: Jeremy Wood Consult Reason/Comments: inpatient rehab Do you want consulting provider notified?: Yes 08/28/23 18:25 Consult Physician Routine Consulting Provider: Zoey Abdullahi Consult Reason/Comments: icu management Do you want consulting provider notified?: Already Contacted Primary care physician: Mariana Nesbitt [facility] Course: Discharge diagnosis Bilateral lower extremity cellulitis Sepsis as evidenced by leukocytosis and elevated lactic acid and tachycardia on presentation Bilateral lower extremity severe peripheral arterial disease Underlying history of peripheral neuropathy maintained on gabapentin Underlying history of tobacco abuse, patient was counseled in length regarding the need to quit smoking Underlying history of COPD without exacerbation at this time Underlying history of hypertension, maintained on Ziac and lisinopril, blood pressure was significantly elevated on presentation Will monitor closely Underlying history of hyperlipidemia maintained on Lipitor will resume Underlying history of benign prostatic hypertrophy Underlying history of alcohol use, patient was started on CIWA protocol Hospital course Ericmilena Greenfield, 58-year-old male who presented to [facility] emergency room with a chief complaint of bilateral lower extremity erythema and severe pain He was evaluated in the emergency room vital examination on presentation revealed a temperature of 98.5 pulse 105 respiration 18 blood pressure 174/78 pulse ox 98% on room air Laboratory data revealed a white blood count of 11.3 hemoglobin 14.1 platelet count 342 sodium 132 potassium 4.7 chloride 96 CO2 27 BUN 21 creatinine 0.81 lactic acid 2.1 Patient was admitted to medical floor for further evaluation and treatment On 08/24/2023 patient was seen and examined on the medical floor he is alert and oriented 3 in no apparent distress, he is still complaining of pain in bilateral lower extremities, he is complaining of erythema in bilateral feet, otherwise he denies any complaints, input from infectious disease and vascular surgery reviewed awaiting further testing by vascular surgery. On 08/25/2023 patient is alert and oriented 3. Per nursing staff plans today for vascular intervention with Dr. Syed. Patient remains on IV vancomycin. Hemoglobin 14.5 white blood cell 9.24 creatinine 0.9 and bun 11.5. Repeat lactic acid 1.2. Patient denies chest pain or shortness breath. Patient denies nausea vomiting or diarrhea. Patient denies any urinary burning or frequency On 08/26/2023 for patients alert and oriented 3. Patient had aortogram with bilateral lower extremity runoff yesterday with Dr. Alonso. This time [facility] have been consulted for cardiac clearance stress test has been ordered 2-D echo completed. Patient's of linear bilateral lower extremity pain current vital signs temp 97.7, heart rate 73, respiratory rate 16, blood pressure 158/74 with pulse ox of 96 On 08/27/2023 patient was seen and examined on the medical floor he is alert and oriented 3 in no apparent distress he is still complaining of bilateral feet pain and discoloration otherwise he denies any complaints, there is no fever or chills no headache or dizziness no chest pain no shortness of breath no cough no nausea or vomiting no abdominal pain no diarrhea and no urinary symptoms. Laboratory results, x-ray results, and stress test results reviewed in details. There is no medical contraindication for surgery. On 08/28/2023 patient was seen and examined on the medical floor he is alert and oriented 3 in no apparent distress he is still complaining of pain and discoloration in his bilateral feet otherwise he denies any complaints there is no fever or chills no headache or dizziness no chest pain no shortness of breath no cough no nausea or vomiting no abdominal pain no diarrhea and no urinary symptoms. He is scheduled for vascular surgery today. On 08/29/2023 patient was seen and examined in the ICU he is alert and oriented 3 in no apparent distress he is complaining of mild pain at the surgical site and mild pain in bilateral lower extremities otherwise he denies any complaints, there is no fever or chills no headache or dizziness no chest pain or shortness of breath no cough no nausea or vomiting no abdominal pain no diarrhea and no urinary symptoms. Patient underwent an aortobifemoral bypass and bilateral common femoral artery endarterectomy yesterday with Dr. Syed. 08/30/2023 patient is alert and oriented 3 patient remains in the intensive care unit. Epidural remains in place. This time patient denies chest pain or shortness of breath. Patient denies nausea vomiting or diarrhea. Patient denies any urinary burning or frequency On 08/31/2023 patient was seen and examined on the medical floor he is alert and oriented 3 in no apparent distress he is still complaining of some pain and discomfort in bilateral lower extremities otherwise he denies any complaints there is no fever or chills no headache or dizziness no chest pain no shortness of breath no cough no nausea or vomiting no abdominal pain no diarrhea and no urinary symptoms On 09/01/2023 patient is alert and oriented 3. Patient is currently resting in bed. Discharge planning in place. Patient will likely be DC'd home with home healthcare. Awaiting recommendations from vascular surgery. Patient remains on doxycycline. Current vital signs temp 97.9, heart rate 70, respiratory rate 16, pressure 138/75 with pulse ox of 98% on room air On 09/02/2023 patient is alert and oriented 3. Patient cleared for discharge from vascular and infectious disease standpoint. Patient to follow-up with vascular surgery outpatient. Per infectious disease patient to be DC'd on doxycycline for 5 days. Patient denies chest pain or shortness of breath. Patient denies nausea vomiting or diarrhea. Patient denies any urinary burning or frequency Patient Condition at Discharge: Stable Plan - Discharge Summary New Discharge Prescriptions: New Aspirin 81 mg PO DAILY 30 Days #30 tab Nicotine 21Mg/24Hr Patch [Habitrol] 1 patch TRANSDERM DAILY 30 Days #30 patch Atorvastatin [Lipitor] 80 mg PO HS 30 Days #30 tab Doxycycline [Vibramycin] 100 mg PO BID 5 Days #10 cap Continue Tamsulosin HCl [Flomax] 0.4 mg PO HS Methylphenidate HCl 20 mg PO BID Escitalopram [Lexapro] 20 mg PO DAILY Bisoprolol-Hctz 5-6.25 mg [Ziac 5-6.25 MG] 1 tab PO DAILY lisinopriL [Zestril] 20 mg PO BID Famotidine [Pepcid] 20 mg PO BID Butalb/APAP/Caff 50-325-40Mg [Fioricet 50-325-40] 1 tab PO DAILY PRN PRN Reason: Migraine Headache Albuterol Nebulized [Ventolin Nebulized] 2.5 mg INHALATION RT-TID PRN PRN Reason: Shortness Of Breath Naloxone HCl [Narcan] 4 mg NASAL DIRECTED PRN PRN Reason: Opioid Reversal Escitalopram [Lexapro] 10 mg PO HS Gabapentin [Neurontin] See Taper PO DIRECTED Discontinued oxyCODONE-APAP 7.5-325MG [Percocet 7.5-325 mg] 1 tab PO TID Amoxic-Pot Clav 500-125 mg [Augmentin 500-125 mg] 1 tab PO BID Simvastatin [Zocor] 20 mg PO HS Discharge Medication List Bisoprolol-Hctz 5-6.25 mg [Ziac 5-6.25 MG] 1 tab PO DAILY 02/26/18 [History] Escitalopram [Lexapro] 20 mg PO DAILY 02/26/18 [History] Methylphenidate HCl 20 mg PO BID 02/26/18 [History] Tamsulosin HCl [Flomax] 0.4 mg PO HS 02/26/18 [History] Albuterol Nebulized [Ventolin Nebulized] 2.5 mg INHALATION RT-TID PRN 04/21/23 [History] Butalb/APAP/Caff 50-325-40Mg [Fioricet 50-325-40] 1 tab PO DAILY PRN 04/21/23 [History] Escitalopram [Lexapro] 10 mg PO HS 04/21/23 [History] Famotidine [Pepcid] 20 mg PO BID 04/21/23 [History] Naloxone HCl [Narcan] 4 mg NASAL DIRECTED PRN 04/21/23 [History] lisinopriL [Zestril] 20 mg PO BID 04/21/23 [History] Gabapentin [Neurontin] See Taper PO DIRECTED 08/22/23 [History] Aspirin 81 mg PO DAILY 30 Days #30 tab 09/02/23 [Rx] Atorvastatin [Lipitor] 80 mg PO HS 30 Days #30 tab 09/02/23 [Rx] Doxycycline [Vibramycin] 100 mg PO BID 5 Days #10 cap 09/02/23 [Rx] Nicotine 21Mg/24Hr Patch [Habitrol] 1 patch TRANSDERM DAILY 30 Days #30 patch 09/02/23 [Rx] Follow up Appointment(s)/Referral(s): Harrison Syed DO [STAFF PHYSICIAN] - 09/08/23 9:00 am Mariana Nesbitt MD [Primary Care Provider] - 1-2 days Patient Instructions/Handouts: How to Stop Smoking (DC), Aortofemoral Bypass (DC), Abuse of Alcohol (DC) Activity/Diet/Wound Care/Special Instructions: No driving until cleared by surgeon Avoid heavy lifting greater than 5-10 lbs , pushing, pulling, straining, flights of stairs until cleared by surgeon ok to shower but no baths, pools, soaking in tubs to avoid risk of infection until cleared by surgeon. signs of infection ie: fever, rash, drainage from incision site, swelling contact doctor or return to ER immediately. Heavy bleeding from incision sites apply firm direct pressure and return to ER. Do not attempt to drive self. low sodium/low fat diet Recommend smoking cessation, patient currently on nicotine patch. Recommend outpatient nicotine patch. Discharge Disposition: HOME SELF-CARE
[2023-09-02 12:11] VITALS: BP 151/79; PULSE 98; RESP 16
--- NOTE | 2023-09-02 14:21 | P.PN ---
Subjective Progress Note Date: 09/02/23 Principal diagnosis: Severe peripheral vessel occlusive disease, status post bilateral femoral endarterectomy and aorto by iliac bypass surgery postoperative day #5 08/29/2023, the patient is being seen in the intensive care unit for postop. Care. 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 Based on that, the patient was taken by vascular surgery and the patient underwent bilateral common femoral artery and endarterectomy, and aorto bifemoral bypass surgery. The estimated blood loss was 850 cc. The patient postop was brought into the intensive care unit. Overnight, the patient stayed in the ICU. Currently he is awake and alert and he is on room air oxygen with a pulse ox of 94%. He has sustained an acute kidney injury and the creatinine is up to 1.5. He will need IV fluids. Start the patient on normal saline at rate of 150 cc an hour. Pulses in the dorsalis pedis are absent and they are present in the posterior tibialis. The patient has no leg pain. No chest pain. No shortness of breath. No altered mentation. Sodium level is at 137, potassium is at 4.7, chloride is 106 with a bicarb of 25 with a BUN of 35 and a creatinine 1.56. The white cell count is at 10.9 with a hemoglobin of 10.9 and a platelet count of 221. Normal coagulation profile preoperatively. No specific complaints. Surgical wound site over the groin area is dry clean and intact. Wound VAC in place. On today's evaluation 08/30/2023, the patient is calm and comfortable. Extremities are warm, dorsalis pedis are absent, posterior tibialis cannot be palpated and he is altered unable by Doppler signal. No feet ulceration. No active pain at this point in time. Surgical wound site over the groin is dry clean and intact and the patient is hemodynamically stable. Creatinine is improving. The patient's creatinine is down to 1.3. BUN is at 27, sodium is at 134, WBC count 11.6 with a hemoglobin of 11.0. Cardiac rhythm is sinus. The patient is on room air oxygen. No respiratory difficulties. Using incentive spirometer. Epidural Dilaudid and bupivacaine is still running and this will be managed by the anesthesia team. Reevaluate today on 08/31/2023, patient is doing great, asymptomatic, no cough no wheezing no shortness of breath, no chest pain, no nausea no vomiting. Patient remains on room air with O2 saturation 95%, he is hemodynamically stable with blood pressure of 118/62. Reevaluate today on 09/01/2023, patient is doing well from the pulmonary perspective, no cough no wheezing no shortness of breath, he is mostly complaining of constipation. This is being addressed by the admitting physician/primary care physician, patient has not had a bowel movement since he was admitted to the hospital. But he denies any abdominal pain nausea or vomiting. WBC count is 9.7 hemoglobin 10.2 basic metabolic profile is normal and renal profile is normal Reevaluate today on 09/02/2023, continues to do well, no active pulmonary symptom s no cough no wheezing or shortness of breath. Patient is being considered for discharge planning today Objective - Vital Signs Vital signs: Vital Signs Temp 98.8 F 09/02/23 08:00 Pulse 98 09/02/23 12:00 Resp 16 09/02/23 12:00 BP 151/79 09/02/23 12:00 Pulse Ox 96 09/02/23 12:00 FiO2 21 08/29/23 12:56 Intake & Output 09/01/23 09/02/23 09/02/23 18:59 06:59 18:59 Intake Total 240 480 Output Total 602 2 Balance -602 238 480 Intake: Oral 240 480 Output: Urine 600 Stool 2 2 Other: Voiding Method Indwelling Catheter Indwelling Catheter Toilet Urinal # Voids 2 1 ABP, PAP, CO, CI - Last Documented Arterial Blood Pressure 128/67 - Exam General: Reveals a 58-year-old white male in no distress, on room air Head: Atraumatic, normocephalic. HEENT: PERRLA, EOMI, nonicteric, no neck masses no JVD, moist mucous membranes Lungs clear throughout, no crackles rhonchi or wheezes Cardiac normal S1-S2, no S3 gallop. Abdominal exam: Soft flat soft nontender no megaly no rebound bilateral inguinal surgical wound sites are dry clean and intact and appropriate wound VAC has been applied. Extremities: Reveal chronic ischemic change in the feet bilaterally. Extremities remain cold. No significant cyanosis. Poor capillary refill. Examination of the skin revealed no evidence significant rash. Neurologic: Alert oriented x 3 no focal deficit Psychiatric: Normal mood affect and no mental status examination - Labs CBC & Chem 7: 09/01/23 07:24 09/01/23 07:24 Labs: Microbiology - Last 24 Hours (Table) 09/01/23 12:15 Gram Stain - Preliminary Toe - Right Fifth Assessment and Plan Assessment: Impression: Severe peripheral vascular disease and the patient has undergone bilateral femoral endarterectomy and aortobiiliac bypass surgery. Postoperative day 5 Acute kidney injury, consider possibility of a postop ATN. Nonoliguric. Improving Critical ischemic feet bilaterally with chronic pain COPD, currently inactive and stable, Hypertension Hyperlipidemia Chronic back pain Constipation, being addressed by admitting physician/primary care physician Recommendation: Patient with discharge planning Continue incentive spirometry Continue aspirin Continue statin Counseled regarding smoking cessation Time with Patient: Less than 30
--- NOTE | 2023-09-03 14:14 | P.PN ---
Subjective Progress Note Date: 09/02/23 Principal diagnosis: Reason for follow-up is bilateral foot cellulitis Patient is a 58-year-old male with a past medical history significant for hypertension hyperlipidemia reflux COPD and asthma patient did have a PAD, presented to the hospital with worsening discomfort to bilateral feet area and redness.Patient is status post aortogram with bilateral lower extremity runoff and did have evidence of significant PAD surgery recommending aortobifemoral bypass.Patient is status post aortobifemoral bypass with PTFE graft and bilateral common femoral artery endarterectomy completed on 08/28/2023. On today's visit that is 09/02/2023, the patient continues to be afebrile, the patient is on room air and breathing comfortably, the Pt denies having any chest pain or any worsening cough, the patient denies having any abdominal pain no vomiting or any diarrhea no worsening pain to bilateral foot. Patient white normalized to 9.7 as of yesterday creatinine 0.87 Objective - Vital Signs Vital signs: Vital Signs Temp 98.8 F 09/02/23 08:00 Pulse 98 09/02/23 12:00 Resp 16 09/02/23 12:00 BP 151/79 09/02/23 12:00 Pulse Ox 96 09/02/23 12:00 FiO2 21 08/29/23 12:56 Intake & Output 09/01/23 09/02/23 09/02/23 18:59 06:59 18:59 Intake Total 240 480 Output Total 602 2 Balance -602 238 480 Intake: Oral 240 480 Output: Urine 600 Stool 2 2 Other: Voiding Method Indwelling Catheter Indwelling Catheter Toilet Urinal # Voids 2 1 ABP, PAP, CO, CI - Last Documented Arterial Blood Pressure 128/67 - Exam GENERAL DESCRIPTION: Middle-age male up in bed in no distress RESPIRATORY SYSTEM: Unlabored breathing , decreased breath sounds at bases HEART: S1 S2 regular rate and rhythm , ABDOMEN: Soft , no tenderness EXTREMITIES: Bilateral feet did have erythema but no significant warmth or drainage - Labs CBC & Chem 7: 09/01/23 07:24 09/01/23 07:24 Labs: Microbiology - Last 24 Hours (Table) 09/01/23 12:15 Gram Stain - Preliminary Toe - Right Fifth Assessment and Plan (1) Cellulitis of both feet Status: Acute Code(s): L03.115 - CELLULITIS OF RIGHT LOWER LIMB; L03.116 - CELLULITIS OF LEFT LOWER LIMB SNOMED Code(s): 217714693 (2) Leukocytosis Status: Acute Code(s): D72.829 - ELEVATED WHITE BLOOD CELL COUNT, UNSPECIFIED SNOMED Code(s): 610113320 Plan: 1patient with a bilateral lower extremity pain he did have some erythema however bilateral feet are cool to touch and symptom more likely related to underlying PAD and possible component of cellulitis not entirely excluded, Keeping in mind elevated white count likely from gram-positive skin art 2-patient is status post aortogram with bilateral lower extremity runoff with evidence of significant PAD patient's status post aorto bifemoral bypass graft and bilateral common carotid artery endarterectomy completed on 08/28/2023 3-patient is afebrile and the patient white count has normalized, patient will finish therapy with oral doxycycline x 5 days and close outpatient follow-up Dictation was produced using [employer] dictation software. please excuse any grammatical, word or spelling errors. Time with Patient: Less than 30
--- NOTE | 2023-09-09 10:21 | CDI ---
Documentation Clarification Form Date: 09/09/2023 10:03:02 AM From: Ramandeep Green RN, CCDS Email: [email or web address] Admit Date: 08/22/2023 12:40:00 PM Patient Name: Eric Greenfield Visit Number: [id number] Discharge Date: 09/02/2023 01:31:00 PM ATTENTION: The Clinical Documentation Specialists (CDI) and [facility] Coding Staff appreciate your assistance in clarifying documentation. Please respond to the clarification below the line at the bottom and electronically sign. The CDI & [facility] Coding staff will review the response and follow-up if needed. Please note: Queries are made part of the Legal Health Record. If you have any questions, please contact the author of this message via ITS. Dr. Mariana Nesbitt Your patient had a drop in hemoglobin/hematocrit. Please clarify if there is an additional diagnosis and/or clinical significance related to these lab values. History/Risk Factors: Asthma, COPD, GERD/Reflux, Hyperlipidemia, Hypertension, Osteoarthritis. Presents with BL foot swelling, pain and discoloration. Admitted with Sepsis as evidenced by leukocytosis, elevated lactic acid and tachycardia on presentation. Clinical indicators: 08/21 Hgb/Hct: 14.1/43.5 08/31 Hgb/Hct: 10.2/31.4 08/27 Op note: Aortobifemoral bypass with PTFE graft. Bilateral common femoral artery endarterectomy EBL: 850 (cell saver- 500cc) Treatment: Monitor CBC; IVF's 0.9 NS @ 150mL/hr 08/28-08/31 Is there an additional diagnosis and/or clinical significance related to the above lab result/information: [ x] Acute blood loss anemia [ ] No additional diagnosis/Not clinically significant [ ] Unable to determine [ ] Other, please specify MTDD
== END 2023-09-02 13:31 | disposition home or self-care (01) | DRG 710 ==
LOC: EC 09:45 → 6NMEDSUR 12:39 → OBSVTOIN 12:40 → 6NMEDSUR 14:07 → 2SICU 08-28 18:29 → 3SCARD 08-30 15:03
PROVIDERS: ADMIT Internal Medicine; ATTEND Internal Medicine
PROC: B41D1ZZ Fluoroscopy of Aorta and Bilateral Lower Extremity Arteries using Low Osmolar Contrast (ICD-10-PCS; 2023-08-25 12:00)
PROC: 04100JK Bypass Abdominal Aorta to Bilateral Femoral Arteries with Synthetic Substitute, Open Approach (ICD-10-PCS; principal; 2023-08-28 12:15)
PROC: 04CK0ZZ Extirpation of Matter from Right Femoral Artery, Open Approach (ICD-10-PCS; principal; 2023-08-28 12:15)
PROC: 04CL0ZZ Extirpation of Matter from Left Femoral Artery, Open Approach (ICD-10-PCS; principal; 2023-08-28 12:15)
DX: A41.9 Sepsis, unspecified organism (principal); N17.9 Acute kidney failure, unspecified; D62 Acute posthemorrhagic anemia; I70.223 Atherosclerosis of native arteries of extremities with rest pain, bilateral legs; I11.9 Hypertensive heart disease without heart failure; L03.115 Cellulitis of right lower limb; F10.10 Alcohol abuse, uncomplicated; L03.116 Cellulitis of left lower limb; J44.89 Other specified chronic obstructive pulmonary disease; E78.5 Hyperlipidemia, unspecified; Y90.0 Blood alcohol level of less than 20 mg/100 ml; K21.9 Gastro-esophageal reflux disease without esophagitis; K59.00 Constipation, unspecified; G62.9 Polyneuropathy, unspecified; N40.0 Benign prostatic hyperplasia without lower urinary tract symptoms; G89.29 Other chronic pain; M54.9 Dorsalgia, unspecified; M19.90 Unspecified osteoarthritis, unspecified site; R26.2 Difficulty in walking, not elsewhere classified; F17.210 Nicotine dependence, cigarettes, uncomplicated; Z71.6 Tobacco abuse counseling; Z79.891 Long term (current) use of opiate analgesic; Z79.899 Other long term (current) drug therapy; Z71.3 Dietary counseling and surveillance
CPT/HCPCS: 36200; 36415; 75625; 75716; 76937; 78452; 80048; 80053; 80202; 80320; 82565; 82805; 83605; 83735; 85025; 85027; 85610; 85652; 85730; 86140; 86850; 86891; 86900; 86901; 87040; 87070; 87075; 87077; 87186; 87205; 88304; 88311; 93017; 93306; 93923; 96365; 96366; 96375; 99285

== ENCOUNTER 2023-10-23 08:13 | Inpatient (IN) | payer OTHER ==
--- NOTE | 2023-10-23 08:38 | ED ---
General Adult HPI - General Chief complaint: Skin/Abscess/Foreign Body Stated complaint: Kenny feet swelling/sore Time Seen by Provider: 10/23/23 08:19 Source: patient, RN notes reviewed Mode of arrival: ambulatory Limitations: no limitations - History of Present Illness Initial comments: Patient is a pleasant 58-year-old male present to the emergency department with concerns for bilateral foot pain and sores. This is a chronic problem for the patient. Patient has history of peripheral vascular disease as well as is a smoker. No history of diabetes. Patient did have surgery in his abdomen a month ago secondary to blockage. There is plan for doing stents that was discussed with vascular doctor 10 days ago. Patient does have an ulcer of his left foot. Patient states bilateral foot pain has progressed. No fever. - Related Data Home Medications Medication Instructions Recorded Confirmed Bisoprolol-Hctz 5-6.25 mg [Ziac 1 tab PO DAILY 02/26/18 08/22/23 5-6.25 MG] Escitalopram [Lexapro] 20 mg PO DAILY 02/26/18 08/22/23 Methylphenidate HCl 20 mg PO BID 02/26/18 08/22/23 Tamsulosin HCl [Flomax] 0.4 mg PO HS 02/26/18 08/22/23 Albuterol Nebulized [Ventolin 2.5 mg INHALATION RT-TID PRN 04/21/23 08/22/23 Nebulized] Butalb/APAP/Caff 50-325-40Mg 1 tab PO DAILY PRN 04/21/23 08/22/23 [Fioricet 50-325-40] Escitalopram [Lexapro] 10 mg PO HS 04/21/23 08/22/23 Famotidine [Pepcid] 20 mg PO BID 04/21/23 08/22/23 Naloxone HCl [Narcan] 4 mg NASAL DIRECTED PRN 04/21/23 08/22/23 lisinopriL [Zestril] 20 mg PO BID 04/21/23 08/22/23 Gabapentin [Neurontin] See Taper PO DIRECTED 08/22/23 08/22/23 Previous Rx's Medication Instructions Recorded Aspirin 81 mg PO DAILY 30 Days #30 tab 09/02/23 Atorvastatin [Lipitor] 80 mg PO HS 30 Days #30 tab 09/02/23 Doxycycline [Vibramycin] 100 mg PO BID 5 Days #10 cap 09/02/23 Nicotine 21Mg/24Hr Patch [Habitrol] 1 patch TRANSDERM DAILY 30 Days 09/02/23 #30 patch Allergies Allergy/AdvReac Type Severity Reaction Status Date / Time No Known Allergies Allergy Verified 10/23/23 08:17 Review of Systems ROS Statement: Those systems with pertinent positive or pertinent negative responses have been documented in the HPI. ROS Other: All systems not noted in ROS Statement are negative. Constitutional: Denies: fever Eyes: Denies: eye pain ENT: Denies: ear pain Respiratory: Denies: cough Cardiovascular: Denies: chest pain Endocrine: Denies: fatigue Skin: Reports: as per HPI, rash Past Medical History Past Medical History: Asthma, COPD, GERD/Reflux, Hyperlipidemia, Hypertension, Osteoarthritis (OA) Additional Past Medical History / Comment(s): BACK AND HIP PAIN, DIFFICULTY WALKING DISTANCE., HX OF ULCERS AND BLOOD IN STOOL. History of Any Multi-Drug Resistant Organisms: None Reported Past Surgical History: Hernia Repair Additional Past Surgical History / Comment(s): HERNIA REPAIR AT 5 & 7 YEARS OLD. Past Anesthesia/Blood Transfusion Reactions: No Reported Reaction Additional Past Anesthesia/Blood Transfusion Reaction / Comment(s): DOES NOT REMEMBER ANY ANESTHESIA PROBLEMS A CHILD. Past Psychological History: No Psychological Hx Reported Smoking Status: Current every day smoker Past Alcohol Use History: Daily Past Drug Use History: Marijuana - Past Family History Mother Family Medical History: No Reported History General Exam Limitations: no limitations General appearance: alert, in no apparent distress Head exam: Present: normocephalic Eye exam: Present: normal appearance Neck exam: Present: normal inspection Respiratory exam: Present: normal lung sounds bilaterally Cardiovascular Exam: Present: regular rate, normal rhythm Expanded Peripheral pulses: 0: Dorsalis Pedis (R) (Unable to confirm pulse with Doppler), Dorsalis Pedis (L) (Unable to confirm pulse with Doppler), 2+: Femoral (R), Femoral (L) GI/Abdominal exam: Present: soft. Absent: tenderness Extremities exam: Present: tenderness. Absent: normal capillary refill (3 seconds) Neurological exam: Present: alert Psychiatric exam: Present: normal affect, normal mood Skin exam: Present: erythema (Bilateral feet. Cap refill 3 seconds. Ulcer approximately 1 cm left medial first MTP. Small ulcers left lateral fifth MTP) Course Vital Signs 10/23/23 08:14 Temperature 97.8 F Pulse Rate 85 Respiratory 18 Rate Blood Pressure 162/72 O2 Sat by Pulse 99 Oximetry EKG Findings - EKG Results: EKG: interpreted by ERMD (Left axis. Low QRS voltage precordial leads.), sinus rhythm, normal ST/T Medical Decision Making - Medical Decision Making Was pt. sent in by a medical professional or institution (, PA, G[employer] UNIT ADJUSTER, urgent care, hospital, or intermediate...) When possible be specific @ -No Did you speak to anyone other than the patient for history (EMS, parent, family, police, friend...)? What history was obtained from this source @ -No Did you review nursing and triage notes (agree or disagree)? Why? @ -I reviewed and agree with nursing and triage notes Were old charts reviewed (outside hosp., previous admission, EMS record, old EKG, old radiological studies, urgent care reports/EKG's, intermediate records)? Report findings @ -Previous admission and surgical reports reviewed Differential Diagnosis (chest pain, altered mental status, abdominal pain women, abdominal pain men, vaginal bleeding, weakness, fever, dyspnea, syncope, headache, dizziness, GI bleed, back pain, seizure, CVA, palpatations, mental health, musculoskeletal)? @ -Differential Weakness: Hypoglycemia, shock, sepsis, hyponatremia, anemia, infection, NV, ETOH, adverse medicine reaction, overdose, stroke, this is not meant to be an all-inclusive list. EKG interpreted by me (3pts min.). @ -As above X-rays interpreted by me (1pt min.). @ -X-ray was not done CT interpreted by me (1pt min.). @ -None done U/S interpreted by me (1pt. min.). @ -None done What testing was considered but not performed or refused? (CT, X-rays, U/S, labs)? Why? @ -X-ray was ordered however has not been completed still. After discussion with Dr. Love a CT scan will be ordered What meds were considered but not given or refused? Why? @ -None Did you discuss the management of the patient with other professionals (professionals i.e. , PA, G[employer]IT ADJUSTER, lab, RT, psych nurse, child welfare social worker, coal shoveler, teacher, probation officer, piano case and bench assembler)? Give summary @ -Case was discussed with Dr. Gould, He does recommend CT scan and will consult on patient. Case also discussed with Dr. nesbitt who will admit his patient Was smoking cessation discussed for >3mins.? @ -No Was critical care preformed (if so, how long)? @ -No Were there social determinants of health that impacted care today? How? (Homelessness, low income, unemployed, alcoholism, drug addiction, transportation, low edu. Level, literacy, decrease access to med. care, halfway, rehab)? @ -No Was there de-escalation of care discussed even if they declined (Discuss DNR or withdrawal of care, Hospice)? DNR status @ -No What co-morbidities impacted this encounter? (DM, HTN, Smoking, COPD, CAD, Cancer, CVA, ARF, Chemo, Hep., AIDS, mental health diagnosis, sleep apnea, morbid obesity)? @ -Peripheral arterial disease Was patient admitted / discharged? Hospital course, mention meds given and route, prescriptions, significant lab abnormalities, going to OR and other pertinent info. @ -Patient is updated on results and plan. Patient presents with progressive foot and leg pain. Patient has known vascular disease. Patient will be admitted with vascular consult. CT scan ordered. Undiagnosed new problem with uncertain prognosis? @ -No Drug Therapy requiring intensive monitoring for toxicity (Heparin, Nitro, Insulin, Cardizem)? @ -No Were any procedures done? @ -No Diagnosis/symptom? @ -Arterial insufficiency. Cellulitis. Acute, or Chronic, or Acute on Chronic? @ -Acute on chronic, acute Uncomplicated (without systemic symptoms) or Complicated (systemic symptoms)? @ -Complicated with ulcers Side effects of treatment? @ -No Exacerbation, Progression, or Severe Exacerbation? @ -No Poses a threat to life or bodily function? How? (Chest pain, USA, NV, pneumonia, PE, COPD, DKA, ARF, appy, cholecystitis, CVA, Diverticulitis, Homicidal, Suicidal, threat to staff... and all critical care pts) @ -Threat to limb function - Lab Data Result diagrams: 10/23/23 09:14 Lab Results 10/23/23 Range/Units 09:14 WBC 9.6 (3.8-10.6) k/uL RBC 4.29 L (4.30-5.90) m/uL Hgb 13.4 D (13.0-17.5) gm/dL Hct 42.2 (39.0-53.0) % MCV 98.3 (80.0-100.0) fL MCH 31.3 (25.0-35.0) pg MCHC 31.8 (31.0-37.0) g/dL RDW 12.5 (11.5-15.5) % Plt Count 342 (150-450) k/uL MPV 7.8 Neutrophils % 59 % Lymphocytes % 24 % Monocytes % 8 % Eosinophils % 6 % Basophils % 1 % Neutrophils # 5.6 (1.3-7.7) k/uL Lymphocytes # 2.3 (1.0-4.8) k/uL Monocytes # 0.7 (0-1.0) k/uL Eosinophils # 0.5 (0-0.7) k/uL Basophils # 0.1 (0-0.2) k/uL Disposition Clinical Impression: Cellulitis of both feet, Arterial insufficiency Disposition: ADMITTED IP TO THIS HOSP Is patient prescribed a controlled substance at d/c from ED?: No Referrals: Mariana Nesbitt MD [Primary Care Provider] - 1-2 days Time of Disposition: 09:42
[2023-10-23] MEDS: MORPHINE SULFATE 4 MG/ML SYRINGE IVP STA (09:11)
[2023-10-23] MEDS: CLINDAMYCIN 600 MG in DEXTROSE 5% IN WATER 50 ML IVPB ONE (09:23)
[2023-10-23 09:36] LABS: Basophils # (A) 0.1 k/uL (0-0.2); Basophils % (A) 1 %; Eosinophils # (A) 0.5 k/uL (0-0.7); Eosinophils % (A) 6 %; HCT 42.2 % (39.0-53.0); HGB 13.4 gm/dL (13.0-17.5); Lymphocytes # (A) 2.3 k/uL (1.0-4.8); Lymphocytes % (A) 24 %; MCH 31.3 pg (25.0-35.0); MCHC 31.8 g/dL (31.0-37.0); MCV 98.3 fL (80.0-100.0); Mean Platelet Volume 7.8; Monocytes # (A) 0.7 k/uL (0-1.0); Monocytes % (A) 8 %; Neutrophils # (A) 5.6 k/uL (1.3-7.7); Neutrophils % (A) 59 %; Platelet Count 342 k/uL (150-450); RBC 4.29 m/uL (4.30-5.90); RDW 12.5 % (11.5-15.5); WBC 9.6 k/uL (3.8-10.6)
[2023-10-23] MEDS ORDERED: NALOXONE 0.4 MG/ML 1 ML VIAL IV PRN (09:43)
[2023-10-23] MEDS ORDERED: ACETAMINOPHEN TAB 325 MG TAB PO PRN (09:43)
[2023-10-23 09:47] LABS: ALT 18 U/L (4-49); AST 26 U/L (17-59); African American GFR (CKD) >90 (>60 ml/min/1.73 sqM); Albumin 4.6 g/dL (3.5-5.0); Alkaline Phosphatase 94 U/L (38-126); Anion Gap 10 mmol/L; Blood Urea Nitrogen 19 mg/dL (9-20); Calcium 9.9 mg/dL (8.4-10.2); Carbon Dioxide 26 mmol/L (22-30); Chloride 95 mmol/L (98-107); Glucose 96 mg/dL (74-99); Non-African American GFR(CKD) 89 (>60 ml/min/1.73 sqM); Potassium 4.9 mmol/L (3.5-5.1); Sodium 131 mmol/L (137-145); Total Bilirubin 0.4 mg/dL (0.2-1.3)
[2023-10-23 09:50] LABS: INR 0.9 (<1.2); Partial Thromboplastin Time 25.5 sec (22.0-30.0); Prothrombin Time 9.8 sec (10.0-12.5)
[2023-10-23] MEDS: SODIUM CHLORIDE 0.9% 1,000 ML IV SCH (09:50)
--- NOTE | 2023-10-23 10:08 | XR ---
EXAMINATION TYPE: XR foot complete LT DATE OF EXAM: 10/23/2023 10:02 AM CLINICAL INDICATION:Male, 58 years old with history of ulcers; [facility] COMPARISON: None TECHNIQUE: XR foot complete LT examined in the AP, oblique, and lateral projections. FINDINGS: No evidence of any acute osseous pathology. No evidence of soft tissue swelling. Joints are preserve d. Skin defect near the medial aspect of the great toe no evidence for osseous erosion. IMPRESSION: Skin defect near the medial aspect of the great toe no evidence for osseous erosion. No evidence of a cute fracture.
--- NOTE | 2023-10-23 10:39 | CT ---
EXAMINATION TYPE: CT angio abd aorta w/Runoff DATE OF EXAM: 10/23/2023 COMPARISON: None HISTORY: Bilateral foot pain, redness CT DLP: 1654.1 mGycm EXAMINATION TYPE: CT angio abd aorta w/Runoff CONTRAST: CTA thoracic and abdominal aorta with 3-D reconstruction is performed and without and with IV Contras t, patient injected with 100 mL of Isovue 300. Contrast CTA of the abdominal aorta with runoff of the lower extremity arterial system was performed from the lung bases through the ankles and feet. 3-D reconstruction imaging obtained at a separate wo rkstation. ABDOMINAL AORTA/Iliac vessels: : Aortoiliac bypass graft is noted be in place. Components are patent. No evidence for leak complicating factor. Internal and external iliac arteries are patent. Femoral arteries: There is short segment occlusion at the left common femoral/SFA anastomosis seen be st on axial image 193 which reconstitutes via collateral vessels. There is extensive calcific change noted involving the SFAs bilaterally with multifocal stenoses seen greater than 70% bilaterally at th eir mid and distal components. Below the knee arteries: Extensive calcific change seen of the popliteal artery is bilaterally right greater than left. Greater than 70% stenosis noted bilaterally again right greater than left. There a re diminutive peroneal and posterior tibial arteries. Multifocal stenosis tibial peroneal trunk on th e right. Multifocal stenosis anterior tibial artery on the right. LIVER/GB- No significant abnormality is seen. PANCREAS- No significant abnormality is seen. SPLEEN- No significant abnormality is seen. ADRENALS- No significant abnormality is seen. KIDNEYS/BLADDER- No significant abnormality is seen. BOWEL- No Significant abnormality GENITAL ORGANS: No gross abnormality seen. LYMPH NODES- No greater than 1cm abdominal or pelvic lymph nodes are appreciated. OSSEOUS STRUCTURES- No significant abnormality is seen. OTHER- No significant abnormality is seen. IMPRESSION- 1. Extensive calcific disease involving the bilateral superficial femoral arteries with occlusion not ed at the left common iliac/SFA and anastomosis. Multifocal high-grade stenosis is seen of the bilate ral SFAs and popliteal arteries. There is also multifocal stenosis involving the right trifurcation a s well as branch vessels as discussed. Profunda femoris collaterals are noted. 2. Aortoiliac bypass graft is patent and intact.
[2023-10-23] MEDS: HEPARIN SOD,PORK IN 0.45% NACL 25,000 UNIT in 0.45% NACL 1 250ML.BAG IV SCH (10:40)
--- NOTE | 2023-10-23 11:23 | US ---
EXAMINATION TYPE: US vein mapping LT DATE OF EXAM: 10/23/2023 11:03 AM COMPARISON: NONE CLINICAL INDICATION: Male, 58 years old with history of needs fem-tib bypass; pre op surgery. SIDE PERFORMED: left TECHNIQUE: Lower extremity saphenous vein is examined and measured utilizing real time linear array sonography. Patient History: Smoker: yes Previous DVT: no Discoloration: redness left lower leg Hypertension: yes Diabetes: no Paralysis: no Varicosities: no Edema: yes DUPLEX FINDINGS: Greater Saphenous: Color flow seen Measurements in mm: Left Greater Saphenous: multiple branches noted Groin: 6.0 x 4.8 mm High Thigh: 4.3 x 3.4 mm Mid Thigh: 2.7 x 2.3 mm Above Knee: 3.0 x 2.3 mm Knee: 3.6 x 2.9 mm Below Knee: 2.6 x 2.4 mm Mid Calf: 2.4 x 2.0 mm At Ankle: 3.3 x 2.7 mm IMPRESSION: 1. Bilateral GSV measurements listed above. 2. Performing surgeon to determine viability as conduit.
--- NOTE | 2023-10-23 12:50 | P.GSCN ---
History of Present Illness Consult date: 10/23/23 Reason for Consult: Left foot pain, arterial insufficiency Requesting physician: Sanjeev Portillo History of present illness: This 58-year-old pleasant male who presented to the emergency department with complaints of bilateral lower extremity pain which has been getting worse in the left foot. Past medical history includes heavy tobacco use, COPD, asthma, GERD, hyperlipidemia, hypertension, osteoarthritis and severe peripheral arterial disease. He was recently admitted in August of this year and underwent surgery with Dr. Tran. He saw him in the office about a week ago. ABIs were 0.2 on the left and 0.4 on the right. He underwent aortobifemoral bypass graft, bilateral common femoral artery endarterectomy done on 08/28/2023. Patient has bilateral lower extremity peripheral arterial disease. He has known right SFA occlusion. Patient has ulcer to his left great toe. He denies any fevers or chills. Denies any shortness of breath, chest pain, abdominal pain, nausea or vomiting. He continues to smoke. Review of Systems A 14 point review systems was completed all pertinent positives and negatives as stated in the HPI. Past Medical History Past Medical History: Asthma, COPD, GERD/Reflux, Hyperlipidemia, Hypertension, Osteoarthritis (OA) Additional Past Medical History / Comment(s): BACK AND HIP PAIN, DIFFICULTY WALKING DISTANCE., HX OF ULCERS AND BLOOD IN STOOL. History of Any Multi-Drug Resistant Organisms: None Reported Past Surgical History: Hernia Repair Additional Past Surgical History / Comment(s): HERNIA REPAIR AT 5 & 7 YEARS OLD. Past Anesthesia/Blood Transfusion Reactions: No Reported Reaction Additional Past Anesthesia/Blood Transfusion Reaction / Comm: DOES NOT REMEMBER ANY ANESTHESIA PROBLEMS A CHILD. Past Psychological History: No Psychological Hx Reported Smoking Status: Current every day smoker Past Alcohol Use History: Daily Past Drug Use History: Marijuana - Past Family History Mother Family Medical History: No Reported History Medications and Allergies Home Medications Medication Instructions Recorded Confirmed Type Bisoprolol-Hctz 5-6.25 mg [Ziac 1 tab PO DAILY 02/26/18 10/23/23 History 5-6.25 MG] Escitalopram [Lexapro] 20 mg PO DAILY 02/26/18 10/23/23 History Methylphenidate HCl 20 mg PO BID@0900,1500 02/26/18 10/23/23 History Tamsulosin HCl [Flomax] 0.4 mg PO HS PRN 02/26/18 10/23/23 History Albuterol Nebulized [Ventolin 2.5 mg INHALATION RT-TID PRN 04/21/23 10/23/23 History Nebulized] Butalb/APAP/Caff 50-325-40Mg 1 tab PO DAILY PRN 04/21/23 10/23/23 History [Fioricet 50-325-40] Escitalopram [Lexapro] 10 mg PO HS 04/21/23 10/23/23 History lisinopriL [Zestril] 20 mg PO BID 04/21/23 10/23/23 History Gabapentin [Neurontin] 600 mg PO HS 08/22/23 10/23/23 History Nicotine 21Mg/24Hr Patch [Habitrol] 1 patch TRANSDERM DAILY 30 Days 09/02/23 10/23/23 Rx #30 patch Simvastatin [Zocor] 20 mg PO HS 10/23/23 10/23/23 History hydrOXYzine HCL [Atarax] 10 mg PO DAILY PRN 10/23/23 10/23/23 History oxyCODONE-APAP 7.5-325MG [Percocet 1 tab PO TID PRN 10/23/23 10/23/23 History 7.5-325 mg] Allergies Allergy/AdvReac Type Severity Reaction Status Date / Time No Known Allergies Allergy Verified 10/23/23 10:39 Surgical - Exam Vital Signs Temp Pulse Resp BP Pulse Ox 97.8 F 85 18 162/72 99 10/23/23 08:14 10/23/23 08:14 10/23/23 08:14 10/23/23 08:14 10/23/23 08:14 General appearance: The patient is alert, oriented, appears in no acute distress. HET: Head is normocephalic and atraumatic. Pupils are equal and reactive. Neck: Supple. Heart: Regular. Lungs: Equal expansion, normal respiratory effort. Abdomen: Soft, nontender, nondistended. Extremities: Bilateral lower extremity edema with erythema. Capillary refill 4 to 5 seconds. Left great toe ulcer to medial aspect, No drainage or redness. Bilateral lower extremities tender to palpation. Nonpalpable pulses. Neurological: No focal deficits. Strength and sensation are grossly intact. Results - Labs 10/23/23 09:14 10/23/23 09:14 Abnormal Lab Results - Last 24 Hours (Table) 10/23/23 10/23/23 10/23/23 Range/Units 09:14 09:14 09:14 RBC 4.29 L (4.30-5.90) m/uL PT 9.8 L (10.0-12.5) sec Sodium 131 L (137-145) mmol/L Chloride 95 L (98-107) mmol/L Diabetes panel 10/23/23 Range/Units 09:14 Sodium 131 L (137-145) mmol/L Potassium 4.9 (3.5-5.1) mmol/L Chloride 95 L (98-107) mmol/L Carbon Dioxide 26 (22-30) mmol/L BUN 19 (9-20) mg/dL Creatinine 0.94 (0.66-1.25) mg/dL Glucose 96 (74-99) mg/dL Calcium 9.9 (8.4-10.2) mg/dL AST 26 (17-59) U/L ALT 18 (4-49) U/L Alkaline Phosphatase 94 (38-126) U/L Total Protein 8.0 (6.3-8.2) g/dL Albumin 4.6 (3.5-5.0) g/dL Calcium panel 10/23/23 Range/Units 09:14 Calcium 9.9 (8.4-10.2) mg/dL Albumin 4.6 (3.5-5.0) g/dL Pituitary panel 10/23/23 Range/Units 09:14 Sodium 131 L (137-145) mmol/L Potassium 4.9 (3.5-5.1) mmol/L Chloride 95 L (98-107) mmol/L Carbon Dioxide 26 (22-30) mmol/L BUN 19 (9-20) mg/dL Creatinine 0.94 (0.66-1.25) mg/dL Glucose 96 (74-99) mg/dL Calcium 9.9 (8.4-10.2) mg/dL Adrenal panel 10/23/23 Range/Units 09:14 Sodium 131 L (137-145) mmol/L Potassium 4.9 (3.5-5.1) mmol/L Chloride 95 L (98-107) mmol/L Carbon Dioxide 26 (22-30) mmol/L BUN 19 (9-20) mg/dL Creatinine 0.94 (0.66-1.25) mg/dL Glucose 96 (74-99) mg/dL Calcium 9.9 (8.4-10.2) mg/dL Total Bilirubin 0.4 (0.2-1.3) mg/dL AST 26 (17-59) U/L ALT 18 (4-49) U/L Alkaline Phosphatase 94 (38-126) U/L Total Protein 8.0 (6.3-8.2) g/dL Albumin 4.6 (3.5-5.0) g/dL - Imaging Comments: CT angiogram abdomen aorta and pelvis with runoff reports extensive calcific disease involving bilateral SFA arteries with occlusion noted at the left common iliac/SFA and anastomosis. Multifocal high-grade stenosis is seen of the bilateral SFAs and popliteal arteries. There is also multifocal stenosis involving the right trifurcation as well as branch vessels as discussed. Profunda femoris collaterals are noted. Aorta iliac bypass graft is patent and intact. Left foot x-ray: Skin defect near the medial aspect of great toe no evidence for osseous erosion. No evidence of acute fracture. Assessment and Plan Assessment: 1. Occlusion of left common iliac/SFA 2. Left great toe ulcer, non-infected 3. History of peripheral arterial disease critical limb ischemia status post aortobifemoral bypass with bilateral common femoral artery endarterectomy 4. Chronic nicotine dependence 5. COPD 6. Hyperlipidemia 7. Hypertension Plan: 1. Patient will be started on high intensity heparin IV infusion 2. CT angiogram with runoff reviewed by Dr. Syed 3. Vein mapping ordered 4. Patient may have heart healthy diet 5. Patient will require fem-tib bypass during this hospitalization, timing to be determined 6. Continue with education and recommendation on effects of smoking and peripheral arterial disease. Recommend smoking cessation. 7. Rest of medical management per primary medical team Thank you for this consultation, we will continue to follow. The impression and plan of care has been dictated as directed. I performed a history and examination of this patient, discussed the same with the dictator. I agree with the dictator's note ,documented as a scribe. Any additional findings or plans will be noted.
[2023-10-23 12:56] LABS: Basophils # (A) 0.1 k/uL (0-0.2); Basophils % (A) 1 %; Eosinophils # (A) 0.4 k/uL (0-0.7); Eosinophils % (A) 5 %; HCT 39.1 % (39.0-53.0); HGB 12.7 gm/dL (13.0-17.5); Lymphocytes # (A) 2.5 k/uL (1.0-4.8); Lymphocytes % (A) 28 %; MCHC 32.4 g/dL (31.0-37.0); MCV 98.8 fL (80.0-100.0); Mean Platelet Volume 7.7; Monocytes # (A) 0.6 k/uL (0-1.0); Monocytes % (A) 7 %; Neutrophils # (A) 5.1 k/uL (1.3-7.7); Neutrophils % (A) 57 %; Platelet Count 321 k/uL (150-450); RBC 3.96 m/uL (4.30-5.90); RDW 12.7 % (11.5-15.5); WBC 8.9 k/uL (3.8-10.6)
[2023-10-23 13:14] LABS: INR 0.9 (<1.2); Partial Thromboplastin Time 39.5 sec (22.0-30.0); Prothrombin Time 10.4 sec (10.0-12.5)
[2023-10-23] MEDS ORDERED: ALBUTEROL NEBULIZED 2.5 MG/3 ML INHALATION PRN (13:15)
[2023-10-23] MEDS ORDERED: TAMSULOSIN 0.4 MG CAP.ER.24H PO PRN (13:15)
[2023-10-23] MEDS ORDERED: BUTALB/APAP/CAFF 50-325-40MG TAB PO PRN (13:15)
[2023-10-23] MEDS: CLINDAMYCIN 600 MG in DEXTROSE 5% IN WATER 50 ML IVPB SCH (14:35)
[2023-10-23] MEDS: METHYLPHENIDATE HCL 10 MG TAB PO SCH (14:35)
[2023-10-23] MEDS: oxyCODONE-APAP 7.5-325MG 1 EACH TAB PO PRN (14:38)
--- NOTE | 2023-10-23 15:25 | P.HPIM ---
History of Present Illness H&P Date: 10/23/23 Eric Rodriguez, is a 58-year-old male who presented to [facility] emergency room with a chief complaint of bilateral lower extremity pain, with ulcers on his feet. He was evaluated in the emergency room vital examination on presentation revealed a temperature of 97.8 pulse 85 respiration 18 blood pressure 162/72 pulse ox 99% on room air Laboratory data revealed a white blood count of 9.6 hemoglobin 13.4 platelet count 342 BUN 19 creatinine 0.94 Testing in the emergency room revealed left foot x-ray revealed skin defect near the medial aspect of the great toe no evidence for osseous erosion no evidence for acute fracture Patient was admitted to medical floor for further evaluation and treatment, vascular surgery consultation was requested. Past medical history is significant for history of COPD, history of asthma, history of hypertension, hyperlipidemia, osteoarthritis, severe peripheral vascular disease with history of aortobifemoral bypass graft surgery, history of tobacco use. On review of systems there is no fever or chills no headache or dizziness no chest pain no shortness of breath no cough no nausea or vomiting no abdominal pain no diarrhea no blood in the stools no burning with urination no frequency or urgency no hematuria Past Medical History Past Medical History: Asthma, COPD, GERD/Reflux, Hyperlipidemia, Hypertension, Osteoarthritis (OA) Additional Past Medical History / Comment(s): BACK AND HIP PAIN, DIFFICULTY WALKING DISTANCE., HX OF ULCERS AND BLOOD IN STOOL. History of Any Multi-Drug Resistant Organisms: None Reported Past Surgical History: Hernia Repair Additional Past Surgical History / Comment(s): HERNIA REPAIR AT 5 & 7 YEARS OLD. Past Anesthesia/Blood Transfusion Reactions: No Reported Reaction Additional Past Anesthesia/Blood Transfusion Reaction / Comment(s): DOES NOT REMEMBER ANY ANESTHESIA PROBLEMS A CHILD. Past Psychological History: No Psychological Hx Reported Smoking Status: Current every day smoker Past Alcohol Use History: Daily Past Drug Use History: Marijuana - Past Family History Mother Family Medical History: No Reported History Medications and Allergies Home Medications Medication Instructions Recorded Confirmed Type Bisoprolol-Hctz 5-6.25 mg [Ziac 1 tab PO DAILY 02/26/18 10/23/23 History 5-6.25 MG] Escitalopram [Lexapro] 20 mg PO DAILY 02/26/18 10/23/23 History Methylphenidate HCl 20 mg PO BID@0900,1500 02/26/18 10/23/23 History Tamsulosin HCl [Flomax] 0.4 mg PO HS PRN 02/26/18 10/23/23 History Albuterol Nebulized [Ventolin 2.5 mg INHALATION RT-TID PRN 04/21/23 10/23/23 History Nebulized] Butalb/APAP/Caff 50-325-40Mg 1 tab PO DAILY PRN 04/21/23 10/23/23 History [Fioricet 50-325-40] Escitalopram [Lexapro] 10 mg PO HS 04/21/23 10/23/23 History lisinopriL [Zestril] 20 mg PO BID 04/21/23 10/23/23 History Gabapentin [Neurontin] 600 mg PO HS 08/22/23 10/23/23 History Nicotine 21Mg/24Hr Patch [Habitrol] 1 patch TRANSDERM DAILY 30 Days 09/02/23 10/23/23 Rx #30 patch Simvastatin [Zocor] 20 mg PO HS 10/23/23 10/23/23 History hydrOXYzine HCL [Atarax] 10 mg PO DAILY PRN 10/23/23 10/23/23 History oxyCODONE-APAP 7.5-325MG [Percocet 1 tab PO TID PRN 10/23/23 10/23/23 History 7.5-325 mg] Allergies Allergy/AdvReac Type Severity Reaction Status Date / Time No Known Allergies Allergy Verified 10/23/23 10:39 Physical Exam Vitals: Vital Signs Temp Pulse Resp BP Pulse Ox 10/23/23 08:14 97.8 F 85 18 162/72 99 Intake and Output 10/22/23 10/23/23 10/23/23 22:59 06:59 14:59 Other: Weight 64.864 kg In general patient is alert and oriented x 3 in no distress HEENT head normocephalic and atraumatic Neck is supple no JVD no goiter no lymphadenopathy no carotid bruit Chest examination is clear to auscultation no crackles no wheezing Cardiac exam reveals regular heart sounds S1 and S2 no gallops no murmurs Abdomen is soft nontender no organomegaly with normal bowel sounds Extremity exam reveals bilateral lower extremity edema with erythema, left great toe ulcer, pulses are not palpable bilaterally Neurological examination reveals no gross focal deficits Results CBC & Chem 7: 10/23/23 12:28 10/23/23 09:14 Labs: Abnormal Lab Results - Last 24 Hours (Table) 10/23/23 10/23/23 10/23/23 Range/Units 09:14 09:14 09:14 RBC 4.29 L (4.30-5.90) m/uL PT 9.8 L (10.0-12.5) sec Sodium 131 L (137-145) mmol/L Chloride 95 L (98-107) mmol/L Assessment and Plan Plan: bilateral lower extremity cellulitis with ulcers, patient was started on IV clindamycin in the emergency room, Will consult infectious disease Severe peripheral vascular disease with history of aortobifemoral bypass surgery, consultation for vascular surgery was initiated Underlying history of hypertension Underlying history of hyperlipidemia Underlying history of osteoarthritis Underlying history of COPD Underlying history of gastroesophageal reflux disease Underlying history of depression At this time patient was seen and examined Home medications reviewed and reordered Continue with IV clindamycin at this time Add infectious disease consultation patient was started on IV heparin in the emergency room Will follow closely
[2023-10-23] MEDS: MORPHINE SULFATE 4 MG/ML SYRINGE IV PRN (19:57)
[2023-10-23] MEDS: FAMOTIDINE 20 MG TAB PO SCH (20:03)
[2023-10-23] MEDS: GABAPENTIN 300 MG CAP PO SCH (20:03)
[2023-10-23] MEDS: ATORVASTATIN 10 MG TAB PO SCH (20:03)
[2023-10-23] MEDS: ESCITALOPRAM 10 MG TAB PO SCH (20:03)
[2023-10-23] MEDS: lisinopriL 20 MG TAB PO SCH (20:04)
[2023-10-24 07:03] LABS: Basophils # (A) 0.1 k/uL (0-0.2); Basophils % (A) 1 %; Eosinophils # (A) 0.4 k/uL (0-0.7); Eosinophils % (A) 6 %; HCT 38.8 % (39.0-53.0); HGB 12.3 gm/dL (13.0-17.5); Lymphocytes # (A) 1.8 k/uL (1.0-4.8); Lymphocytes % (A) 25 %; MCH 32.3 pg (25.0-35.0); MCHC 31.7 g/dL (31.0-37.0); MCV 101.8 fL (80.0-100.0); Mean Platelet Volume 8.9; Monocytes # (A) 0.8 k/uL (0-1.0); Monocytes % (A) 11 %; Neutrophils % (A) 55 %; Platelet Count 253 k/uL (150-450); RBC 3.81 m/uL (4.30-5.90); RDW 12.6 % (11.5-15.5); WBC 7.2 k/uL (3.8-10.6)
--- NOTE | 2023-10-24 07:21 | P.CONS ---
History of Present Illness - Reason for Consult Consult date: 10/23/23 Lower extremity cellulitis with ulceration Requesting physician: Mariana Nesbitt - Chief Complaint Increasing pain to bilateral feet x days - History of Present Illness Patient is a 58-year-old male with a past medical history significant for hypertension hyperlipidemia COPD reflux osteoarthritis who recently underwent aortobifemoral bypass graft bilateral common femoral artery endarterectomy on 08/28/2023 for bilateral lower extremity ischemic pain/PAD patient did have a history of significant smoking and continues to smoke presenting to the hospital for evaluation of bilateral foot pain and soles he did have a ulcer to the left big toe denies any history of any trauma has been complaining of pain describing it to be sharp moderate to severe intensity with out radiation did have erythema to bilateral lower extremity but no foul- smelling drainage with the symptoms the patient has been evaluated on presentation to the hospital patient was afebrile and no fever has been recorded subsequently patient was not tachycardic hypotensive or hypoxic he did have a white count of 9.6 creatinine 0.94 electrolytes are normal liver isms are normal patient did have a foot x-ray skin defect near the medial aspect of the great toe no evidence for bony erosion no evidence of acute fracture CT angiography extensive calcific disease involving bilateral superficial femoral arteries with occlusion noted to the left common iliac SFA anastomosis, aortic bypass graft is patent and intact patient has been started on clindamycin concerning for possible component of cellulitis infectious disease was consulted for further management of antibiotic therapy Review of Systems Positive point and negatives has been mentioned in the HPI, complete review of systems was performed and all other systems are negative Past Medical History Past Medical History: Asthma, COPD, GERD/Reflux, Hyperlipidemia, Hypertension, Osteoarthritis (OA) Additional Past Medical History / Comment(s): BACK AND HIP PAIN, DIFFICULTY WALKING DISTANCE., HX OF ULCERS AND BLOOD IN STOOL. History of Any Multi-Drug Resistant Organisms: None Reported Past Surgical History: Hernia Repair Additional Past Surgical History / Comment(s): HERNIA REPAIR AT 5 & 7 YEARS OLD. Past Anesthesia/Blood Transfusion Reactions: No Reported Reaction Additional Past Anesthesia/Blood Transfusion Reaction / Comm: DOES NOT REMEMBER ANY ANESTHESIA PROBLEMS A CHILD. Past Psychological History: No Psychological Hx Reported Smoking Status: Current every day smoker Past Alcohol Use History: Daily Past Drug Use History: Marijuana - Past Family History Mother Family Medical History: No Reported History Brother(s) Additional Family Medical History / Comment(s): bipolar disorder. Medications and Allergies Home Medications Medication Instructions Recorded Confirmed Type Bisoprolol-Hctz 5-6.25 mg [Ziac 1 tab PO DAILY 02/26/18 10/23/23 History 5-6.25 MG] Methylphenidate HCl 20 mg PO BID@0900,1500 02/26/18 10/23/23 History Tamsulosin HCl [Flomax] 0.4 mg PO HS PRN 02/26/18 10/23/23 History Albuterol Nebulized [Ventolin 2.5 mg INHALATION RT-TID PRN 04/21/23 10/23/23 History Nebulized] Butalb/APAP/Caff 50-325-40Mg 1 tab PO DAILY PRN 04/21/23 10/23/23 History [Fioricet 50-325-40] lisinopriL [Zestril] 20 mg PO BID 04/21/23 10/23/23 History Gabapentin [Neurontin] 600 mg PO HS 08/22/23 10/23/23 History Nicotine 21Mg/24Hr Patch [Habitrol] 1 patch TRANSDERM DAILY 30 Days 09/02/23 10/23/23 Rx #30 patch Simvastatin [Zocor] 20 mg PO HS 10/23/23 10/23/23 History hydrOXYzine HCL [Atarax] 10 mg PO DAILY PRN 10/23/23 10/23/23 History oxyCODONE-APAP 7.5-325MG [Percocet 1 tab PO TID PRN 10/23/23 10/23/23 History 7.5-325 mg] Doxycycline Hyclate 100 mg PO BID #20 capsule 10/27/23 Rx buPROPion XL [Wellbutrin XL] 150 mg PO DAILY 30 Days #30 tab 10/27/23 Rx cilostazoL [Pletal] 100 mg PO BID 30 Days #60 tab 10/27/23 Rx Allergies Allergy/AdvReac Type Severity Reaction Status Date / Time No Known Allergies Allergy Verified 10/23/23 10:39 Physical Exam Vitals: Vital Signs Temp Pulse Resp BP Pulse Ox 10/23/23 12:52 64 18 128/78 97 10/23/23 11:36 62 18 144/87 95 10/23/23 08:14 97.8 F 85 18 162/72 99 Intake and Output 10/22/23 10/23/23 10/23/23 22:59 06:59 14:59 Other: Weight 64.864 kg GENERAL DESCRIPTION: Middle-aged male lying in bed, no distress. No tachypnea or accessory muscle of respiration use. HEENT: Shows Pallor , no scleral icterus. Oral mucous membrane is dry. No pharyngeal erythema or thrush NECK: Trachea central, no thyromegaly. LUNGS: Unlabored breathing. Clear to auscultation anteriorly. No wheeze or crackle. HEART: S1, S2, regular rate and rhythm. No loud murmur ABDOMEN: Soft, no tenderness , guarding or rigidity, no organomegaly EXTREMITIES: Bilateral feet with erythema however no significant warmth to touch he did have a phone on the medial aspect of the left foot but no drainage SKIN: No rash, no masses palpable. NEUROLOGICAL: The patient is awake, alert, oriented x3, mood and affect normal. Results CBC & Chem 7: 10/26/23 05:19 10/27/23 05:04 Labs: Abnormal Lab Results - Last 24 Hours (Table) 10/23/23 10/23/23 10/23/23 Range/Units 09:14 09:14 09:14 RBC 4.29 L (4.30-5.90) m/uL Hgb (13.0-17.5) gm/dL PT 9.8 L (10.0-12.5) sec APTT (22.0-30.0) sec Sodium 131 L (137-145) mmol/L Chloride 95 L (98-107) mmol/L 10/23/23 10/23/23 Range/Units 12:28 12:28 RBC 3.96 L (4.30-5.90) m/uL Hgb 12.7 L (13.0-17.5) gm/dL PT (10.0-12.5) sec APTT 39.5 H (22.0-30.0) sec Sodium (137-145) mmol/L Chloride (98-107) mmol/L Assessment and Plan (1) Cellulitis of both feet Status: Acute Code(s): L03.115 - CELLULITIS OF RIGHT LOWER LIMB; L03.116 - CELLULITIS OF LEFT LOWER LIMB SNOMED Code(s): 575072700 (2) Wound of left foot Status: Acute Code(s): S91.302A - UNSPECIFIED OPEN WOUND, LEFT FOOT, INITIAL ENCOUNTER SNOMED Code(s): 41032006762794321 Plan: 1patient presented to hospital with bilateral lower extremity pain did have ulc eration to the right great toe x-ray did not show any evidence of bony changes patient did have mostly features of peripheral arterial disease responsible for this pain and erythema clinically not behaving as cellulitis with a normal white count and no fever 2-we will check inflammatory markers 3-May continue short course of clindamycin and see clinical response We will follow on clinical condition and cultures to further adjust medication if needed Thank you for this consultation we will follow the patient along with you Dictation was produced using [employer] dictation software. please excuse any grammatical, word or spelling errors. Time with Patient: Greater than 30
[2023-10-24] MEDS: NICOTINE 21MG/24HR PATCH TRANSDERM SCH (08:22)
[2023-10-24] MEDS: ESCITALOPRAM 20 MG TAB PO SCH (08:22)
[2023-10-24] MEDS: BISOPROLOL-HCTZ 5-6.25 MG 1 EACH TAB PO SCH (08:26)
--- NOTE | 2023-10-24 09:43 | P.PN ---
Subjective Progress Note Date: 10/24/23 Patient was seen and examined. No significant complaints. No significant changes since being admitted. Tolerating heparin drip without issues. Objective - Vital Signs Vital signs: Vital Signs Temp 98.4 F 10/24/23 08:00 Pulse 78 10/24/23 08:00 Resp 17 10/24/23 08:00 BP 137/67 10/24/23 08:00 Pulse Ox 94 L 10/24/23 08:00 FiO2 Intake & Output 10/23/23 10/24/23 10/24/23 18:59 06:59 18:59 Intake Total 250 Balance 250 Weight 64.864 kg 64.864 kg Intake: Intake, IV Titration 250 Amount Heparin Sod,Pork in 0.45% 250 NaCl 25,000 unit In 0.45 % NaCl 1 250ml.bag @ 18 UNITS/KG/HR 11.676 mls/hr IV .[id number] ANDRWE Rx#: [id number] Other: Voiding Method Toilet # Voids 3 - Exam General appearance: The patient is alert, oriented, appears in no acute distress. HET: Head is normocephalic and atraumatic. Pupils are equal and reactive. Neck: Supple. Heart: Regular. Lungs: Equal expansion, normal respiratory effort. Abdomen: Soft, nontender, nondistended. Extremities: Bilateral lower extremity edema with erythema. Capillary refill 4 to 5 seconds. Left great toe ulcer to medial aspect, No drainage or redness. Bilateral lower extremities tender to palpation. Nonpalpable pulses. Neurological: No focal deficits. Strength and sensation are grossly intact. - Labs CBC & Chem 7: 10/24/23 06:07 10/23/23 09:14 Labs: Abnormal Lab Results - Last 24 Hours (Table) 10/23/23 10/23/23 10/23/23 Range/Units 09:14 09:14 09:14 RBC 4.29 L (4.30-5.90) m/uL Hgb (13.0-17.5) gm/dL Hct (39.0-53.0) % MCV (80.0-100.0) fL PT 9.8 L (10.0-12.5) sec APTT (22.0-30.0) sec Sodium 131 L (137-145) mmol/L Chloride 95 L (98-107) mmol/L 10/23/23 10/23/23 10/23/23 Range/Units 12:28 12:28 17:11 RBC 3.96 L (4.30-5.90) m/uL Hgb 12.7 L (13.0-17.5) gm/dL Hct (39.0-53.0) % MCV (80.0-100.0) fL PT (10.0-12.5) sec APTT 39.5 H 60.1 H (22.0-30.0) sec Sodium (137-145) mmol/L Chloride (98-107) mmol/L 10/24/23 10/24/23 Range/Units 06:07 06:11 RBC 3.81 L (4.30-5.90) m/uL Hgb 12.3 L (13.0-17.5) gm/dL Hct 38.8 L (39.0-53.0) % MCV 101.8 H (80.0-100.0) fL PT (10.0-12.5) sec APTT 59.0 H (22.0-30.0) sec Sodium (137-145) mmol/L Chloride (98-107) mmol/L Assessment and Plan Assessment: 1. Occlusion of left common iliac/SFA 2. Left great toe ulcer, non-infected 3. History of peripheral arterial disease critical limb ischemia status post aortobifemoral bypass with bilateral common femoral artery endarterectomy 4. Chronic nicotine dependence 5. COPD 6. Hyperlipidemia 7. Hypertension Plan: Plan for the patient will be to go forward with aFemoral to tibial bypass in the near future. I do not currently see has vein mapping and not certain if this has properly been ordered, will order that today for surgical planning. Further plans pending.
[2023-10-24 10:46] LABS: ALT 13 U/L (10-49); AST 20 U/L (14-35); Albumin 3.9 g/dL (3.8-4.9); Alkaline Phosphatase 85 U/L (41-126); Blood Urea Nitrogen 16.5 mg/dL (9.0-27.0); Calcium 8.9 mg/dL (8.7-10.3); Carbon Dioxide 21.8 mmol/L (21.6-31.8); Chloride 101 mmol/L (96-109); Globulin 2.3 g/dL (1.6-3.3); Glucose 136 mg/dL (70-110); Potassium 4.4 mmol/L (3.5-5.5); Sodium 138 mmol/L (135-145); Total Bilirubin <0.2 mg/dL (0.3-1.2); Total Protein 6.2 g/dL (6.2-8.2)
--- NOTE | 2023-10-24 13:50 | P.PN ---
Subjective Progress Note Date: 10/24/23 Eric Rodriguez, is a 58-year-old male who presented to [facility] emergency room with a chief complaint of bilateral lower extremity pain, with ulcers on his feet. He was evaluated in the emergency room vital examination on presentation revealed a temperature of 97.8 pulse 85 respiration 18 blood pressure 162/72 pulse ox 99% on room air Laboratory data revealed a white blood count of 9.6 hemoglobin 13.4 platelet count 342 BUN 19 creatinine 0.94 Testing in the emergency room revealed left foot x-ray revealed skin defect near the medial aspect of the great toe no evidence for osseous erosion no evidence for acute fracture Patient was admitted to medical floor for further evaluation and treatment, vascular surgery consultation was requested. Past medical history is significant for history of COPD, history of asthma, history of hypertension, hyperlipidemia, osteoarthritis, severe peripheral vascular disease with history of aortobifemoral bypass graft surgery, history of tobacco use. On review of systems there is no fever or chills no headache or dizziness no chest pain no shortness of breath no cough no nausea or vomiting no abdominal pain no diarrhea no blood in the stools no burning with urination no frequency or urgency no hematuria. on 10/24/2023 patient was seen and examined on the medical floor, he is alert and oriented 3 in no apparent distress he is complaining of bilateral lower extremity pain otherwise he denies any complaints, there is no fever or chills no headache or dizziness no chest pain no shortness of breath no cough no nausea or vomiting no abdominal pain no diarrhea and no urinary symptoms. Vital exam reveals temperature of 98.4 pulse 78 respirations 17 blood pressure 137/67 pulse ox 94% on room air, white blood count 7.2 hemoglobin 12.3 platelet count 253, patient remains on IV heparin vascular surgery and infectious disease are following Objective - Vital Signs Vital signs: Vital Signs Temp 98.4 F 10/24/23 08:00 Pulse 78 10/24/23 08:00 Resp 17 10/24/23 08:00 BP 137/67 10/24/23 08:00 Pulse Ox 94 L 10/24/23 08:00 FiO2 Intake & Output 10/23/23 10/24/23 10/24/23 18:59 06:59 18:59 Intake Total 250 Balance 250 Weight 64.864 kg 64.864 kg Intake: Intake, IV Titration 250 Amount Heparin Sod,Pork in 0.45% 250 NaCl 25,000 unit In 0.45 % NaCl 1 250ml.bag @ 18 UNITS/KG/HR 11.676 mls/hr IV .[id number] [facility] Rx#: [id number] Other: Voiding Method Toilet # Voids 3 - Labs CBC & Chem 7: 10/24/23 06:07 10/24/23 06:11 Labs: Abnormal Lab Results - Last 24 Hours (Table) 10/23/23 10/23/23 10/23/23 Range/Units 12:28 12:28 17:11 RBC 3.96 L (4.30-5.90) m/uL Hgb 12.7 L (13.0-17.5) gm/dL Hct (39.0-53.0) % MCV (80.0-100.0) fL APTT 39.5 H 60.1 H (22.0-30.0) sec 10/24/23 10/24/23 Range/Units 06:07 06:11 RBC 3.81 L (4.30-5.90) m/uL Hgb 12.3 L (13.0-17.5) gm/dL Hct 38.8 L (39.0-53.0) % MCV 101.8 H (80.0-100.0) fL APTT 59.0 H (22.0-30.0) sec Assessment and Plan Plan: bilateral lower extremity cellulitis with ulcers, patient was started on IV clindamycin in the emergency room, Will consult infectious disease Severe peripheral vascular disease with history of aortobifemoral bypass surgery, consultation for vascular surgery was initiated Underlying history of hypertension Underlying history of hyperlipidemia Underlying history of osteoarthritis Underlying history of COPD Underlying history of gastroesophageal reflux disease Underlying history of depression At this time patient was seen and examined Home medications reviewed and reordered Continue with IV clindamycin at this time Add infectious disease consultation patient was started on IV heparin in the emergency room Will follow closely
[2023-10-24] MEDS ORDERED: VANCOMYCIN IV PER PHARMACY 1 EACH MISC MISCELLANE PRN (16:58)
[2023-10-24] MEDS: VANCOMYCIN 1,250 MG in SODIUM CHLORIDE 0.9% 250 ML IVPB SCH (17:40)
[2023-10-24] MEDS: hydrOXYzine HCL 10 MG TAB PO PRN (23:04)
[2023-10-25] MEDS: HEPARIN SODIUM 1,000 UN/ML (10ML VL) IV PRN (06:28)
[2023-10-25 09:30] LABS: Basophils # (A) 0.09 X 10*3/uL (0.00-0.10); Basophils % (A) 1.3 %; Eosinophils # (A) 0.33 X 10*3/uL (0.04-0.35); Eosinophils % (A) 4.8 %; HCT 34.9 % (39.6-50.0); HGB 11.2 g/dL (13.0-17.0); Lymphocytes # (A) 2.02 X 10*3/uL (0.90-5.00); Lymphocytes % (A) 29.2 %; MCH 32.7 pg (27.0-32.0); MCHC 32.1 g/dL (32.0-37.0); MCV 101.7 FL (80.0-97.0); Mean Platelet Volume 11.2 FL (9.5-12.2); Monocytes % (A) 14.5 %; NRBC Per 100 WBC 0 X 10*3/uL (0.00-0.01); Neutrophils # (A) 3.47 X 10*3/uL (1.80-7.70); Neutrophils % (A) 50.1 %; Platelet Count 265 X 10*3/uL (140-440); RBC 3.43 X 10*6/uL (4.40-5.60); RDW 12.9 % (11.5-14.5); WBC 6.92 X 10*3/uL (4.50-10.00)
--- NOTE | 2023-10-25 09:31 | P.PN ---
Subjective Progress Note Date: 10/25/23 Eric Rodriguez, is a 58-year-old male who presented to [facility] emergency room with a chief complaint of bilateral lower extremity pain, with ulcers on his feet. He was evaluated in the emergency room vital examination on presentation revealed a temperature of 97.8 pulse 85 respiration 18 blood pressure 162/72 pulse ox 99% on room air Laboratory data revealed a white blood count of 9.6 hemoglobin 13.4 platelet count 342 BUN 19 creatinine 0.94 Testing in the emergency room revealed left foot x-ray revealed skin defect near the medial aspect of the great toe no evidence for osseous erosion no evidence for acute fracture Patient was admitted to medical floor for further evaluation and treatment, vascular surgery consultation was requested. Past medical history is significant for history of COPD, history of asthma, history of hypertension, hyperlipidemia, osteoarthritis, severe peripheral vascular disease with history of aortobifemoral bypass graft surgery, history of tobacco use. On review of systems there is no fever or chills no headache or dizziness no chest pain no shortness of breath no cough no nausea or vomiting no abdominal pain no diarrhea no blood in the stools no burning with urination no frequency or urgency no hematuria. on 10/24/2023 patient was seen and examined on the medical floor, he is alert and oriented 3 in no apparent distress he is complaining of bilateral lower extremity pain otherwise he denies any complaints, there is no fever or chills no headache or dizziness no chest pain no shortness of breath no cough no nausea or vomiting no abdominal pain no diarrhea and no urinary symptoms. Vital exam reveals temperature of 98.4 pulse 78 respirations 17 blood pressure 137/67 pulse ox 94% on room air, white blood count 7.2 hemoglobin 12.3 platelet count 253, patient remains on IV heparin vascular surgery and infectious disease are following On 10/24/2022 for patient's alert and oriented 3. Patient still complaining of some bilateral lower extremity pain.patient remains on IV heparin and IV antibiotics. Vascular and infectious disease services are following. Current vital signs temp 98.1, heart rate 81, respiratory rate 19, blood pressure 135/87 with a pulse ox of 95% on room air. Objective - Vital Signs Vital signs: Vital Signs Temp 98.1 F 10/25/23 06:59 Pulse 81 10/25/23 06:59 Resp 19 10/25/23 06:59 BP 135/87 10/25/23 06:59 Pulse Ox 95 10/25/23 06:59 FiO2 Intake & Output 10/24/23 10/25/23 10/25/23 18:59 06:59 18:59 Intake Total 250 250 Balance 250 250 Intake: Intake, IV Titration 250 250 Amount Heparin Sod,Pork in 0.45% 250 250 NaCl 25,000 unit In 0.45 % NaCl 1 250ml.bag @ 18 UNITS/KG/HR 11.676 mls/hr IV .[id number] [facility] Rx#: [id number] Other: # Voids 2 4 - Exam Head normocephalic Neck supple Lungs clear to auscultation bilaterally no wheezing or crackles Heart regular rate and rhythm S1-S2, no rub or gallop Abdomen is soft nontender nondistended positive bowel sounds no hepatosplenomegaly Extremities no edema. Bilateral lower extremity erythema Neuro alert and orientated to 3 - Labs CBC & Chem 7: 10/24/23 06:07 10/24/23 06:11 Labs: Abnormal Lab Results - Last 24 Hours (Table) 10/24/23 10/25/23 Range/Units 06:11 04:50 APTT 32.0 H (22.0-30.0) sec Anion Gap 15.20 H (4.00-12.00) mmol/L Glucose 136 H (70-110) mg/dL Total Bilirubin <0.2 L (0.3-1.2) mg/dL Microbiology - Last 24 Hours (Table) 10/23/23 08:48 Blood Culture - Preliminary Blood 10/23/23 08:33 Blood Culture - Preliminary Blood Assessment and Plan Plan: bilateral lower extremity cellulitis with ulcers, patient was started on IV clindamycin in the emergency room, Will consult infectious disease Severe peripheral vascular disease with history of aortobifemoral bypass surgery, consultation for vascular surgery was initiated Underlying history of hypertension Underlying history of hyperlipidemia Underlying history of osteoarthritis Underlying history of COPD Underlying history of gastroesophageal reflux disease Underlying history of depression At this time patient was seen and examined Home medications reviewed and reordered Continue with IV clindamycin at this time Add infectious disease consultation patient was started on IV heparin in the emergency room Will follow closely
[2023-10-25 09:48] LABS: ALT 12 U/L (10-49); AST 16 U/L (14-35); Albumin 3.8 g/dL (3.8-4.9); Albumin/Globulin Ratio 1.73 Ratio (1.60-3.17); Alkaline Phosphatase 75 U/L (41-126); Blood Urea Nitrogen 17.6 mg/dL (9.0-27.0); Calcium 8.8 mg/dL (8.7-10.3); Carbon Dioxide 24.5 mmol/L (21.6-31.8); Chloride 105 mmol/L (96-109); Globulin 2.2 g/dL (1.6-3.3); Glucose 98 mg/dL (70-110); Potassium 4.9 mmol/L (3.5-5.5); Sodium 140 mmol/L (135-145); Total Bilirubin <0.2 mg/dL (0.3-1.2)
--- NOTE | 2023-10-25 11:41 | P.PN ---
Subjective Progress Note Date: 10/25/23 Patient was seen and examined. No significant complaints. No significant changes since being admitted. Tolerating heparin drip without issues. Objective - Vital Signs Vital signs: Vital Signs Temp 98.1 F 10/25/23 06:59 Pulse 81 10/25/23 06:59 Resp 19 10/25/23 06:59 BP 135/87 10/25/23 06:59 Pulse Ox 95 10/25/23 06:59 FiO2 Intake & Output 10/24/23 10/25/23 10/25/23 18:59 06:59 18:59 Intake Total 250 250 Balance 250 250 Intake: Intake, IV Titration 250 250 Amount Heparin Sod,Pork in 0.45% 250 250 NaCl 25,000 unit In 0.45 % NaCl 1 250ml.bag @ 18 UNITS/KG/HR 11.676 mls/hr IV .[id number] [facility] Rx#: [id number] Other: # Voids 2 4 - Exam General appearance: The patient is alert, oriented, appears in no acute distress. HET: Head is normocephalic and atraumatic. Pupils are equal and reactive. Neck: Supple. Heart: Regular. Lungs: Equal expansion, normal respiratory effort. Abdomen: Soft, nontender, nondistended. Extremities: Bilateral lower extremity edema with erythema. Capillary refill 4 to 5 seconds. Left great toe ulcer to medial aspect, No drainage or redness. Bilateral lower extremities tender to palpation. Nonpalpable pulses. Neurological: No focal deficits. Strength and sensation are grossly intact. - Labs CBC & Chem 7: 10/25/23 04:50 10/25/23 04:50 Labs: Abnormal Lab Results - Last 24 Hours (Table) 10/25/23 10/25/23 10/25/23 Range/Units 04:50 04:50 04:50 RBC 3.43 L (4.40-5.60) X 10*6/uL Hgb 11.2 L (13.0-17.0) g/dL Hct 34.9 L (39.6-50.0) % MCV 101.7 H (80.0-97.0) FL MCH 32.7 H (27.0-32.0) pg APTT 32.0 H (22.0-30.0) sec Total Bilirubin <0.2 L (0.3-1.2) mg/dL Total Protein 6.0 L (6.2-8.2) g/dL Microbiology - Last 24 Hours (Table) 10/23/23 08:48 Blood Culture - Preliminary Blood 10/23/23 08:33 Blood Culture - Preliminary Blood Assessment and Plan Assessment: 1. Occlusion of left common iliac/SFA 2. Left great toe ulcer, non-infected 3. History of peripheral arterial disease critical limb ischemia status post aortobifemoral bypass with bilateral common femoral artery endarterectomy 4. Chronic nicotine dependence 5. COPD 6. Hyperlipidemia 7. Hypertension Plan: Plan for the patient will be to go forward with aFemoral to tibial bypass in the near future. Vein mapping visualized. Mostly appropriate appearing greater than 0.2 cm however some areas of borderline.
--- NOTE | 2023-10-25 16:23 | P.PN ---
Subjective Progress Note Date: 10/24/23 Principal diagnosis: Reason for follow-up is left foot wound and concern for possible cellulitis Patient is a 58-year-old male with a past medical history significant for hypertension hyperlipidemia COPD reflux osteoarthritis who recently underwent aortobifemoral bypass graft bilateral common femoral artery endarterectomy on 08/28/2023 for bilateral lower extremity ischemic pain/PAD patient did have a history of significant smoking and continues to smoke presenting to the hospital for evaluation of bilateral foot pain and soles, the patient did have a wound on the medial aspect of the left big toe concerning for cellulitis prompting this consultation. On today's evaluation that is 10/24/2023, patient has been afebrile, patient is breathing comfortably and is currently on room air, patient denies having any significant cough no chest pain shortness of breath, patient denies nausea vomiting or diarrhea and no abdominal pain still complaining of pain and disc omfort to bilateral feet but no worsening Patient did have a white count of 7.2, creatinine is 1.1 Objective - Vital Signs Vital signs: Vital Signs Temp 97.5 F L 10/24/23 14:00 Pulse 64 10/24/23 14:00 Resp 16 10/24/23 14:00 BP 148/76 10/24/23 14:00 Pulse Ox 97 10/24/23 14:00 FiO2 Intake & Output 10/23/23 10/24/23 10/24/23 18:59 06:59 18:59 Intake Total 250 Balance 250 Weight 64.864 kg 64.864 kg Intake: Intake, IV Titration 250 Amount Heparin Sod,Pork in 0.45% 250 NaCl 25,000 unit In 0.45 % NaCl 1 250ml.bag @ 18 UNITS/KG/HR 11.676 mls/hr IV .[id number] [facility] Rx#: [id number] Other: Voiding Method Toilet # Voids 3 - Exam GENERAL DESCRIPTION: Middle-age male lying in bed in no distress RESPIRATORY SYSTEM: Unlabored breathing , decreased breath sounds at bases HEART: S1 S2 regular rate and rhythm , ABDOMEN: Soft , no tenderness EXTREMITIES: Bilateral feet he did have erythema but cold to touch wound on the medial aspect of the left foot but no drainage - Labs CBC & Chem 7: 10/25/23 04:50 10/25/23 04:50 Labs: Abnormal Lab Results - Last 24 Hours (Table) 10/23/23 10/24/23 10/24/23 Range/Units 17:11 06:07 06:11 RBC 3.81 L (4.30-5.90) m/uL Hgb 12.3 L (13.0-17.5) gm/dL Hct 38.8 L (39.0-53.0) % MCV 101.8 H (80.0-100.0) fL APTT 60.1 H (22.0-30.0) sec Anion Gap 15.20 H (4.00-12.00) mmol/L Glucose 136 H (70-110) mg/dL Total Bilirubin <0.2 L (0.3-1.2) mg/dL 10/24/23 Range/Units 06:11 RBC (4.30-5.90) m/uL Hgb (13.0-17.5) gm/dL Hct (39.0-53.0) % MCV (80.0-100.0) fL APTT 59.0 H (22.0-30.0) sec Anion Gap (4.00-12.00) mmol/L Glucose (70-110) mg/dL Total Bilirubin (0.3-1.2) mg/dL Assessment and Plan (1) Wound of left foot Current Visit: Yes Status: Acute Code(s): S91.302A - UNSPECIFIED OPEN WOUND, LEFT FOOT, INITIAL ENCOUNTER SNOMED Code(s): 63562513637817829 (2) Cellulitis of both feet Current Visit: Yes Status: Acute Code(s): L03.115 - CELLULITIS OF RIGHT LOWER LIMB; L03.116 - CELLULITIS OF LEFT LOWER LIMB SNOMED Code(s): 654882684 Plan: 1patient presented to hospital with bilateral lower extremity pain did have ulceration to the right great toe x-ray did not show any evidence of bony changes patient did have mostly features of peripheral arterial disease responsible for this pain and erythema clinically not behaving as cellulitis but not entirely excluded keeping in mind the wound on the medial aspect of the left foot we will adjust antibiotic to vancomycin and monitor clinical course closely, discontinue clindamycin Dictation was produced using [employer] dictation software. please excuse any grammatical, word or spelling errors. Time with Patient: Less than 30
--- NOTE | 2023-10-25 16:24 | P.PN ---
Subjective Progress Note Date: 10/25/23 Principal diagnosis: Reason for follow-up is left foot wound and concern for possible cellulitis Patient is a 58-year-old male with a past medical history significant for hypertension hyperlipidemia COPD reflux osteoarthritis who recently underwent aortobifemoral bypass graft bilateral common femoral artery endarterectomy on 08/28/2023 for bilateral lower extremity ischemic pain/PAD patient did have a history of significant smoking and continues to smoke presenting to the hospital for evaluation of bilateral foot pain and soles, the patient did have a wound on the medial aspect of the left big toe concerning for cellulitis prompting this consultation. On today's evaluation that is 10/25/2023,the patient denies any fever or any chills, patient is breathing comfortably on room air, the patient denies chest pain shortness of breath and no significant cough, patient denies abdominal pain, no nausea vomiting or diarrhea. Patient denies any worsening pain to b ilateral feet area or any drainage. Patient white count is 6.92, creatinine is 1.0 Objective - Vital Signs Vital signs: Vital Signs Temp 98.6 F 10/25/23 13:28 Pulse 71 10/25/23 13:28 Resp 17 10/25/23 13:28 BP 162/79 10/25/23 13:28 Pulse Ox 98 10/25/23 13:28 FiO2 Intake & Output 10/24/23 10/25/23 10/25/23 18:59 06:59 18:59 Intake Total 250 250 Balance 250 250 Intake: Intake, IV Titration 250 250 Amount Heparin Sod,Pork in 0.45% 250 250 NaCl 25,000 unit In 0.45 % NaCl 1 250ml.bag @ 18 UNITS/KG/HR 11.676 mls/hr IV .[id number] [facility] Rx#: [id number] Other: # Voids 2 4 2 - Exam GENERAL DESCRIPTION: Middle-age male lying in bed in no distress RESPIRATORY SYSTEM: Unlabored breathing , decreased breath sounds at bases HEART: S1 S2 regular rate and rhythm , ABDOMEN: Soft , no tenderness EXTREMITIES: Bilateral feet he did have erythema but cold to touch wound on the medial aspect of the left foot but no drainage - Labs CBC & Chem 7: 10/25/23 04:50 10/25/23 04:50 Labs: Abnormal Lab Results - Last 24 Hours (Table) 10/25/23 10/25/23 10/25/23 Range/Units 04:50 04:50 04:50 RBC 3.43 L (4.40-5.60) X 10*6/uL Hgb 11.2 L (13.0-17.0) g/dL Hct 34.9 L (39.6-50.0) % MCV 101.7 H (80.0-97.0) FL MCH 32.7 H (27.0-32.0) pg APTT 32.0 H (22.0-30.0) sec Total Bilirubin <0.2 L (0.3-1.2) mg/dL Total Protein 6.0 L (6.2-8.2) g/dL Microbiology - Last 24 Hours (Table) 10/23/23 08:48 Blood Culture - Preliminary Blood 10/23/23 08:33 Blood Culture - Preliminary Blood Assessment and Plan (1) Wound of left foot Current Visit: Yes Status: Acute Code(s): S91.302A - UNSPECIFIED OPEN WOUND, LEFT FOOT, INITIAL ENCOUNTER SNOMED Code(s): 48461008655144426 (2) Cellulitis of both feet Current Visit: Yes Status: Acute Code(s): L03.115 - CELLULITIS OF RIGHT LOWER LIMB; L03.116 - CELLULITIS OF LEFT LOWER LIMB SNOMED Code(s): 164079519 Plan: 1patient presented to hospital with bilateral lower extremity pain did have ulceration to the right great toe x-ray did not show any evidence of bony changes patient did have mostly features of peripheral arterial disease responsible for this pain and erythema clinically not behaving as cellulitis but not entirely excluded keeping in mind the wound on the medial aspect of the left foot patient is empirically covered with the vancomycin to continue while watching his kidney function closely await further workup from vascular surgery Dictation was produced using [employer] dictation software. please excuse any grammatical, word or spelling errors. Time with Patient: Less than 30
[2023-10-26 08:35] LABS: Basophils # (A) 0.11 X 10*3/uL (0.00-0.10); Basophils % (A) 1.4 %; Eosinophils # (A) 0.41 X 10*3/uL (0.04-0.35); Eosinophils % (A) 5.1 %; HCT 36.1 % (39.6-50.0); HGB 11.3 g/dL (13.0-17.0); Lymphocytes # (A) 2.55 X 10*3/uL (0.90-5.00); Lymphocytes % (A) 31.7 %; MCH 31.2 pg (27.0-32.0); MCHC 31.3 g/dL (32.0-37.0); MCV 99.7 FL (80.0-97.0); Mean Platelet Volume 10.9 FL (9.5-12.2); Monocytes # (A) 0.98 X 10*3/uL (0.20-1.00); Monocytes % (A) 12.2 %; NRBC Per 100 WBC 0 X 10*3/uL (0.00-0.01); Neutrophils # (A) 3.97 X 10*3/uL (1.80-7.70); Neutrophils % (A) 49.4 %; Platelet Count 238 X 10*3/uL (140-440); RBC 3.62 X 10*6/uL (4.40-5.60); RDW 12.9 % (11.5-14.5); WBC 8.04 X 10*3/uL (4.50-10.00)
[2023-10-26 08:45] LABS: ALT 12 U/L (10-49); AST 18 U/L (14-35); Albumin 4.1 g/dL (3.8-4.9); Albumin/Globulin Ratio 2.16 Ratio (1.60-3.17); Alkaline Phosphatase 65 U/L (41-126); BUN/Creat Ratio 12.12 Ratio (12.00-20.00); Blood Urea Nitrogen 9.7 mg/dL (9.0-27.0); Carbon Dioxide 23.8 mmol/L (21.6-31.8); Chloride 104 mmol/L (96-109); Globulin 1.9 g/dL (1.6-3.3); Glucose 96 mg/dL (70-110); Potassium 4.3 mmol/L (3.5-5.5); Sodium 137 mmol/L (135-145); Total Bilirubin <0.2 mg/dL (0.3-1.2)
[2023-10-26] MEDS: cilostazoL 100 MG TAB PO SCH (10:25)
--- NOTE | 2023-10-26 12:31 | P.PN ---
Subjective Progress Note Date: 10/26/23 Principal diagnosis: Peripheral arterial disease Patient is seen and examined today as a follow-up. He states pain in his left foot and lower extremity has improved significantly. He has been ambulating in the hallways and walking around the entire unit without any pain. He has remained on an IV heparin drip throughout the weekend. He has good capillary refill. He denies any shortness of breath, chest pain, or lower extremity pain at this time. Objective - Vital Signs Vital signs: Vital Signs Temp 97.6 F 10/26/23 07:07 Pulse 63 10/26/23 09:35 Resp 20 10/26/23 09:35 BP 160/69 10/26/23 07:07 Pulse Ox 98 10/26/23 07:07 FiO2 Intake & Output 10/25/23 10/26/23 10/26/23 18:59 06:59 18:59 Intake Total 258.216 Balance 258.216 Intake: Intake, IV Titration 258.216 Amount Heparin Sod,Pork in 0.45% 258.216 NaCl 25,000 unit In 0.45 % NaCl 1 250ml.bag @ 18 UNITS/KG/HR 11.676 mls/hr IV .[id number] [facility] Rx#: [id number] Other: Voiding Method Toilet # Voids 4 5 # Bowel Movements 1 - Exam General appearance: The patient is alert, oriented, appears in no acute distress. HET: Head is normocephalic and atraumatic. Pupils are equal and reactive. Neck: Supple. Abdomen: Soft, nontender, nondistended. Extremities: Bilateral lower extremity erythema to feet and [place]. Left lower extremity with good capillary refill 3 to 4 seconds. Sensorimotor intact. Neurological: No focal deficits. Strength and sensation are grossly intact. - Labs CBC & Chem 7: 10/26/23 05:19 10/26/23 05:19 Labs: Abnormal Lab Results - Last 24 Hours (Table) 10/25/23 10/26/23 10/26/23 Range/Units 19:36 05:19 05:19 RBC 3.62 L (4.40-5.60) X 10*6/uL Hgb 11.3 L (13.0-17.0) g/dL Hct 36.1 L (39.6-50.0) % MCV 99.7 H (80.0-97.0) FL MCHC 31.3 L (32.0-37.0) g/dL Eosinophils # 0.41 H (0.04-0.35) X 10*3/uL Basophils # 0.11 H (0.00-0.10) X 10*3/uL APTT 116.8 H* (22.0-30.0) sec Total Bilirubin <0.2 L (0.3-1.2) mg/dL Total Protein 6.0 L (6.2-8.2) g/dL 10/26/23 Range/Units 05:19 RBC (4.40-5.60) X 10*6/uL Hgb (13.0-17.0) g/dL Hct (39.6-50.0) % MCV (80.0-97.0) FL MCHC (32.0-37.0) g/dL Eosinophils # (0.04-0.35) X 10*3/uL Basophils # (0.00-0.10) X 10*3/uL APTT 75.0 H (22.0-30.0) sec Total Bilirubin (0.3-1.2) mg/dL Total Protein (6.2-8.2) g/dL Microbiology - Last 24 Hours (Table) 10/23/23 08:48 Blood Culture - Preliminary Blood 10/23/23 08:33 Blood Culture - Preliminary Blood Assessment and Plan Assessment: 1. Occlusion of left common iliac/SFA with improved perfusion to left lower extremity on heparin drip 2. Left great toe ulcer, non-infected 3. History of peripheral arterial disease critical limb ischemia status post aortobifemoral bypass with bilateral common femoral artery endarterectomy 4. Chronic nicotine dependence 5. COPD 6. Hyperlipidemia 7. Hypertension Plan: 1. Discontinue heparin drip, start pletal 100 mg twice daily 2. Encourage ambulation 3. Vein mapping ordered and reviewed 4. Patient may have heart healthy diet 5. Continue with education and recommendation on effects of smoking and peripheral arterial disease. Recommend smoking cessation. 6. Patient's pain significantly improved on heparin drip. Will hold off on left fem-tib bypass at this time. Recommend Pletal 100 mg twice daily, this was discussed with Dr. Nesbitt as patient is on Lexapro and can cause increased side effects. He is to address with patient and consider discontinuing or changing Lexapro. He stated he would see patient and decide continuing Pletal and Lexapro. Thank you for this consultation, patient is cleared for discharge. He will follow-up in the office next week. Further recommendations forthcoming at that time The impression and plan of care has been dictated as directed. I performed a history and examination of this patient, discussed the same with the dictator. I agree with the dictator's note ,documented as a scribe. Any additional findings or plans will be noted.
--- NOTE | 2023-10-26 13:41 | P.PN ---
Subjective Progress Note Date: 10/26/23 Eric Rodriguez, is a 58-year-old male who presented to [facility] emergency room with a chief complaint of bilateral lower extremity pain, with ulcers on his feet. He was evaluated in the emergency room vital examination on presentation revealed a temperature of 97.8 pulse 85 respiration 18 blood pressure 162/72 pulse ox 99% on room air Laboratory data revealed a white blood count of 9.6 hemoglobin 13.4 platelet count 342 BUN 19 creatinine 0.94 Testing in the emergency room revealed left foot x-ray revealed skin defect near the medial aspect of the great toe no evidence for osseous erosion no evidence for acute fracture Patient was admitted to medical floor for further evaluation and treatment, vascular surgery consultation was requested. Past medical history is significant for history of COPD, history of asthma, history of hypertension, hyperlipidemia, osteoarthritis, severe peripheral vascular disease with history of aortobifemoral bypass graft surgery, history of tobacco use. On review of systems there is no fever or chills no headache or dizziness no chest pain no shortness of breath no cough no nausea or vomiting no abdominal pain no diarrhea no blood in the stools no burning with urination no frequency or urgency no hematuria. on 10/24/2023 patient was seen and examined on the medical floor, he is alert and oriented 3 in no apparent distress he is complaining of bilateral lower extremity pain otherwise he denies any complaints, there is no fever or chills no headache or dizziness no chest pain no shortness of breath no cough no nausea or vomiting no abdominal pain no diarrhea and no urinary symptoms. Vital exam reveals temperature of 98.4 pulse 78 respirations 17 blood pressure 137/67 pulse ox 94% on room air, white blood count 7.2 hemoglobin 12.3 platelet count 253, patient remains on IV heparin vascular surgery and infectious disease are following On 10/24/2022 for patient's alert and oriented 3. Patient still complaining of some bilateral lower extremity pain.patient remains on IV heparin and IV antibiotics. Vascular and infectious disease services are following. Current vital signs temp 98.1, heart rate 81, respiratory rate 19, blood pressure 135/87 with a pulse ox of 95% on room air. on 10/26/2023 patient was seen and examined on the medical floor, he is alert and oriented 3 in no apparent distress he is complaining of bilateral lower extremity pain, howerver this improved significantly since admission, otherwise he denies any complaints, there is no fever or chills no headache or dizziness no chest pain no shortness of breath no cough no nausea or vomiting no abdominal pain no diarrhea and no urinary symptoms. peripheral vascular surgery recommendation, discontinue IV heparin and start Pletal which interacts with L exapro, will discontinue Lexapro and start Wellbutrin, will monitor test tomorrow if stable patient can be discharged home, he will follow-up as outpatient with vascular surgery, he was counseled again in length in regard to smoking cessation. Objective - Vital Signs Vital signs: Vital Signs Temp 98.2 F 10/26/23 01:28 Pulse 74 10/26/23 01:28 Resp 20 10/26/23 01:28 BP 154/65 10/26/23 01:28 Pulse Ox 97 10/26/23 01:28 FiO2 Intake & Output 10/25/23 10/26/23 10/26/23 18:59 06:59 18:59 Intake Total 258.216 Balance 258.216 Intake: Intake, IV Titration 258.216 Amount Heparin Sod,Pork in 0.45% 258.216 NaCl 25,000 unit In 0.45 % NaCl 1 250ml.bag @ 18 UNITS/KG/HR 11.676 mls/hr IV .[id number] [facility] Rx#: [id number] Other: # Voids 4 5 # Bowel Movements 1 - Exam Head normocephalic Neck supple Lungs clear to auscultation bilaterally no wheezing or crackles Heart regular rate and rhythm S1-S2, no rub or gallop Abdomen is soft nontender nondistended positive bowel sounds no hepat osplenomegaly Extremities no edema. Bilateral lower extremity erythema Neuro alert and orientated to 3 - Labs CBC & Chem 7: 10/26/23 05:19 10/26/23 05:19 Labs: Abnormal Lab Results - Last 24 Hours (Table) 10/25/23 10/25/23 10/25/23 Range/Units 04:50 04:50 19:36 RBC 3.43 L (4.40-5.60) X 10*6/uL Hgb 11.2 L (13.0-17.0) g/dL Hct 34.9 L (39.6-50.0) % MCV 101.7 H (80.0-97.0) FL MCH 32.7 H (27.0-32.0) pg APTT 116.8 H* (22.0-30.0) sec Total Bilirubin <0.2 L (0.3-1.2) mg/dL Total Protein 6.0 L (6.2-8.2) g/dL 10/26/23 Range/Units 05:19 RBC (4.40-5.60) X 10*6/uL Hgb (13.0-17.0) g/dL Hct (39.6-50.0) % MCV (80.0-97.0) FL MCH (27.0-32.0) pg APTT 75.0 H (22.0-30.0) sec Total Bilirubin (0.3-1.2) mg/dL Total Protein (6.2-8.2) g/dL Microbiology - Last 24 Hours (Table) 10/23/23 08:48 Blood Culture - Preliminary Blood 10/23/23 08:33 Blood Culture - Preliminary Blood Assessment and Plan Plan: bilateral lower extremity cellulitis with ulcers, patient was started on IV clindamycin in the emergency room, Will consult infectious disease Severe peripheral vascular disease with history of aortobifemoral bypass surgery, consultation for vascular surgery was initiated Underlying history of hypertension Underlying history of hyperlipidemia Underlying history of osteoarthritis Underlying history of COPD Underlying history of gastroesophageal reflux disease Underlying history of depression At this time patient was seen and examined Home medications reviewed and reordered Continue with IV clindamycin at this time Add infectious disease consultation patient was started on IV heparin in the emergency room Will follow closely
[2023-10-26] MEDS: VANCOMYCIN TROUGH DUE 1 EACH MISC MISCELLANE ONE (17:41)
[2023-10-27 06:16] LABS: African American GFR (CKD) >90 (>60 ml/min/1.73 sqM); Non-African American GFR(CKD) >90 (>60 ml/min/1.73 sqM)
--- NOTE | 2023-10-27 08:31 | P.PN ---
Subjective Progress Note Date: 10/27/23 Principal diagnosis: Peripheral arterial disease Patient is seen and examined today as a follow-up. Lower extremity pain improved. He has been ambulating in the hallways and walking around the entire unit without any pain. He was started on Pletal yesterday it was discussed with his PCP Dr. Nesbitt there can be an interaction between Pletal and Lexapro. His Lexapro was discontinued and he was started on Wellbutrin and kept overnight for observation. Plan is for discharge home today with outpatient follow-up. Patient denies any shortness of breath, chest pain, abdominal pain, nausea or vomiting. No signs of bleeding. Objective - Vital Signs Vital signs: Vital Signs Temp 97.9 F 10/27/23 02:00 Pulse 63 10/27/23 02:00 Resp 15 10/27/23 02:00 BP 129/57 10/27/23 02:00 Pulse Ox 90 L 10/27/23 02:00 FiO2 Intake & Output 10/26/23 10/27/23 10/27/23 18:59 06:59 18:59 Intake Total 606 Balance 606 Intake: Oral 606 Other: Voiding Method Toilet Toilet # Voids 3 2 # Bowel Movements 1 - Exam General appearance: The patient is alert, oriented, appears in no acute distress. HET: Head is normocephalic and atraumatic. Pupils are equal and reactive. Neck: Supple. Abdomen: Soft, nontender, nondistended. Extremities: Bilateral lower extremity erythema to feet and [place]. Left lower extremity with good capillary refill 3 to 4 seconds. Sensorimotor intact. Neurological: No focal deficits. Strength and sensation are grossly intact. - Labs CBC & Chem 7: 10/26/23 05:19 10/27/23 05:04 Labs: Abnormal Lab Results - Last 24 Hours (Table) 10/26/23 10/26/23 10/26/23 Range/Units 05: 05: 12:34 RBC 3.62 L (4.40-5.60) X 10*6/uL Hgb 11.3 L (13.0-17.0) g/dL Hct 36.1 L (39.6-50.0) % MCV 99.7 H (80.0-97.0) FL MCHC 31.3 L (32.0-37.0) g/dL Eosinophils # 0.41 H (0.04-0.35) X 10*3/uL Basophils # 0.11 H (0.00-0.10) X 10*3/uL APTT 49.9 H (22.0-30.0) sec Total Bilirubin <0.2 L (0.3-1.2) mg/dL Total Protein 6.0 L (6.2-8.2) g/dL Microbiology - Last 24 Hours (Table) 10/23/23 08:48 Blood Culture - Preliminary Blood 10/23/23 08:33 Blood Culture - Preliminary Blood Assessment and Plan Assessment: 1. Occlusion of left common iliac/SFA with improved perfusion to left lower extremity on heparin drip 2. Left great toe ulcer, non-infected 3. History of peripheral arterial disease critical limb ischemia status post aortobifemoral bypass with bilateral common femoral artery endarterectomy 4. Chronic nicotine dependence 5. COPD 6. Hyperlipidemia 7. Hypertension Plan: 1. Continue Pletal 100 mg twice daily 2. Encourage ambulation 3. Vein mapping ordered and reviewed 4. Patient may have heart healthy diet 5. Continue with education and recommendation on effects of smoking and peripheral arterial disease. Recommend smoking cessation. 6. Patient's pain significantly improved on heparin drip. Will hold off on left fem-tib bypass at this time. Recommend Pletal 100 mg twice daily, this was discussed with Dr. Nesbitt as patient is on Lexapro and can cause increased side effects. Patient was switched from Lexapro to Wellbutrin and reporting no side effects. If cleared by medicine would recommend continuing Pletal 100 mg twice daily for patient's vascular disease. Thank you for this consultation, patient is cleared for discharge. He will follow-up in the office next week. Further recommendations forthcoming at that time The impression and plan of care has been dictated as directed. I performed a history and examination of this patient, discussed the same with the dictator. I agree with the dictator's note ,documented as a scribe. Any additional findings or plans will be noted.
[2023-10-27 08:47] VITALS: BP 114/65; PULSE 69; RESP 17; TEMP 97.5
[2023-10-27] MEDS: buPROPion XL 150 MG TAB.ER.24H PO SCH (08:51)
[2023-10-27] MEDS: VANCOMYCIN 1,000 MG in SODIUM CHLORIDE 0.9% 250 ML IVPB SCH (08:57)
--- NOTE | 2023-10-27 13:16 | P.DS ---
Providers Date of admission: 10/23/23 09:44 Expected date of discharge: 10/27/23 Attending physician: Mariana Nesbitt Consults: 10/23/23 09:43 Consult Physician Urgent Consulting Provider: Harrison Syed Consult Reason/Comments: ai Do you want consulting provider notified?: Already Contacted 10/23/23 14:45 Consult Physician Routine Consulting Provider: Elisabeth Mckeon Consult Reason/Comments: lower extremity cellulitis with ulcer Do you want consulting provider notified?: Yes Primary care physician: Mariana Laz [facility] Course: Diagnosis on discharge: bilateral lower extremity cellulitis with ulcers, patient was started on IV clindamycin in the emergency room, Will consult infectious disease Severe peripheral vascular disease with history of aortobifemoral bypass surgery, consultation for vascular surgery was initiated Underlying history of hypertension Underlying history of hyperlipidemia Underlying history of osteoarthritis Underlying history of COPD Underlying history of gastroesophageal reflux disease Underlying history of depression Hospital course: Eric Rodriguez, is a 58-year-old male who presented to [facility] emergency room with a chief complaint of bilateral lower extremity pain, with ulcers on his feet. He was evaluated in the emergency room vital examination on presentation revealed a temperature of 97.8 pulse 85 respiration 18 blood pressure 162/72 pulse ox 99% on room air Laboratory data revealed a white blood count of 9.6 hemoglobin 13.4 platelet count 342 BUN 19 creatinine 0.94 Testing in the emergency room revealed left foot x-ray revealed skin defect near the medial aspect of the great toe no evidence for osseous erosion no evidence for acute fracture Patient was admitted to medical floor for further evaluation and treatment, vascular surgery consultation was requested. Past medical history is significant for history of COPD, history of asthma, history of hypertension, hyperlipidemia, osteoarthritis, severe peripheral vascular disease with history of aortobifemoral bypass graft surgery, history of tobacco use. On review of systems there is no fever or chills no headache or dizziness no chest pain no shortness of breath no cough no nausea or vomiting no abdominal pain no diarrhea no blood in the stools no burning with urination no frequency or urgency no hematuria. on 10/24/2023 patient was seen and examined on the medical floor, he is alert and oriented 3 in no apparent distress he is complaining of bilateral lower extremity pain otherwise he denies any complaints, there is no fever or chills no headache or dizziness no chest pain no shortness of breath no cough no nausea or vomiting no abdominal pain no diarrhea and no urinary symptoms. Vital exam reveals temperature of 98.4 pulse 78 respirations 17 blood pressure 137/67 pulse ox 94% on room air, white blood count 7.2 hemoglobin 12.3 platelet count 253, patient remains on IV heparin vascular surgery and infectious disease are following On 10/24/2022 for patient's alert and oriented 3. Patient still complaining of some bilateral lower extremity pain.patient remains on IV heparin and IV antibiotics. Vascular and infectious disease services are following. Current vital signs temp 98.1, heart rate 81, respiratory rate 19, blood pressure 135/87 with a pulse ox of 95% on room air. on 10/26/2023 patient was seen and examined on the medical floor, he is alert and oriented 3 in no apparent distress he is complaining of bilateral lower extremity pain, howerver this improved significantly since admission, otherwise he denies any complaints, there is no fever or chills no headache or dizziness no chest pain no shortness of breath no cough no nausea or vomiting no abdominal pain no diarrhea and no urinary symptoms. peripheral vascular surgery recommendation, discontinue IV heparin and start Pletal which interacts with Lexapro, will discontinue Lexapro and start Wellbutrin, will monitor test tomorrow if stable patient can be discharged home, he will follow-up as outpatient with vascular surgery, he was counseled again in length in regard to smoking cessation. On 10/27/2023 patient was seen and examined on the medical floor, he is alert and oriented 3 in no apparent distress, pain in the lower extremities has improved. Patient was started on Pletal 100 mg by mouth twice daily, he was also switched to oral doxycycline, he was cleared by infectious disease and vascular surgery for discharge, patient will be discharged home today, follow up in the office within 1 week, follow-up with vascular surgery. Patient was counseled in length in regard to smoking cessation. Plan - Discharge Summary New Discharge Prescriptions: New Doxycycline Hyclate 100 mg PO BID #20 capsule buPROPion XL [Wellbutrin XL] 150 mg PO DAILY 30 Days #30 tab cilostazoL [Pletal] 100 mg PO BID 30 Days #60 tab Continue Tamsulosin HCl [Flomax] 0.4 mg PO HS PRN PRN Reason: URINARY ISSUES Methylphenidate HCl 20 mg PO BID@0900,1500 Bisoprolol-Hctz 5-6.25 mg [Ziac 5-6.25 MG] 1 tab PO DAILY lisinopriL [Zestril] 20 mg PO BID Butalb/APAP/Caff 50-325-40Mg [Fioricet 50-325-40] 1 tab PO DAILY PRN PRN Reason: Migraine Headache Albuterol Nebulized [Ventolin Nebulized] 2.5 mg INHALATION RT-TID PRN PRN Reason: Shortness Of Breath oxyCODONE-APAP 7.5-325MG [Percocet 7.5-325 mg] 1 tab PO TID PRN PRN Reason: Pain hydrOXYzine HCL [Atarax] 10 mg PO DAILY PRN PRN Reason: Anxiety Gabapentin [Neurontin] 600 mg PO HS Nicotine 21Mg/24Hr Patch [Habitrol] 1 patch TRANSDERM DAILY 30 Days #30 patch Simvastatin [Zocor] 20 mg PO HS Discontinued Escitalopram [Lexapro] 20 mg PO DAILY Escitalopram [Lexapro] 10 mg PO HS Discharge Medication List Bisoprolol-Hctz 5-6.25 mg [Ziac 5-6.25 MG] 1 tab PO DAILY 02/26/18 [History] Methylphenidate HCl 20 mg PO BID@0900,1500 02/26/18 [History] Tamsulosin HCl [Flomax] 0.4 mg PO HS PRN 02/26/18 [History] Albuterol Nebulized [Ventolin Nebulized] 2.5 mg INHALATION RT-TID PRN 04/21/23 [History] Butalb/APAP/Caff 50-325-40Mg [Fioricet 50-325-40] 1 tab PO DAILY PRN 04/21/23 [History] lisinopriL [Zestril] 20 mg PO BID 04/21/23 [History] Gabapentin [Neurontin] 600 mg PO HS 08/22/23 [History] Nicotine 21Mg/24Hr Patch [Habitrol] 1 patch TRANSDERM DAILY 30 Days #30 patch 09/02/23 [Rx] Simvastatin [Zocor] 20 mg PO HS 10/23/23 [History] hydrOXYzine HCL [Atarax] 10 mg PO DAILY PRN 10/23/23 [History] oxyCODONE-APAP 7.5-325MG [Percocet 7.5-325 mg] 1 tab PO TID PRN 10/23/23 [History] Doxycycline Hyclate 100 mg PO BID #20 capsule 10/27/23 [Rx] buPROPion XL [Wellbutrin XL] 150 mg PO DAILY 30 Days #30 tab 10/27/23 [Rx] cilostazoL [Pletal] 100 mg PO BID 30 Days #60 tab 10/27/23 [Rx] Follow up Appointment(s)/Referral(s): Harrison Syed DO [STAFF PHYSICIAN] - 1 Week Mariana Nesbitt MD [Primary Care Provider] - 1-2 days
--- NOTE | 2023-10-27 15:27 | P.PN ---
Subjective Progress Note Date: 10/26/23 Principal diagnosis: Reason for follow-up is left foot wound and concern for possible cellulitis Patient is a 58-year-old male with a past medical history significant for hypertension hyperlipidemia COPD reflux osteoarthritis who recently underwent aortobifemoral bypass graft bilateral common femoral artery endarterectomy on 08/28/2023 for bilateral lower extremity ischemic pain/PAD patient did have a history of significant smoking and continues to smoke presenting to the hospital for evaluation of bilateral foot pain and soles, the patient did have a wound on the medial aspect of the left big toe concerning for cellulitis prompting this consultation. On today's evaluation that is 10/26/2023,the patient remains to be afebrile, patient is on room air not requiring supplemental oxygen and denies any shortness of breath no chest pain or cough.Patient denies having any nausea or vomiting, no abdominal pain and no diarrhea has been reported, patient complaining of pain to bilateral foot however denies any worsening pain mention is able to walk around the [place] without any problem Patient did have white count of 8.04, creatinine 0.8 Objective - Vital Signs Vital signs: Vital Signs Temp 97.6 F 10/26/23 07:07 Pulse 63 10/26/23 09:35 Resp 20 10/26/23 09:35 BP 160/69 10/26/23 07:07 Pulse Ox 98 10/26/23 07:07 FiO2 Intake & Output 10/25/23 10/26/23 10/26/23 18:59 06:59 18:59 Intake Total 258.216 Balance 258.216 Intake: Intake, IV Titration 258.216 Amount Heparin Sod,Pork in 0.45% 258.216 NaCl 25,000 unit In 0.45 % NaCl 1 250ml.bag @ 18 UNITS/KG/HR 11.676 mls/hr IV .[id number] [facility] Rx#: [id number] Other: Voiding Method Toilet # Voids 4 5 # Bowel Movements 1 - Exam GENERAL DESCRIPTION: Middle-age male lying in bed in no distress RESPIRATORY SYSTEM: Unlabored breathing , decreased breath sounds at bases HEART: S1 S2 regular rate and rhythm , ABDOMEN: Soft , no tenderness EXTREMITIES: Bilateral feet he did have erythema but cold to touch wound on the medial aspect of the left foot but no drainage - Labs CBC & Chem 7: 10/26/23 05:19 10/27/23 05:04 Labs: Abnormal Lab Results - Last 24 Hours (Table) 10/25/23 10/26/23 10/26/23 Range/Units 19:36 05:19 05:19 RBC 3.62 L (4.40-5.60) X 10*6/uL Hgb 11.3 L (13.0-17.0) g/dL Hct 36.1 L (39.6-50.0) % MCV 99.7 H (80.0-97.0) FL MCHC 31.3 L (32.0-37.0) g/dL Eosinophils # 0.41 H (0.04-0.35) X 10*3/uL Basophils # 0.11 H (0.00-0.10) X 10*3/uL APTT 116.8 H* (22.0-30.0) sec Total Bilirubin <0.2 L (0.3-1.2) mg/dL Total Protein 6.0 L (6.2-8.2) g/dL 10/26/23 Range/Units 05:19 RBC (4.40-5.60) X 10*6/uL Hgb (13.0-17.0) g/dL Hct (39.6-50.0) % MCV (80.0-97.0) FL MCHC (32.0-37.0) g/dL Eosinophils # (0.04-0.35) X 10*3/uL Basophils # (0.00-0.10) X 10*3/uL APTT 75.0 H (22.0-30.0) sec Total Bilirubin (0.3-1.2) mg/dL Total Protein (6.2-8.2) g/dL Microbiology - Last 24 Hours (Table) 10/23/23 08:48 Blood Culture - Preliminary Blood 10/23/23 08:33 Blood Culture - Preliminary Blood Assessment and Plan (1) Wound of left foot Status: Acute Code(s): S91.302A - UNSPECIFIED OPEN WOUND, LEFT FOOT, INITIAL ENCOUNTER SNOMED Code(s): 85935210198820661 (2) Cellulitis of both feet Status: Acute Code(s): L03.115 - CELLULITIS OF RIGHT LOWER LIMB; L03.116 - CELLULITIS OF LEFT LOWER LIMB SNOMED Code(s): 959288552 Plan: 1patient presented to hospital with bilateral lower extremity pain did have ulceration to the right great toe x-ray did not show any evidence of bony changes patient did have mostly features of peripheral arterial disease responsible for this pain possible component of cellulitis with the patient getting vancomycin patient mention some improvement in the pain to continue vancomycin while waiting for the culture to finalize Dictation was produced using [employer] dictation software. please excuse any grammatical, word or spelling errors. Time with Patient: Less than 30
--- NOTE | 2023-10-27 15:28 | P.PN ---
Subjective Progress Note Date: 10/27/23 Principal diagnosis: Reason for follow-up is left foot wound and concern for possible cellulitis Patient is a 58-year-old male with a past medical history significant for hypertension hyperlipidemia COPD reflux osteoarthritis who recently underwent aortobifemoral bypass graft bilateral common femoral artery endarterectomy on 08/28/2023 for bilateral lower extremity ischemic pain/PAD patient did have a history of significant smoking and continues to smoke presenting to the hospital for evaluation of bilateral foot pain and soles, the patient did have a wound on the medial aspect of the left big toe concerning for cellulitis prompting this consultation. On today's evaluation that is 10/27/2023, the patient continues to be afebrile, the patient is on room air and breathing comfortably, the Pt denies having any chest pain or cough, the patient denies having any abdominal pain no vomiting or any diarrhea has been reported by the nursing staff, patient mention pain to bilateral feet has decreased in intensity is able to walk on with less pain and denies having any foul-smelling drainage. Patient did have a creatinine 0.89 vancomycin trough is 18.9 blood culture negative so far Objective - Vital Signs Vital signs: Vital Signs Temp 97.5 F L 10/27/23 07:14 Pulse 69 10/27/23 07:14 Resp 17 10/27/23 07:14 BP 114/65 10/27/23 07:14 Pulse Ox 95 10/27/23 07:14 FiO2 Intake & Output 10/26/23 10/27/23 10/27/23 18:59 06:59 18:59 Intake Total 606 Balance 606 Intake: Oral 606 Other: Voiding Method Toilet Toilet # Voids 3 2 # Bowel Movements 1 - Exam GENERAL DESCRIPTION: Middle-age male lying in bed in no distress RESPIRATORY SYSTEM: Unlabored breathing , decreased breath sounds at bases HEART: S1 S2 regular rate and rhythm , ABDOMEN: Soft , no tenderness EXTREMITIES: Bilateral feet he did have erythema but cold to touch wound on the medial aspect of the left foot but no drainage - Labs CBC & Chem 7: 10/26/23 05:19 10/27/23 05:04 Labs: Abnormal Lab Results - Last 24 Hours (Table) 10/26/23 Range/Units 12:34 APTT 49.9 H (22.0-30.0) sec Microbiology - Last 24 Hours (Table) 10/23/23 08:48 Blood Culture - Preliminary Blood 10/23/23 08:33 Blood Culture - Preliminary Blood Assessment and Plan (1) Wound of left foot Status: Acute Code(s): S91.302A - UNSPECIFIED OPEN WOUND, LEFT FOOT, INITIAL ENCOUNTER SNOMED Code(s): 42723600495956665 (2) Cellulitis of both feet Status: Acute Code(s): L03.115 - CELLULITIS OF RIGHT LOWER LIMB; L03.116 - CELLULITIS OF LEFT LOWER LIMB SNOMED Code(s): 591511775 Plan: 1patient presented to hospital with bilateral lower extremity pain did have ulceration to the right great toe x-ray did not show any evidence of bony changes patient did have mostly features of peripheral arterial disease responsible for this pain possible component of cellulitis with the patient getting vancomycin patient mention some improvement in the pain with vancomycin culture has been negative so far we will consider short course of oral doxycycline on discharge prescription sent discussed with admitting team Dictation was produced using [employer] dictation software. please excuse any grammatical, word or spelling errors. Time with Patient: Less than 30
== END 2023-10-27 14:14 | disposition home or self-care (01) | DRG 197 ==
LOC: EC 08:13 → 4SSUR 09:44
PROVIDERS: ADMIT Internal Medicine; ATTEND Internal Medicine
DX: I70.345 Atherosclerosis of unspecified type of bypass graft(s) of the left leg with ulceration of other part of foot (principal); L03.115 Cellulitis of right lower limb; E87.1 Hypo-osmolality and hyponatremia; I70.335 Atherosclerosis of unspecified type of bypass graft(s) of the right leg with ulceration of other part of foot; L97.519 Non-pressure chronic ulcer of other part of right foot with unspecified severity; L03.116 Cellulitis of left lower limb; L97.529 Non-pressure chronic ulcer of other part of left foot with unspecified severity; J44.89 Other specified chronic obstructive pulmonary disease; I10 Essential (primary) hypertension; F32.A Depression, unspecified; Z66 Do not resuscitate; E78.5 Hyperlipidemia, unspecified; K21.9 Gastro-esophageal reflux disease without esophagitis; M19.90 Unspecified osteoarthritis, unspecified site; R26.2 Difficulty in walking, not elsewhere classified; F17.200 Nicotine dependence, unspecified, uncomplicated; Z71.6 Tobacco abuse counseling; Z79.899 Other long term (current) drug therapy
CPT/HCPCS: 36415; 75635; 80053; 80202; 82272; 82565; 83605; 84145; 85025; 85610; 85730; 86140; 87040; 93005; 96365; 96366; 96367; 96368; 96375; 99285

== ENCOUNTER 2023-11-10 02:21 | Observation (INO) | payer OTHER ==
[2023-11-10] MEDS: ACETAMINOPHEN TAB 500 MG TAB PO STA (04:13)
[2023-11-10] MEDS: HYDROmorphone 1 MG/ML 1 ML SYRINGE IVP STA (04:14)
[2023-11-10 04:15] LABS: ALT 14 U/L (4-49); AST 20 U/L (17-59); African American GFR (CKD) 53 (>60 ml/min/1.73 sqM); Albumin 4.4 g/dL (3.5-5.0); Alkaline Phosphatase 89 U/L (38-126); Anion Gap 12 mmol/L; Blood Urea Nitrogen 40 mg/dL (9-20); Calcium 9.4 mg/dL (8.4-10.2); Carbon Dioxide 16 mmol/L (22-30); Chloride 108 mmol/L (98-107); Glucose 90 mg/dL (74-99); Non-African American GFR(CKD) 46 (>60 ml/min/1.73 sqM); Potassium 4.2 mmol/L (3.5-5.1); Sodium 136 mmol/L (137-145); Total Bilirubin 0.3 mg/dL (0.2-1.3); Total Protein 7.4 g/dL (6.3-8.2)
[2023-11-10 04:34] LABS: INR 0.9 (<1.2); Partial Thromboplastin Time 25.5 sec (22.0-30.0); Prothrombin Time 9.9 sec (10.0-12.5)
[2023-11-10 04:37] LABS: Basophils # (A) 0.1 k/uL (0-0.2); Basophils % (A) 1 %; Eosinophils # (A) 0.4 k/uL (0-0.7); Eosinophils % (A) 4 %; HCT 38.3 % (39.0-53.0); HGB 12.2 gm/dL (13.0-17.5); Lymphocytes # (A) 2.2 k/uL (1.0-4.8); Lymphocytes % (A) 20 %; MCH 31.3 pg (25.0-35.0); MCHC 31.9 g/dL (31.0-37.0); MCV 98.1 fL (80.0-100.0); Mean Platelet Volume 8.5; Monocytes # (A) 0.8 k/uL (0-1.0); Monocytes % (A) 7 %; Neutrophils # (A) 7.3 k/uL (1.3-7.7); Neutrophils % (A) 66 %; Platelet Count 319 k/uL (150-450); RBC 3.91 m/uL (4.30-5.90); RDW 12.7 % (11.5-15.5); WBC 11.1 k/uL (3.8-10.6)
--- NOTE | 2023-11-10 05:11 | ED ---
Extremity Problem HPI - General Chief complaint: Extremity Problem,Nontraumatic Stated complaint: L foot pain Time Seen by Provider: 11/10/23 02:45 Source: patient, RN notes reviewed, old records reviewed Mode of arrival: wheelchair Limitations: no limitations - History of Present Illness Initial comments: 58-year-old male with past medical history significant for COPD, hypertension, hyperlipidemia, severe peripheral vascular disease with history of ao rtobifemoral femoral bypass graft surgery recent CT angiogram performed on 10/23/2023 performed showing extensive calcific disease involving bilateral superficial femoral arteries with occlusion noted at the left common iliac/SFA and anastomosis. Multifocal high-grade stenosis at bilateral SFAs and popliteal arteries. Also multifocal stenosis involving right trifurcation as well as branch vessels. Profunda femoris collaterals are noted. Was seen here and discharged on 10/27/2023 due to complaints of pain in lower extremities and ulceration as well. Reports since his discharge ulcer on his left foot has grew in size. Reports she was seen at outside hospital last week and was started on IV antibiotics however ended up leaving. Yesterday while clipping his toenails he notes he accidentally punctured his left second toe and noted purulent drainage coming from there. Denies fever or chills. No chest pain or shortness of breath. No other complaints at this time. - Related Data Home Medications Medication Instructions Recorded Confirmed Bisoprolol-Hctz 5-6.25 mg [Ziac 1 tab PO DAILY 02/26/18 10/23/23 5-6.25 MG] Methylphenidate HCl 20 mg PO BID@0900,1500 02/26/18 10/23/23 Tamsulosin HCl [Flomax] 0.4 mg PO HS PRN 02/26/18 10/23/23 Albuterol Nebulized [Ventolin 2.5 mg INHALATION RT-TID PRN 04/21/23 10/23/23 Nebulized] Butalb/APAP/Caff 50-325-40Mg 1 tab PO DAILY PRN 04/21/23 10/23/23 [Fioricet 50-325-40] lisinopriL [Zestril] 20 mg PO BID 04/21/23 10/23/23 Gabapentin [Neurontin] 600 mg PO HS 08/22/23 10/23/23 Simvastatin [Zocor] 20 mg PO HS 10/23/23 10/23/23 hydrOXYzine HCL [Atarax] 10 mg PO DAILY PRN 10/23/23 10/23/23 oxyCODONE-APAP 7.5-325MG [Percocet 1 tab PO TID PRN 10/23/23 10/23/23 7.5-325 mg] Previous Rx's Medication Instructions Recorded Nicotine 21Mg/24Hr Patch [Habitrol] 1 patch TRANSDERM DAILY 30 Days 09/02/23 #30 patch Doxycycline Hyclate 100 mg PO BID #20 capsule 10/27/23 buPROPion XL [Wellbutrin XL] 150 mg PO DAILY 30 Days #30 tab 10/27/23 cilostazoL [Pletal] 100 mg PO BID 30 Days #60 tab 10/27/23 Allergies Allergy/AdvReac Type Severity Reaction Status Date / Time No Known Allergies Allergy Verified 10/23/23 10:39 Review of Systems ROS Statement: Those systems with pertinent positive or pertinent negative responses have been documented in the HPI. ROS Other: All systems not noted in ROS Statement are negative. Past Medical History Past Medical History: Asthma, COPD, GERD/Reflux, Hyperlipidemia, Hypertension, Osteoarthritis (OA) Additional Past Medical History / Comment(s): BACK AND HIP PAIN, DIFFICULTY WALKING DISTANCE., HX OF ULCERS AND BLOOD IN STOOL. History of Any Multi-Drug Resistant Organisms: None Reported Past Surgical History: Hernia Repair Additional Past Surgical History / Comment(s): HERNIA REPAIR AT 5 & 7 YEARS OLD. Past Anesthesia/Blood Transfusion Reactions: No Reported Reaction Additional Past Anesthesia/Blood Transfusion Reaction / Comment(s): DOES NOT REMEMBER ANY ANESTHESIA PROBLEMS A CHILD. Past Psychological History: No Psychological Hx Reported Smoking Status: Current every day smoker Past Alcohol Use History: Daily Past Drug Use History: Marijuana - Past Family History Mother Family Medical History: No Reported History Additional Family Medical History / Comment(s): bipolar disorder. Brother(s) Additional Family Medical History / Comment(s): bipolar disorder. General Exam Limitations: no limitations General appearance: alert, in no apparent distress Eye exam: Present: normal appearance Neck exam: Present: normal inspection Respiratory exam: Present: normal lung sounds bilaterally Cardiovascular Exam: Present: tachycardia GI/Abdominal exam: Present: soft, normal bowel sounds. Absent: distended, tenderness, guarding, rebound, rigid Extremities exam: Present: other (Ulceration at the medial aspect of the left first toe at the joint between the first metatarsal and proximal phalanx of the great toe. No purulent drainage at this time is dried. No purulent drainage from the left second toe at this time.) Neurological exam: Present: alert, oriented X3 Skin exam: Present: warm, dry Course Vital Signs 11/10/23 11/10/23 11/10/23 02:24 03:39 05:02 Temperature 98.1 F Pulse Rate 110 H 105 H 88 Respiratory 20 16 16 Rate Blood Pressure 163/78 131/62 112/58 O2 Sat by Pulse 98 97 97 Oximetry Medical Decision Making - Medical Decision Making Was pt. sent in by a medical professional or institution (, PA, SPORTS MEDICINE SPECIALIST, urgent care, hospital, or longterm...) When possible be specific @ -No Did you speak to anyone other than the patient for history (EMS, parent, family, police, friend...)? What history was obtained from this source @ -No Did you review nursing and triage notes (agree or disagree)? Why? @ -I reviewed and agree with nursing and triage notes Were old charts reviewed (outside hosp., previous admission, EMS record, old EKG, old radiological studies, urgent care reports/EKG's, longterm records)? Report findings @ -Prior visit reviewed. For further details please see HPI. Differential Diagnosis (chest pain, altered mental status, abdominal pain women, abdominal pain men, vaginal bleeding, weakness, fever, dyspnea, syncope, hea dache, dizziness, GI bleed, back pain, seizure, CVA, palpatations, mental health, musculoskeletal)? @ -Differential Musculoskeletal Muscular strain, contusion, ligament sprain, fracture, arthritis, septic arthritis, bursitis, cellulitis, muscle spasm, nerve compression, DVT, arterial occlusion, herpes zoster, electrolyte abnormality, tumor.... This is not meant to be in all inclusive list EKG interpreted by me (3pts min.). @ -None X-rays interpreted by me (1pt min.). @ -None done CT interpreted by me (1pt min.). @ -None done U/S interpreted by me (1pt. min.). @ -None done What testing was considered but not performed or refused? (CT, X-rays, U/S, labs)? Why? @ -None What meds were considered but not given or refused? Why? @ -None Did you discuss the management of the patient with other professionals (professionals i.e. , PA, SPORTS MEDICINE SPECIALIST, lab, RT, psych nurse, public health social worker, casting wheel operator, teacher, armored vehicle officer, hospice case manager)? Give summary @ -Discussed with Dr. Nesbitt, who accepts admission Was smoking cessation discussed for >3mins.? @ -No Was critical care preformed (if so, how long)? @ -No Were there social determinants of health that impacted care today? How? (Homelessness, low income, unemployed, alcoholism, drug addiction, tr ansportation, low edu. Level, literacy, decrease access to med. care, senior care, rehab)? @ -No Was there de-escalation of care discussed even if they declined (Discuss DNR or withdrawal of care, Hospice)? DNR status @ -No What co-morbidities impacted this encounter? (DM, HTN, Smoking, COPD, CAD, Cancer, CVA, ARF, Chemo, Hep., AIDS, mental health diagnosis, sleep apnea, morbid obesity)? @ -Severe peripheral arterial disease Was patient admitted / discharged? Hospital course, mention meds given and route, prescriptions, significant lab abnormalities, going to OR and other pertinent info. @ -Admission 58-year-old male presenting to the ED with complaints of left foot pain and growing ulcer on his left foot and also notes purulent discharge from his left s econd toe yesterday. No fever or chills. Laboratory studies reviewed. CBC significant for an elevated white blood cell count at 11.1. Chemistry panel shows elevated BUN and creatinine at 40 and 1.6 respectively. Lactic acid 2. Patient will be admitted for IV antibiotics with consult to vascular surgery. Discussed plan of care with patient who is in agreement. Undiagnosed new problem with uncertain prognosis? @ -No Drug Therapy requiring intensive monitoring for toxicity (Heparin, Nitro, Insulin, Cardizem)? @ -No Were any procedures done? @ -No Diagnosis/symptom? @ -Severe peripheral arterial disease, left foot infection Acute, or Chronic, or Acute on Chronic? @ -Acute Uncomplicated (without systemic symptoms) or Complicated (systemic symptoms)? @ -Complicated Side effects of treatment? @ -No Exacerbation, Progression, or Severe Exacerbation? @ -No Poses a threat to life or bodily function? How? (Chest pain, USA, PA, pneumonia, PE, COPD, DKA, ARF, appy, cholecystitis, CVA, Diverticulitis, Homicidal, Suicidal, threat to staff... and all critical care pts) @ -Possibly - Lab Data Result diagrams: 11/10/23 03:33 11/10/23 03:33 Lab Results 11/10/23 11/10/23 11/10/23 Range/Units 03:33 03:33 03:33 WBC 11.1 H (3.8-10.6) k/uL RBC 3.91 L (4.30-5.90) m/uL Hgb 12.2 L (13.0-17.5) gm/dL Hct 38.3 L (39.0-53.0) % MCV 98.1 (80.0-100.0) fL MCH 31.3 (25.0-35.0) pg MCHC 31.9 (31.0-37.0) g/dL RDW 12.7 (11.5-15.5) % Plt Count 319 (150-450) k/uL MPV 8.5 Neutrophils % 66 % Lymphocytes % 20 % Monocytes % 7 % Eosinophils % 4 % Basophils % 1 % Neutrophils # 7.3 (1.3-7.7) k/uL Lymphocytes # 2.2 (1.0-4.8) k/uL Monocytes # 0.8 (0-1.0) k/uL Eosinophils # 0.4 (0-0.7) k/uL Basophils # 0.1 (0-0.2) k/uL PT 9.9 L (10.0-12.5) sec INR 0.9 (<1.2) APTT 25.5 (22.0-30.0) sec Sodium 136 L (137-145) mmol/L Potassium 4.2 (3.5-5.1) mmol/L Chloride 108 H (98-107) mmol/L Carbon Dioxide 16 L (22-30) mmol/L Anion Gap 12 mmol/L BUN 40 H (9-20) mg/dL Creatinine 1.62 H (0.66-1.25) mg/dL Est GFR (CKD-EPI)AfAm 53 (>60 ml/min/1.73 sqM) Est GFR (CKD-EPI)NonAf 46 (>60 ml/min/1.73 sqM) Glucose 90 (74-99) mg/dL Plasma Lactic Acid Wolf (0.7-2.0) mmol/L Calcium 9.4 (8.4-10.2) mg/dL Total Bilirubin 0.3 (0.2-1.3) mg/dL AST 20 (17-59) U/L ALT 14 (4-49) U/L Alkaline Phosphatase 89 (38-126) U/L Total Protein 7.4 (6.3-8.2) g/dL Albumin 4.4 (3.5-5.0) g/dL 11/10/23 Range/Units 03:33 WBC (3.8-10.6) k/uL RBC (4.30-5.90) m/uL Hgb (13.0-17.5) gm/dL Hct (39.0-53.0) % MCV (80.0-100.0) fL MCH (25.0-35.0) pg MCHC (31.0-37.0) g/dL RDW (11.5-15.5) % Plt Count (150-450) k/uL MPV Neutrophils % % Lymphocytes % % Monocytes % % Eosinophils % % Basophils % % Neutrophils # (1.3-7.7) k/uL Lymphocytes # (1.0-4.8) k/uL Monocytes # (0-1.0) k/uL Eosinophils # (0-0.7) k/uL Basophils # (0-0.2) k/uL PT (10.0-12.5) sec INR (<1.2) APTT (22.0-30.0) sec Sodium (137-145) mmol/L Potassium (3.5-5.1) mmol/L Chloride (98-107) mmol/L Carbon Dioxide (22-30) mmol/L Anion Gap mmol/L BUN (9-20) mg/dL Creatinine (0.66-1.25) mg/dL Est GFR (CKD-EPI)AfAm (>60 ml/min/1.73 sqM) Est GFR (CKD-EPI)NonAf (>60 ml/min/1.73 sqM) Glucose (74-99) mg/dL Plasma Lactic Acid Wolf 2.0 (0.7-2.0) mmol/L Calcium (8.4-10.2) mg/dL Total Bilirubin (0.2-1.3) mg/dL AST (17-59) U/L ALT (4-49) U/L Alkaline Phosphatase (38-126) U/L Total Protein (6.3-8.2) g/dL Albumin (3.5-5.0) g/dL Disposition Clinical Impression: Left foot infection Disposition: ADMITTED IP TO THIS HOSP Condition: Fair Referrals: Mariana Nesbitt MD [Primary Care Provider] - 1-2 days Time of Disposition: 05:24
[2023-11-10] MEDS ORDERED: VANCOMYCIN IV PER PHARMACY 1 EACH MISC MISCELLANE PRN (05:18)
[2023-11-10] MEDS ORDERED: NALOXONE 0.4 MG/ML 1 ML VIAL IV PRN (05:24)
[2023-11-10] MEDS ORDERED: ACETAMINOPHEN TAB 325 MG TAB PO PRN (05:24)
[2023-11-10] MEDS ORDERED: ONDANSETRON 4 MG/2 ML VIAL IVP PRN (05:24)
[2023-11-10] MEDS: PIPERACILLIN-TAZOBACTAM 3.375 GM in SODIUM CHLORIDE 0.9% 100 ML IVPB STA (05:42)
--- NOTE | 2023-11-10 05:43 | XR ---
EXAMINATION TYPE: XR foot complete LT DATE OF EXAM: 11/10/2023 CLINICAL HISTORY: L 1st toe ulcer r/o osteo TECHNIQUE: Frontal, lateral, and oblique images of the left foot are obtained. COMPARISON: Prior left foot x-ray October 23, 2023 FINDINGS: There is no acute fracture/dislocation evident in the left foot. No suspicious new bony de struction is seen. The joint spaces in the left foot appear within normal limits. Soft tissue swellin g with lucency or gas along the plantar surface at the level of the first metatarsophalangeal joint i s present consistent with ulceration injury. IMPRESSION: There is no convincing radiographic evidence for acute osteomyelitis. If clinical suspic ion persists further investigation with 3 phase bone scan and/or MRI may be warranted
[2023-11-10] MEDS: SODIUM CHLORIDE 0.9% 1,000 ML IV SCH (05:45)
[2023-11-10 06:38] LABS: Appearance,Urine Clear (Clear); Bilirubin,Urine Negative (Negative); Blood,Urine Negative (Negative); Color,Urine Colorless; Glucose,Urine (UA) Negative (Negative); Ketones,Urine Negative (Negative); Leukocyte Esterase,Urine Negative (Negative); Nitrite,Urine Negative (Negative); PH, Urine 5.5 (5.0-8.0); Protein,Urine Negative (Negative); Specific Gravity,Urine 1.014 (1.001-1.035); Urobilinogen,Urine <2.0 mg/dL (<2.0)
[2023-11-10] MEDS: VANCOMYCIN 1,250 MG in SODIUM CHLORIDE 0.9% 250 ML IVPB STA (07:42)
[2023-11-10] MEDS ORDERED: hydrOXYzine HCL 10 MG TAB PO PRN (09:18)
[2023-11-10] MEDS ORDERED: TAMSULOSIN 0.4 MG CAP.ER.24H PO PRN (09:18)
[2023-11-10] MEDS ORDERED: BUTALB/APAP/CAFF 50-325-40MG TAB PO PRN (09:18)
[2023-11-10] MEDS ORDERED: lisinopriL 20 MG TAB PO SCH (09:30)
[2023-11-10] MEDS: NICOTINE 21MG/24HR PATCH TRANSDERM SCH (10:17)
[2023-11-10] MEDS: METHYLPHENIDATE HCL 10 MG TAB PO SCH (10:17)
[2023-11-10] MEDS: oxyCODONE-APAP 7.5-325MG 1 EACH TAB PO PRN (10:18)
[2023-11-10] MEDS: cilostazoL 100 MG TAB PO SCH (10:18)
[2023-11-10] MEDS: BISOPROLOL-HCTZ 5-6.25 MG 1 EACH TAB PO SCH (10:18)
--- NOTE | 2023-11-10 10:28 | P.HPIM ---
History of Present Illness H&P Date: 11/10/23 This is a 58-year-old male patientWho presented to the ER with concerns of lower extremity ulcerations. Patient has had multiple admissions due to this issue and recently was admitted at [facility]. Patient was close follow- up with vascular surgery. Patient has past medical history of COPD, hypertension, hyperlipidemia, severe peripheral vascular disease previous femoral bypass graft surgery and current every day smoker.Foot x-ray completed showing no commencing radiographic evidence for acute osteomyelitis.Labwork revealing white blood cell 11.1, hemoglobin 10.2, creatinine 1.62 and bun 40. At this time patient has been admitted patient started on vancomycin and IV Zosyn. Vascular and infectious disease service is consulted. This time patient is sitting comfortably in bed complaining of bilateral lower extremity pain. Patient denies chest pain. Patient denies nausea vomiting or diarrhea. Patient denies any urinary burning or frequency. Current vital signs temp 97.6, heart rate 84, respiratory rate 16, blood pressure 124/77 with pulse ox 99% on room air Review of Systems Please refer to HPI otherwise unremarkable Past Medical History Past Medical History: Asthma, COPD, GERD/Reflux, Hyperlipidemia, Hypertension, Osteoarthritis (OA) Additional Past Medical History / Comment(s): BACK AND HIP PAIN, DIFFICULTY WALKING DISTANCE, HX OF GASTRIC ULCERS AND BLOOD IN STOOL, CALCIFICATIONS IN BILATERAL FEMORAL ARTERIES, LEFT FOOT WOUND SINCE APRIL 2023 R/T PVD History of Any Multi-Drug Resistant Organisms: None Reported Past Surgical History: Hernia Repair Additional Past Surgical History / Comment(s): HERNIA REPAIR AT 5 & 7 YEARS OLD, AORTOFEMORAL BYPASS GRAFT Past Anesthesia/Blood Transfusion Reactions: No Reported Reaction Additional Past Anesthesia/Blood Transfusion Reaction / Comment(s): DOES NOT REMEMBER ANY ANESTHESIA PROBLEMS A CHILD. Past Psychological History: Anxiety Smoking Status: Current every day smoker Past Alcohol Use History: Daily, Heavy Additional Past Alcohol Use History / Comment(s): SMOKES 1 PPD, DRINKS "8-10 BEERS DAILY" Past Drug Use History: Marijuana Additional Drug Use History / Comment(s): MARIJUANA DAILY - Past Family History Mother Family Medical History: No Reported History Additional Family Medical History / Comment(s): bipolar disorder. Brother(s) Additional Family Medical History / Comment(s): bipolar disorder. Medications and Allergies Home Medications Medication Instructions Recorded Confirmed Type Bisoprolol-Hctz 5-6.25 mg [Ziac 1 tab PO DAILY 02/26/18 11/10/23 History 5-6.25 MG] Methylphenidate HCl 20 mg PO BID@0900,1500 02/26/18 11/10/23 History Tamsulosin HCl [Flomax] 0.4 mg PO HS PRN 02/26/18 11/10/23 History Albuterol Nebulized [Ventolin 2.5 mg INHALATION RT-TID PRN 04/21/23 11/10/23 History Nebulized] Butalb/APAP/Caff 50-325-40Mg 1 tab PO DAILY PRN 04/21/23 11/10/23 History [Fioricet 50-325-40] lisinopriL [Zestril] 20 mg PO BID 04/21/23 11/10/23 History Gabapentin [Neurontin] 600 mg PO HS 08/22/23 11/10/23 History Nicotine 21Mg/24Hr Patch [Habitrol] 1 patch TRANSDERM DAILY 30 Days 09/02/23 11/10/23 Rx #30 patch Simvastatin [Zocor] 20 mg PO HS 10/23/23 11/10/23 History hydrOXYzine HCL [Atarax] 10 mg PO DAILY PRN 10/23/23 11/10/23 History oxyCODONE-APAP 7.5-325MG [Percocet 1 tab PO TID PRN 10/23/23 11/10/23 History 7.5-325 mg] buPROPion XL [Wellbutrin XL] 150 mg PO DAILY 30 Days #30 tab 10/27/23 11/10/23 Rx cilostazoL [Pletal] 100 mg PO BID 30 Days #60 tab 10/27/23 11/10/23 Rx Allergies Allergy/AdvReac Type Severity Reaction Status Date / Time No Known Allergies Allergy Verified 11/10/23 07:27 Physical Exam Vitals: Vital Signs Temp Pulse Pulse Resp BP BP Pulse Ox 11/10/23 08:27 97.6 F 84 16 124/77 99 11/10/23 07:43 98.4 F 85 16 98/63 100 11/10/23 06:46 86 16 119/67 97 11/10/23 05:02 88 16 112/58 97 11/10/23 03:39 105 H 16 131/62 97 11/10/23 02:24 98.1 F 110 H 20 163/78 98 Intake and Output 11/09/23 11/10/23 11/10/23 22:59 06:59 14:59 Other: Weight 63.503 kg 63.503 kg Head normocephalic Neck supple Lungs clear to auscultation bilaterally no wheezing or crackles Heart regular rate and rhythm S1-S2, no rub or gallop Abdomen is soft nontender nondistended positive bowel sounds no hepatosplenomega ly Extremities no edema. Bilateral lower extremity erythema with ulcerations to bilateral feet Neuro alert and orientated to 3 Results CBC & Chem 7: 11/10/23 03:33 11/10/23 03:33 Labs: Abnormal Lab Results - Last 24 Hours (Table) 11/10/23 11/10/23 11/10/23 Range/Units 03:33 03:33 03:33 WBC 11.1 H (3.8-10.6) k/uL RBC 3.91 L (4.30-5.90) m/uL Hgb 12.2 L (13.0-17.5) gm/dL Hct 38.3 L (39.0-53.0) % PT 9.9 L (10.0-12.5) sec Sodium 136 L (137-145) mmol/L Chloride 108 H (98-107) mmol/L Carbon Dioxide 16 L (22-30) mmol/L BUN 40 H (9-20) mg/dL Creatinine 1.62 H (0.66-1.25) mg/dL Thrombosis Risk Factor Assmnt - Choose All That Apply Each Factor Represents 1 point: Age 41-60 years Thrombosis Risk Factor Assessment Total Risk Factor Score: 1 Thrombosis Risk Factor Assessment Level: Low Risk Assessment and Plan Assessment: 1.Bilateral lower extremity cellulitis with ulcers patient was started on vancomycin and IV Zosyn 2. Severe peripheral vascular disease with previous history of aortofemoral bypass surgery 3. Acute kidney injury. Creatinine elevated at 1.62. Lisinopril and hydro chlorothiazide currently on hold we'll repeat labs 4. History of essential hypertension 5. History of hyperlipidemia 6. History of osteoarthritis 7. History of COPD 8. History of GERD 9. History of depression 10. History of nicotine dependence DVT prophylaxis heparin. GI prophylaxis Pepcid Patient started on IV antibiotics Repeat labs ordered Vascular infectious disease service is consulted Time with Patient: Greater than 30 (Greater than 60% of the total time spent in counseling and coordination of care)
[2023-11-10] MEDS: buPROPion XL 150 MG TAB.ER.24H PO SCH (11:00)
--- NOTE | 2023-11-10 12:30 | P.GSCN ---
History of Present Illness Consult date: 11/10/23 Reason for Consult: Left foot infection, history of severe PAD Requesting physician: Bradley Avila History of present illness: This is a pleasant 58-year-old male well-known to vascular surgery service. Scented to the emergency department with complaints of left leg pain and foot pain. 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 States that he was at [facility] a few days ago and stated he had some pus coming out of his toes. He left AGAINST MEDICAL ADVICE and was supposed to follow-up with Dr. Syed today but came to the emergency department instead. He has been soaking his feet in vinegar and wrapping it with Vaseline and plastic wrap. States he had pus coming out of his toes. He has been afebrile. No fevers or chills. Plans were to follow-up with Dr. Syed today and schedule outpatient left femoral to tibial artery bypass. Currently denies any shortness of breath, chest pain, abdominal pain, nausea or vomiting. He has been afebrile. Pain to bilateral lower extremities left greater than right. No change from previous pain. Review of Systems A 14 point review systems was completed all pertinent positives and negatives as stated in the HPI. Past Medical History Past Medical History: Asthma, COPD, GERD/Reflux, Hyperlipidemia, Hypertension, Osteoarthritis (OA) Additional Past Medical History / Comment(s): BACK AND HIP PAIN, DIFFICULTY WALKING DISTANCE., HX OF ULCERS AND BLOOD IN STOOL. History of Any Multi-Drug Resistant Organisms: None Reported Past Surgical History: Hernia Repair Additional Past Surgical History / Comment(s): HERNIA REPAIR AT 5 & 7 YEARS OLD. Past Anesthesia/Blood Transfusion Reactions: No Reported Reaction Additional Past Anesthesia/Blood Transfusion Reaction / Comm: DOES NOT REMEMBER ANY ANESTHESIA PROBLEMS A CHILD. Past Psychological History: No Psychological Hx Reported Smoking Status: Current every day smoker Past Alcohol Use History: Daily Past Drug Use History: Marijuana - Past Family History Mother Family Medical History: No Reported History Additional Family Medical History / Comment(s): bipolar disorder. Brother(s) Additional Family Medical History / Comment(s): bipolar disorder. Medications and Allergies Home Medications Medication Instructions Recorded Confirmed Type Bisoprolol-Hctz 5-6.25 mg [Ziac 1 tab PO DAILY 02/26/18 11/10/23 History 5-6.25 MG] Methylphenidate HCl 20 mg PO BID@0900,1500 02/26/18 11/10/23 History Tamsulosin HCl [Flomax] 0.4 mg PO HS PRN 02/26/18 11/10/23 History Albuterol Nebulized [Ventolin 2.5 mg INHALATION RT-TID PRN 04/21/23 11/10/23 History Nebulized] Butalb/APAP/Caff 50-325-40Mg 1 tab PO DAILY PRN 04/21/23 11/10/23 History [Fioricet 50-325-40] lisinopriL [Zestril] 20 mg PO BID 04/21/23 11/10/23 History Gabapentin [Neurontin] 600 mg PO HS 08/22/23 11/10/23 History Nicotine 21Mg/24Hr Patch [Habitrol] 1 patch TRANSDERM DAILY 30 Days 09/02/23 11/10/23 Rx #30 patch Simvastatin [Zocor] 20 mg PO HS 10/23/23 11/10/23 History hydrOXYzine HCL [Atarax] 10 mg PO DAILY PRN 10/23/23 11/10/23 History oxyCODONE-APAP 7.5-325MG [Percocet 1 tab PO TID PRN 10/23/23 11/10/23 History 7.5-325 mg] buPROPion XL [Wellbutrin XL] 150 mg PO DAILY 30 Days #30 tab 10/27/23 11/10/23 Rx cilostazoL [Pletal] 100 mg PO BID 30 Days #60 tab 10/27/23 11/10/23 Rx Allergies Allergy/AdvReac Type Severity Reaction Status Date / Time No Known Allergies Allergy Verified 11/10/23 07:27 Surgical - Exam Vital Signs Temp Pulse Resp BP Pulse Ox 98.1 F 110 H 20 163/78 98 11/10/23 02:24 11/10/23 02:24 11/10/23 02:24 11/10/23 02:24 11/10/23 02:24 General appearance: The patient is alert, oriented, appears in no acute distress. HET: Head is normocephalic and atraumatic. Pupils are equal and reactive. Neck: Supple. Heart: Regular. Lungs: Equal expansion, normal respiratory effort. Abdomen: Soft, nontender, nondistended. Extremities: Lateral lower extremity edema, with erythema and skin blanching due to peripheral arterial disease. Good capillary refill. Sensorimotor intact. Left great toe with ulcer to medial aspect, with no signs of infection or drainage. Neurological: No focal deficits. Strength and sensation are grossly intact. Results - Labs 11/10/23 03:33 11/10/23 03:33 Abnormal Lab Results - Last 24 Hours (Table) 11/10/23 11/10/23 11/10/23 Range/Units 03:33 03:33 03:33 WBC 11.1 H (3.8-10.6) k/uL RBC 3.91 L (4.30-5.90) m/uL Hgb 12.2 L (13.0-17.5) gm/dL Hct 38.3 L (39.0-53.0) % PT 9.9 L (10.0-12.5) sec Sodium 136 L (137-145) mmol/L Chloride 108 H (98-107) mmol/L Carbon Dioxide 16 L (22-30) mmol/L BUN 40 H (9-20) mg/dL Creatinine 1.62 H (0.66-1.25) mg/dL Diabetes panel 11/10/23 Range/Units 03:33 Sodium 136 L (137-145) mmol/L Potassium 4.2 (3.5-5.1) mmol/L Chloride 108 H (98-107) mmol/L Carbon Dioxide 16 L (22-30) mmol/L BUN 40 H (9-20) mg/dL Creatinine 1.62 H (0.66-1.25) mg/dL Glucose 90 (74-99) mg/dL Calcium 9.4 (8.4-10.2) mg/dL AST 20 (17-59) U/L ALT 14 (4-49) U/L Alkaline Phosphatase 89 (38-126) U/L Total Protein 7.4 (6.3-8.2) g/dL Albumin 4.4 (3.5-5.0) g/dL Calcium panel 11/10/23 Range/Units 03:33 Calcium 9.4 (8.4-10.2) mg/dL Albumin 4.4 (3.5-5.0) g/dL Pituitary panel 11/10/23 Range/Units 03:33 Sodium 136 L (137-145) mmol/L Potassium 4.2 (3.5-5.1) mmol/L Chloride 108 H (98-107) mmol/L Carbon Dioxide 16 L (22-30) mmol/L BUN 40 H (9-20) mg/dL Creatinine 1.62 H (0.66-1.25) mg/dL Glucose 90 (74-99) mg/dL Calcium 9.4 (8.4-10.2) mg/dL Adrenal panel 11/10/23 Range/Units 03:33 Sodium 136 L (137-145) mmol/L Potassium 4.2 (3.5-5.1) mmol/L Chloride 108 H (98-107) mmol/L Carbon Dioxide 16 L (22-30) mmol/L BUN 40 H (9-20) mg/dL Creatinine 1.62 H (0.66-1.25) mg/dL Glucose 90 (74-99) mg/dL Calcium 9.4 (8.4-10.2) mg/dL Total Bilirubin 0.3 (0.2-1.3) mg/dL AST 20 (17-59) U/L ALT 14 (4-49) U/L Alkaline Phosphatase 89 (38-126) U/L Total Protein 7.4 (6.3-8.2) g/dL Albumin 4.4 (3.5-5.0) g/dL - Imaging Comments: Left foot x-ray reports no convincing radiographic evidence for acute osteomyelitis. If clinical suspicion persists further investigation with three- phase bone scan and/or MRI may be warranted. Assessment and Plan Assessment: 1. Occlusion of left common iliac/SFA with improved perfusion to left lower extremity on heparin drip 2. Left great toe ulcer, non-infected 3. History of peripheral arterial disease critical limb ischemia status post aortobifemoral bypass with bilateral common femoral artery endarterectomy 4. Chronic nicotine dependence 5. COPD 6. Hyperlipidemia 7. Hypertension Plan: Patient seen and examined in the emergency department. He has no signs of infection of the left foot or great toe. Plan is for outpatient left femoral to below the knee bypass. Patient would like this scheduled at [facility]. From a vascular standpoint there is no need for admission to the hospital. Will plan for outpatient left femoral to tibial bypass as previously planned. Continue Pletal and pain management. Patient is scheduled for left femoral to tibial bypass November 16, 2023 at 0930 at [facility]. Plan discussed with primary medical physician Dr. Nesbitt. Thank you for this consultation, patient is cleared for discharge from vascular surgery. The impression and plan of care has been dictated as directed. Dr. Syed I performed a history and examination of this patient, discussed the same with the dictator. I agree with the dictator's note ,documented as a scribe. Any additional findings or plans will be noted.
[2023-11-10] MEDS ORDERED: METHYLPHENIDATE HCL 10 MG TAB PO SCH (15:00)
[2023-11-10] MEDS: GABAPENTIN 300 MG CAP PO SCH (20:14)
[2023-11-10] MEDS: HEPARIN SODIUM,PORCINE 5,000 UNIT/ML 1 ML VIAL SQ SCH (20:14)
[2023-11-10] MEDS: ATORVASTATIN 10 MG TAB PO SCH (20:14)
[2023-11-10] MEDS: ALBUTEROL NEBULIZED 2.5 MG/3 ML INHALATION PRN (20:17)
[2023-11-10] MEDS ORDERED: cilostazoL 100 MG TAB PO SCH (21:00)
--- NOTE | 2023-11-10 22:11 | P.CONS ---
History of Present Illness - Reason for Consult Consult date: 11/10/23 Left foot infection Requesting physician: Mariana Nesbitt - Chief Complaint Left foot pain swelling redness x few days - History of Present Illness Patient is a 58-year-old male with a past medical history significant for hypertension hyperlipidemia osteoarthritis reflux COPD patient did have a history of PAD and the patient is s/p recent angiogram with evidence of severe bilateral superficial femoral artery occlusion patient also have a wound on the mid aspect of the left foot with the patient mention has been draining for the last few days also to have increasing swelling redness to the left foot with worsening pain patient describes the pain to be sharp severe intensity without radiation with the symptoms the patient presented to hospital on arrival to the ER the patient was afebrile and no fever have recorded subsequently patient was not tachycardic hypotensive or hypoxic patient did have white count 11.1 BUN/creatinine has been mildly elevated liver enzymes are normal urine is negative patient has been admitted to the hospital he was started on vancomycin infectious disease was consulted for further management of antibiotic therapy Review of Systems Positive point and negatives has been mentioned in the HPI, complete review of systems was performed and all other systems are negative Past Medical History Past Medical History: Asthma, COPD, GERD/Reflux, Hyperlipidemia, Hypertension, Osteoarthritis (OA) Additional Past Medical History / Comment(s): BACK AND HIP PAIN, DIFFICULTY WALKING DISTANCE, HX OF GASTRIC ULCERS AND BLOOD IN STOOL, CALCIFICATIONS IN BILATERAL FEMORAL ARTERIES, LEFT FOOT WOUND SINCE APRIL 2023 R/T PVD History of Any Multi-Drug Resistant Organisms: None Reported Past Surgical History: Hernia Repair Additional Past Surgical History / Comment(s): HERNIA REPAIR AT 5 & 7 YEARS OLD, AORTOFEMORAL BYPASS GRAFT Past Anesthesia/Blood Transfusion Reactions: No Reported Reaction Additional Past Anesthesia/Blood Transfusion Reaction / Comm: DOES NOT REMEMBER ANY ANESTHESIA PROBLEMS A CHILD. Past Psychological History: Anxiety Smoking Status: Current every day smoker Past Alcohol Use History: Daily, Heavy Additional Past Alcohol Use History / Comment(s): SMOKES 1 PPD, DRINKS "8-10 BEERS DAILY" Past Drug Use History: Marijuana Additional Drug Use History / Comment(s): MARIJUANA DAILY - Past Family History Mother Family Medical History: No Reported History Additional Family Medical History / Comment(s): bipolar disorder. Brother(s) Additional Family Medical History / Comment(s): bipolar disorder. Medications and Allergies Home Medications Medication Instructions Recorded Confirmed Type Bisoprolol-Hctz 5-6.25 mg [Ziac 1 tab PO DAILY 02/26/18 11/10/23 History 5-6.25 MG] Methylphenidate HCl 20 mg PO BID@0900,1500 02/26/18 11/10/23 History Tamsulosin HCl [Flomax] 0.4 mg PO HS PRN 02/26/18 11/10/23 History Albuterol Nebulized [Ventolin 2.5 mg INHALATION RT-TID PRN 04/21/23 11/10/23 History Nebulized] Butalb/APAP/Caff 50-325-40Mg 1 tab PO DAILY PRN 04/21/23 11/10/23 History [Fioricet 50-325-40] lisinopriL [Zestril] 20 mg PO BID 04/21/23 11/10/23 History Gabapentin [Neurontin] 600 mg PO HS 08/22/23 11/10/23 History Nicotine 21Mg/24Hr Patch [Habitrol] 1 patch TRANSDERM DAILY 30 Days 09/02/23 11/10/23 Rx #30 patch Simvastatin [Zocor] 20 mg PO HS 10/23/23 11/10/23 History hydrOXYzine HCL [Atarax] 10 mg PO DAILY PRN 10/23/23 11/10/23 History oxyCODONE-APAP 7.5-325MG [Percocet 1 tab PO TID PRN 10/23/23 11/10/23 History 7.5-325 mg] buPROPion XL [Wellbutrin XL] 150 mg PO DAILY 30 Days #30 tab 10/27/23 11/10/23 Rx cilostazoL [Pletal] 100 mg PO BID 30 Days #60 tab 10/27/23 11/10/23 Rx Allergies Allergy/AdvReac Type Severity Reaction Status Date / Time No Known Allergies Allergy Verified 11/10/23 07:27 Physical Exam Vitals: Vital Signs Temp Pulse Pulse Resp BP BP Pulse Ox 11/10/23 08:27 97.6 F 84 16 124/77 99 11/10/23 07:43 98.4 F 85 16 98/63 100 11/10/23 06:46 86 16 119/67 97 11/10/23 05:02 88 16 112/58 97 11/10/23 03:39 105 H 16 131/62 97 11/10/23 02:24 98.1 F 110 H 20 163/78 98 Intake and Output 11/09/23 11/10/23 11/10/23 22:59 06:59 14:59 Other: Voiding Method Toilet Weight 63.503 kg 63.503 kg GENERAL DESCRIPTION: Middle-aged male lying in bed, no distress. No tachypnea or accessory muscle of respiration use. HEENT: Shows Pallor , no scleral icterus. Oral mucous membrane is dry. No pharyngeal erythema or thrush NECK: Trachea central, no thyromegaly. LUNGS: Unlabored breathing. Clear to auscultation anteriorly. No wheeze or crackle. HEART: S1, S2, regular rate and rhythm. No loud murmur ABDOMEN: Soft, no tenderness , guarding or rigidity, no organomegaly EXTREMITIES: Left foot did have swelling redness to the wound on the medial aspect at the base of the big toe with some drainage which was cultured SKIN: No rash, no masses palpable. NEUROLOGICAL: The patient is awake, alert, oriented x3, mood and affect normal. Results CBC & Chem 7: 11/10/23 03:33 11/10/23 03:33 Labs: Abnormal Lab Results - Last 24 Hours (Table) 11/10/23 11/10/23 11/10/23 Range/Units 03:33 03:33 03:33 WBC 11.1 H (3.8-10.6) k/uL RBC 3.91 L (4.30-5.90) m/uL Hgb 12.2 L (13.0-17.5) gm/dL Hct 38.3 L (39.0-53.0) % PT 9.9 L (10.0-12.5) sec Sodium 136 L (137-145) mmol/L Chloride 108 H (98-107) mmol/L Carbon Dioxide 16 L (22-30) mmol/L BUN 40 H (9-20) mg/dL Creatinine 1.62 H (0.66-1.25) mg/dL Assessment and Plan (1) Cellulitis of left foot Current Visit: Yes Status: Acute Code(s): L03.116 - CELLULITIS OF LEFT LOWER LIMB SNOMED Code(s): 26032643937139139 (2) Leukocytosis Current Visit: No Status: Acute Code(s): D72.829 - ELEVATED WHITE BLOOD CELL COUNT, UNSPECIFIED SNOMED Code(s): 062858042 (3) Wound of left foot Current Visit: No Status: Acute Code(s): S91.302A - UNSPECIFIED OPEN WOUND, LEFT FOOT, INITIAL ENCOUNTER SNOMED Code(s): 91340730960713507 Plan: 1patient presented hospital with worsening pain to the left foot in this patient who did have a history of PAD status post vascular procedure in the past unfortunately the patient continues to smoke now with concerning for possible wound infection to the left medial foot and secondary cellulitis likely from gram-positive skin art 2-local culture has been obtained to guide further antibiotic therapy 3-vancomycin pharmacy to dose target trough of 15 while watching kidney function and Vanco trough closely We will follow on clinical condition and cultures to further adjust medication if needed Thank you for this consultation we will follow the patient along with you Dictation was produced using [employer] dictation software. please excuse any grammatical, word or spelling errors. Time with Patient: Greater than 30
[2023-11-11] MEDS: VANCOMYCIN 1,250 MG in SODIUM CHLORIDE 0.9% 250 ML IVPB SCH ×2 (05:13→21:44)
[2023-11-11] MEDS ORDERED: buPROPion XL 150 MG TAB.ER.24H PO SCH (09:00)
[2023-11-11] MEDS ORDERED: NICOTINE 21MG/24HR PATCH TRANSDERM SCH (09:00)
[2023-11-11] MEDS: FAMOTIDINE 20 MG TAB PO SCH (09:33)
--- NOTE | 2023-11-11 10:50 | P.PN ---
Subjective Progress Note Date: 11/11/23 This is a 58-year-old male patientWho presented to the ER with concerns of lower extremity ulcerations. Patient has had multiple admissions due to this issue and recently was admitted at [facility] the [facility]. Patient was close follow- up with vascular surgery. Patient has past medical history of COPD, hypertension, hyperlipidemia, severe peripheral vascular disease previous femoral bypass graft surgery and current every day smoker.Foot x-ray completed showing no commencing radiographic evidence for acute osteomyelitis.Labwork revealing white blood cell 11.1, hemoglobin 10.2, creatinine 1.62 and bun 40. At this time patient has been admitted patient started on vancomycin and IV Zosyn. Vascular and infectious disease service is consulted. This time patient is sitting comfortably in bed complaining of bilateral lower extremity pain. Patient denies chest pain. Patient denies nausea vomiting or diarrhea. Patient denies any urinary burning or frequency. Current vital signs temp 97.6, heart rate 84, respiratory rate 16, blood pressure 124/77 with pulse ox 99% on room air On 11/11/2023 patient is alert and oriented 3. Patient remains on vancomycin per ID recommendation. Patient is scheduled for them bypass [facility] on Thursday. Anticipate patient will be discharged from here by Thursday and follow-up on Thursday [place].Patient denies chest pain or shortness of breath. Patient denies nausea vomiting or diarrhea. Patient denies any urinary burning or frequencyCurrent vital signs temp 97.7, heart rate 77, respiratory rate 16, blood pressure 131/71 with pulse ox 98% Objective - Vital Signs Vital signs: Vital Signs Temp 97.7 F 11/11/23 07:08 Pulse 88 11/11/23 09:32 Resp 16 11/11/23 07:08 BP 173/76 11/11/23 07:08 Pulse Ox 93 L 11/11/23 07:08 FiO2 Intake & Output 11/10/23 11/11/23 11/11/23 18:59 06:59 18:59 Intake Total 400 Balance 400 Weight 63.503 kg Intake: Intake, IV Titration 400 Amount Sodium Chloride 0.9% 1, 400 000 ml @ 50 mls/hr IV . Q20H [facility] Rx#:[id number] Other: Voiding Method Toilet Toilet # Voids 3 - Exam Head normocephalic Neck supple Lungs clear to auscultation bilaterally no wheezing or crackles Heart regular rate and rhythm S1-S2, no rub or gallop Abdomen is soft nontender nondistended positive bowel sounds no hepatosplenomegaly Extremities no edema. Bilateral lower extremity erythema with ulcerations to bilateral feet Neuro alert and orientated to 3 - Labs CBC & Chem 7: 11/10/23 03:33 11/10/23 03:33 Labs: Microbiology - Last 24 Hours (Table) 11/10/23 11:50 Gram Stain - Preliminary Foot - Left Assessment and Plan Assessment: 1.Bilateral lower extremity cellulitis with ulcers patient was started on vancom ycin and IV Zosyn 2. Severe peripheral vascular disease with previous history of aortofemoral bypass surgery 3. Acute kidney injury. Creatinine elevated at 1.62. Lisinopril and hydrochlorothiazide currently on hold we'll repeat labs 4. History of essential hypertension 5. History of hyperlipidemia 6. History of osteoarthritis 7. History of COPD 8. History of GERD 9. History of depression 10. History of nicotine dependence DVT prophylaxis heparin. GI prophylaxis Pepcid Patient started on IV antibiotics Repeat labs ordered Vascular infectious disease service is consulted Plans for surgical intervention was scheduled at [facility] on 11/16/2023
[2023-11-11 14:46] LABS: Basophils # (A) 0.1 k/uL (0-0.2); Basophils % (A) 1 %; Eosinophils # (A) 0.3 k/uL (0-0.7); Eosinophils % (A) 4 %; HCT 33.5 % (39.0-53.0); HGB 10.6 gm/dL (13.0-17.5); Lymphocytes # (A) 1.6 k/uL (1.0-4.8); Lymphocytes % (A) 20 %; MCH 31.3 pg (25.0-35.0); MCHC 31.6 g/dL (31.0-37.0); Mean Platelet Volume 8.7; Monocytes # (A) 0.5 k/uL (0-1.0); Monocytes % (A) 6 %; Neutrophils # (A) 5.6 k/uL (1.3-7.7); Neutrophils % (A) 68 %; Platelet Count 294 k/uL (150-450); RBC 3.38 m/uL (4.30-5.90); RDW 12.7 % (11.5-15.5); WBC 8.2 k/uL (3.8-10.6)
[2023-11-11 14:52] LABS: ALT 13 U/L (4-49); AST 19 U/L (17-59); African American GFR (CKD) 75 (>60 ml/min/1.73 sqM); Albumin 3.7 g/dL (3.5-5.0); Albumin/Globulin Ratio 1.4; Alkaline Phosphatase 78 U/L (38-126); Anion Gap 7 mmol/L; Blood Urea Nitrogen 29 mg/dL (9-20); Calcium 9.1 mg/dL (8.4-10.2); Carbon Dioxide 22 mmol/L (22-30); Chloride 106 mmol/L (98-107); Globulin 2.7 g/dL; Glucose 145 mg/dL (74-99); Non-African American GFR(CKD) 65 (>60 ml/min/1.73 sqM); Sodium 135 mmol/L (137-145); Total Bilirubin 0.3 mg/dL (0.2-1.3); Total Protein 6.4 g/dL (6.3-8.2)
[2023-11-11] MEDS: HYDROmorphone 0.5 MG/0.5 ML SYRINGE IVP PRN (14:58)
--- NOTE | 2023-11-11 15:37 | P.PN ---
Subjective Progress Note Date: 11/11/23 Principal diagnosis: Peripheral arterial disease, left lower extremity pain Patient is seen and examined today as a follow-up. States his pain has been fairly well-managed. Of course more he walks the more pain he will have in his left leg and foot. He is currently on IV antibiotics vancomycin and Zosyn. He has been afebrile. Normal white count today 8.2. Patient is currently meeting with case management director. Objective - Vital Signs Vital signs: Vital Signs Temp 97.7 F 11/11/23 07:08 Pulse 77 11/11/23 07:08 Resp 16 11/11/23 07:08 BP 173/76 11/11/23 07:08 Pulse Ox 93 L 11/11/23 07:08 FiO2 Intake & Output 11/10/23 11/11/23 11/11/23 18:59 06:59 18:59 Intake Total 400 Balance 400 Weight 63.503 kg Intake: Intake, IV Titration 400 Amount Sodium Chloride 0.9% 1, 400 000 ml @ 50 mls/hr IV . Q20H [facility] Rx#:[id number] Other: Voiding Method Toilet Toilet # Voids 3 - Exam General appearance: The patient is alert, oriented, appears in no acute distress. HET: Head is normocephalic and atraumatic. Pupils are equal and reactive. Neck: Supple. Abdomen: Soft, nondistended. Extremities: Bilateral lower extremity edema, with erythema and skin blanching due to peripheral arterial disease. Good capillary refill. Sensorimotor intact. Left great toe with ulcer to medial aspect, with no signs of infection or drainage. Neurological: No focal deficits. Strength and sensation are grossly intact. - Labs CBC & Chem 7: 11/11/23 14:11 11/11/23 14:11 Labs: Microbiology - Last 24 Hours (Table) 11/10/23 11:50 Gram Stain - Preliminary Foot - Left Assessment and Plan Assessment: 1. Occlusion of left common iliac/SFA with improved perfusion to left lower extremity on heparin drip 2. Left great toe ulcer, non-infected 3. History of peripheral arterial disease critical limb ischemia status post aortobifemoral bypass with bilateral common femoral artery endarterectomy 4. Chronic nicotine dependence 5. COPD 6. Hyperlipidemia 7. Hypertension Plan: 1. Patient is scheduled for outpatient left femoral to tibial bypass 11/16/2023 at [facility] per patient's request 2. Continue Pletal 3. Continue pain management 4. Patient is cleared from vascular surgery for discharge 5. Rest of medical management per primary medical team 6. Case management working with patient regarding transportation issues Thank you for this consultation, patient is cleared for discharge from vascular surgery. The impression and plan of care has been dictated as directed. Dr. Davis I performed a history and examination of this patient, discussed the same with the dictator. I agree with the dictator's note ,documented as a scribe. Any additional findings or plans will be noted.
[2023-11-12 08:17] VITALS: BP 168/76; RESP 16; TEMP 97.5
[2023-11-12 09:23] VITALS: PULSE 68
[2023-11-12 09:46] LABS: Basophils # (A) 0.09 X 10*3/uL (0.00-0.10); Basophils % (A) 1.2 %; Eosinophils # (A) 0.38 X 10*3/uL (0.04-0.35); Eosinophils % (A) 5.2 %; HCT 32.3 % (39.6-50.0); HGB 10.3 g/dL (13.0-17.0); Lymphocytes # (A) 2.51 X 10*3/uL (0.90-5.00); Lymphocytes % (A) 34.1 %; MCH 31.4 pg (27.0-32.0); MCHC 31.9 g/dL (32.0-37.0); MCV 98.5 FL (80.0-97.0); Mean Platelet Volume 11.1 FL (9.5-12.2); Monocytes # (A) 0.94 X 10*3/uL (0.20-1.00); Monocytes % (A) 12.8 %; NRBC Per 100 WBC 0 X 10*3/uL (0.00-0.01); Neutrophils # (A) 3.41 X 10*3/uL (1.80-7.70); Neutrophils % (A) 46.4 %; Platelet Count 303 X 10*3/uL (140-440); RBC 3.28 X 10*6/uL (4.40-5.60); RDW 13.2 % (11.5-14.5); WBC 7.35 X 10*3/uL (4.50-10.00)
[2023-11-12 09:48] LABS: ALT 13 U/L (10-49); AST 18 U/L (14-35); Albumin 4.1 g/dL (3.8-4.9); Albumin/Globulin Ratio 1.58 Ratio (1.60-3.17); Alkaline Phosphatase 77 U/L (41-126); BUN/Creat Ratio 20.09 Ratio (12.00-20.00); Blood Urea Nitrogen 22.1 mg/dL (9.0-27.0); Carbon Dioxide 23.5 mmol/L (21.6-31.8); Chloride 106 mmol/L (96-109); Globulin 2.6 g/dL (1.6-3.3); Glucose 59 mg/dL (70-110); Potassium 4.5 mmol/L (3.5-5.5); Sodium 138 mmol/L (135-145); Total Bilirubin <0.2 mg/dL (0.3-1.2); Total Protein 6.7 g/dL (6.2-8.2)
[2023-11-12] MEDS: VANCOMYCIN TROUGH DUE 1 EACH MISC MISCELLANE ONE (12:46)
--- NOTE | 2023-11-12 13:12 | P.DS ---
Providers Date of admission: 11/10/23 05:26 Expected date of discharge: 11/12/23 Attending physician: Mariana Nesbitt Consults: 11/10/23 05:24 Consult Physician Urgent Consulting Provider: Precious Davis Consult Reason/Comments: l foot infection hx severe PAD Do you want consulting provider notified?: Yes 11/10/23 09:17 Consult Physician Routine Consulting Provider: Elisabeth Mckeon Consult Reason/Comments: left foot infection Do you want consulting provider notified?: Yes Primary care physician: Mariana Laz [facility] Course: Diagnosis on discharge: 1. Bilateral lower extremity cellulitis with ulcers patient was started on vancomycin and IV Zosyn 2. Severe peripheral vascular disease with previous history of aortofemoral bypass surgery 3. Acute kidney injury. Creatinine elevated at 1.62. Lisinopril and hydrochlorothiazide currently on hold we'll repeat labs 4. History of essential hypertension 5. History of hyperlipidemia 6. History of osteoarthritis 7. History of COPD 8. History of GERD 9. History of depression 10. History of nicotine dependence Hospital course: This is a 58-year-old male patientWho presented to the ER with concerns of lower extremity ulcerations. Patient has had multiple admissions due to this issue and recently was admitted at [facility] the [facility]. Patient was close follow- up with vascular surgery. Patient has past medical history of COPD, hypertension, hyperlipidemia, severe peripheral vascular disease previous femoral bypass graft surgery and current every day smoker.Foot x-ray completed showing no commencing radiographic evidence for acute osteomyelitis.Labwork revealing white blood cell 11.1, hemoglobin 10.2, creatinine 1.62 and bun 40. At this time patient has been admitted patient started on vancomycin and IV Zosyn. Vascular and infectious disease service is consulted. This time patient is sitting comfortably in bed complaining of bilateral lower extremity pain. Patient denies chest pain. Patient denies nausea vomiting or diarrhea. Patient denies any urinary burning or frequency. Current vital signs temp 97.6, heart rate 84, respiratory rate 16, blood pressure 124/77 with pulse ox 99% on room air On 11/11/2023 patient is alert and oriented 3. Patient remains on vancomycin per ID recommendation. Patient is scheduled for them bypass [facility] on Thursday. Anticipate patient will be discharged from here by Thursday and follow-up on Thursday [place].Patient denies chest pain or shortness of breath. Patient denies nausea vomiting or diarrhea. Patient denies any urinary burning or frequencyCurrent vital signs temp 97.7, heart rate 77, respiratory rate 16, blood pressure 131/71 with pulse ox 98% On 11/12/2023 patient was seen and examined on the medical floor he is alert and oriented x 3 in no apparent distress, he was evaluated by Dr. Mckeon infectious disease, and was cleared for discharge on oral antibiotic Augmentin, he was also cleared up previously by vascular surgery for discharge, plan is for surgery at [facility] on Thursday. Patient Condition at Discharge: Fair Plan - Discharge Summary Discharge Rx Participant: No New Discharge Prescriptions: New Amoxic-Pot Clav 875-125Mg [Augmentin 875-125] 1 tab PO BID 7 Days #14 tab Continue Tamsulosin HCl [Flomax] 0.4 mg PO HS PRN PRN Reason: URINARY ISSUES Methylphenidate HCl 20 mg PO BID@0900,1500 Bisoprolol-Hctz 5-6.25 mg [Ziac 5-6.25 MG] 1 tab PO DAILY lisinopriL [Zestril] 20 mg PO BID Butalb/APAP/Caff 50-325-40Mg [Fioricet 50-325-40] 1 tab PO DAILY PRN PRN Reason: Migraine Headache Albuterol Nebulized [Ventolin Nebulized] 2.5 mg INHALATION RT-TID PRN PRN Reason: Shortness Of Breath oxyCODONE-APAP 7.5-325MG [Percocet 7.5-325 mg] 1 tab PO TID PRN PRN Reason: Pain hydrOXYzine HCL [Atarax] 10 mg PO DAILY PRN PRN Reason: Anxiety buPROPion XL [Wellbutrin XL] 150 mg PO DAILY 30 Days #30 tab Gabapentin [Neurontin] 600 mg PO HS Nicotine 21Mg/24Hr Patch [Habitrol] 1 patch TRANSDERM DAILY 30 Days #30 patch Simvastatin [Zocor] 20 mg PO HS cilostazoL [Pletal] 100 mg PO BID 30 Days #60 tab Discharge Medication List Bisoprolol-Hctz 5-6.25 mg [Ziac 5-6.25 MG] 1 tab PO DAILY 02/26/18 [History] Methylphenidate HCl 20 mg PO BID@0900,1500 09/21/18 [History] Tamsulosin HCl [Flomax] 0.4 mg PO HS PRN 02/26/18 [History] Albuterol Nebulized [Ventolin Nebulized] 2.5 mg INHALATION RT-TID PRN 04/21/23 [History] Butalb/APAP/Caff 50-325-40Mg [Fioricet 50-325-40] 1 tab PO DAILY PRN 04/21/23 [History] lisinopriL [Zestril] 20 mg PO BID 04/21/23 [History] Gabapentin [Neurontin] 600 mg PO HS 08/22/23 [History] Nicotine 21Mg/24Hr Patch [Habitrol] 1 patch TRANSDERM DAILY 30 Days #30 patch 09/02/23 [Rx] Simvastatin [Zocor] 20 mg PO HS 10/23/23 [History] hydrOXYzine HCL [Atarax] 10 mg PO DAILY PRN 10/23/23 [History] oxyCODONE-APAP 7.5-325MG [Percocet 7.5-325 mg] 1 tab PO TID PRN 10/23/23 [History] buPROPion XL [Wellbutrin XL] 150 mg PO DAILY 30 Days #30 tab 10/27/23 [Rx] cilostazoL [Pletal] 100 mg PO BID 30 Days #60 tab 10/27/23 [Rx] Amoxic-Pot Clav 875-125Mg [Augmentin 875-125] 1 tab PO BID 7 Days #14 tab 11/12/23 [Rx] Follow up Appointment(s)/Referral(s): Harrison Syed DO [STAFF PHYSICIAN] - 11/16/23 9:30 am (Scheduled time for left fem-tib bypass at [facility]. Surgical screening will call you for time to be there.) Mariana Nesbitt MD [Primary Care Provider] - 1-2 days Activity/Diet/Wound Care/Special Instructions: You are scheduled for left femoral to tibial artery bypass on November 15 at 9:30 AM at [facility]. Their surgery department will call you ahead of time to let you know what time to be to the hospital for surgery and what medications to take and stop prior to surgery. Nothing to eat or drink after midnight Thursday into 11/16/2023.
--- NOTE | 2023-11-12 14:39 | P.PN ---
Subjective Progress Note Date: 11/12/23 Principal diagnosis: Peripheral arterial disease, left lower extremity pain Patient was seen and examined today as a follow-up. He has been up and ambulating and showering. Pain has been well-controlled. He has been afebrile. No drainage from his wounds. Objective - Vital Signs Vital signs: Vital Signs Temp 97.5 F L 11/12/23 07:46 Pulse 68 11/12/23 08:45 Resp 16 11/12/23 07:46 BP 168/76 11/12/23 07:46 Pulse Ox 100 11/12/23 07:46 FiO2 Intake & Output 11/11/23 11/12/23 11/12/23 18:59 06:59 18:59 Intake Total 600 740 Balance 600 740 Intake: Intake, IV Titration 600 Amount Sodium Chloride 0.9% 1, 600 000 ml @ 50 mls/hr IV . Q20H ANDREW Rx#:[id number] Oral 740 Other: Voiding Method Toilet # Voids 2 - Exam General appearance: The patient is alert, oriented, appears in no acute distress. HET: Head is normocephalic and atraumatic. Pupils are equal and reactive. Neck: Supple. Abdomen: Soft, nondistended. Extremities: Bilateral lower extremity edema, with erythema and skin blanching due to peripheral arterial disease. Good capillary refill. Sensorimotor inta ct. Left great toe with ulcer to medial aspect, with no signs of infection or drainage. Neurological: No focal deficits. Strength and sensation are grossly intact. - Labs CBC & Chem 7: 11/12/23 05:03 11/12/23 05:03 Labs: Abnormal Lab Results - Last 24 Hours (Table) 11/11/23 11/11/23 11/12/23 Range/Units 14:11 14:11 05:03 RBC 3.38 L 3.28 L (4.30-5.90) m/uL Hgb 10.6 L 10.3 L (13.0-17.5) gm/dL Hct 33.5 L 32.3 L (39.0-53.0) % MCV 98.5 H (80.0-97.0) FL MCHC 31.9 L (32.0-37.0) g/dL Eosinophils # 0.38 H (0.04-0.35) X 10*3/uL Sodium 135 L (137-145) mmol/L BUN 29 H (9-20) mg/dL BUN/Creatinine Ratio (12.00-20.00) Ratio Glucose 145 H (74-99) mg/dL Total Bilirubin (0.3-1.2) mg/dL Albumin/Globulin Ratio (1.60-3.17) Ratio 11/12/23 Range/Units 05:03 RBC (4.30-5.90) m/uL Hgb (13.0-17.5) gm/dL Hct (39.0-53.0) % MCV (80.0-97.0) FL MCHC (32.0-37.0) g/dL Eosinophils # (0.04-0.35) X 10*3/uL Sodium (137-145) mmol/L BUN (9-20) mg/dL BUN/Creatinine Ratio 20.09 H (12.00-20.00) Ratio Glucose 59 L (74-99) mg/dL Total Bilirubin <0.2 L (0.3-1.2) mg/dL Albumin/Globulin Ratio 1.58 L (1.60-3.17) Ratio Microbiology - Last 24 Hours (Table) 11/10/23 11:50 Anaerobic Culture - Preliminary Foot - Left 11/10/23 11:50 Gram Stain - Preliminary Foot - Left Wound Culture - Preliminary Yeast 11/10/23 05:20 Blood Culture - Preliminary Blood 11/10/23 05:20 Blood Culture - Preliminary Blood Assessment and Plan Assessment: 1. Occlusion of left common iliac/SFA with improved perfusion to left lower extremity on heparin drip 2. Left great toe ulcer, non-infected 3. History of peripheral arterial disease critical limb ischemia status post aortobifemoral bypass with bilateral common femoral artery endarterectomy 4. Chronic nicotine dependence 5. COPD 6. Hyperlipidemia 7. Hypertension Plan: 1. Patient is scheduled for outpatient left femoral to tibial bypass 11/16/2023 at [facility] per patient's request 2. Continue Pletal 3. Continue pain management 4. Patient is cleared from vascular surgery for discharge 5. Rest of medical management per primary medical team 6. Case management working with patient regarding transportation issues Thank you for this consultation, patient is cleared for discharge from vascular surgery. The impression and plan of care has been dictated as directed. Dr. Brown I performed a history and examination of this patient, discussed the same with the dictator. I agree with the dictator's note ,documented as a scribe. Any additional findings or plans will be noted.
--- NOTE | 2023-11-12 15:10 | P.PN ---
Subjective Progress Note Date: 11/11/23 Principal diagnosis: Reason for follow-up is left foot wound and cellulitis Patient is a 58-year-old male with a past medical history significant for hypertension hyperlipidemia osteoarthritis reflux COPD patient did have a history of PAD and the patient is s/p recent angiogram with evidence of severe bilateral superficial femoral artery occlusion patient also have a wound on the mid aspect of the left foot, present to the hospital worsening pain ID was consulted concerning for cellulitis. On today's evaluation that is 11/11/2023, the patient continues to be afebrile, the patient is on room air and breathing comfortably, the Pt denies having any chest pain or cough, the patient denies having any abdominal pain no vomiting or any diarrhea, patient pain to the left foot has slightly decreased in intensity Patient white count normalized to 8.2, creat is 1.22 cultures currently pending Objective - Vital Signs Vital signs: Vital Signs Temp 97.8 F 11/11/23 12:06 Pulse 98 11/11/23 12:06 Resp 16 11/11/23 12:06 BP 159/74 11/11/23 12:06 Pulse Ox 99 11/11/23 12:06 FiO2 Intake & Output 11/10/23 11/11/23 11/11/23 18:59 06:59 18:59 Intake Total 400 Balance 400 Weight 63.503 kg Intake: Intake, IV Titration 400 Amount Sodium Chloride 0.9% 1, 400 000 ml @ 50 mls/hr IV . Q20H ANDREW Rx#:[id number] Other: Voiding Method Toilet Toilet # Voids 3 - Exam GENERAL DESCRIPTION: Middle-age male lying in bed in no distress RESPIRATORY SYSTEM: Unlabored breathing , decreased breath sounds at bases HEART: S1 S2 regular rate and rhythm , ABDOMEN: Soft , no tenderness EXTREMITIES: Left foot wound on the medial aspect redness of the left foot - Labs CBC & Chem 7: 11/12/23 05:03 11/12/23 05:03 Labs: Abnormal Lab Results - Last 24 Hours (Table) 11/11/23 11/11/23 Range/Units 14:11 14:11 RBC 3.38 L (4.30-5.90) m/uL Hgb 10.6 L (13.0-17.5) gm/dL Hct 33.5 L (39.0-53.0) % Sodium 135 L (137-145) mmol/L BUN 29 H (9-20) mg/dL Glucose 145 H (74-99) mg/dL Microbiology - Last 24 Hours (Table) 11/10/23 05:20 Blood Culture - Preliminary Blood 11/10/23 05:20 Blood Culture - Preliminary Blood 11/10/23 11:50 Gram Stain - Preliminary Foot - Left Wound Culture - Preliminary Assessment and Plan (1) Cellulitis of left foot Status: Acute Code(s): L03.116 - CELLULITIS OF LEFT LOWER LIMB SNOMED Code(s): 95026909779149493 (2) Leukocytosis Status: Acute Code(s): D72.829 - ELEVATED WHITE BLOOD CELL COUNT, UNSPECIFIED SNOMED Code(s): 003414516 (3) Wound of left foot Status: Acute Code(s): S91.302A - UNSPECIFIED OPEN WOUND, LEFT FOOT, INITIAL ENCOUNTER SNOMED Code(s): 52149694196431441 Plan: 1patient presented hospital with worsening pain to the left foot in this patient who did have a history of PAD status post vascular procedure in the past unfortunately the patient continues to smoke now with concerning for possible wound infection to the left medial foot and secondary cellulitis likely from gram-positive skin art 2-local culture has been obtained which are currently pending 3-patient to continue with vancomycin pharmacy to dose target trough of 15 advised against soaking of his feet Dictation was produced using [employer] app dictation software. please excuse any grammatical, word or spelling errors. Time with Patient: Less than 30
--- NOTE | 2023-11-12 15:11 | P.PN ---
Subjective Progress Note Date: 11/12/23 Principal diagnosis: Reason for follow-up is left foot wound and cellulitis Patient is a 58-year-old male with a past medical history significant for hypertension hyperlipidemia osteoarthritis reflux COPD patient did have a history of PAD and the patient is s/p recent angiogram with evidence of severe bilateral superficial femoral artery occlusion patient also have a wound on the mid aspect of the left foot, present to the hospital worsening pain ID was consulted concerning for cellulitis. On today's evaluation that is 11/12/2023, Patient is afebrile patient is cu rrently on room air and denies having any shortness of breath, the patient denies any chest pain or cough, the patient denies any nausea vomiting did not have any abdominal pain and no diarrhea, patient pain to the left foot has slightly decreased no further drainage was noticed on the left foot wound. Patient white count is 7.35, creatinine is 1.1 Vanco trough is low at 12.7 culture showing yeast Objective - Vital Signs Vital signs: Vital Signs Temp 97.5 F L 11/12/23 07:46 Pulse 68 11/12/23 08:45 Resp 16 11/12/23 07:46 BP 168/76 11/12/23 07:46 Pulse Ox 100 11/12/23 07:46 FiO2 Intake & Output 11/11/23 11/12/23 11/12/23 18:59 06:59 18:59 Intake Total 600 740 Balance 600 740 Intake: Intake, IV Titration 600 Amount Sodium Chloride 0.9% 1, 600 000 ml @ 50 mls/hr IV . Q20H ANDREW Rx#:[id number] Oral 740 Other: Voiding Method Toilet # Voids 2 - Exam GENERAL DESCRIPTION: Middle-age male lying in bed in no distress RESPIRATORY SYSTEM: Unlabored breathing , decreased breath sounds at bases HEART: S1 S2 regular rate and rhythm , ABDOMEN: Soft , no tenderness EXTREMITIES: Left foot wound on the medial aspect redness of the left foot - Labs CBC & Chem 7: 11/12/23 05:03 11/12/23 05:03 Labs: Abnormal Lab Results - Last 24 Hours (Table) 11/11/23 11/11/23 11/12/23 Range/Units 14:11 14:11 05:03 RBC 3.38 L 3.28 L (4.30-5.90) m/uL Hgb 10.6 L 10.3 L (13.0-17.5) gm/dL Hct 33.5 L 32.3 L (39.0-53.0) % MCV 98.5 H (80.0-97.0) FL MCHC 31.9 L (32.0-37.0) g/dL Eosinophils # 0.38 H (0.04-0.35) X 10*3/uL Sodium 135 L (137-145) mmol/L BUN 29 H (9-20) mg/dL BUN/Creatinine Ratio (12.00-20.00) Ratio Glucose 145 H (74-99) mg/dL Total Bilirubin (0.3-1.2) mg/dL Albumin/Globulin Ratio (1.60-3.17) Ratio 11/12/23 Range/Units 05:03 RBC (4.30-5.90) m/uL Hgb (13.0-17.5) gm/dL Hct (39.0-53.0) % MCV (80.0-97.0) FL MCHC (32.0-37.0) g/dL Eosinophils # (0.04-0.35) X 10*3/uL Sodium (137-145) mmol/L BUN (9-20) mg/dL BUN/Creatinine Ratio 20.09 H (12.00-20.00) Ratio Glucose 59 L (74-99) mg/dL Total Bilirubin <0.2 L (0.3-1.2) mg/dL Albumin/Globulin Ratio 1.58 L (1.60-3.17) Ratio Microbiology - Last 24 Hours (Table) 11/10/23 11:50 Anaerobic Culture - Preliminary Foot - Left 11/10/23 11:50 Gram Stain - Preliminary Foot - Left Wound Culture - Preliminary Yeast 11/10/23 05:20 Blood Culture - Preliminary Blood 11/10/23 05:20 Blood Culture - Preliminary Blood Assessment and Plan (1) Cellulitis of left foot Status: Acute Code(s): L03.116 - CELLULITIS OF LEFT LOWER LIMB SNOMED Code(s): 57180868186988490 (2) Leukocytosis Status: Acute Code(s): D72.829 - ELEVATED WHITE BLOOD CELL COUNT, UNSPECIFIED SNOMED Code(s): 566723931 (3) Wound of left foot Status: Acute Code(s): S91.302A - UNSPECIFIED OPEN WOUND, LEFT FOOT, INITIAL ENCOUNTER SNOMED Code(s): 38058799207002828 Plan: 1patient presented hospital with worsening pain to the left foot in this patient who did have a history of PAD status post vascular procedure in the past unfortunately the patient continues to smoke now with concerning for possible wound infection to the left medial foot and secondary cellulitis likely from gram-positive skin art 2-local culture has been obtained which are currently growing yeast likely colonizer we will advise a short course of oral Augmentin as no resistant bacteria has grown from the culture discussed with admitting team Dictation was produced using [employer] dictation software. please excuse any grammatical, word or spelling errors. Time with Patient: Less than 30
== END 2023-11-12 14:45 | disposition home or self-care (01) ==
LOC: EC 02:21 → 5NMEDONC 05:26 → INTOOBSV 05:26 → UNDOADMOB 05:26 → 5NMEDONC 07:34 → UNDODISIN 11-12 14:45
PROVIDERS: ADMIT Internal Medicine; ATTEND Internal Medicine
DX: L03.116 Cellulitis of left lower limb (principal); L03.115 Cellulitis of right lower limb; L97.529 Non-pressure chronic ulcer of other part of left foot with unspecified severity; D72.829 Elevated white blood cell count, unspecified; N17.9 Acute kidney failure, unspecified; I73.9 Peripheral vascular disease, unspecified; J44.9 Chronic obstructive pulmonary disease, unspecified; I10 Essential (primary) hypertension; E78.5 Hyperlipidemia, unspecified; K21.9 Gastro-esophageal reflux disease without esophagitis; F41.9 Anxiety disorder, unspecified; M19.90 Unspecified osteoarthritis, unspecified site; F17.200 Nicotine dependence, unspecified, uncomplicated; Z79.02 Long term (current) use of antithrombotics/antiplatelets; Z79.899 Other long term (current) drug therapy
CPT/HCPCS: 96376 ×2; 96361; 96366 ×3; 96372 ×3; 96365; 96367; 96375; 99285; 36415; 94640 ×3; 80053 ×3; 83605; 85025 ×3; 80202; 85610; 85730; 81003; 87040; 87070; 87205; 87075; 73630; G0378 ×4; S4990 ×3; J2543; J3370 ×2; J1644 ×3; J1170 ×3

== ENCOUNTER 2023-12-27 04:05 | Observation (INO) | payer OTHER ==
[2023-12-27] MEDS ORDERED: NALOXONE 0.4 MG/ML 1 ML VIAL IV PRN (05:10)
[2023-12-27] MEDS ORDERED: ONDANSETRON 4 MG/2 ML VIAL IVP PRN (05:10)
--- NOTE | 2023-12-27 05:14 | ED ---
Extremity Problem HPI - General Chief complaint: Extremity Problem,Nontraumatic Stated complaint: Sores on foot Time Seen by Provider: 12/27/23 04:21 Source: patient, RN notes reviewed, old records reviewed Mode of arrival: ambulatory Limitations: no limitations - History of Present Illness Initial comments: This is a 58-year-old male to the ER for evaluation of lower extremity pain severe. Severe pain of both lower extremities presenting himself to the emergency department today for evaluation of worsening pain and swelling redness of both legs both feet with worsening ulcers MD Complaint: extremity pain, extremity swelling, joint swelling, joint pain -: days(s) Location: left, right, bilateral lower extremity, toe History of Same: Yes -: Yes arthralgia Radiation: proximal, distal Severity scale (1-10): 10 Quality: sharp Consistency: constant Improves with: nothing Worsens with: nothing Associated Symptoms: denies other symptoms - Related Data Home Medications Medication Instructions Recorded Confirmed Bisoprolol-Hctz 5-6.25 mg [Ziac 1 tab PO DAILY 02/26/18 12/27/23 5-6.25 MG] Methylphenidate HCl 20 mg PO BID@0900,1500 02/26/18 12/27/23 Tamsulosin HCl [Flomax] 0.4 mg PO HS 02/26/18 12/27/23 Albuterol Nebulized [Ventolin 2.5 mg INHALATION RT-TID PRN 04/21/23 12/27/23 Nebulized] Butalb/APAP/Caff 50-325-40Mg 1 tab PO DAILY PRN 04/21/23 12/27/23 [Fioricet 50-325-40] lisinopriL [Zestril] 20 mg PO BID 04/21/23 12/27/23 Gabapentin [Neurontin] 600 mg PO HS 08/22/23 12/27/23 Simvastatin [Zocor] 20 mg PO HS 10/23/23 12/27/23 hydrOXYzine HCL [Atarax] 10 mg PO DAILY PRN 10/23/23 12/27/23 oxyCODONE-APAP 7.5-325MG [Percocet 1 tab PO TID PRN 10/23/23 12/27/23 7.5-325 mg] Albuterol Sulfate [Ventolin HFA] 2 puff INHALATION RT-QID PRN 12/27/23 12/27/23 Escitalopram Oxalate [Lexapro] 10 mg PO HS 12/27/23 12/27/23 Escitalopram Oxalate [Lexapro] 20 mg PO DAILY 12/27/23 12/27/23 traZODone HCL [Desyrel] 50 mg PO HS 12/27/23 12/27/23 Previous Rx's Medication Instructions Recorded Nicotine 21Mg/24Hr Patch [Habitrol] 1 patch TRANSDERM DAILY 30 Days 09/02/23 #30 patch buPROPion XL [Wellbutrin XL] 150 mg PO DAILY 30 Days #30 tab 10/27/23 cilostazoL [Pletal] 100 mg PO BID 30 Days #60 tab 10/27/23 Allergies Allergy/AdvReac Type Severity Reaction Status Date / Time No Known Allergies Allergy Verified 12/27/23 11:14 Review of Systems ROS Statement: Those systems with pertinent positive or pertinent negative responses have been documented in the HPI. ROS Other: All systems not noted in ROS Statement are negative. Past Medical History Past Medical History: Asthma, COPD, GERD/Reflux, Hyperlipidemia, Hypertension, Osteoarthritis (OA) Additional Past Medical History / Comment(s): BACK AND HIP PAIN, DIFFICULTY WALKING DISTANCE, HX OF GASTRIC ULCERS AND BLOOD IN STOOL, CALCIFICATIONS IN BILATERAL FEMORAL ARTERIES, LEFT FOOT WOUND SINCE APRIL 2023 R/T PVD History of Any Multi-Drug Resistant Organisms: None Reported Past Surgical History: Hernia Repair Additional Past Surgical History / Comment(s): HERNIA REPAIR AT 5 & 7 YEARS OLD, AORTOFEMORAL BYPASS GRAFT Past Anesthesia/Blood Transfusion Reactions: No Reported Reaction Additional Past Anesthesia/Blood Transfusion Reaction / Comment(s): DOES NOT REMEMBER ANY ANESTHESIA PROBLEMS A CHILD. Past Psychological History: Anxiety Smoking Status: Current every day smoker Past Alcohol Use History: Daily, Heavy Past Drug Use History: Marijuana - Past Family History Mother Family Medical History: No Reported History Additional Family Medical History / Comment(s): bipolar disorder. Brother(s) Additional Family Medical History / Comment(s): bipolar disorder. General Exam Limitations: no limitations General appearance: alert, in no apparent distress, anxious Head exam: Present: atraumatic, normocephalic, normal inspection Eye exam: Present: normal appearance, PERRL, EOMI. Absent: scleral icterus, conjunctival injection, periorbital swelling ENT exam: Present: normal exam, mucous membranes moist Neck exam: Present: normal inspection. Absent: tenderness, meningismus, lymphadenopathy Respiratory exam: Present: normal lung sounds bilaterally. Absent: respiratory distress, wheezes, rales, rhonchi, stridor Cardiovascular Exam: Present: regular rate, normal rhythm, normal heart sounds. Absent: systolic murmur, diastolic murmur, rubs, gallop, clicks GI/Abdominal exam: Present: soft, normal bowel sounds. Absent: distended, tenderness, guarding, rebound, rigid Extremities exam: Present: normal inspection, full ROM, normal capillary refill. Absent: tenderness, pedal edema, joint swelling, calf tenderness Back exam: Present: normal inspection Neurological exam: Present: alert, oriented X3, CN II-XII intact Psychiatric exam: Present: normal affect, normal mood Skin exam: Present: warm, dry, intact, normal color. Absent: rash Course Vital Signs 12/27/23 12/27/23 12/27/23 04:11 06:43 07:18 Temperature 98.0 F Pulse Rate 96 85 81 Respiratory 24 20 18 Rate Blood Pressure 176/78 158/90 160/88 O2 Sat by Pulse 97 97 97 Oximetry - Reevaluation(s) Reevaluation #1: 12/27/23 05:12 Medical records reviewed Reevaluation #2: 12/27/23 05:13 Patient's pain is improved Reevaluation #3: 12/27/23 05:13 Patient informed of results questions answered Reevaluation #4: 12/27/23 05:13 Was pt. sent in by a medical professional or institution (, PA, [employer], urgent care, hospital, or halfway...) When possible be specific @ -no Did you speak to anyone other than the patient for history (EMS, parent, family, police, friend...)? What history was obtained from this source @ -no Did you review nursing and triage notes (agree or disagree)? Why? @ -agree Are old charts reviewed (outside hosp., previous admission, EMS record, old EKG, old radiological studies, urgent care reports/EKG's, halfway records)? Report findings @ -yes Differential Diagnosis (chest pain, altered mental status, abdominal pain women, abdominal pain men, vaginal bleeding, weakness, fever, dyspnea, syncope, headache, dizziness, GI bleed, back pain, seizure, CVA, palpatations, mental health, musculoskeletal)? @ -prior EKG interpreted by me (3pts min.). @ -yes X-rays interpreted by me (1pt min.). @ -yes negative for acute disease CT interpreted by me (1pt min.). @ -no U/S interpreted by me (1pt. min.). @ -no What testing was considered but not performed or refused? (CT, X-rays, U/S, labs)? Why? @ -none What meds were considered but not given or refused? Why? @ -none Did you discuss the management of the patient with other professionals (professionals i.e. DrSavi, PA, [employer], lab, RT, psych nurse, social insurance adviser, residential youth counselor, teacher, business practices officer, case management social worker)? Give summary @ -no Was smoking cessation discussed for >3mins.? @ -no Was critical care preformed (if so, how long)? @ -no Were there social determinants of health that impacted care today? How? (Homelessness, low income, unemployed, alcoholism, drug addiction, transportation, low edu. Level, literacy, decrease access to med. care, group home, rehab)? @ -none Was there de-escalation of care discussed even if they declined (Discuss DNR or withdrawal of care, Hospice)? DNR status @ -no What co-morbidities impacted this encounter? (DM, HTN, Smoking, COPD, CAD, Cancer, CVA, ARF, Chemo, Hep., AIDS, mental health diagnosis, sleep apnea, morbid obesity)? @ -none Was patient admitted / discharged? Hospital course, mention meds given and route, prescriptions, significant lab abnormalities, going to OR and other pertinent info. @ - 58 male to ER with bilateral lower extremity cellulitis of significance. Patient has severe pain to both legs with severe peripheral arterial disease. Patient will admit for antibiotics for cellulitis of both lower extremities Admitted Undiagnosed new problem with uncertain prognosis? @ -no Drug Therapy requiring intensive monitoring for toxicity (Heparin, Nitro, Insulin, Cardizem)? @ -no Were any procedures done? @ -no Diagnosis/symptom? @ -Peripheral arterial disease severe leg pain Acute, or Chronic, or Acute on Chronic? @ -Acute Uncomplicated (without systemic symptoms) or Complicated (systemic symptoms)? @ -Complicated Side effects of treatment? @ -no Exacerbation, Progression, or Severe Exacerbation? @ -exacerbation Poses a threat to life or bodily function? How? (Chest pain, [place], [place], pneumonia, PE, COPD, DKA, ARF, appy, cholecystitis, CVA, Diverticulitis, Homicidal, Suicidal, threat to staff... and all critical care pts) @ -yes threat to limb leading to threat to life - Consultations Consultation #1: With admitting physicians who agreed to admit this patient Medical Decision Making - Medical Decision Making 58 male to ER with bilateral lower extremity cellulitis of significance. Patient has severe pain to both legs with severe peripheral arterial disease. Patient will admit for antibiotics for cellulitis of both lower extremities - Lab Data Result diagrams: 12/28/23 04:50 12/28/23 04:50 - EKG Data -: EKG Interpreted by Me ( EKG is sinus 96 [place] 160 QRS 80 QTc 412) - Radiology Data Radiology results: report reviewed (Chest x-ray is negative for acute disease), image reviewed Disposition Clinical Impression: Left foot infection, Cellulitis of left foot, Swelling of lower leg, Arterial insufficiency, Wound of left foot, Wound of foot, Cellulitis of both feet Disposition: ADMITTED IP TO THIS [facility] Condition: Fair Is patient prescribed a controlled substance at d/c from ED?: No Time of Disposition: 06:00
[2023-12-27] MEDS: SODIUM CHLORIDE 0.9% 1,000 ML IV STA (05:31)
[2023-12-27] MEDS: MORPHINE SULFATE 4 MG/ML SYRINGE IV STA (05:33)
[2023-12-27 06:02] LABS: Basophils # (A) 0.1 k/uL (0-0.2); Basophils % (A) 0 %; Eosinophils # (A) 0.4 k/uL (0-0.7); Eosinophils % (A) 4 %; HCT 39.9 % (39.0-53.0); HGB 13.1 gm/dL (13.0-17.5); Lymphocytes # (A) 2.2 k/uL (1.0-4.8); Lymphocytes % (A) 20 %; MCH 31.3 pg (25.0-35.0); MCHC 32.8 g/dL (31.0-37.0); MCV 95.4 fL (80.0-100.0); Mean Platelet Volume 7.7; Monocytes % (A) 9 %; Neutrophils # (A) 7.4 k/uL (1.3-7.7); Neutrophils % (A) 65 %; Platelet Count 363 k/uL (150-450); RBC 4.19 m/uL (4.30-5.90); RDW 12.8 % (11.5-15.5); WBC 11.3 k/uL (3.8-10.6)
--- NOTE | 2023-12-27 06:12 | XR ---
EXAM: XR Chest, 2 Views CLINICAL HISTORY: ITS.REASON XR Reason: Weakness TECHNIQUE: Frontal and lateral views of the chest. COMPARISON: No relevant prior studies available. IMPRESSION: No acute cardiopulmonary abnormality.
[2023-12-27 06:15] LABS: INR 0.8 (<1.2); Partial Thromboplastin Time 27.4 sec (22.0-30.0); Prothrombin Time 9.6 sec (10.0-12.5)
[2023-12-27 06:19] LABS: ALT 13 U/L (4-49); AST 21 U/L (17-59); African American GFR (CKD) >90 (>60 ml/min/1.73 sqM); Albumin 4.4 g/dL (3.5-5.0); Alkaline Phosphatase 100 U/L (38-126); Anion Gap 8 mmol/L; Blood Urea Nitrogen 14 mg/dL (9-20); Calcium 9.3 mg/dL (8.4-10.2); Carbon Dioxide 24 mmol/L (22-30); Chloride 100 mmol/L (98-107); Glucose 79 mg/dL (74-99); Magnesium 1.8 mg/dL (1.6-2.3); Non-African American GFR(CKD) >90 (>60 ml/min/1.73 sqM); Phosphorus 4.2 mg/dL (2.5-4.5); Potassium 4.4 mmol/L (3.5-5.1); Sodium 132 mmol/L (137-145); Total Bilirubin 0.3 mg/dL (0.2-1.3); Total Protein 7.5 g/dL (6.3-8.2)
[2023-12-27 06:28] LABS: NT-Pro-B-Type Natriuretic Pept 410 pg/mL
[2023-12-27] MEDS: SODIUM CHLORIDE 0.9% 1,000 ML IV SCH (06:43)
[2023-12-27] MEDS: MORPHINE SULFATE 4 MG/ML SYRINGE IV PRN (09:13)
--- NOTE | 2023-12-27 09:57 | P.HPIM ---
History of Present Illness H&P Date: 12/27/23 Eric Greenfield, is a 58-year-old male who presented to [facility] emergency room with a chief complaint of severe left foot pain, patient has a known history of severe peripheral vascular disease, with history of foot ulceration he was seen by vascular surgery in the past. He was evaluated in the emergency room vital examination on presentation revealed a temperature of 98 pulse 96 respiration 24 blood pressure 176/78 pulse ox 97% on room air Laboratory data reveals a white blood count of 11.3 hemoglobin 13.1 platelet count 363 sodium 132 potassium 4.4 chloride 100 CO2 24 BUN 14 creatinine 0.9 Testing in the emergency room revealed chest x-ray revealed no acute cardiopulmonary abnormality, EKG revealed sinus rhythm with left anterior fascicular block Patient was admitted to medical floor for further evaluation and treatment Review of Systems Please refer to HPI otherwise unremarkable Past Medical History Past Medical History: Asthma, COPD, GERD/Reflux, Hyperlipidemia, Hypertension, Osteoarthritis (OA) Additional Past Medical History / Comment(s): BACK AND HIP PAIN, DIFFICULTY WALKING DISTANCE, HX OF GASTRIC ULCERS AND BLOOD IN STOOL, CALCIFICATIONS IN BILATERAL FEMORAL ARTERIES, LEFT FOOT WOUND SINCE APRIL 2023 R/T PVD History of Any Multi-Drug Resistant Organisms: None Reported Past Surgical History: Hernia Repair Additional Past Surgical History / Comment(s): HERNIA REPAIR AT 5 & 7 YEARS OLD, AORTOFEMORAL BYPASS GRAFT Past Anesthesia/Blood Transfusion Reactions: No Reported Reaction Additional Past Anesthesia/Blood Transfusion Reaction / Comment(s): DOES NOT REMEMBER ANY ANESTHESIA PROBLEMS A CHILD. Past Psychological History: Anxiety Smoking Status: Current every day smoker Past Alcohol Use History: Daily, Heavy Past Drug Use History: Marijuana - Past Family History Mother Family Medical History: No Reported History Additional Family Medical History / Comment(s): bipolar disorder. Brother(s) Additional Family Medical History / Comment(s): bipolar disorder. Medications and Allergies Home Medications Medication Instructions Recorded Confirmed Type Bisoprolol-Hctz 5-6.25 mg [Ziac 1 tab PO DAILY 02/26/18 11/10/23 History 5-6.25 MG] Methylphenidate HCl 20 mg PO BID@0900,1500 02/26/18 11/10/23 History Tamsulosin HCl [Flomax] 0.4 mg PO HS PRN 02/26/18 11/10/23 History Albuterol Nebulized [Ventolin 2.5 mg INHALATION RT-TID PRN 04/21/23 11/10/23 Hi story Nebulized] Butalb/APAP/Caff 50-325-40Mg 1 tab PO DAILY PRN 04/21/23 11/10/23 History [Fioricet 50-325-40] lisinopriL [Zestril] 20 mg PO BID 04/21/23 11/10/23 History Gabapentin [Neurontin] 600 mg PO HS 08/22/23 11/10/23 History Nicotine 21Mg/24Hr Patch [Habitrol] 1 patch TRANSDERM DAILY 30 Days 09/02/23 11/10/23 Rx #30 patch Simvastatin [Zocor] 20 mg PO HS 10/23/23 11/10/23 History hydrOXYzine HCL [Atarax] 10 mg PO DAILY PRN 10/23/23 11/10/23 History oxyCODONE-APAP 7.5-325MG [Percocet 1 tab PO TID PRN 10/23/23 11/10/23 History 7.5-325 mg] buPROPion XL [Wellbutrin XL] 150 mg PO DAILY 30 Days #30 tab 10/27/23 11/10/23 Rx cilostazoL [Pletal] 100 mg PO BID 30 Days #60 tab 10/27/23 11/10/23 Rx Amoxic-Pot Clav 875-125Mg 1 tab PO BID 7 Days #14 tab 11/12/23 Rx [Augmentin 875-125] Allergies Allergy/AdvReac Type Severity Reaction Status Date / Time No Known Allergies Allergy Verified 12/27/23 04:10 Physical Exam Vitals: Vital Signs Temp Pulse Pulse Resp BP BP Pulse Ox 12/27/23 08:14 97.7 F 77 18 180/73 98 12/27/23 07:18 81 18 160/88 97 12/27/23 06:43 85 20 158/90 97 12/27/23 04:11 98.0 F 96 24 176/78 97 Intake and Output 12/26/23 12/27/23 12/27/23 22:59 06:59 14:59 Other: Weight 66.224 kg In general patient is alert and oriented x 3 in no distress HEENT head normocephalic and atraumatic Neck is supple no JVD no goiter no lymphadenopathy no carotid bruit Chest examination is clear to auscultation no crackles no wheezing Cardiac exam reveals regular heart sounds S1 and S2 no gallops no murmurs Abdomen is soft nontender no organomegaly with normal bowel sounds Extremity exam reveals no edema no cyanosis or clubbing Neurological examination reveals no gross focal deficits Results CBC & Chem 7: 12/27/23 05:30 12/27/23 05:30 Labs: Abnormal Lab Results - Last 24 Hours (Table) 12/27/23 12/27/23 12/27/23 Range/Units 05:30 05:30 05:30 WBC 11.3 H (3.8-10.6) k/uL RBC 4.19 L (4.30-5.90) m/uL PT 9.6 L (10.0-12.5) sec Sodium 132 L (137-145) mmol/L Assessment and Plan Plan: Bilateral lower extremity cellulitis with ulcers Severe peripheral arterial disease Underlying history of hypertension Underlying history of osteoarthritis Underlying history of hyperlipidemia Underlying history of COPD Underlying history of depression Underlying history of gastroesophageal reflux disease Underlying history of continued nicotine dependence Previous history of aortofemoral bypass surgery At this time patient is admitted to medical floor Home medications reviewed and reordered He was started on IV antibiotics ceftriaxone 2 g every 24 hours in the emergency room Vascular surgery and infectious disease consultation requested For DVT prophylaxis subcu Rudi Will follow closely
--- NOTE | 2023-12-27 10:44 | P.GSCN ---
History of Present Illness Consult date: 12/27/23 History of present illness: Eric is a 58-year-old male known to our service for rest pain peripheral arterial disease and wounds of his left lower extremity. He was previously seen at the hospital and scheduled to undergo a femoral to tibial bypass of his left lower extremity done at [facility] however he was unable to obtain a ride. He has since seen Dr. Syde in the office and has forthcoming surgery scheduled. He came in today due to continued pain. It is essentially unchanged from previous. He continues to have to sleep with his foot over the side of the bed. Past Medical History Past Medical History: Asthma, COPD, GERD/Reflux, Hyperlipidemia, Hypertension, Osteoarthritis (OA) Additional Past Medical History / Comment(s): BACK AND HIP PAIN, DIFFICULTY WALKING DISTANCE, HX OF GASTRIC ULCERS AND BLOOD IN STOOL, CALCIFICATIONS IN BILATERAL FEMORAL ARTERIES, LEFT FOOT WOUND SINCE APRIL 2023 R/T PVD History of Any Multi-Drug Resistant Organisms: None Reported Past Surgical History: Hernia Repair Additional Past Surgical History / Comment(s): HERNIA REPAIR AT 5 & 7 YEARS OLD, AORTOFEMORAL BYPASS GRAFT Past Anesthesia/Blood Transfusion Reactions: No Reported Reaction Additional Past Anesthesia/Blood Transfusion Reaction / Comm: DOES NOT REMEMBER ANY ANESTHESIA PROBLEMS A CHILD. Past Psychological History: Anxiety Smoking Status: Current every day smoker Past Alcohol Use History: Daily, Heavy Past Drug Use History: Marijuana - Past Family History Mother Family Medical History: No Reported History Additional Family Medical History / Comment(s): bipolar disorder. Brother(s) Additional Family Medical History / Comment(s): bipolar disorder. Medications and Allergies Home Medications Medication Instructions Recorded Confirmed Type Bisoprolol-Hctz 5-6.25 mg [Ziac 1 tab PO DAILY 02/26/18 11/10/23 History 5-6.25 MG] Methylphenidate HCl 20 mg PO BID@0900,1500 02/26/18 11/10/23 History Tamsulosin HCl [Flomax] 0.4 mg PO HS PRN 02/26/18 11/10/23 History Albuterol Nebulized [Ventolin 2.5 mg INHALATION RT-TID PRN 04/21/23 11/10/23 History Nebulized] Butalb/APAP/Caff 50-325-40Mg 1 tab PO DAILY PRN 04/21/23 11/10/23 History [Fioricet 50-325-40] lisinopriL [Zestril] 20 mg PO BID 04/21/23 11/10/23 History Gabapentin [Neurontin] 600 mg PO HS 08/22/23 11/10/23 History Nicotine 21Mg/24Hr Patch [Habitrol] 1 patch TRANSDERM DAILY 30 Days 09/02/23 11/10/23 Rx #30 patch Simvastatin [Zocor] 20 mg PO HS 10/23/23 11/10/23 History hydrOXYzine HCL [Atarax] 10 mg PO DAILY PRN 10/23/23 11/10/23 History oxyCODONE-APAP 7.5-325MG [Percocet 1 tab PO TID PRN 10/23/23 11/10/23 History 7.5-325 mg] buPROPion XL [Wellbutrin XL] 150 mg PO DAILY 30 Days #30 tab 10/27/23 11/10/23 Rx cilostazoL [Pletal] 100 mg PO BID 30 Days #60 tab 10/27/23 11/10/23 Rx Amoxic-Pot Clav 875-125Mg 1 tab PO BID 7 Days #14 tab 11/12/23 Rx [Augmentin 875-125] Allergies Allergy/AdvReac Type Severity Reaction Status Date / Time No Known Allergies Allergy Verified 12/27/23 04:10 Surgical - Exam Vital Signs Temp Pulse Resp BP Pulse Ox 98.0 F 96 24 176/78 97 12/27/23 04:11 12/27/23 04:11 12/27/23 04:11 12/27/23 04:11 12/27/23 04:11 General is a pleasant cooperative male in no acute distress laying with his feet over the side of the bed. HEENT is normocephalic atraumatic, mildly disheveled. Heart appears regular. Lungs without respiratory distress. Abdomen is soft nontender nondistended. Extremities with bilateral lower extremity edema. No cellulitis, dependent rubor. Erythema and skin blanching due to peripheral arterial disease edema Ulcerations to the left medial MTP and lateral foot. Noninfected appearing. No purulent drainage. Feet are warm Results - Labs 12/27/23 05:30 12/27/23 05:30 Abnormal Lab Results - Last 24 Hours (Table) 07/12/27/23 12/27/23 Range/Units 05:30 05:30 05:30 WBC 11.3 H (3.8-10.6) k/uL RBC 4.19 L (4.30-5.90) m/uL PT 9.6 L (10.0-12.5) sec Sodium 132 L (137-145) mmol/L Diabetes panel 12/27/23 Range/Units 05:30 Sodium 132 L (137-145) mmol/L Potassium 4.4 (3.5-5.1) mmol/L Chloride 100 (98-107) mmol/L Carbon Dioxide 24 (22-30) mmol/L BUN 14 (9-20) mg/dL Creatinine 0.90 (0.66-1.25) mg/dL Glucose 79 (74-99) mg/dL Calcium 9.3 (8.4-10.2) mg/dL AST 21 (17-59) U/L ALT 13 (4-49) U/L Alkaline Phosphatase 100 (38-126) U/L Total Protein 7.5 (6.3-8.2) g/dL Albumin 4.4 (3.5-5.0) g/dL Calcium panel 12/27/23 Range/Units 05:30 Calcium 9.3 (8.4-10.2) mg/dL Phosphorus 4.2 (2.5-4.5) mg/dL Albumin 4.4 (3.5-5.0) g/dL Pituitary panel 12/27/23 Range/Units 05:30 Sodium 132 L (137-145) mmol/L Potassium 4.4 (3.5-5.1) mmol/L Chloride 100 (98-107) mmol/L Carbon Dioxide 24 (22-30) mmol/L BUN 14 (9-20) mg/dL Creatinine 0.90 (0.66-1.25) mg/dL Glucose 79 (74-99) mg/dL Calcium 9.3 (8.4-10.2) mg/dL Adrenal panel 12/27/23 Range/Units 05:30 Sodium 132 L (137-145) mmol/L Potassium 4.4 (3.5-5.1) mmol/L Chloride 100 (98-107) mmol/L Carbon Dioxide 24 (22-30) mmol/L BUN 14 (9-20) mg/dL Creatinine 0.90 (0.66-1.25) mg/dL Glucose 79 (74-99) mg/dL Calcium 9.3 (8.4-10.2) mg/dL Total Bilirubin 0.3 (0.2-1.3) mg/dL AST 21 (17-59) U/L ALT 13 (4-49) U/L Alkaline Phosphatase 100 (38-126) U/L Total Protein 7.5 (6.3-8.2) g/dL Albumin 4.4 (3.5-5.0) g/dL Assessment and Plan Assessment: 1. Bo 5 left lower extremity peripheral arterial disease, superficial femoral artery occlusion 2. Left great toe ulcer and lateral foot ulcer, non-infected 3. History of peripheral arterial disease critical limb ischemia status post aortobifemoral bypass with bilateral common femoral artery endarterectomy 4. Chronic nicotine dependence 5. COPD 6. Hyperlipidemia 7. Hypertension Plan: At this time do not believe there are any significant signs of infection of the foot or toe. I believe this is all in relation to his ischemic rest pain and need to hang his feet over the side of the bed for dependent blood flow. Plan for femoral to below-knee bypass. Currently planned in the next few weeks, will evaluate scheduling. Continue with medications as ordered.
[2023-12-27] MEDS: HYDROPHILIC CREAM 180 GM TUBE TOPICAL SCH (12:15)
[2023-12-27] MEDS ORDERED: hydrOXYzine HCL 10 MG TAB PO PRN (16:33)
[2023-12-27] MEDS ORDERED: ALBUTEROL NEBULIZED 2.5 MG/3 ML INHALATION PRN ×2 (16:33)
[2023-12-27] MEDS ORDERED: BUTALB/APAP/CAFF 50-325-40MG TAB PO PRN (16:33)
[2023-12-27] MEDS: oxyCODONE-APAP 7.5-325MG 1 EACH TAB PO PRN (17:42)
[2023-12-27] MEDS: lisinopriL 20 MG TAB PO SCH (21:14)
[2023-12-27] MEDS: TAMSULOSIN 0.4 MG CAP.ER.24H PO SCH (21:14)
[2023-12-27] MEDS: GABAPENTIN 300 MG CAP PO SCH (21:14)
[2023-12-27] MEDS: traZODone HCL 50 MG TAB PO SCH (21:14)
[2023-12-27] MEDS: ATORVASTATIN 10 MG TAB PO SCH (21:14)
[2023-12-27] MEDS: ESCITALOPRAM 10 MG TAB PO SCH (21:14)
[2023-12-27] MEDS: cilostazoL 100 MG TAB PO SCH (21:15)
--- NOTE | 2023-12-28 08:20 | P.CONS ---
History of Present Illness - Reason for Consult Consult date: 12/27/23 Foot ulcer Requesting physician: Mariana Nesbitt - Chief Complaint Worsening pain to the left foot x days - History of Present Illness Patient is a 58-year-old male with a past medical history significant for asthma COPD reflux hyperlipidemia hypertension osteoarthritis history of peripheral arterial disease and this patient has been dealing with the chronic pain to the left lower extremity likely ischemic and did have a wound on the medial aspect of the right foot at the base of the big toe that has been there for couple of months patient now presenting to the ER complaining of increasing left foot pain that apparently has been getting worse for the last few days patient denies any history of any trauma describes the pain to be sharp moderate to severe intensity without radiation patient also have a wound to the left foot which seem to have increased in size however the patient denies having any drainage from it and denies having any fever on presentation to the hospital patient is afebrile and no fever have been recorded subsequently patient was not tachycardic hypotensive or hypoxic he did have white count of 11.3 creatinine 0.90 electrolytes normal liver enzymes are normal patient did have a chest x-ray no acute cardiopulmonary disease patient was started on Rocephin has been admitted to hospital infectious disease was consulted regarding wound to the left foot and need for antibiotic therapy Review of Systems Positive point and negatives has been mentioned in the HPI, complete review of systems was performed and all other systems are negative Past Medical History Past Medical History: Asthma, COPD, GERD/Reflux, Hyperlipidemia, Hypertension, Osteoarthritis (OA) Additional Past Medical History / Comment(s): BACK AND HIP PAIN, DIFFICULTY WA LKING DISTANCE, HX OF GASTRIC ULCERS AND BLOOD IN STOOL, CALCIFICATIONS IN BILATERAL FEMORAL ARTERIES, LEFT FOOT WOUND SINCE APRIL 2023 R/T PVD History of Any Multi-Drug Resistant Organisms: None Reported Past Surgical History: Hernia Repair Additional Past Surgical History / Comment(s): HERNIA REPAIR AT 5 & 7 YEARS OLD, AORTOFEMORAL BYPASS GRAFT Past Anesthesia/Blood Transfusion Reactions: No Reported Reaction Additional Past Anesthesia/Blood Transfusion Reaction / Comm: DOES NOT REMEMBER ANY ANESTHESIA PROBLEMS A CHILD. Past Psychological History: Anxiety Smoking Status: Current every day smoker Past Alcohol Use History: Daily, Heavy Past Drug Use History: Marijuana - Past Family History Mother Family Medical History: No Reported History Additional Family Medical History / Comment(s): bipolar disorder. Brother(s) Additional Family Medical History / Comment(s): bipolar disorder. Medications and Allergies Home Medications Medication Instructions Recorded Confirmed Type Bisoprolol-Hctz 5-6.25 mg [Ziac 1 tab PO DAILY 02/26/18 12/27/23 History 5-6.25 MG] Methylphenidate HCl 20 mg PO BID@0900,1500 02/26/18 12/27/23 History Tamsulosin HCl [Flomax] 0.4 mg PO HS 02/26/18 12/27/23 History Albuterol Nebulized [Ventolin 2.5 mg INHALATION RT-TID PRN 04/21/23 12/27/23 History Nebulized] Butalb/APAP/Caff 50-325-40Mg 1 tab PO DAILY PRN 04/21/23 12/27/23 History [Fioricet 50-325-40] lisinopriL [Zestril] 20 mg PO BID 04/21/23 12/27/23 History Gabapentin [Neurontin] 600 mg PO HS 08/22/23 12/27/23 History Nicotine 21Mg/24Hr Patch [Habitrol] 1 patch TRANSDERM DAILY 30 Days 09/02/23 12/27/23 Rx #30 patch Simvastatin [Zocor] 20 mg PO HS 10/23/23 12/27/23 History hydrOXYzine HCL [Atarax] 10 mg PO DAILY PRN 10/23/23 12/27/23 History oxyCODONE-APAP 7.5-325MG [Percocet 1 tab PO TID PRN 10/23/23 12/27/23 History 7.5-325 mg] buPROPion XL [Wellbutrin XL] 150 mg PO DAILY 30 Days #30 tab 10/27/23 12/27/23 Rx cilostazoL [Pletal] 100 mg PO BID 30 Days #60 tab 10/27/23 12/27/23 Rx Albuterol Sulfate [Ventolin HFA] 2 puff INHALATION RT-QID PRN 12/27/23 12/27/23 History Escitalopram Oxalate [Lexapro] 10 mg PO HS 12/27/23 12/27/23 History Escitalopram Oxalate [Lexapro] 20 mg PO DAILY 12/27/23 12/27/23 History traZODone HCL [Desyrel] 50 mg PO HS 12/27/23 12/27/23 History Allergies Allergy/AdvReac Type Severity Reaction Status Date / Time No Known Allergies Allergy Verified 12/27/23 11:14 Physical Exam Vitals: Vital Signs Temp Pulse Pulse Resp BP BP Pulse Ox 12/27/23 08:14 97.7 F 77 18 180/73 98 12/27/23 07:18 81 18 160/88 97 12/27/23 06:43 85 20 158/90 97 12/27/23 04:11 98.0 F 96 24 176/78 97 Intake and Output 12/26/23 12/27/23 12/27/23 22:59 06:59 14:59 Other: Weight 66.224 kg GENERAL DESCRIPTION: Middle-aged male lying in bed, no distress. No tachypnea or accessory muscle of respiration use. HEENT: Shows Pallor , no scleral icterus. Oral mucous membrane is dry. No pharyngeal erythema or thrush NECK: Trachea central, no thyromegaly. LUNGS: Unlabored breathing. Clear to auscultation anteriorly. No wheeze or crackle. HEART: S1, S2, regular rate and rhythm. No loud murmur ABDOMEN: Soft, no tenderness , guarding or rigidity, no organomegaly EXTREMITIES: Left foot wound at the base of the big toe which is slightly increased in size however remains to be dry tended to touch SKIN: No rash, no masses palpable. NEUROLOGICAL: The patient is awake, alert, oriented x3, mood and affect normal. Results CBC & Chem 7: 12/27/23 05:30 12/27/23 05:30 Labs: Abnormal Lab Results - Last 24 Hours (Table) 12/27/23 12/27/23 12/27/23 Range/Units 05:30 05:30 05:30 WBC 11.3 H (3.8-10.6) k/uL RBC 4.19 L (4.30-5.90) m/uL PT 9.6 L (10.0-12.5) sec Sodium 132 L (137-145) mmol/L Assessment and Plan (1) Wound of left foot Current Visit: Yes Status: Acute Code(s): S91.302A - UNSPECIFIED OPEN WOUND, LEFT FOOT, INITIAL ENCOUNTER SNOMED Code(s): 88610238501894183 Plan: 1patient with a chronic nonhealing wound to the left foot medial border at the base of the big toe which has been there for couple of months more likely arterial ulcer related to ischemia the left leg, and worsening pain is more likely due to underlying PAD patient wound seem to have dried out did have some swelling but no significant redness did not have any fever mildly elevated white count though 2-we will obtain x-rays of the left foot 3-will benefit from a vascular revascularization sooner than later followed by possible debridement of the wound 4-May continue empiric Rocephin for now 5-keep the left foot wound area dry and avoid soaking or applying any cream and no compression dressing We will follow on clinical condition and cultures to further adjust medication if needed Thank you for this consultation we will follow the patient along with you Dictation was produced using [employer] dictation software. please excuse any grammatical, word or spelling errors. Time with Patient: Greater than 30
[2023-12-28] MEDS: NICOTINE 14MG/24HR PATCH TRANSDERM SCH (08:38)
[2023-12-28] MEDS: PANTOPRAZOLE 40 MG TABLET PO SCH (08:38)
[2023-12-28] MEDS: METHYLPHENIDATE HCL 10 MG TAB PO SCH (08:38)
[2023-12-28] MEDS: ESCITALOPRAM 20 MG TAB PO SCH (08:38)
[2023-12-28] MEDS: ENOXAPARIN 40 MG/0.4 ML SYRINGE SQ SCH (08:38)
--- NOTE | 2023-12-28 08:59 | XR ---
EXAMINATION TYPE: XR foot complete LT DATE OF EXAM: 12/28/2023 COMPARISON: NONE HISTORY: Left foot wound TECHNIQUE: Three views are submitted. FINDINGS: The osseous structures are intact. There is no acute fracture or dislocation. Mild first MTP joint arthropathy with hallux valgus deformity. There is a soft tissue wound or edema adjacent to the firs t toe. No destructive changes.. IMPRESSION: 1. Soft tissue ulceration or wound adjacent to the first digit with no destructive changes diagnostic of osteomyelitis.
[2023-12-28 09:05] LABS: ALT 11 U/L (10-49); AST 18 U/L (14-35); Albumin 4.1 g/dL (3.8-4.9); Albumin/Globulin Ratio 1.52 Ratio (1.60-3.17); Alkaline Phosphatase 93 U/L (41-126); BUN/Creat Ratio 10.38 Ratio (12.00-20.00); Blood Urea Nitrogen 8.3 mg/dL (9.0-27.0); Calcium 8.8 mg/dL (8.7-10.3); Chloride 100 mmol/L (96-109); Globulin 2.7 g/dL (1.6-3.3); Glucose 94 mg/dL (70-110); Potassium 4.4 mmol/L (3.5-5.5); Sodium 135 mmol/L (135-145); Total Bilirubin <0.2 mg/dL (0.3-1.2); Total Protein 6.8 g/dL (6.2-8.2)
[2023-12-28 09:22] LABS: Basophils # (A) 0.05 X 10*3/uL (0.00-0.10); Basophils % (A) 0.6 %; Eosinophils # (A) 0.27 X 10*3/uL (0.04-0.35); Eosinophils % (A) 3.4 %; HGB 12.9 g/dL (13.0-17.0); Lymphocytes # (A) 1.99 X 10*3/uL (0.90-5.00); Lymphocytes % (A) 24.7 %; MCH 32.2 pg (27.0-32.0); MCHC 33.1 g/dL (32.0-37.0); MCV 97.3 FL (80.0-97.0); Mean Platelet Volume 10.9 FL (9.5-12.2); Monocytes # (A) 1.02 X 10*3/uL (0.20-1.00); Monocytes % (A) 12.7 %; NRBC Per 100 WBC 0 X 10*3/uL (0.00-0.01); Neutrophils % (A) 58.4 %; Platelet Count 285 X 10*3/uL (140-440); RBC 4.01 X 10*6/uL (4.40-5.60); WBC 8.05 X 10*3/uL (4.50-10.00)
--- NOTE | 2023-12-28 09:45 | P.PN ---
Subjective Progress Note Date: 12/28/23 Principal diagnosis: Peripheral arterial disease Patient is seen and examined as a follow-up. He is sitting up at the bedside with his legs dependent. Patient states pain is improved when his legs are dependent and hanging over the bed. He has bilateral lower extremity swelling. He is afebrile. Objective - Vital Signs Vital signs: Vital Signs Temp 96.7 F L 12/28/23 07:19 Pulse 83 12/28/23 07:19 Resp 17 12/28/23 07:19 BP 145/71 12/28/23 07:19 Pulse Ox 94 L 12/28/23 07:19 FiO2 Intake & Output 12/27/23 12/28/23 12/28/23 18:59 06:59 18:59 Intake Total 450 Output Total 750 300 Balance -750 150 Weight 66.224 kg Intake: Intake, IV Titration 450 Amount Sodium Chloride 0.9% 1, 450 000 ml @ 75 mls/hr IV . [id number] STA Rx#:[id number] Output: Urine 750 300 Other: Voiding Method Toilet - Exam General appearance: The patient is alert, oriented, appears in no acute distress. HET: Head is normocephalic and atraumatic. Pupils are equal and reactive. Neck: Supple. Abdomen: Soft, nondistended. Extremities: Bilateral lower extremity edema, bilateral lower extremity erythema skin blanching due to peripheral arterial disease and edema. Good capillary refill. Left foot great toe ulcer, noninfected appearing with no purulent drainage. Bilateral feet warm to the touch. Neurological: No focal deficits. Strength and sensation are grossly intact. - Labs CBC & Chem 7: 12/28/23 04:50 12/28/23 04:50 Labs: Abnormal Lab Results - Last 24 Hours (Table) 12/28/23 12/28/23 Range/Units 04:50 04:50 RBC 4.01 L (4.40-5.60) X 10*6/uL Hgb 12.9 L (13.0-17.0) g/dL Hct 39.0 L (39.6-50.0) % MCV 97.3 H (80.0-97.0) FL MCH 32.2 H (27.0-32.0) pg Monocytes # 1.02 H (0.20-1.00) X 10*3/uL BUN 8.3 L (9.0-27.0) mg/dL BUN/Creatinine Ratio 10.38 L (12.00-20.00) Ratio Total Bilirubin <0.2 L (0.3-1.2) mg/dL Albumin/Globulin Ratio 1.52 L (1.60-3.17) Ratio Assessment and Plan Assessment: 1. [place] 5 left lower extremity peripheral arterial disease, superficial femoral artery occlusion 2. Left great toe ulcer and lateral foot ulcer, non-infected 3. History of peripheral arterial disease critical limb ischemia status post aortobifemoral bypass with bilateral common femoral artery endarterectomy 4. Chronic nicotine dependence 5. COPD 6. Hyperlipidemia 7. Hypertension Plan: Again there is no urgency for surgical intervention. This is all chronic disease with ischemic rest pain with no significant signs of infection with plan for femoral to below-knee bypass scheduled for January. Will look further into trying to reschedule at a sooner date however no availability this week. Patient is cleared from vascular surgery for discharge. Patient to call office if he has not heard from them later this week to possibly reschedule surgery sooner. Thank you for this consultation, again patient is cleared by vascular surgery for discharge. The impression and plan of care has been dictated as directed. Dr. Brown I performed a history and examination of this patient, discussed the same with the dictator. I agree with the dictator's note ,documented as a scribe. Any additional findings or plans will be noted.
[2023-12-28] MEDS: buPROPion XL 150 MG TAB.ER.24H PO SCH (10:29)
[2023-12-28 11:46] LABS: Glucose,Whole Blood 118 mg/dL (70-110)
--- NOTE | 2023-12-28 13:31 | P.PN ---
Subjective Progress Note Date: 12/28/23 Eric Greenfield, is a 58-year-old male who presented to [facility] emergency room with a chief complaint of severe left foot pain, patient has a known history of severe peripheral vascular disease, with history of foot ulceration he was seen by vascular surgery in the past. He was evaluated in the emergency room vital examination on presentation revealed a temperature of 98 pulse 96 respiration 24 blood pressure 176/78 pulse ox 97% on room air Laboratory data reveals a white blood count of 11.3 hemoglobin 13.1 platelet count 363 sodium 132 potassium 4.4 chloride 100 CO2 24 BUN 14 creatinine 0.9 Testing in the emergency room revealed chest x-ray revealed no acute cardiopulmonary abnormality, EKG revealed sinus rhythm with left anterior fascicular block Patient was admitted to medical floor for further evaluation and treatment On 12/28/2023 patient was seen and examined on the medical floor, he is alert and oriented x 3 in no apparent distress, he is still complaining of severe pain in his left foot, otherwise he denies any complaints, he is anxious about going home and is stating that he does not have enough support at home, he is asking about potential admission to rehab or to a [facility] until his surgery. Consultation for social services coordinator was initiated. Objective - Vital Signs Vital signs: Vital Signs Temp 96.7 F L 12/28/23 07:19 Pulse 83 12/28/23 12:30 Resp 18 12/28/23 12:30 BP 145/71 12/28/23 07:19 Pulse Ox 93 L 12/28/23 09:59 FiO2 Intake & Output 12/27/23 12/28/23 12/28/23 18:59 06:59 18:59 Intake Total 450 200 Output Total 750 300 Balance -750 150 200 Weight 66.224 kg Intake: Intake, IV Titration 450 Amount Sodium Chloride 0.9% 1, 450 000 ml @ 75 mls/hr IV . [id number] STA Rx#:[id number] Oral 200 Output: Urine 750 300 Other: Voiding Method Toilet Toilet - Exam In general patient is alert and oriented x 3 Head normocephalic and atraumatic Neck supple, no JVD no goiter Lungs clear to auscultation bilaterally no wheezing or crackles Heart regular rate and rhythm S1-S2, no rub or gallop Abdomen is soft nontender nondistended positive bowel sounds no hepatosplenomegaly Extremities bilateral lower extremity cellulitis. 2 ulcers to left superior side of foot. Neuro alert and orientated to 3 - Labs CBC & Chem 7: 12/28/23 04:50 12/28/23 04:50 Labs: Abnormal Lab Results - Last 24 Hours (Table) 12/28/23 12/28/23 12/28/23 Range/Units 04:50 04:50 11:45 RBC 4.01 L (4.40-5.60) X 10*6/uL Hgb 12.9 L (13.0-17.0) g/dL Hct 39.0 L (39.6-50.0) % MCV 97.3 H (80.0-97.0) FL MCH 32.2 H (27.0-32.0) pg Monocytes # 1.02 H (0.20-1.00) X 10*3/uL BUN 8.3 L (9.0-27.0) mg/dL BUN/Creatinine Ratio 10.38 L (12.00-20.00) Ratio POC Glucose (mg/dL) 118 H (70-110) mg/dL Total Bilirubin <0.2 L (0.3-1.2) mg/dL Albumin/Globulin Ratio 1.52 L (1.60-3.17) Ratio Microbiology - Last 24 Hours (Table) 12/27/23 05:30 Blood Culture - Preliminary Blood 12/27/23 05:15 Blood Culture - Preliminary Blood Assessment and Plan Plan: Bilateral lower extremity cellulitis with ulcers Severe peripheral arterial disease Underlying history of hypertension Underlying history of osteoarthritis Underlying history of hyperlipidemia Underlying history of COPD Underlying history of depression Underlying history of gastroesophageal reflux disease Underlying history of continued nicotine dependence Previous history of aortofemoral bypass surgery At this time patient is admitted to medical floor Home medications reviewed and reordered He was started on IV antibiotics ceftriaxone 2 g every 24 hours in the emergency room Vascular surgery and infectious disease consultation requested For DVT prophylaxis subcu Rudi Will follow closely
[2023-12-28 17:49] LABS: Glucose,Whole Blood 150 mg/dL (70-110)
--- NOTE | 2023-12-29 08:31 | P.PN ---
Subjective Progress Note Date: 12/29/23 Principal diagnosis: Peripheral arterial disease Patient is seen and examined today as a follow-up. States pain is about the same. Patient was lying down across bed with legs dependent. Patient is voicing concern for returning home as his roommate is a smoker and as well as p atient and he states he is having a difficult time quitting smoking. Discharge was held from PCP for social work consult for possible placement into subacute rehab. Objective - Vital Signs Vital signs: Vital Signs Temp 97.6 F 12/29/23 07:24 Pulse 93 12/29/23 07:24 Resp 18 12/29/23 07:24 BP 165/79 12/29/23 07:24 Pulse Ox 93 L 12/29/23 07:24 FiO2 Intake & Output 12/28/23 12/29/23 12/29/23 18:59 06:59 18:59 Intake Total 350 Output Total 400 Balance -50 Intake: Oral 350 Output: Urine 400 Other: Voiding Method Toilet Toilet # Voids 2 - Exam General appearance: The patient is alert, oriented, appears in no acute distress. HET: Head is normocephalic and atraumatic. Pupils are equal and reactive. Neck: Supple. Abdomen: Soft, nondistended. Extremities: Palpable bilateral femoral pulses. Bilateral lower extremity edema, bilateral lower extremity erythema skin blanching due to peripheral arterial disease and edema. Good capillary refill. Left foot great toe ulcer, noninfected appearing with no purulent drainage. Bilateral feet warm to the touch. Neurological: No focal deficits. Strength and sensation are grossly intact. - Labs CBC & Chem 7: 12/28/23 04:50 12/28/23 04:50 Labs: Abnormal Lab Results - Last 24 Hours (Table) 12/28/23 12/28/23 12/28/23 Range/Units 04:50 04:50 11:45 RBC 4.01 L (4.40-5.60) X 10*6/uL Hgb 12.9 L (13.0-17.0) g/dL Hct 39.0 L (39.6-50.0) % MCV 97.3 H (80.0-97.0) FL MCH 32.2 H (27.0-32.0) pg Monocytes # 1.02 H (0.20-1.00) X 10*3/uL BUN 8.3 L (9.0-27.0) mg/dL BUN/Creatinine Ratio 10.38 L (12.00-20.00) Ratio POC Glucose (mg/dL) 118 H (70-110) mg/dL Total Bilirubin <0.2 L (0.3-1.2) mg/dL Albumin/Globulin Ratio 1.52 L (1.60-3.17) Ratio 12/28/23 Range/Units 17:48 RBC (4.40-5.60) X 10*6/uL Hgb (13.0-17.0) g/dL Hct (39.6-50.0) % MCV (80.0-97.0) FL MCH (27.0-32.0) pg Monocytes # (0.20-1.00) X 10*3/uL BUN (9.0-27.0) mg/dL BUN/Creatinine Ratio (12.00-20.00) Ratio POC Glucose (mg/dL) 150 H (70-110) mg/dL Total Bilirubin (0.3-1.2) mg/dL Albumin/Globulin Ratio (1.60-3.17) Ratio Microbiology - Last 24 Hours (Table) 12/27/23 05:30 Blood Culture - Preliminary Blood 12/27/23 05:15 Blood Culture - Preliminary Blood Assessment and Plan Assessment: 1. [place] 5 left lower extremity peripheral arterial disease, superficial femoral artery occlusion 2. Left great toe ulcer and lateral foot ulcer, non-infected 3. History of peripheral arterial disease critical limb ischemia status post aortobifemoral bypass with bilateral common femoral artery endarterectomy 4. Chronic nicotine dependence 5. COPD 6. Hyperlipidemia 7. Hypertension Plan: There is no urgency for surgical intervention. This is all chronic disease with ischemic rest pain with no significant signs of infection with plan for femoral to below-knee bypass scheduled for January. Will look further into trying to reschedule at a sooner date however no availability this week. Patient is cleared from vascular surgery for discharge. Patient to call office if he has not heard from them later this week to possibly reschedule surgery sooner. Discussed importance of smoking cessation as well as the effects of smoking can he have upcoming bypass. Thank you for this consultation, patient is cleared by vascular surgery for discharge. The impression and plan of care has been dictated as directed. Dr. Syed I performed a history and examination of this patient, discussed the same with the dictator. I agree with the dictator's note ,documented as a scribe. Any additional findings or plans will be noted.
[2023-12-29 10:59] VITALS: RESP 17
[2023-12-29 13:15] VITALS: BP 169/74; PULSE 110; TEMP 98.3
--- NOTE | 2023-12-29 14:23 | P.DS ---
Providers Date of admission: 12/27/23 05:10 Expected date of discharge: 12/29/23 Attending physician: Mariana Nesbitt Consults: 12/27/23 05:10 Consult Physician Routine Consulting Provider: Precious Davis Consult Reason/Comments: known Do you want consulting provider notified?: Yes 12/27/23 09:19 Consult Physician Routine Consulting Provider: Elisabeth Mckeon Consult Reason/Comments: Foot ulcer Do you want consulting provider notified?: Yes Primary care physician: Mariana Laz [facility] Hospital Course: Diagnosis on discharge: Bilateral lower extremity cellulitis with ulcers Severe peripheral arterial disease Underlying history of hypertension Underlying history of osteoarthritis Underlying history of hyperlipidemia Underlying history of COPD Underlying history of depression Underlying history of gastroesophageal reflux disease Underlying history of continued nicotine dependence Previous history of aortofemoral bypass surgery Hospital course: Eric Greenfield, is a 58-year-old male who presented to [facility] emergency room with a chief complaint of severe left foot pain, patient has a known history of severe peripheral vascular disease, with history of foot ulceration he was seen by vascular surgery in the past. He was evaluated in the emergency room vital examination on presentation revealed a temperature of 98 pulse 96 respiration 24 blood pressure 176/78 pulse ox 97% on room air Laboratory data reveals a white blood count of 11.3 hemoglobin 13.1 platelet count 363 sodium 132 potassium 4.4 chloride 100 CO2 24 BUN 14 creatinine 0.9 Testing in the emergency room revealed chest x-ray revealed no acute cardiopulmonary abnormality, EKG revealed sinus rhythm with left anterior fascicular block Patient was admitted to medical floor for further evaluation and treatment On 12/28/2023 patient was seen and examined on the medical floor, he is alert and oriented x 3 in no apparent distress, he is still complaining of severe pain in his left foot, otherwise he denies any complaints, he is anxious about going home and is stating that he does not have enough support at home, he is asking about potential admission to rehab or to a shelter until his surgery. Consultation for social services coordinator was initiated. On 12/29/2023 patient was seen and examined on the medical floor he is alert and oriented x 3 in no apparent distress he is still complaining of bilateral lower extremity pain otherwise he denies any complaints there is no fever or chills no headache or dizziness no chest pain no shortness of breath no cough no nausea or vomiting no abdominal pain no diarrhea no blood in the stools and no urinary symptoms. He was evaluated by physical therapy and Occupational Therapy, and by case management, at this time he does not qualify for shelter admission, he was offered home care he declined at this time. He will follow-up in our office he will also follow-up with Dr. Vera for pain management, plan is for readmission for surgery in the next 1 to 2 weeks. Patient Condition at Discharge: Fair Plan - Discharge Summary Discharge Rx Participant: No New Discharge Prescriptions: Continue Tamsulosin HCl [Flomax] 0.4 mg PO HS Methylphenidate HCl 20 mg PO BID@0900,1500 Bisoprolol-Hctz 5-6.25 mg [Ziac 5-6.25 MG] 1 tab PO DAILY lisinopriL [Zestril] 20 mg PO BID Butalb/APAP/Caff 50-325-40Mg [Fioricet 50-325-40] 1 tab PO DAILY PRN PRN Reason: Migraine Headache Albuterol Nebulized [Ventolin Nebulized] 2.5 mg INHALATION RT-TID PRN PRN Reason: Shortness Of Breath oxyCODONE-APAP 7.5-325MG [Percocet 7.5-325 mg] 1 tab PO TID PRN PRN Reason: Pain hydrOXYzine HCL [Atarax] 10 mg PO DAILY PRN PRN Reason: Anxiety buPROPion XL [Wellbutrin XL] 150 mg PO DAILY 30 Days #30 tab traZODone HCL [Desyrel] 50 mg PO HS Escitalopram Oxalate [Lexapro] 20 mg PO DAILY Escitalopram Oxalate [Lexapro] 10 mg PO HS Gabapentin [Neurontin] 600 mg PO HS Nicotine 21Mg/24Hr Patch [Habitrol] 1 patch TRANSDERM DAILY 30 Days #30 patch Simvastatin [Zocor] 20 mg PO HS cilostazoL [Pletal] 100 mg PO BID 30 Days #60 tab Albuterol Sulfate [Ventolin HFA] 2 puff INHALATION RT-QID PRN PRN Reason: Shortness Of Breath Discharge Medication List Bisoprolol-Hctz 5-6.25 mg [Ziac 5-6.25 MG] 1 tab PO DAILY 02/26/18 [History] Methylphenidate HCl 20 mg PO BID@0900,1500 02/26/18 [History] Tamsulosin HCl [Flomax] 0.4 mg PO HS 02/26/18 [History] Albuterol Nebulized [Ventolin Nebulized] 2.5 mg INHALATION RT-TID PRN 04/21/23 [History] Butalb/APAP/Caff 50-325-40Mg [Fioricet 50-325-40] 1 tab PO DAILY PRN 04/21/23 [History] lisinopriL [Zestril] 20 mg PO BID 04/21/23 [History] Gabapentin [Neurontin] 600 mg PO HS 08/22/23 [History] Nicotine 21Mg/24Hr Patch [Habitrol] 1 patch TRANSDERM DAILY 30 Days #30 patch 0 09/02/23 [Rx] Simvastatin [Zocor] 20 mg PO HS 10/23/23 [History] hydrOXYzine HCL [Atarax] 10 mg PO DAILY PRN 10/23/23 [History] oxyCODONE-APAP 7.5-325MG [Percocet 7.5-325 mg] 1 tab PO TID PRN 10/23/23 [History] buPROPion XL [Wellbutrin XL] 150 mg PO DAILY 30 Days #30 tab 10/27/23 [Rx] cilostazoL [Pletal] 100 mg PO BID 30 Days #60 tab 10/27/23 [Rx] Albuterol Sulfate [Ventolin HFA] 2 puff INHALATION RT-QID PRN 12/27/23 [History] Escitalopram Oxalate [Lexapro] 10 mg PO HS 12/27/23 [History] Escitalopram Oxalate [Lexapro] 20 mg PO DAILY 12/27/23 [History] traZODone HCL [Desyrel] 50 mg PO HS 12/27/23 [History] Follow up Appointment(s)/Referral(s): Mariana Nesbitt MD [Primary Care Provider] - 1-2 days Activity/Diet/Wound Care/Special Instructions: Activity as tolerated. Elevate legs when able. Keep improved swelling lower extremity Maninder wraps in place to improve swelling
== END 2023-12-29 15:19 | disposition home or self-care (01) ==
LOC: EC 04:05 → 4SSUR 05:10 → INTOOBSV 05:10 → 4SSUR 07:44
PROVIDERS: ADMIT Internal Medicine; ATTEND Internal Medicine
DX: L03.116 Cellulitis of left lower limb (principal); L03.115 Cellulitis of right lower limb; L97.529 Non-pressure chronic ulcer of other part of left foot with unspecified severity; L97.919 Non-pressure chronic ulcer of unspecified part of right lower leg with unspecified severity; I77.89 Other specified disorders of arteries and arterioles; J44.9 Chronic obstructive pulmonary disease, unspecified; K21.9 Gastro-esophageal reflux disease without esophagitis; E78.5 Hyperlipidemia, unspecified; I10 Essential (primary) hypertension; F41.9 Anxiety disorder, unspecified; M19.90 Unspecified osteoarthritis, unspecified site; F32.A Depression, unspecified; F17.200 Nicotine dependence, unspecified, uncomplicated; Z79.02 Long term (current) use of antithrombotics/antiplatelets; Z79.899 Other long term (current) drug therapy
CPT/HCPCS: 96376 ×3; 96366 ×2; 96372 ×2; 96365; 96375; 99284; 36415; 94760; 93005; 97161; 83880; 80053 ×2; 83605; 83735; 84100; 84484; 85025 ×2; 85610; 85730; 87040; 73630; 71046; G0378 ×3; S4990 ×2; J2270 ×3; J0696 ×3; J1650 ×2

== ENCOUNTER 2024-01-14 06:15 | Inpatient (IN) | payer OTHER ==
[~2024-01-14 06:15] MED LIST: MORPHINE SULFATE 4 MG/ML SYRINGE ONE
[2024-01-14] MEDS ORDERED: cilostazoL 100 MG TAB ONE (23:59)
[2024-01-14] MEDS ORDERED: SODIUM CHLORIDE 0.9% 100 ML BAG ONE (23:59)
[2024-01-14] MEDS ORDERED: SODIUM CHLORIDE 0.9% 1,000 ML BAG ONE (23:59)
[2024-01-15] MEDS ORDERED: oxyCODONE-APAP 5-325MG 1 EACH TAB ONE ×2 (03:38→08:58)
[2024-01-15] MEDS ORDERED: PIPERACILLIN-TAZOBACTAM 3.375 GM VIAL ONE ×3 (03:39→20:03)
[2024-01-15] MEDS ORDERED: NICOTINE 21MG/24HR PATCH TRANSDERM ONE (08:46)
[2024-01-15] MEDS ORDERED: FAMOTIDINE 20 MG TAB ONE ×2 (08:47→20:53)
[2024-01-15] MEDS ORDERED: GABAPENTIN 300 MG CAP ONE ×3 (08:47→20:54)
[2024-01-15] MEDS ORDERED: lisinopriL 20 MG TAB ONE ×2 (08:47→20:53)
[2024-01-15] MEDS ORDERED: TAMSULOSIN 0.4 MG CAP.ER.24H PO ONE (08:47)
[2024-01-15] MEDS ORDERED: ASPIRIN 81 MG ONE (12:24)
[2024-01-15] MEDS ORDERED: oxyCODONE-APAP 7.5-325MG 1 EACH TAB ONE ×3 (13:07→21:01)
[2024-01-15] MEDS ORDERED: hydrOXYzine pamoate 25 MG CAP ONE (15:58)
[2024-01-15] MEDS ORDERED: ATORVASTATIN 40 MG TAB ONE (20:52)
[2024-01-15] MEDS ORDERED: traZODone HCL 50 MG TAB ONE (20:54)
[2024-01-15] MEDS ORDERED: BISOPROLOL-HCTZ 5-6.25 MG 1 EACH TAB ONE (23:59)
[2024-01-15] MEDS ORDERED: buPROPion XL 150 MG TAB.ER.24H PO ONE (23:59)
[2024-01-15] MEDS ORDERED: ESCITALOPRAM 10 MG TAB ONE (23:59)
[2024-01-15] MEDS ORDERED: SODIUM CHLORIDE 0.9% 100 ML BAG IV ONE (23:59)
[2024-01-15] MEDS ORDERED: cilostazoL 100 MG TAB ONE (23:59)
[2024-01-16] MEDS ORDERED: oxyCODONE-APAP 7.5-325MG 1 EACH TAB ONE ×5 (01:23→19:54)
[2024-01-16] MEDS ORDERED: PIPERACILLIN-TAZOBACTAM 3.375 GM VIAL ONE ×3 (04:15→20:38)
[2024-01-16] MEDS ORDERED: IPRATROPIUM-ALBUTEROL 3 ML NEB ONE (07:50)
[2024-01-16] MEDS ORDERED: ASPIRIN 81 MG ONE (09:03)
[2024-01-16] MEDS ORDERED: TAMSULOSIN 0.4 MG CAP.ER.24H PO ONE (09:04)
[2024-01-16] MEDS ORDERED: FAMOTIDINE 20 MG TAB ONE ×2 (09:04→19:53)
[2024-01-16] MEDS ORDERED: lisinopriL 20 MG TAB ONE ×2 (09:04→19:52)
[2024-01-16] MEDS ORDERED: GABAPENTIN 300 MG CAP ONE ×3 (09:05→22:29)
[2024-01-16] MEDS ORDERED: NICOTINE 21MG/24HR PATCH TRANSDERM ONE (09:07)
[2024-01-16] MEDS ORDERED: ENOXAPARIN 40 MG/0.4 ML SYRINGE SQ ONE (11:11)
[2024-01-16] MEDS ORDERED: traZODone HCL 50 MG TAB ONE (19:52)
[2024-01-16] MEDS ORDERED: ATORVASTATIN 40 MG TAB ONE (19:53)
[2024-01-16] MEDS ORDERED: SODIUM CHLORIDE 0.9% 1,000 ML BAG ONE (23:59)
[2024-01-16] MEDS ORDERED: SODIUM CHLORIDE 0.9% 100 ML BAG ONE (23:59)
[2024-01-17] MEDS ORDERED: oxyCODONE-APAP 7.5-325MG 1 EACH TAB ONE ×5 (00:20→20:37)
[2024-01-17] MEDS ORDERED: PIPERACILLIN-TAZOBACTAM 3.375 GM VIAL ONE ×3 (03:48→19:54)
[2024-01-17] MEDS ORDERED: NICOTINE 21MG/24HR PATCH TRANSDERM ONE (09:15)
[2024-01-17] MEDS ORDERED: lisinopriL 20 MG TAB ONE ×2 (09:17→21:11)
[2024-01-17] MEDS ORDERED: FAMOTIDINE 20 MG TAB ONE ×2 (09:17→21:11)
[2024-01-17] MEDS ORDERED: APIXABAN 2.5 MG TABLET ONE (09:18)
[2024-01-17] MEDS ORDERED: TAMSULOSIN 0.4 MG CAP.ER.24H PO ONE ×2 (09:19→21:11)
[2024-01-17] MEDS ORDERED: ASPIRIN 81 MG ONE (09:22)
[2024-01-17] MEDS ORDERED: ENOXAPARIN 40 MG/0.4 ML SYRINGE SQ ONE (09:23)
[2024-01-17] MEDS ORDERED: GABAPENTIN 100 MG CAP ONE (09:25)
[2024-01-17] MEDS ORDERED: GABAPENTIN 300 MG CAP ONE ×2 (16:19→21:07)
[2024-01-17] MEDS ORDERED: traZODone HCL 50 MG TAB ONE (21:11)
[2024-01-17] MEDS ORDERED: ATORVASTATIN 40 MG TAB ONE (21:11)
[2024-01-17] MEDS ORDERED: buPROPion XL 150 MG TAB.ER.24H PO ONE (23:59)
[2024-01-17] MEDS ORDERED: SODIUM CHLORIDE 0.9% 1,000 ML BAG ONE (23:59)
[2024-01-17] MEDS ORDERED: cilostazoL 100 MG TAB ONE (23:59)
[2024-01-17] MEDS ORDERED: ESCITALOPRAM 10 MG TAB ONE (23:59)
[2024-01-17] MEDS ORDERED: SODIUM CHLORIDE 0.9% 100 ML BAG IV ONE (23:59)
[2024-01-17] MEDS ORDERED: BISOPROLOL-HCTZ 5-6.25 MG 1 EACH TAB ONE (23:59)
[2024-01-18] MEDS ORDERED: oxyCODONE-APAP 7.5-325MG 1 EACH TAB ONE ×3 (00:57→20:48)
[2024-01-18] MEDS ORDERED: PIPERACILLIN-TAZOBACTAM 3.375 GM VIAL ONE ×3 (03:25→20:40)
[2024-01-18] MEDS ORDERED: NICOTINE 21MG/24HR PATCH TRANSDERM ONE (07:43)
[2024-01-18] MEDS ORDERED: FAMOTIDINE 20 MG TAB ONE ×2 (07:44→20:41)
[2024-01-18] MEDS ORDERED: lisinopriL 20 MG TAB ONE ×2 (07:44→20:41)
[2024-01-18] MEDS ORDERED: GABAPENTIN 300 MG CAP ONE ×2 (07:45→20:42)
[2024-01-18] MEDS ORDERED: IPRATROPIUM-ALBUTEROL 3 ML NEB ONE ×3 (07:48→20:26)
[2024-01-18] MEDS ORDERED: fentaNYL (PF) 50 MCG/ML 2 ML AMP ONE ×2 (10:41→12:02)
[2024-01-18] MEDS ORDERED: ONDANSETRON 4 MG/2 ML VIAL ONE (10:41)
[2024-01-18] MEDS ORDERED: DEXAMETHASONE SOD PHOSPHATE 4 MG/ML 1 ML VIAL ONE (10:41)
[2024-01-18] MEDS ORDERED: LACTATED RINGERS 1,000 ML BAG ONE (10:45)
[2024-01-18] MEDS ORDERED: HEPARIN SODIUM,PORCINE 10,000 UNIT/ML 1 ML VIAL ONE (12:02)
[2024-01-18] MEDS ORDERED: NEOSTIGMINE 1 MG/ML 10 ML VIAL ONE (12:02)
[2024-01-18] MEDS ORDERED: ROCURONIUM 10 MG/ML (5 ML VIAL) IV ONE (12:02)
[2024-01-18] MEDS ORDERED: LIDOCAINE 1% INJ 10MG/ML (20 ML MDV) ONE (12:02)
[2024-01-18] MEDS ORDERED: MIDAZOLAM 2 MG/2 ML VIAL ONE (12:02)
[2024-01-18] MEDS ORDERED: PROPOFOL 10 MG/ML 20 ML VIAL IV ONE (12:02)
[2024-01-18] MEDS ORDERED: GLYCOPYRROLATE 0.2 MG/ML 2 ML VIAL ONE (12:02)
[2024-01-18] MEDS ORDERED: PHENYLEPHRINE 10 MG/ML VIAL ONE (12:02)
[2024-01-18] MEDS ORDERED: HYDROmorphone (PF) 1 MG/ML ONE (12:02)
[2024-01-18] MEDS ORDERED: SUCCINYLCHOLINE CHLORIDE 200 MG/10 ML VIAL IV ONE (12:02)
[2024-01-18] MEDS ORDERED: SODIUM CHLORIDE 0.9% 1,000 ML BAG ONE ×3 (13:00→23:59)
[2024-01-18] MEDS ORDERED: THROMBIN (BOVINE) 5,000 UNIT VIAL ONE (13:00)
[2024-01-18] MEDS ORDERED: ceFAZolin 10 GM VIAL IVPB ONE (13:00)
[2024-01-18] MEDS ORDERED: HEPARIN 10,000 UNIT/ML (4ML MDV) IV ONE (13:00)
[2024-01-18] MEDS ORDERED: HYDROmorphone 0.5 MG/0.5 ML SYRINGE ONE ×2 (18:13→18:25)
[2024-01-18] MEDS ORDERED: traZODone HCL 50 MG TAB ONE (20:40)
[2024-01-18] MEDS ORDERED: ATORVASTATIN 40 MG TAB ONE ×2 (20:41→20:56)
[2024-01-18] MEDS ORDERED: TAMSULOSIN 0.4 MG CAP.ER.24H PO ONE (20:42)
[2024-01-18] MEDS ORDERED: ESCITALOPRAM 10 MG TAB ONE (23:59)
[2024-01-18] MEDS ORDERED: BISOPROLOL-HCTZ 5-6.25 MG 1 EACH TAB ONE (23:59)
[2024-01-18] MEDS ORDERED: RIVAROXABAN 2.5 MG TABLET PO ONE (23:59)
[2024-01-18] MEDS ORDERED: buPROPion XL 150 MG TAB.ER.24H PO ONE (23:59)
[2024-01-18] MEDS ORDERED: cilostazoL 100 MG TAB ONE (23:59)
[2024-01-18] MEDS ORDERED: SODIUM CHLORIDE 0.9% 100 ML BAG ONE (23:59)
[2024-01-19] MEDS ORDERED: traZODone HCL 50 MG TAB ONE ×2 (02:19→22:42)
[2024-01-19] MEDS ORDERED: oxyCODONE-APAP 7.5-325MG 1 EACH TAB ONE ×5 (02:20→22:31)
[2024-01-19] MEDS ORDERED: PIPERACILLIN-TAZOBACTAM 3.375 GM VIAL ONE ×3 (05:28→22:30)
[2024-01-19] MEDS ORDERED: GABAPENTIN 300 MG CAP ONE ×3 (09:20→22:29)
[2024-01-19] MEDS ORDERED: NICOTINE 21MG/24HR PATCH TRANSDERM ONE (09:21)
[2024-01-19] MEDS ORDERED: ASPIRIN 81 MG ONE (09:21)
[2024-01-19] MEDS ORDERED: FAMOTIDINE 20 MG TAB ONE ×2 (09:21→22:28)
[2024-01-19] MEDS ORDERED: hydrOXYzine pamoate 25 MG CAP ONE (09:21)
[2024-01-19] MEDS ORDERED: ESCITALOPRAM 10 MG TAB ONE (09:21)
[2024-01-19] MEDS ORDERED: lisinopriL 20 MG TAB ONE ×2 (09:22→22:29)
[2024-01-19] MEDS ORDERED: ENOXAPARIN 40 MG/0.4 ML SYRINGE SQ ONE (09:22)
[2024-01-19] MEDS ORDERED: IPRATROPIUM-ALBUTEROL 3 ML NEB ONE (19:36)
[2024-01-19] MEDS ORDERED: TAMSULOSIN 0.4 MG CAP.ER.24H PO ONE (22:30)
[2024-01-19] MEDS ORDERED: ATORVASTATIN 40 MG TAB ONE (22:30)
[2024-01-19] MEDS ORDERED: SODIUM CHLORIDE 0.9% 100 ML BAG ONE (23:59)
[2024-01-19] MEDS ORDERED: RIVAROXABAN 2.5 MG TABLET PO ONE (23:59)
[2024-01-19] MEDS ORDERED: cilostazoL 100 MG TAB ONE (23:59)
[2024-01-19] MEDS ORDERED: DILTIAZEM 125 MG/25 ML VIAL IV ONE (23:59)
[2024-01-19] MEDS ORDERED: BISOPROLOL-HCTZ 5-6.25 MG 1 EACH TAB ONE (23:59)
[2024-01-19] MEDS ORDERED: buPROPion XL 150 MG TAB.ER.24H PO ONE (23:59)
[2024-01-20] MEDS ORDERED: HYDROmorphone 1 MG/ML 1 ML SYRINGE ONE ×2 (00:31→12:11)
[2024-01-20] MEDS ORDERED: IPRATROPIUM-ALBUTEROL 3 ML NEB ONE (04:34)
[2024-01-20] MEDS ORDERED: PIPERACILLIN-TAZOBACTAM 3.375 GM VIAL ONE ×3 (05:14→21:50)
[2024-01-20] MEDS ORDERED: oxyCODONE-APAP 7.5-325MG 1 EACH TAB ONE ×4 (05:14→21:54)
[2024-01-20] MEDS ORDERED: GABAPENTIN 300 MG CAP ONE ×3 (09:58→21:49)
[2024-01-20] MEDS ORDERED: lisinopriL 20 MG TAB ONE ×2 (09:58→21:50)
[2024-01-20] MEDS ORDERED: NICOTINE 21MG/24HR PATCH TRANSDERM ONE (09:59)
[2024-01-20] MEDS ORDERED: FAMOTIDINE 20 MG TAB ONE ×2 (10:00→21:50)
[2024-01-20] MEDS ORDERED: ASPIRIN 81 MG ONE (10:02)
[2024-01-20] MEDS ORDERED: TAMSULOSIN 0.4 MG CAP.ER.24H PO ONE (21:48)
[2024-01-20] MEDS ORDERED: ATORVASTATIN 40 MG TAB ONE (21:51)
[2024-01-20] MEDS ORDERED: ESCITALOPRAM 10 MG TAB ONE (23:59)
[2024-01-20] MEDS ORDERED: cilostazoL 100 MG TAB ONE (23:59)
[2024-01-20] MEDS ORDERED: RIVAROXABAN 2.5 MG TABLET PO ONE (23:59)
[2024-01-20] MEDS ORDERED: buPROPion XL 150 MG TAB.ER.24H PO ONE (23:59)
[2024-01-20] MEDS ORDERED: SODIUM CHLORIDE 0.9% 100 ML BAG ONE (23:59)
[2024-01-21] MEDS ORDERED: oxyCODONE-APAP 7.5-325MG 1 EACH TAB ONE ×3 (03:18→13:44)
[2024-01-21] MEDS ORDERED: PIPERACILLIN-TAZOBACTAM 3.375 GM VIAL ONE (03:33)
[2024-01-21] MEDS ORDERED: IPRATROPIUM-ALBUTEROL 3 ML NEB ONE (04:40)
[2024-01-21] MEDS ORDERED: GABAPENTIN 300 MG CAP ONE (09:06)
[2024-01-21] MEDS ORDERED: NICOTINE 21MG/24HR PATCH TRANSDERM ONE (09:07)
[2024-01-21] MEDS ORDERED: lisinopriL 20 MG TAB ONE (09:07)
[2024-01-21] MEDS ORDERED: FAMOTIDINE 20 MG TAB ONE (09:08)
[2024-01-21] MEDS ORDERED: ASPIRIN 81 MG ONE (09:08)
[2024-01-21] MEDS ORDERED: DILTIAZEM CD 120 MG CAP.ER.24H PO ONE (09:09)
[2024-01-21] MEDS ORDERED: RIVAROXABAN 20 MG TAB PO ONE (09:10)
[2024-01-21] MEDS ORDERED: cilostazoL 100 MG TAB ONE (10:00)
[2024-01-21] MEDS ORDERED: BISOPROLOL-HCTZ 5-6.25 MG 1 EACH TAB ONE (10:00)
[2024-01-21] MEDS ORDERED: ESCITALOPRAM 10 MG TAB ONE (10:00)
[2024-01-21] MEDS ORDERED: buPROPion XL 150 MG TAB.ER.24H PO ONE (10:00)
[2024-01-21] MEDS ORDERED: SODIUM CHLORIDE 0.9% 100 ML BAG ONE (10:00)
--- NOTE | 2024-03-03 14:39 | PN ---
Date of service is 01/17/2024 PROGRESS NOTE REASON FOR FOLLOWUP: Left lower extremity wound and cellulitis. INTERVAL HISTORY: The patient denies having any fever or any chills. The patient is breathing comfortably. Pain to the left lower extremity, especially in the foot has slightly decreased and controlled with pain medication. Denies any drainage. No nausea. No vomiting. No abdominal pain. No diarrhea. PHYSICAL EXAMINATION: VITAL SIGNS: Blood pressure 143/63 with a pulse of 108, temperature 98.2. GENERAL DESCRIPTION: This is a middle-aged male, up in the chair, in no distress. RESPIRATORY SYSTEM: Unlabored breathing. Clear to auscultation anteriorly. HEART: S1, S2. Regular rate and rhythm. ABDOMEN: Soft. No tenderness. EXTREMITIES: Left lower extremity did have 2 open wounds, one on the medial aspect is mostly dried out. No significant drainage. Redness decreased. DIAGNOSTIC IMPRESSION AND PLAN: The patient with left lower extremity wound with underlying history of peripheral artery disease, currently waiting for revascularization procedure possibly tomorrow. The patient is covered with Zosyn, to continue and monitor clinical course closely. MMODL / IJN: [id number] / SHREYAS
--- NOTE | 2024-03-03 14:39 | PN ---
PROGRESS NOTE DATE OF SERVICE: 01/18/2024 LOCATION: 9. REASON FOR FOLLOWUP: Left foot wound and cellulitis. INTERVAL HISTORY: The patient is status post vascular procedure to the left lower extremity. The patient has been seen in the OR Recovery, recovering from his anesthesia and confusion reported by the nurse. The patient denies any chest pain, shortness of breath or cough. No abdominal pain or pain to the left foot, and leg is currently controlled. PHYSICAL EXAMINATION: VITAL SIGNS: Blood pressure 154/67, pulse of 98, temperature 98.2. GENERAL DESCRIPTION: This is a middle-aged male, lying in bed, in no distress. RESPIRATORY SYSTEM: Unlabored breathing. Clear to auscultation anteriorly. HEART: S1, S2. Regular rate and rhythm. ABDOMEN: Soft. EXTREMITIES: Left leg wound is drying out. Redness slightly decreased. DIAGNOSTIC IMPRESSION AND PLAN: The patient with left lower extremity wound especially with 4 days of likely ischemic with concern for possible secondary cellulitis status post revascularization procedure. The patient to continue with Zosyn and monitor clinical course closely. MMODL / IJN: [id number] /
--- NOTE | 2024-04-14 19:03 | CDI ---
Documentation Clarification Form Date: 04/14/2024 06:44:31 PM From: Helena Morton Phone: Admit Date: 01/14/2024 03:00:00 PM Patient Name: Eric Greenfield Visit Number: [id number] Discharge Date: 01/21/2024 02:52:00 PM ATTENTION: The Clinical Documentation Specialists (CDI) and [facility] Coding Staff appreciate your assistance in clarifying documentation. Please respond to the clarification below the line at the bottom and electronically sign. The CDI & [facility] Coding staff will review the response and follow-up if needed. Please note: Queries are made part of the Legal Health Record. If you have any questions, please contact the author of this message via ITS. Doctor/Provider: Mariana Nesbitt Unspecified anemia is documented per Progress Note 01/14 (Pg 4/4). Additional specificity regarding the type of anemia is requested. History/Risk Factors: 58yo M, PAD w LLE pain/ulceration, s/p open endardectomy, COPD, alcohol abuse, depression, HTN, HLD, ascites, BPH, heavy smoker, senior care anticoagulants & ASA Clinical indicators: Hemoglobin: 01/13 13.2 01/14 12.3 01/15 11.2 01/17 11.5 Hematocrit: 01/13 40.3 01/14 38.9 01/15 34.7 01/17 35.9 Treatment: monitored Please clarify the type of anemia: [ xxxx ] Acute blood loss anemia [ ] Iron deficiency anemia [ ] Unable to determine [ ] Other, please specify (Template Last Revised: July 2020) MTDD
--- NOTE | 2024-04-14 21:30 | CDI ---
Documentation Clarification Form Date: 04/14/2024 07:03:52 PM From: Helena Morton Phone: Admit Date: 01/14/2024 03:00:00 PM Patient Name: Eric Greenfield Visit Number: [id number] Discharge Date: 01/21/2024 02:52:00 PM ATTENTION: The Clinical Documentation Specialists (CDI) and [facility] Coding Staff appreciate your assistance in clarifying documentation. Please respond to the clarification below the line at the bottom and electronically sign. The CDI & [facility] Coding staff will review the response and follow-up if needed. Please note: Queries are made part of the Legal Health Record. If you have any questions, please contact the author of this message via ITS. Doctor/Provider: Mariana Nesbitt There is documentation of a Left lower toewound w PAD. Additional specificity regarding severity of the wound is requested. 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
== END 2024-01-21 14:52 | DRG 181 ==
LOC: 5NMEDONC 06:15 → UNDOADMOB 07:45 → 5NMEDONC 07:45 → OBSVTOIN 15:00 → UNDODISOB 01-21 14:52
PROVIDERS: ADMIT Internal Medicine; ATTEND Internal Medicine
PROC: 04CU0ZZ Extirpation of Matter from Left Peroneal Artery, Open Approach (ICD-10-PCS; 2024-01-18)
PROC: 04CS0ZZ Extirpation of Matter from Left Posterior Tibial Artery, Open Approach (ICD-10-PCS; 2024-01-18)
PROC: 04CL0ZZ Extirpation of Matter from Left Femoral Artery, Open Approach (ICD-10-PCS; principal; 2024-01-18 11:30)
DX: I70.245 Atherosclerosis of native arteries of left leg with ulceration of other part of foot (principal); L97.529 Non-pressure chronic ulcer of other part of left foot with unspecified severity; L03.116 Cellulitis of left lower limb; G93.41 Metabolic encephalopathy; K76.82 Hepatic encephalopathy; I47.29 Other ventricular tachycardia; R18.8 Other ascites; D62 Acute posthemorrhagic anemia; I70.222 Atherosclerosis of native arteries of extremities with rest pain, left leg; J44.9 Chronic obstructive pulmonary disease, unspecified; I70.248 Atherosclerosis of native arteries of left leg with ulceration of other part of lower leg; I70.422 Atherosclerosis of autologous vein bypass graft(s) of the extremities with rest pain, left leg; F32.A Depression, unspecified; I10 Essential (primary) hypertension; Z95.820 Peripheral vascular angioplasty status with implants and grafts; F10.132 Alcohol abuse with withdrawal with perceptual disturbance; I48.0 Paroxysmal atrial fibrillation; K21.9 Gastro-esophageal reflux disease without esophagitis; E78.5 Hyperlipidemia, unspecified; N40.0 Benign prostatic hyperplasia without lower urinary tract symptoms; I25.10 Atherosclerotic heart disease of native coronary artery without angina pectoris; F17.210 Nicotine dependence, cigarettes, uncomplicated; Z79.01 Long term (current) use of anticoagulants; Z79.82 Long term (current) use of aspirin; Z79.899 Other long term (current) drug therapy
CPT/HCPCS: 80053; 83605; 85025; 85652; 86850; 86900; 86901; 87040; 87070; 87075; 87077; 87186; 87205; 94640

== ENCOUNTER 2024-02-26 16:04 | Inpatient (IN) | payer OTHER ==
--- NOTE | 2024-02-26 17:00 | ED ---
Skin/Abscess/FB HPI - General Chief complaint: Skin/Abscess/Foreign Body Stated complaint: Post Op Comp Time Seen by Provider: 02/26/24 16:39 Source: patient, RN notes reviewed Mode of arrival: ambulatory Limitations: no limitations - History of Present Illness Initial comments: This is a 59-year-old male who presents to the emergency department for a left leg wound. Patient had a stent placed in his left leg and rafiq were used to close the incision. States that the rafiq were removed a couple of weeks ago and shortly afterwards the incision split back open. He has not been putting anything on this and states that he did not contact the surgeon or tell anybody about this before coming to the emergency department today. This is increasing ly painful. He is currently on antibiotics but is unsure what kind. Denies any fevers or chills. - Related Data Home Medications Medication Instructions Recorded Confirmed Bisoprolol-Hctz 5-6.25 mg [Ziac 1 tab PO DAILY 02/26/18 02/26/24 5-6.25 MG] Methylphenidate HCl 20 mg PO BID@0900,1500 02/26/18 02/26/24 Tamsulosin HCl [Flomax] 0.4 mg PO HS 02/26/18 02/26/24 Albuterol Nebulized [Ventolin 2.5 mg INHALATION RT-TID PRN 04/21/23 02/26/24 Nebulized] Butalb/APAP/Caff 50-325-40Mg 1 tab PO DAILY PRN 04/21/23 02/26/24 [Fioricet 50-325-40] lisinopriL [Zestril] 20 mg PO BID 04/21/23 02/26/24 Gabapentin [Neurontin] 600 mg PO HS 08/22/23 02/26/24 Simvastatin [Zocor] 20 mg PO HS 10/23/23 02/26/24 oxyCODONE-APAP 7.5-325MG [Percocet 1 tab PO TID PRN 10/23/23 02/26/24 7.5-325 mg] Albuterol Sulfate [Ventolin HFA] 2 puff INHALATION RT-QID PRN 12/27/23 02/26/24 Escitalopram Oxalate [Lexapro] 10 mg PO HS 12/27/23 02/26/24 Escitalopram Oxalate [Lexapro] 20 mg PO DAILY 12/27/23 02/26/24 traZODone HCL [Desyrel] 50 mg PO HS 12/27/23 02/26/24 Cephalexin [Keflex] 500 mg PO Q6H 02/26/24 02/26/24 Previous Rx's Medication Instructions Recorded Nicotine 21Mg/24Hr Patch [Habitrol] 1 patch TRANSDERM DAILY 30 Days 09/02/23 #30 patch buPROPion XL [Wellbutrin XL] 150 mg PO DAILY 30 Days #30 tab 10/27/23 cilostazoL [Pletal] 100 mg PO BID 30 Days #60 tab 10/27/23 Allergies Allergy/AdvReac Type Severity Reaction Status Date / Time No Known Allergies Allergy Verified 02/26/24 17:55 Review of Systems ROS Statement: Those systems with pertinent positive or pertinent negative responses have been documented in the HPI. ROS Other: All systems not noted in ROS Statement are negative. Past Medical History Past Medical History: Asthma, COPD, GERD/Reflux, Hyperlipidemia, Hypertension, Osteoarthritis (OA) Additional Past Medical History / Comment(s): BACK AND HIP PAIN, DIFFICULTY WALKING DISTANCE, HX OF GASTRIC ULCERS AND BLOOD IN STOOL, CALCIFICATIONS IN BILATERAL FEMORAL ARTERIES, LEFT FOOT WOUND SINCE APRIL 2023 R/T PVD History of Any Multi-Drug Resistant Organisms: None Reported Past Surgical History: Hernia Repair Additional Past Surgical History / Comment(s): HERNIA REPAIR AT 5 & 7 YEARS OLD, AORTOFEMORAL BYPASS GRAFT Past Anesthesia/Blood Transfusion Reactions: No Reported Reaction Additional Past Anesthesia/Blood Transfusion Reaction / Comment(s): DOES NOT REMEMBER ANY ANESTHESIA PROBLEMS A CHILD. Past Psychological History: Anxiety Smoking Status: Current every day smoker Past Alcohol Use History: Daily, Heavy Past Drug Use History: Marijuana - Past Family History Mother Family Medical History: No Reported History Additional Family Medical History / Comment(s): bipolar disorder. Brother(s) Additional Family Medical History / Comment(s): bipolar disorder. General Exam Limitations: no limitations General appearance: alert, in no apparent distress Head exam: Present: atraumatic, normocephalic, normal inspection Respiratory exam: Present: normal lung sounds bilaterally. Absent: respiratory distress, wheezes, rales, rhonchi, stridor Cardiovascular Exam: Present: regular rate, normal rhythm, normal heart sounds. Absent: systolic murmur, diastolic murmur, rubs, gallop, clicks Extremities exam: Present: other (Large open incision to the left calf with surrounding erythema and induration) Neurological exam: Present: alert, oriented X3, CN II-XII intact Psychiatric exam: Present: normal affect, normal mood Course Vital Signs 02/26/24 02/26/24 02/26/24 16:17 20:00 20:21 Temperature 97.7 F 97.7 F 97.9 F Pulse Rate 84 72 Pulse Rate [ 78 Pulse Oximetery ] Respiratory 16 16 18 Rate Blood Pressure 141/71 133/78 Blood Pressure 156/76 [Left Arm] O2 Sat by Pulse 99 100 97 Oximetry Medical Decision Making - Medical Decision Making This is a 59-year-old male who presents to the emergency department for an open left leg incision/wound. Was pt. sent in by a medical professional or institution? @ -No Did you speak to anyone other than the patient for history? @ -No Did you review nursing and triage notes? @ -Yes, and I agree, it is accurate with regards to the patient's symptoms. Were old charts reviewed? @ -No Differential Diagnosis? @ -Differential Leg Wound/Incision: Cellulitis, abscess, wound dehiscence, this is not meant to be an all-inclusive list. EKG interpreted by me (3pts min.)? @ -Not obtained X-rays interpreted by me (1pt min.)? @ -Not obtained CT interpreted by me (1pt min.)? @ -Not obtained U/S interpreted by me (1pt. min.)? @ -Not obtained What testing was considered but not performed? (CT, X-rays, U/S, labs)? Why? @ -None What meds were considered but not given? Why? @ -None Did you discuss the management of the patient with other professionals? @ -Yes, Dr. Nesbitt, who accepts the patient for admission Did you reconcile home meds? @ -Yes Was smoking cessation discussed for >3mins.? @ -I discussed smoking cessation for greater than 3 minutes. The risk of smoking were discussed with the patient including but not limited to risks of cancer, stroke, coronary artery disease and COPD. Also discussed with patient were multiple methods of quitting smoking. Lastly we discussed the financial cost of smoking. Was critical care preformed (if so, how long)? @ -No Were there social determinants of health that impacted care today? How? (Homelessness, low income, unemployed, alcoholism, drug addiction, transportation, low edu. Level, literacy, decrease access to med. care, longterm, rehab)? @ -No Was there de-escalation of care discussed even if they declined? (Discuss DNR or withdrawal of care, Hospice)? @ -No What co-morbidities impacted this encounter? (DM, HTN, Smoking, COPD, CAD, Cancer, CVA, Hep., AIDS, mental health diagnosis, sleep apnea, morbid obesity)? @ -Smoking Was patient admitted / discharged? @ -Admitted. On exam the patient's incision had completely opened up and was left open and exposed to the elements. He had some surrounding erythema and induration. Lab work obtained demonstrating hyponatremia with a sodium of 124. CRP mildly elevated at 2.8. Patient admitted to medicine for hyponatremia as well as the open surgical incision with possible superimposed infection. Consult placed for infectious disease and vascular surgery. He was given a liter bolus of IV fluids. Wound and blood cultures obtained. He was started on vancomycin and cefepime. Patient kept n.p.o. after midnight in the event any sort of intervention needs to be done tomorrow. Case discussed with ED attending Dr. Napoles. Undiagnosed new problem with uncertain prognosis? @ -None Drug Therapy requiring intensive monitoring for toxicity (Heparin, Nitro, Insulin, Cardizem)? @ -None Were any procedures done? @ -None Diagnosis/symptom? @ -Hyponatremia, wound dehiscence/opening of surgical incision, possible infected surgical incision Acute, or Chronic, or Acute on Chronic? @ -Acute Uncomplicated (without systemic symptoms) or Complicated (systemic symptoms)? @ -Uncomplicated Side effects of treatment? @ -None Exacerbation, Progression, or Severe Exacerbation] @ -Not applicable Poses a threat to life or bodily function? @ -Yes, can lead to worsening infection, which could lead to sepsis and septic shock - Lab Data Result diagrams: 02/26/24 16:45 02/26/24 16:45 Lab Results 02/26/24 02/26/24 02/26/24 Range/Units 16:45 16:45 16:45 WBC 8.0 (3.8-10.6) k/uL RBC 3.53 L (4.30-5.90) m/uL Hgb 10.9 L (13.0-17.5) gm/dL Hct 33.3 L (39.0-53.0) % MCV 94.4 (80.0-100.0) fL MCH 31.0 (25.0-35.0) pg MCHC 32.8 (31.0-37.0) g/dL RDW 13.1 (11.5-15.5) % Plt Count 371 (150-450) k/uL MPV 7.4 Neutrophils % 73 % Lymphocytes % 14 % Monocytes % 7 % Eosinophils % 4 % Basophils % 1 % Neutrophils # 5.8 (1.3-7.7) k/uL Lymphocytes # 1.1 (1.0-4.8) k/uL Monocytes # 0.5 (0-1.0) k/uL Eosinophils # 0.3 (0-0.7) k/uL Basophils # 0.0 (0-0.2) k/uL ESR 50 H (0-20) mm/Hr PT 9.9 L (10.0-12.5) sec INR 0.9 (<1.2) APTT 27.2 (22.0-30.0) sec Sodium 124 L (137-145) mmol/L Potassium 5.2 H (3.5-5.1) mmol/L Chloride 98 (98-107) mmol/L Carbon Dioxide 25 (22-30) mmol/L Anion Gap 1 mmol/L BUN 24 H (9-20) mg/dL Creatinine 1.12 (0.66-1.25) mg/dL Est GFR (CKD-EPI)AfAm 83 (>60 ml/min/1.73 sqM) Est GFR (CKD-EPI)NonAf 72 (>60 ml/min/1.73 sqM) Glucose 110 H (74-99) mg/dL Plasma Lactic Acid Wolf (0.7-2.0) mmol/L Calcium 8.9 (8.4-10.2) mg/dL Total Bilirubin 0.4 (0.2-1.3) mg/dL AST 20 (17-59) U/L ALT 10 (4-49) U/L Alkaline Phosphatase 81 (38-126) U/L C-Reactive Protein 2.8 H (<1.0) mg/dL Total Protein 7.4 (6.3-8.2) g/dL Albumin 4.1 (3.5-5.0) g/dL 02/26/24 Range/Units 16:45 WBC (3.8-10.6) k/uL RBC (4.30-5.90) m/uL Hgb (13.0-17.5) gm/dL Hct (39.0-53.0) % MCV (80.0-100.0) fL MCH (25.0-35.0) pg MCHC (31.0-37.0) g/dL RDW (11.5-15.5) % Plt Count (150-450) k/uL MPV Neutrophils % % Lymphocytes % % Monocytes % % Eosinophils % % Basophils % % Neutrophils # (1.3-7.7) k/uL Lymphocytes # (1.0-4.8) k/uL Monocytes # (0-1.0) k/uL Eosinophils # (0-0.7) k/uL Basophils # (0-0.2) k/uL ESR (0-20) mm/Hr PT (10.0-12.5) sec INR (<1.2) APTT (22.0-30.0) sec Sodium (137-145) mmol/L Potassium (3.5-5.1) mmol/L Chloride (98-107) mmol/L Carbon Dioxide (22-30) mmol/L Anion Gap mmol/L BUN (9-20) mg/dL Creatinine (0.66-1.25) mg/dL Est GFR (CKD-EPI)AfAm (>60 ml/min/1.73 sqM) Est GFR (CKD-EPI)NonAf (>60 ml/min/1.73 sqM) Glucose (74-99) mg/dL Plasma Lactic Acid Wolf 1.0 (0.7-2.0) mmol/L Calcium (8.4-10.2) mg/dL Total Bilirubin (0.2-1.3) mg/dL AST (17-59) U/L ALT (4-49) U/L Alkaline Phosphatase (38-126) U/L C-Reactive Protein (<1.0) mg/dL Total Protein (6.3-8.2) g/dL Albumin (3.5-5.0) g/dL Disposition Clinical Impression: Hyponatremia, Wound dehiscence, Infected incision, Nicotine dependence Disposition: ADMITTED IP TO THIS HOSP
[2024-02-26 17:04] LABS: Basophils % (A) 1 %; Eosinophils # (A) 0.3 k/uL (0-0.7); Eosinophils % (A) 4 %; HCT 33.3 % (39.0-53.0); HGB 10.9 gm/dL (13.0-17.5); Lymphocytes # (A) 1.1 k/uL (1.0-4.8); Lymphocytes % (A) 14 %; MCHC 32.8 g/dL (31.0-37.0); MCV 94.4 fL (80.0-100.0); Mean Platelet Volume 7.4; Monocytes # (A) 0.5 k/uL (0-1.0); Monocytes % (A) 7 %; Neutrophils # (A) 5.8 k/uL (1.3-7.7); Neutrophils % (A) 73 %; Platelet Count 371 k/uL (150-450); RBC 3.53 m/uL (4.30-5.90); RDW 13.1 % (11.5-15.5)
[2024-02-26 17:18] LABS: INR 0.9 (<1.2); Partial Thromboplastin Time 27.2 sec (22.0-30.0); Prothrombin Time 9.9 sec (10.0-12.5)
[2024-02-26 17:21] LABS: ALT 10 U/L (4-49); AST 20 U/L (17-59); African American GFR (CKD) 83 (>60 ml/min/1.73 sqM); Albumin 4.1 g/dL (3.5-5.0); Alkaline Phosphatase 81 U/L (38-126); Anion Gap 1 mmol/L; Blood Urea Nitrogen 24 mg/dL (9-20); C Reactive Protein 2.8 mg/dL (<1.0); Calcium 8.9 mg/dL (8.4-10.2); Carbon Dioxide 25 mmol/L (22-30); Chloride 98 mmol/L (98-107); Glucose 110 mg/dL (74-99); Non-African American GFR(CKD) 72 (>60 ml/min/1.73 sqM); Potassium 5.2 mmol/L (3.5-5.1); Sodium 124 mmol/L (137-145); Total Bilirubin 0.4 mg/dL (0.2-1.3); Total Protein 7.4 g/dL (6.3-8.2)
[2024-02-26] MEDS ORDERED: VANCOMYCIN IV PER PHARMACY 1 EACH MISC MISCELLANE PRN (17:55)
[2024-02-26] MEDS ORDERED: ACETAMINOPHEN TAB 325 MG TAB PO PRN (17:56)
[2024-02-26] MEDS ORDERED: NALOXONE 0.4 MG/ML 1 ML VIAL IV PRN (17:56)
[2024-02-26] MEDS ORDERED: ONDANSETRON 4 MG/2 ML VIAL IVP PRN (17:56)
[2024-02-26] MEDS ORDERED: HYDROcodone/APAP 5-325MG 1 EACH TAB PO PRN (17:56)
[2024-02-26] MEDS ORDERED: ALBUTEROL HFA INHALER INHALATION PRN (17:58)
[2024-02-26] MEDS: VANCOMYCIN 1,250 MG in SODIUM CHLORIDE 0.9% 250 ML IVPB STA (18:22)
[2024-02-26] MEDS: SODIUM CHLORIDE 0.9% 1,000 ML IV STA (18:22)
[2024-02-26] MEDS: CEFEPIME 2 GM in SODIUM CHLORIDE 0.9% 100 ML IVPB SCH (18:23)
[2024-02-26] MEDS: diphenhydrAMINE 50 MG/ML 1 ML VIAL IVP STA (19:06)
[2024-02-26 20:22] LABS: Erythrocyte Sedimentation Rate 50 mm/Hr (0-20)
[2024-02-26] MEDS: lisinopriL 20 MG TAB PO SCH (22:30)
[2024-02-26] MEDS: TAMSULOSIN 0.4 MG CAP.ER.24H PO SCH (22:30)
[2024-02-26] MEDS: traZODone HCL 50 MG TAB PO SCH (22:30)
[2024-02-26] MEDS: ATORVASTATIN 10 MG TAB PO SCH (22:30)
[2024-02-26] MEDS: GABAPENTIN 300 MG CAP PO SCH (22:30)
[2024-02-26] MEDS: oxyCODONE-APAP 7.5-325MG 1 EACH TAB PO PRN (23:45)
[2024-02-27] MEDS: ESCITALOPRAM 10 MG TAB PO SCH (00:25)
[2024-02-27] MEDS: cilostazoL 100 MG TAB PO SCH (00:25)
[2024-02-27] MEDS: MORPHINE SULFATE 4 MG/ML SYRINGE IV PRN (05:18)
[2024-02-27] MEDS: ESCITALOPRAM 20 MG TAB PO SCH (09:40)
[2024-02-27] MEDS: METHYLPHENIDATE HCL 10 MG TAB PO SCH (09:40)
[2024-02-27] MEDS: buPROPion XL 150 MG TAB.ER.24H PO SCH (09:40)
[2024-02-27] MEDS: NICOTINE 21MG/24HR PATCH TRANSDERM SCH (09:40)
[2024-02-27] MEDS: BISOPROLOL-HCTZ 5-6.25 MG 1 EACH TAB PO SCH (09:40)
[2024-02-27] MEDS: VANCOMYCIN 1,250 MG in SODIUM CHLORIDE 0.9% 250 ML IVPB SCH (09:41)
--- NOTE | 2024-02-27 13:15 | P.HPIM ---
History of Present Illness H&P Date: 02/27/24 Eric Greenfield, is a 59-year-old male who presented to [facility] emergency room with a chief complaint of open wound at the incision site of his recent left femoral tibial bypass surgery. Patient underwent surgery on 01/18/2024 he was followed by vascular surgery he had his rafiq removed however his incision site started to open again, he decided to monitor for the last 2 weeks however wound was not getting any better and he decided yesterday to come to emergency room. He was evaluated in the emergency room vital examination on presentation revealed a temperature of 97.7 pulse 84 respirations 16 blood pressure 141/71 pulse ox 99% on room air Laboratory data reveals a white blood count of 8.0 hemoglobin 10.9 platelet count 371 sodium 124 potassium 5.2 BUN 24 creatinine 1.12 Patient was admitted to medical floor he was started on IV antibiotic vancomycin and cefepime in the emergency room, he was also started on normal saline for hyponatremia. Vascular surgery and infectious disease consultation were requested. Past Medical History Past Medical History: Asthma, COPD, GERD/Reflux, Hyperlipidemia, Hypertension, Osteoarthritis (OA) Additional Past Medical History / Comment(s): BACK AND HIP PAIN, DIFFICULTY WALKING DISTANCE, HX OF GASTRIC ULCERS AND BLOOD IN STOOL, CALCIFICATIONS IN BILATERAL FEMORAL ARTERIES, LEFT FOOT WOUND SINCE APRIL 2023 R/T PVD History of Any Multi-Drug Resistant Organisms: None Reported Past Surgical History: Hernia Repair Additional Past Surgical History / Comment(s): HERNIA REPAIR AT 5 & 7 YEARS OLD, AORTOFEMORAL BYPASS GRAFT Past Anesthesia/Blood Transfusion Reactions: No Reported Reaction Additional Past Anesthesia/Blood Transfusion Reaction / Comment(s): DOES NOT REMEMBER ANY ANESTHESIA PROBLEMS A CHILD. Past Psychological History: Anxiety Smoking Status: Current every day smoker Past Alcohol Use History: Daily, Heavy Past Drug Use History: Marijuana - Past Family History Mother Family Medical History: No Reported History Additional Family Medical History / Comment(s): bipolar disorder. Brother(s) Additional Family Medical History / Comment(s): bipolar disorder. Medications and Allergies Home Medications Medication Instructions Recorded Confirmed Type Bisoprolol-Hctz 5-6.25 mg [Ziac 1 tab PO DAILY 02/26/18 02/26/24 History 5-6.25 MG] Methylphenidate HCl 20 mg PO BID@0900,1500 02/26/18 02/26/24 History Tamsulosin HCl [Flomax] 0.4 mg PO HS 02/26/18 02/26/24 History Albuterol Nebulized [Ventolin 2.5 mg INHALATION RT-TID PRN 04/21/23 02/26/24 History Nebulized] Butalb/APAP/Caff 50-325-40Mg 1 tab PO DAILY PRN 04/21/23 02/26/24 History [Fioricet 50-325-40] lisinopriL [Zestril] 20 mg PO BID 04/21/23 02/26/24 History Gabapentin [Neurontin] 600 mg PO HS 08/22/23 02/26/24 History Nicotine 21Mg/24Hr Patch [Habitrol] 1 patch TRANSDERM DAILY 30 Days 09/02/23 02/26/24 Rx #30 patch Simvastatin [Zocor] 20 mg PO HS 10/23/23 02/26/24 History oxyCODONE-APAP 7.5-325MG [Percocet 1 tab PO TID PRN 10/23/23 02/26/24 History 7.5-325 mg] buPROPion XL [Wellbutrin XL] 150 mg PO DAILY 30 Days #30 tab 10/27/23 02/26/24 Rx cilostazoL [Pletal] 100 mg PO BID 30 Days #60 tab 10/27/23 02/26/24 Rx Albuterol Sulfate [Ventolin HFA] 2 puff INHALATION RT-QID PRN 12/27/23 02/26/24 History Escitalopram Oxalate [Lexapro] 10 mg PO HS 12/27/23 02/26/24 History Escitalopram Oxalate [Lexapro] 20 mg PO DAILY 12/27/23 02/26/24 History traZODone HCL [Desyrel] 50 mg PO HS 12/27/23 02/26/24 History Cephalexin [Keflex] 500 mg PO Q6H 02/26/24 02/26/24 History Allergies Allergy/AdvReac Type Severity Reaction Status Date / Time No Known Allergies Allergy Verified 02/26/24 17:55 Physical Exam Vitals: Vital Signs Temp Pulse Pulse Resp BP BP Pulse Ox 02/27/24 07:29 98.2 F 74 16 119/62 98 02/27/24 01:52 98 F 83 16 133/56 91 L 02/26/24 23:00 78 02/26/24 20:21 97.9 F 72 18 133/78 97 02/26/24 20:00 97.7 F 78 16 156/76 100 02/26/24 16:17 97.7 F 84 16 141/71 99 Intake and Output 02/26/24 02/27/24 02/27/24 22:59 06:59 14:59 Output Total 700 Balance -700 Output: Urine 700 Other: Voiding Method Toilet Urinal # Voids 3 # Bowel Movements 1 Weight 70.307 kg In general patient is alert and oriented x 3 in no distress HEENT head normocephalic and atraumatic Neck is supple no JVD no goiter no lymphadenopathy no carotid bruit Chest examination is clear to auscultation no crackles no wheezing Cardiac exam reveals regular heart sounds S1 and S2 no gallops no murmurs Abdomen is soft nontender no organomegaly with normal bowel sounds Extremity exam reveals mild edema bilaterally there is open wound in the surgical site on the left lower extremity with surrounding erythema Neurological examination reveals no gross focal deficits Results CBC & Chem 7: 02/26/24 16:45 02/26/24 16:45 Labs: Abnormal Lab Results - Last 24 Hours (Table) 02/26/24 02/26/24 02/26/24 Range/Units 16:45 16:45 16:45 RBC 3.53 L (4.30-5.90) m/uL Hgb 10.9 L (13.0-17.5) gm/dL Hct 33.3 L (39.0-53.0) % ESR 50 H (0-20) mm/Hr PT 9.9 L (10.0-12.5) sec Sodium 124 L (137-145) mmol/L Potassium 5.2 H (3.5-5.1) mmol/L BUN 24 H (9-20) mg/dL Glucose 110 H (74-99) mg/dL C-Reactive Protein 2.8 H (<1.0) mg/dL Microbiology - Last 24 Hours (Table) 02/26/24 16:45 Gram Stain - Preliminary Leg - Left Thrombosis Risk Factor Assmnt - Choose All That Apply Each Factor Represents 1 point: Abnormal pulmonary function (COPD), Age 41-60 years, History of prior major surgery (<1month) Thrombosis Risk Factor Assessment Total Risk Factor Score: 3 Thrombosis Risk Factor Assessment Level: Moderate Risk Assessment and Plan Plan: Left lower extremity wound dehiscence Hyponatremia Infected surgical wound Underlying history of severe peripheral arterial disease Underlying history of hypertension Underlying history of hyperlipidemia Underlying history of continued tobacco use At this time patient was seen and examined Home medications reviewed and reordered Vascular surgery and infectious disease consultation were requested Patient was started on IV vancomycin and IV cefepime in the emergency room For DVT prophylaxis subcu Rudi Will follow closely
[2024-02-27] MEDS: ENOXAPARIN 40 MG/0.4 ML SYRINGE SQ SCH (14:32)
[2024-02-27] MEDS: ALBUTEROL NEBULIZED 2.5 MG/3 ML INHALATION PRN (15:26)
--- NOTE | 2024-02-27 15:31 | P.GSCN ---
History of Present Illness Consult date: 02/27/24 History of present illness: Eric is a 59-year-old male who presented to the hospital with increasing swelling and drainage from his left lower extremity. He has undergone an aortobifemoral bypass and subsequent left femoral to below-knee popliteal bypass. He has had increasing swelling due to his revascularization and has had separation of his wound with full dehiscence of the popliteal incision. He denies any fevers, he denies any night sweats or chills. He denies any purulent drainage. He presented to the ER for evaluation of this and was admitted. Overall his leg feels better than prior to surgery. He has followed up with Dr. Syed once in the office and has a follow-up later this week. Past Medical History Past Medical History: Asthma, COPD, GERD/Reflux, Hyperlipidemia, Hypertension, Osteoarthritis (OA) Additional Past Medical History / Comment(s): BACK AND HIP PAIN, DIFFICULTY WALKING DISTANCE, HX OF GASTRIC ULCERS AND BLOOD IN STOOL, CALCIFICATIONS IN BILATERAL FEMORAL ARTERIES, LEFT FOOT WOUND SINCE APRIL 2023 R/T PVD History of Any Multi-Drug Resistant Organisms: None Reported Past Surgical History: Hernia Repair Additional Past Surgical History / Comment(s): HERNIA REPAIR AT 5 & 7 YEARS OLD, AORTOFEMORAL BYPASS GRAFT Past Anesthesia/Blood Transfusion Reactions: No Reported Reaction Additional Past Anesthesia/Blood Transfusion Reaction / Comm: DOES NOT REMEMBER ANY ANESTHESIA PROBLEMS A CHILD. Past Psychological History: Anxiety Smoking Status: Current every day smoker Past Alcohol Use History: Daily, Heavy Past Drug Use History: Marijuana - Past Family History Mother Family Medical History: No Reported History Additional Family Medical History / Comment(s): bipolar disorder. Brother(s) Additional Family Medical History / Comment(s): bipolar disorder. Medications and Allergies Home Medications Medication Instructions Recorded Confirmed Type Bisoprolol-Hctz 5-6.25 mg [Ziac 1 tab PO DAILY 02/26/18 02/26/24 History 5-6.25 MG] Methylphenidate HCl 20 mg PO BID@0900,1500 02/26/18 02/26/24 History Tamsulosin HCl [Flomax] 0.4 mg PO HS 02/26/18 02/26/24 History Albuterol Nebulized [Ventolin 2.5 mg INHALATION RT-TID PRN 04/21/23 02/26/24 History Nebulized] Butalb/APAP/Caff 50-325-40Mg 1 tab PO DAILY PRN 04/21/23 02/26/24 History [Fioricet 50-325-40] lisinopriL [Zestril] 20 mg PO BID 04/21/23 02/26/24 History Gabapentin [Neurontin] 600 mg PO HS 08/22/23 02/26/24 History Nicotine 21Mg/24Hr Patch [Habitrol] 1 patch TRANSDERM DAILY 30 Days 09/02/23 02/26/24 Rx #30 patch Simvastatin [Zocor] 20 mg PO HS 10/23/23 02/26/24 History oxyCODONE-APAP 7.5-325MG [Percocet 1 tab PO TID PRN 10/23/23 02/26/24 History 7.5-325 mg] buPROPion XL [Wellbutrin XL] 150 mg PO DAILY 30 Days #30 tab 10/27/23 02/26/24 Rx cilostazoL [Pletal] 100 mg PO BID 30 Days #60 tab 10/27/23 02/26/24 Rx Albuterol Sulfate [Ventolin HFA] 2 puff INHALATION RT-QID PRN 12/27/23 02/26/24 History Escitalopram Oxalate [Lexapro] 10 mg PO HS 12/27/23 02/26/24 History Escitalopram Oxalate [Lexapro] 20 mg PO DAILY 12/27/23 02/26/24 History traZODone HCL [Desyrel] 50 mg PO HS 12/27/23 02/26/24 History Cephalexin [Keflex] 500 mg PO Q6H 02/26/24 02/26/24 History Allergies Allergy/AdvReac Type Severity Reaction Status Date / Time No Known Allergies Allergy Verified 02/26/24 17:55 Surgical - Exam Vital Signs Temp Pulse Resp BP Pulse Ox 97.7 F 84 16 141/71 99 02/26/24 16:17 02/26/24 16:17 02/26/24 16:17 02/26/24 16:17 02/26/24 16:17 General Is a pleasant cooperative male in no acute distress. HEENT is normocephalic, atraumatic, extraocular motion intact. Heart appears regular at this time. No respiratory distress. Abdomen is soft. On the left lower extremity there is moderate edema. Groin incision and thigh incision appears to have healed well. The distal popliteal incision has dehisced with serous drainage. No purulent drainage. No significant erythema other than from irritation at the wound edges. The portion of eschar is removed. The wound is cleansed and Opticell dressing is placed. Results - Labs 02/26/24 16:45 02/26/24 16:45 Abnormal Lab Results - Last 24 Hours (Table) 02/26/24 02/26/24 02/26/24 Range/Units 16:45 16:45 16:45 RBC 3.53 L (4.30-5.90) m/uL Hgb 10.9 L (13.0-17.5) gm/dL Hct 33.3 L (39.0-53.0) % ESR 50 H (0-20) mm/Hr PT 9.9 L (10.0-12.5) sec Sodium 124 L (137-145) mmol/L Potassium 5.2 H (3.5-5.1) mmol/L BUN 24 H (9-20) mg/dL Glucose 110 H (74-99) mg/dL C-Reactive Protein 2.8 H (<1.0) mg/dL Microbiology - Last 24 Hours (Table) 02/26/24 16:45 Gram Stain - Preliminary Leg - Left Wound Culture - Preliminary Pseudomonas aeruginosa Diabetes panel 02/26/24 Range/Units 16:45 Sodium 124 L (137-145) mmol/L Potassium 5.2 H (3.5-5.1) mmol/L Chloride 98 (98-107) mmol/L Carbon Dioxide 25 (22-30) mmol/L BUN 24 H (9-20) mg/dL Creatinine 1.12 (0.66-1.25) mg/dL Glucose 110 H (74-99) mg/dL Calcium 8.9 (8.4-10.2) mg/dL AST 20 (17-59) U/L ALT 10 (4-49) U/L Alkaline Phosphatase 81 (38-126) U/L Total Protein 7.4 (6.3-8.2) g/dL Albumin 4.1 (3.5-5.0) g/dL Calcium panel 02/26/24 Range/Units 16:45 Calcium 8.9 (8.4-10.2) mg/dL Albumin 4.1 (3.5-5.0) g/dL Pituitary panel 02/26/24 Range/Units 16:45 Sodium 124 L (137-145) mmol/L Potassium 5.2 H (3.5-5.1) mmol/L Chloride 98 (98-107) mmol/L Carbon Dioxide 25 (22-30) mmol/L BUN 24 H (9-20) mg/dL Creatinine 1.12 (0.66-1.25) mg/dL Glucose 110 H (74-99) mg/dL Calcium 8.9 (8.4-10.2) mg/dL Adrenal panel 02/26/24 Range/Units 16:45 Sodium 124 L (137-145) mmol/L Potassium 5.2 H (3.5-5.1) mmol/L Chloride 98 (98-107) mmol/L Carbon Dioxide 25 (22-30) mmol/L BUN 24 H (9-20) mg/dL Creatinine 1.12 (0.66-1.25) mg/dL Glucose 110 H (74-99) mg/dL Calcium 8.9 (8.4-10.2) mg/dL Total Bilirubin 0.4 (0.2-1.3) mg/dL AST 20 (17-59) U/L ALT 10 (4-49) U/L Alkaline Phosphatase 81 (38-126) U/L Total Protein 7.4 (6.3-8.2) g/dL Albumin 4.1 (3.5-5.0) g/dL Assessment and Plan Assessment: Left lower extremity wound dehiscence, doubt deep infection based on appearance. I do not believe the patient needs aggressive antibiotic therapy, from my standpoint he may be discharged. He should maintain his follow-up appointment with Dr. Syed and plan for outpatient wound care for this. Continue with Opticell dressing changes at this time and likely would benefit from wound VAC therapy as outpatient.
[2024-02-27] MEDS: CEFEPIME 2 GM in SODIUM CHLORIDE 0.9% 100 ML IVPB SCH (16:19)
[2024-02-28] MEDS: diphenhydrAMINE 50 MG/ML 1 ML VIAL IVP PRN (00:53)
[2024-02-28] MEDS: VANCOMYCIN 1,250 MG in SODIUM CHLORIDE 0.9% 250 ML IVPB SCH (00:54)
[2024-02-28 04:37] LABS: African American GFR (CKD) 75 (>60 ml/min/1.73 sqM); Non-African American GFR(CKD) 65 (>60 ml/min/1.73 sqM)
--- NOTE | 2024-02-28 10:09 | P.CONS ---
History of Present Illness - Reason for Consult Consult date: 02/27/24 Surgical site infection Requesting physician: America Verdugo - Chief Complaint Left leg incision open and drainage x few days - History of Present Illness Patient is a 59-year-old male with a past medical history significant for hypertension hyperlipidemia COPD reflux peripheral arterial disease in this patient who did have a chronic nonhealing wound to the left foot recently did have aortobifemoral bypass subsequent left femoral to below the knee popliteal bypass patient mention the stitches were removed on February 08 at that time his incision was healing however subsequently the incision started to open up over the last few days patient has been complaining of increasing swelling redness and drainage from the incision patient describing the pain to be mostly sharp moderate intensity without radiation on presentation to the hospital patient was afebrile and no fever have been called subsequently patient was not tachycardic or hypotensive he did have white count of 8000 ESR was 50 creatinine is 1.12 liver enzymes are normal CRP is 2.8 local cultures obtained which is growing Pseudomonas aeruginosa patient has been treated with vancomycin and cefepime infectious disease was consulted for further management of antibiotic therapy Review of Systems Positive point and negatives has been mentioned in the HPI, complete review of systems was performed and all other systems are negative Past Medical History Past Medical History: Asthma, COPD, GERD/Reflux, Hyperlipidemia, Hypertension, Osteoarthritis (OA) Additional Past Medical History / Comment(s): BACK AND HIP PAIN, DIFFICULTY WALKING DISTANCE, HX OF GASTRIC ULCERS AND BLOOD IN STOOL, CALCIFICATIONS IN BILATERAL FEMORAL ARTERIES, LEFT FOOT WOUND SINCE APRIL 2023 R/T PVD History of Any Multi-Drug Resistant Organisms: None Reported Past Surgical History: Hernia Repair Additional Past Surgical History / Comment(s): HERNIA REPAIR AT 5 & 7 YEARS OLD, AORTOFEMORAL BYPASS GRAFT Past Anesthesia/Blood Transfusion Reactions: No Reported Reaction Additional Past Anesthesia/Blood Transfusion Reaction / Comm: DOES NOT REMEMBER ANY ANESTHESIA PROBLEMS A CHILD. Past Psychological History: Anxiety Smoking Status: Current every day smoker Past Alcohol Use History: Daily, Heavy Past Drug Use History: Marijuana - Past Family History Mother Family Medical History: No Reported History Additional Family Medical History / Comment(s): bipolar disorder. Brother(s) Additional Family Medical History / Comment(s): bipolar disorder. Medications and Allergies Home Medications Medication Instructions Recorded Confirmed Type Bisoprolol-Hctz 5-6.25 mg [Ziac 1 tab PO DAILY 02/26/18 02/26/24 History 5-6.25 MG] Methylphenidate HCl 20 mg PO BID@0900,1500 02/26/18 02/26/24 History Tamsulosin HCl [Flomax] 0.4 mg PO HS 02/26/18 02/26/24 History Albuterol Nebulized [Ventolin 2.5 mg INHALATION RT-TID PRN 04/21/23 02/26/24 History Nebulized] Butalb/APAP/Caff 50-325-40Mg 1 tab PO DAILY PRN 04/21/23 02/26/24 History [Fioricet 50-325-40] lisinopriL [Zestril] 20 mg PO BID 04/21/23 02/26/24 History Gabapentin [Neurontin] 600 mg PO HS 08/22/23 02/26/24 History Nicotine 21Mg/24Hr Patch [Habitrol] 1 patch TRANSDERM DAILY 30 Days 09/02/23 02/26/24 Rx #30 patch Simvastatin [Zocor] 20 mg PO HS 10/23/23 02/26/24 History oxyCODONE-APAP 7.5-325MG [Percocet 1 tab PO TID PRN 10/23/23 02/26/24 History 7.5-325 mg] buPROPion XL [Wellbutrin XL] 150 mg PO DAILY 30 Days #30 tab 10/27/23 02/26/24 Rx cilostazoL [Pletal] 100 mg PO BID 30 Days #60 tab 10/27/23 02/26/24 Rx Albuterol Sulfate [Ventolin HFA] 2 puff INHALATION RT-QID PRN 12/27/23 02/26/24 History Escitalopram Oxalate [Lexapro] 20 mg PO DAILY 12/27/23 02/26/24 History traZODone HCL [Desyrel] 50 mg PO HS 12/27/23 02/26/24 History Ciprofloxacin HCl [Cipro] 500 mg PO Q12HR 10 Days #20 tab 02/29/24 Rx Allergies Allergy/AdvReac Type Severity Reaction Status Date / Time No Known Allergies Allergy Verified 02/26/24 17:55 Physical Exam Vitals: Vital Signs Temp Pulse Pulse Resp BP BP Pulse Ox 02/27/24 07:29 98.2 F 74 16 119/62 98 02/27/24 01:52 98 F 83 16 133/56 91 L 02/26/24 23:00 78 02/26/24 20:21 97.9 F 72 18 133/78 97 02/26/24 20:00 97.7 F 78 16 156/76 100 02/26/24 16:17 97.7 F 84 16 141/71 99 Intake and Output 02/26/24 02/27/24 02/27/24 22:59 06:59 14:59 Output Total 700 Balance -700 Output: Urine 700 Other: Voiding Method Toilet Urinal # Voids 3 # Bowel Movements 1 Weight 70.307 kg GENERAL DESCRIPTION: Middle-aged male lying in bed, no distress. No tachypnea or accessory muscle of respiration use. HEENT: Shows Pallor , no scleral icterus. Oral mucous membrane is dry. No pharyngeal erythema or thrush NECK: Trachea central, no thyromegaly. LUNGS: Unlabored breathing. Clear to auscultation anteriorly. No wheeze or crackle. HEART: S1, S2, regular rate and rhythm. No loud murmur ABDOMEN: Soft, no tenderness , guarding or rigidity, no organomegaly EXTREMITIES: Left leg wound base did have some slough tissue some swelling and drainage SKIN: No rash, no masses palpable. NEUROLOGICAL: The patient is awake, alert, oriented x3, mood and affect normal. Results CBC & Chem 7: 02/29/24 06:53 02/29/24 06:53 Labs: Abnormal Lab Results - Last 24 Hours (Table) 02/26/24 02/26/24 02/26/24 Range/Units 16:45 16:45 16:45 RBC 3.53 L (4.30-5.90) m/uL Hgb 10.9 L (13.0-17.5) gm/dL Hct 33.3 L (39.0-53.0) % ESR 50 H (0-20) mm/Hr PT 9.9 L (10.0-12.5) sec Sodium 124 L (137-145) mmol/L Potassium 5.2 H (3.5-5.1) mmol/L BUN 24 H (9-20) mg/dL Glucose 110 H (74-99) mg/dL C-Reactive Protein 2.8 H (<1.0) mg/dL Microbiology - Last 24 Hours (Table) 02/26/24 16:45 Gram Stain - Preliminary Leg - Left Wound Culture - Preliminary Pseudomonas aeruginosa Assessment and Plan (1) Surgical site infection Status: Acute Code(s): T81.49XA - INFECTION FOLLOWING A PROCEDURE, OTHER SURGICAL SITE, INIT SNOMED Code(s): 45908334 (2) Pseudomonas aeruginosa infection Status: Acute Code(s): A49.8 - OTHER BACTERIAL INFECTIONS OF UNSPECIFIED SITE SNOMED Code(s): 81856455 (3) Wound dehiscence Status: Acute Code(s): T81.30XA - DISRUPTION OF WOUND, UNSPECIFIED, INITIAL ENCOUNTER SNOMED Code(s): 731555826 Plan: 1patient with a significant history of peripheral artery disease in this patient is status post aortobifemoral bypass subsequently he did have a left femoral to below the knee popliteal bypass now presented to hospital with the left leg wound dehiscence with a local cultures obtained growing Pseudomonas concerning for superficial cellulitis wound infection 2-we will plan to the patient on cefepime with no gram-positive vancomycin will be discontinued 3-local care per the vascular surgery We will follow on clinical condition and cultures to further adjust medication if needed Thank you for this consultation we will follow the patient along with you Dictation was produced using [employer] dictation software. please excuse any grammatical, word or spelling errors. Time with Patient: Greater than 30
--- NOTE | 2024-02-28 10:18 | P.PN ---
Subjective Progress Note Date: 02/28/24 Eric Greenfield, is a 59-year-old male who presented to [facility] emergency room with a chief complaint of open wound at the incision site of his recent left femoral tibial bypass surgery. Patient underwent surgery on 01/18/2024 he was followed by vascular surgery he had his rafiq ismael frances however his incision site started to open again, he decided to monitor for the last 2 weeks however wound was not getting any better and he decided yesterday to come to emergency room. He was evaluated in the emergency room vital examination on presentation revealed a temperature of 97.7 pulse 84 respirations 16 blood pressure 141/71 pulse ox 99% on room air Laboratory data reveals a white blood count of 8.0 hemoglobin 10.9 platelet count 371 sodium 124 potassium 5.2 BUN 24 creatinine 1.12 Patient was admitted to medical floor he was started on IV antibiotic vancomycin and cefepime in the emergency room, he was also started on normal saline for hyponatremia. Vascular surgery and infectious disease consultation were requested. On 02/28/2024 patient is alert and oriented x 3. dOn 02/28/2024 patient's alert and oriented 3.patient showing positive blood culture. Antibiotics remain [facility] infectious disease services have been consulted Patient showing positive blood culture. Antibiotics remain Vanco and [facility] infectious disease services have been consulted. Per vascular surgery no plans for surgical intervention and patient. At this time patient denies chest pain or shortness of breath. Patient denies nausea vomiting or diarrhea. Patient denies any urinary burning or frequency Objective - Vital Signs Vital signs: Vital Signs Temp 98.2 F 02/28/24 07:08 Pulse 80 02/28/24 08:18 Resp 16 02/28/24 07:08 BP 133/68 02/28/24 07:08 Pulse Ox 92 L 02/28/24 07:08 FiO2 Intake & Output 02/27/24 02/28/24 02/28/24 18:59 06:59 18:59 Output Total 320 Balance -320 Output: Urine 320 Other: Voiding Method Toilet Urinal # Voids 4 3 # Bowel Movements 1 - Exam In general patient is alert and oriented x 3 in no distress HEENT head normocephalic and atraumatic Neck is supple no JVD no goiter no lymphadenopathy no carotid bruit Chest examination is clear to auscultation no crackles no wheezing Cardiac exam reveals regular heart sounds S1 and S2 no gallops no murmurs Abdomen is soft nontender no organomegaly with normal bowel sounds Extremity exam reveals mild edema bilaterally there is open wound in the surgical site on the left lower extremity with surrounding erythema Neurological examination reveals no gross focal deficits - Labs CBC & Chem 7: 02/26/24 16:45 02/28/24 03:40 Labs: Microbiology - Last 24 Hours (Table) 02/26/24 16:45 Gram Stain - Final Leg - Left Wound Culture - Final Pseudomonas aeruginosa 02/26/24 18:10 Blood Culture Gram Stain - Preliminary Blood Blood Culture - Preliminary Molecular ID Assessment and Plan Assessment: Left lower extremity wound dehiscence Hyponatremia Infected surgical wound Underlying history of severe peripheral arterial disease Underlying history of hypertension Underlying history of hyperlipidemia Underlying history of continued tobacco use At this time patient was seen and examined Home medications reviewed and reordered Vascular surgery and infectious disease consultation were requested Patient was started on IV vancomycin and IV cefepime in the emergency room For DVT prophylaxis domu Rudi Will follow closely
[2024-02-28] MEDS: BUTALB/APAP/CAFF 50-325-40MG TAB PO PRN (11:25)
[2024-02-28] MEDS: CEFEPIME 2 GM in SODIUM CHLORIDE 0.9% 100 ML IVPB SCH (11:33)
--- NOTE | 2024-02-28 16:36 | P.PN ---
Subjective Progress Note Date: 02/28/24 Principal diagnosis: Reason for follow-up is left leg wound infection and positive blood culture Patient is a 59-year-old male with a past medical history significant for hypertension hyperlipidemia COPD reflux peripheral arterial disease in this patient who did have a chronic nonhealing wound to the left foot recently did have aortobifemoral bypass subsequent left femoral to below the knee popliteal bypass now presented to hospital with dehiscence of his left leg wound culture positive for Pseudomonas and did have a positive blood culture with staph ominous. On today's evaluation that is 02/28/2024, patient has been afebrile, patient is breathing comfortably and is currently on room air, patient denies having any significant cough no chest pain shortness of breath, patient denies nausea vomiting or diarrhea and no abdominal pain, patient pain to the left lower extremity has slightly decreased intensity. Patient did have a creatinine 1.22 no CBC was done today local culture with Pseudomonas aeruginosa blood culture with staph epi Objective - Vital Signs Vital signs: Vital Signs Temp 98.1 F 02/28/24 12:34 Pulse 81 02/28/24 12:34 Resp 16 02/28/24 12:34 BP 128/68 02/28/24 12:34 Pulse Ox 95 02/28/24 12:34 FiO2 Intake & Output 02/27/24 02/28/24 02/28/24 18:59 06:59 18:59 Output Total 320 Balance -320 Output: Urine 320 Other: Voiding Method Toilet Urinal # Voids 4 3 # Bowel Movements 1 - Exam GENERAL DESCRIPTION: An elderly male lying in bed in no distress RESPIRATORY SYSTEM: Unlabored breathing , decreased breath sounds at bases HEART: S1 S2 regular rate and rhythm , ABDOMEN: Soft , no tenderness EXTREMITIES: Left leg wound with slough tissue no significant surrounding redness - Labs CBC & Chem 7: 02/26/24 16:45 02/28/24 03:40 Labs: Microbiology - Last 24 Hours (Table) 02/26/24 18:10 Blood Culture Gram Stain - Preliminary Blood Blood Culture - Preliminary Staphylococcus epidermidis Molecular ID 02/26/24 16:45 Anaerobic Culture - Preliminary Leg - Left 02/26/24 16:45 Gram Stain - Final Leg - Left Wound Culture - Final Pseudomonas aeruginosa Assessment and Plan (1) Surgical site infection Current Visit: Yes Status: Acute Code(s): T81.49XA - INFECTION FOLLOWING A PROCEDURE, OTHER SURGICAL SITE, INIT SNOMED Code(s): 46396254 (2) Pseudomonas aeruginosa infection Current Visit: Yes Status: Acute Code(s): A49.8 - OTHER BACTERIAL INFECTIONS OF UNSPECIFIED SITE SNOMED Code(s): 33806511 (3) Wound dehiscence Current Visit: Yes Status: Acute Code(s): T81.30XA - DISRUPTION OF WOUND, UNSPECIFIED, INITIAL ENCOUNTER SNOMED Code(s): 527274520 Plan: 1patient with a significant history of peripheral artery disease in this patient is status post aortobifemoral bypass subsequently he did have a left femoral to below the knee popliteal bypass now presented to hospital with the left leg wound dehiscence with a local cultures obtained growing Pseudomonas concerning for superficial cellulitis wound infection 2-patient also have a positive blood culture with staph epi possibly contamination. 3patient to continue with the cefepime and vancomycin for now local wound care with the Santyl hopefully transition to oral antibiotic on discharge Dictation was produced using [employer] dictation software. please excuse any grammatical, word or spelling errors. Time with Patient: Less than 30
[2024-02-29 07:21] LABS: ALT 10 U/L (4-49); AST 16 U/L (17-59); African American GFR (CKD) 83 (>60 ml/min/1.73 sqM); Albumin 3.3 g/dL (3.5-5.0); Albumin/Globulin Ratio 1.1; Alkaline Phosphatase 69 U/L (38-126); Anion Gap 1 mmol/L; Blood Urea Nitrogen 19 mg/dL (9-20); Carbon Dioxide 27 mmol/L (22-30); Chloride 108 mmol/L (98-107); Globulin 2.9 g/dL; Glucose 104 mg/dL (74-99); Non-African American GFR(CKD) 72 (>60 ml/min/1.73 sqM); Potassium 4.9 mmol/L (3.5-5.1); Sodium 136 mmol/L (137-145); Total Bilirubin 0.3 mg/dL (0.2-1.3); Total Protein 6.2 g/dL (6.3-8.2)
[2024-02-29 07:31] VITALS: BP 125/64; PULSE 79; RESP 17; TEMP 97.4
[2024-02-29] MEDS ORDERED: COLLAGENASE 250 UNIT/GM OINTMENT 30 GM TUBE TOPICAL SCH (09:00)
--- NOTE | 2024-02-29 09:14 | P.DS ---
Providers Date of admission: 02/26/24 17:42 Expected date of discharge: 02/29/24 Attending physician: Mariana Nesbitt Consults: 02/26/24 17:56 Consult Physician Urgent Consulting Provider: Precious Davis Consult Reason/Comments: Open surgical incision Do you want consulting provider notified?: Yes Consult Physician Urgent Consulting Provider: Elisabeth Mckeon Consult Reason/Comments: Open surgical incision, possible surgical infection Do you want consulting provider notified?: Yes Primary care physician: Mariana Nesbitt [facility] Hospital Course: Diagnosis on discharge: Left lower extremity wound dehiscence Hyponatremia Infected surgical wound, with positive wound culture for Pseudomonas aeruginosa, patient received IV cefepime during this admission, he was discharged home on a course of oral Cipro Underlying history of severe peripheral arterial disease Underlying history of hypertension Underlying history of hyperlipidemia Underlying history of continued tobacco use Hospital course: Eric Greenfield, is a 59-year-old male who presented to [facility] emergency room with a chief complaint of open wound at the incision site of his recent left femoral tibial bypass surgery. Patient underwent surgery on 01/18/2024 he was followed by vascular surgery he had his rafiq removed however his incision site started to open again, he decided to monitor for the last 2 weeks however wound was not getting any better and he decided yesterday to come to emergency room. He was evaluated in the emergency room vital examination on presentation revealed a temperature of 97.7 pulse 84 respirations 16 blood pressure 141/71 pulse ox 99% on room air Laboratory data reveals a white blood count of 8.0 hemoglobin 10.9 platelet count 371 sodium 124 potassium 5.2 BUN 24 creatinine 1.12 Patient was admitted to medical floor he was started on IV antibiotic vancomycin and cefepime in the emergency room, he was also started on normal saline for hyponatremia. Vascular surgery and infectious disease consultation were requested. On 02/28/2024 patient is alert and oriented x 3. dOn 02/28/2024 patient's alert and oriented 3.patient showing positive blood culture. Antibiotics remain [facility] infectious disease services have been consulted Patient showing positive blood culture. Antibiotics remain [facility] and [facility] infectious disease services have been consulted. Per vascular surgery no plans for surgical intervention and patient. At this time patient denies chest pain or shortness of breath. Patient denies nausea vomiting or diarrhea. Patient denies any urinary burning or frequency On 02/29/2024 patient was seen and examined on the medical floor he is alert and oriented x 3 in no apparent distress there is no fever or chills no headache or dizziness no chest pain no shortness of breath no cough no nausea or vomiting no abdominal pain no diarrhea and no urinary symptoms. Patient was cleared by Dr. Davis for discharge, Dr. Mckeon was contacted, and he recommended Cipro 500 mg twice daily for 10 more days at the time of discharge for wound infection with Pseudomonas aeruginosa. Patient will be discharged to home today he will be followed in our office within 1 week he will also be followed by Dr. Davis vascular surgery. Plan - Discharge Summary New Discharge Prescriptions: New Ciprofloxacin HCl [Cipro] 500 mg PO Q12HR 10 Days #20 tab Continue Tamsulosin HCl [Flomax] 0.4 mg PO HS Methylphenidate HCl 20 mg PO BID@0900,1500 Bisoprolol-Hctz 5-6.25 mg [Ziac 5-6.25 MG] 1 tab PO DAILY lisinopriL [Zestril] 20 mg PO BID Butalb/APAP/Caff 50-325-40Mg [Fioricet 50-325-40] 1 tab PO DAILY PRN PRN Reason: Migraine Headache Albuterol Nebulized [Ventolin Nebulized] 2.5 mg INHALATION RT-TID PRN PRN Reason: Shortness Of Breath oxyCODONE-APAP 7.5-325MG [Percocet 7.5-325 mg] 1 tab PO TID PRN PRN Reason: Pain buPROPion XL [Wellbutrin XL] 150 mg PO DAILY 30 Days #30 tab traZODone HCL [Desyrel] 50 mg PO HS Escitalopram Oxalate [Lexapro] 20 mg PO DAILY Gabapentin [Neurontin] 600 mg PO HS Nicotine 21Mg/24Hr Patch [Habitrol] 1 patch TRANSDERM DAILY 30 Days #30 patch Simvastatin [Zocor] 20 mg PO HS cilostazoL [Pletal] 100 mg PO BID 30 Days #60 tab Albuterol Sulfate [Ventolin HFA] 2 puff INHALATION RT-QID PRN PRN Reason: Shortness Of Breath Discontinued Escitalopram Oxalate [Lexapro] 10 mg PO HS Cephalexin [Keflex] 500 mg PO Q6H Discharge Medication List Bisoprolol-Hctz 5-6.25 mg [Ziac 5-6.25 MG] 1 tab PO DAILY 02/26/18 [History] Methylphenidate HCl 20 mg PO BID@0900,1500 02/26/18 [History] Tamsulosin HCl [Flomax] 0.4 mg PO HS 02/26/18 [History] Albuterol Nebulized [Ventolin Nebulized] 2.5 mg INHALATION RT-TID PRN 04/21/23 [History] Butalb/APAP/Caff 50-325-40Mg [Fioricet 50-325-40] 1 tab PO DAILY PRN 04/21/23 [History] lisinopriL [Zestril] 20 mg PO BID 04/21/23 [History] Gabapentin [Neurontin] 600 mg PO HS 08/22/23 [History] Nicotine 21Mg/24Hr Patch [Habitrol] 1 patch TRANSDERM DAILY 30 Days #30 patch 09/02/23 [Rx] Simvastatin [Zocor] 20 mg PO HS 10/23/23 [History] oxyCODONE-APAP 7.5-325MG [Percocet 7.5-325 mg] 1 tab PO TID PRN 10/23/23 [History] buPROPion XL [Wellbutrin XL] 150 mg PO DAILY 30 Days #30 tab 10/27/23 [Rx] cilostazoL [Pletal] 100 mg PO BID 30 Days #60 tab 10/27/23 [Rx] Albuterol Sulfate [Ventolin HFA] 2 puff INHALATION RT-QID PRN 12/27/23 [History] Escitalopram Oxalate [Lexapro] 20 mg PO DAILY 12/27/23 [History] traZODone HCL [Desyrel] 50 mg PO HS 12/27/23 [History] Ciprofloxacin HCl [Cipro] 500 mg PO Q12HR 10 Days #20 tab 02/29/24 [Rx] Follow up Appointment(s)/Referral(s): Mariana Nesbitt MD [Primary Care Provider] - 03/03/24 11:30 am
[2024-02-29] MEDS: VANCOMYCIN TROUGH DUE 1 EACH MISC MISCELLANE ONE (09:32)
--- NOTE | 2024-02-29 10:04 | P.PN ---
Subjective Progress Note Date: 02/29/24 Principal diagnosis: Left lower extremity surgical wound dehiscence Patient is seen and examined today as a follow-up. No acute changes through the night. He has been afebrile. No leukocytosis. Objective - Vital Signs Vital signs: Vital Signs Temp 97.4 F L 02/29/24 07:30 Pulse 79 02/29/24 07:30 Resp 17 02/29/24 07:30 BP 125/64 02/29/24 07:30 Pulse Ox 94 L 02/29/24 07:30 FiO2 Intake & Output 02/28/24 02/29/24 02/29/24 18:59 06:59 18:59 Other: Voiding Method Toilet Urinal # Voids 3 - Exam General appearance: The patient is alert, oriented, appears in no acute distress. HET: Head is normocephalic and atraumatic. Neck: Supple. Abdomen: Soft, nontender, nondistended. Extremities: Lower extremity swelling, left greater than right. Left lower extremity with dressing clean dry and intact. Neurological: No focal deficits. Strength and sensation are grossly intact. - Labs CBC & Chem 7: 02/26/24 16:45 02/29/24 06:53 Labs: Abnormal Lab Results - Last 24 Hours (Table) 02/29/24 Range/Units 06:53 Sodium 136 L (137-145) mmol/L Chloride 108 H (98-107) mmol/L Glucose 104 H (74-99) mg/dL AST 16 L (17-59) U/L Total Protein 6.2 L (6.3-8.2) g/dL Albumin 3.3 L (3.5-5.0) g/dL Microbiology - Last 24 Hours (Table) 02/26/24 18:10 Blood Culture Gram Stain - Preliminary Blood Blood Culture - Preliminary Staphylococcus epidermidis Molecular ID 02/26/24 16:45 Anaerobic Culture - Preliminary Leg - Left 02/26/24 16:45 Gram Stain - Final Leg - Left Wound Culture - Final Pseudomonas aeruginosa Assessment and Plan Assessment: 1. Left lower extremity wound dehiscence, appears noninfected 2. Left lower extremity swelling 3. Recent left femoral to below-knee popliteal bypass Plan: Discontinue Santyl, dressing changes with Opticell silver. Patient likely would benefit from wound VAC however patient states he will not allow home care or anyone to the home that he resides in. Again does not appear that there is any infection, likely blood culture and wound culture contaminated. Patient has appointment with Dr. Syed in the office tomorrow along with ultrasound imaging. Discussed with Dr. Nesbitt recommendation for discharge so he can make his appointment with Dr. Syed for continued recommendations of wound care and imaging. Discussed with patient importance of increasing ambulation, getting home situation set up where patient would be able to appropriately care for his wound. Patient voices understanding Patient is cleared from vascular surgery for discharge. The impression and plan of care has been dictated as directed. I performed a history and examination of this patient, discussed the same with the dictator. I agree with the dictator's note ,documented as a scribe. Any additional findings or plans will be noted.
[2024-02-29 10:16] LABS: Basophils # (A) 0.04 X 10*3/uL (0.00-0.10); Basophils % (A) 0.5 %; Eosinophils # (A) 0.38 X 10*3/uL (0.04-0.35); Eosinophils % (A) 4.5 %; HCT 30.6 % (39.6-50.0); HGB 9.5 g/dL (13.0-17.0); Lymphocytes # (A) 1.33 X 10*3/uL (0.90-5.00); Lymphocytes % (A) 15.6 %; MCH 30.7 pg (27.0-32.0); Mean Platelet Volume 10.2 FL (9.5-12.2); Monocytes # (A) 0.91 X 10*3/uL (0.20-1.00); Monocytes % (A) 10.7 %; NRBC Per 100 WBC 0 X 10*3/uL (0.00-0.01); Platelet Count 270 X 10*3/uL (140-440); RBC 3.09 X 10*6/uL (4.40-5.60); RDW 13.2 % (11.5-14.5); WBC 8.52 X 10*3/uL (4.50-10.00)
== END 2024-02-29 10:46 | disposition home or self-care (01) | DRG 721 ==
LOC: EC 16:04 → 5NMEDONC 17:42
PROVIDERS: ADMIT Internal Medicine; ATTEND Internal Medicine
DX: T81.41XA Infection following a procedure, superficial incisional surgical site, initial encounter (principal); T81.31XA Disruption of external operation (surgical) wound, not elsewhere classified, initial encounter; J44.89 Other specified chronic obstructive pulmonary disease; I10 Essential (primary) hypertension; I73.9 Peripheral vascular disease, unspecified; K21.9 Gastro-esophageal reflux disease without esophagitis; F41.9 Anxiety disorder, unspecified; F17.200 Nicotine dependence, unspecified, uncomplicated; E87.1 Hypo-osmolality and hyponatremia; E78.5 Hyperlipidemia, unspecified; B96.5 Pseudomonas (aeruginosa) (mallei) (pseudomallei) as the cause of diseases classified elsewhere; Z87.11 Personal history of peptic ulcer disease; Z79.899 Other long term (current) drug therapy; Z79.02 Long term (current) use of antithrombotics/antiplatelets; M19.90 Unspecified osteoarthritis, unspecified site
CPT/HCPCS: 36415; 80053; 80202; 82565; 83605; 85025; 85610; 85652; 85730; 86140; 87040; 87070; 87075; 87077; 87186; 87205; 94640; 96365; 96366; 96368; 96375; 99285

== ENCOUNTER → 2024-08-03 | Outpatient (CLI) | payer OTHER ==
[2024-08-03 15:09] LABS: Basophils % (A) 0.9 %; Eosinophils # (A) 0.28 X 10*3/uL (0.04-0.35); Eosinophils % (A) 2.5 %; HCT 40.3 % (39.6-50.0); HGB 12.7 g/dL (13.0-17.0); Lymphocytes % (A) 18.2 %; MCH 30.3 pg (27.0-32.0); MCHC 31.5 g/dL (32.0-37.0); MCV 96.2 FL (80.0-97.0); Mean Platelet Volume 10.5 FL (9.5-12.2); Monocytes # (A) 1.21 X 10*3/uL (0.20-1.00); NRBC Per 100 WBC 0 X 10*3/uL (0.00-0.01); Neutrophils # (A) 7.37 X 10*3/uL (1.80-7.70); Neutrophils % (A) 67.1 %; Platelet Count 324 X 10*3/uL (140-440); RBC 4.19 X 10*6/uL (4.40-5.60); WBC 10.99 X 10*3/uL (4.50-10.00)
[2024-08-03 15:28] LABS: ALT 16 U/L (10-49); AST 19 U/L (14-35); Albumin 4.4 g/dL (3.8-4.9); Albumin/Globulin Ratio 1.38 Ratio (1.60-3.17); Alkaline Phosphatase 89 U/L (41-126); BUN/Creat Ratio 29.69 Ratio (12.00-20.00); Bilirubin, Conjugated <0.20 mg/dL (0.20-0.40); Blood Urea Nitrogen 38.6 mg/dL (9.0-27.0); Calcium 9.5 mg/dL (8.7-10.3); Carbon Dioxide 23.6 mmol/L (21.6-31.8); Chloride 102 mmol/L (96-109); Chol/HDL Ratio 3.74 Ratio; Globulin 3.2 g/dL (1.6-3.3); Glucose 107 mg/dL (70-110); LDL Cholesterol,Calculated 127.7 mg/dL (0.0-131.0); Potassium 5.8 mmol/L (3.5-5.5); Sodium 137 mmol/L (135-145); T4, Free (Free Thyroxine) 1.04 ng/dL (0.80-1.80); Total Bilirubin <0.2 mg/dL (0.3-1.2); Total Protein 7.6 g/dL (6.2-8.2); VLDL Calculation 16.56 mg/dL (5.00-40.00)
== END | disposition home or self-care (01) ==
LOC: LABWHC1 10:05
PROVIDERS: ATTEND Registered Nurse
DX: F33.1 Major depressive disorder, recurrent, moderate (principal); F90.8 Attention-deficit hyperactivity disorder, other type; F10.20 Alcohol dependence, uncomplicated
CPT/HCPCS: 36415; 80053; 80061; 82248; 83036; 84436; 84439; 84443; 84479; 85025; 93005